=== PATIENT | female | born 1955 | race Caucasian/White ===

== ENCOUNTER 2021-02-04 22:03 | Inpatient (IN) | payer OTHER ==
[2021-02-04] MEDS ORDERED: ALBUTEROL NEBULIZED 2.5 MG/3 ML INHALATION STA (22:10)
[2021-02-04] MEDS ORDERED: methylPREDNISolone SOD SUCCI 125 MG/2 ML VIAL IV STA (22:10)
[2021-02-04] MEDS ORDERED: SODIUM CHLORIDE 0.9% 1,000 ML IV STA (22:10)
[2021-02-04] MEDS ORDERED: IPRATROPIUM 0.5 MG/2.5 ML NEBU INHALATION STA (22:10)
--- NOTE | 2021-02-04 22:10 | ED ---
SOB HPI - General Stated Complaint: SOB Time Seen by Provider: 02/04/21 22:08 Source: RN notes reviewed, old records reviewed Limitations: no limitations - History of Present Illness Initial Comments: This is a 62-year-old female accepted in transfer. Ration is accepted In transfer for COPD exacerbation. Patient sent here for under care of her own physicians MD Complaint: shortness of breath, cough -: days(s) Severity: moderate Severity scale (1-10): 7 Quality: aching Consistency: constant Improves With: nothing Worsens With: nothing Known History Of: COPD - Related Data Home Medications Medication Instructions Recorded Confirmed Albuterol Sulfate [Proair Hfa] 2 puff INHALATION RT-Q4H PRN 03/27/14 02/04/21 Ipratropium/Albuterol Sulfate 3 ml INHALATION RT-Q4H 03/27/14 02/04/21 [Duoneb 0.5 mg-3 mg/3 ml Soln] Loperamide [Imodium] 4 mg PO BID 03/27/14 02/04/21 Loratadine 10 mg PO DAILY 03/27/14 02/04/21 Omeprazole 20 mg PO BID 03/27/14 02/04/21 Oxybutynin Chloride [Ditropan] 5 mg PO BID 03/27/14 02/04/21 Cholecalciferol [Vitamin D3 (25 25 mcg PO HS 02/04/21 02/04/21 Mcg = 1000 Iu)] Fluticasone Nasal [place] [Flonase 2 spr EA NOSTRIL DAILY 02/04/21 02/04/21 Nasal [place]] Fluticasone/Salmeterol [Advair 1 puff INHALATION RT-BID 02/04/21 02/04/21 250-50 Diskus] Gabapentin 300 mg PO BID 02/04/21 02/04/21 Iron Polysaccharide Complex 150 mg PO Q48H 02/04/21 02/04/21 [Ferrex 150] Levothyroxine Sodium [Synthroid] 50 mcg PO HS 02/04/21 02/04/21 Loperamide [Imodium] 2 mg PO HS PRN 02/04/21 02/04/21 Magnesium Oxide [Magox 400] 400 mg PO HS 02/04/21 02/04/21 Metoprolol Succinate [Toprol XL] 25 mg PO DAILY 02/04/21 02/04/21 Mirtazapine [Remeron] 45 mg PO HS 02/04/21 02/04/21 Morphine Sulfate 15 mg PO Q6HR 02/04/21 02/04/21 Morphine Sulfate [Ms Contin] 30 mg PO BID 02/04/21 02/04/21 Multivitamins, Thera [Multivitamin 1 tab PO DAILY 02/04/21 02/04/21 (formulary)] Potassium Chloride ER [K-Dur 20] 20 meq PO HS 02/04/21 02/04/21 QUEtiapine FUMARATE [SEROquel] 200 mg PO HS 02/04/21 02/04/21 QUEtiapine [SEROquel] 50 mg PO HS 02/04/21 02/04/21 QUEtiapine [SEROquel] 100 mg PO DAILY 02/04/21 02/04/21 Tiotropium [place] [Spiriva] 1 cap INHALATION RT-DAILY 02/04/21 02/04/21 busPIRone HCL 15 - 30 mg PO BID 02/04/21 02/04/21 diphenhydrAMINE [Benadryl] 50 mg PO BID 02/04/21 02/04/21 guaiFENesin-DM 100-10MG/5ML 10 ml PO Q4-6H PRN 02/04/21 02/04/21 [Robitussin DM] hydrOXYzine HCL 25 mg PO DAILY 02/04/21 02/04/21 tiZANidine [Zanaflex] 4 mg PO Q8HR 02/04/21 02/04/21 Previous Rx's Medication Instructions Recorded Ipratropium-Albuterol Nebulize 3 ml INHALATION RT-Q2H PRN #1 box 02/09/21 [Duoneb 0.5 mg-3 mg/3 ml Soln] predniSONE See Taper PO DIRECTED 16 Days 02/09/21 #40 tab Allergies Allergy/AdvReac Type Severity Reaction Status Date / Time azithromycin Allergy Swelling Verified 02/04/21 22:16 diltiazem HCl [From Cardizem] Allergy Anaphylaxis Verified 02/04/21 22:16 doxycycline Allergy Swelling Verified 02/04/21 22:16 hydromorphone HCl AdvReac Nausea & Verified 02/04/21 22:16 [From Dilaudid] Vomiting Review of Systems ROS Statement: Those systems with pertinent positive or pertinent negative responses have been documented in the HPI. ROS Other: All systems not noted in ROS Statement are negative. Past Medical History Past Medical History: Asthma, COPD, GERD/Reflux, Osteoarthritis (OA) Additional Past Medical History / Comment(s): DJD, Esophagitis, OCD, barretts esophagus, spinal disk herniation, severe spinal pain. History of Any Multi-Drug Resistant Organisms: MRSA Date of last positivie culture/infection: 12/19/2009 MDRO Source:: Abdomen Past Surgical History: Appendectomy, Back Surgery, Section, Cholecystectomy, Hysterectomy Additional Past Surgical History / Comment(s): D&C, partial hysterectomy, Past Anesthesia/Blood Transfusion Reactions: No Reported Reaction Additional Psychological History / Comment(s): OCD - Past Family History Family Family Medical History: No Reported History General Exam General appearance: alert, in no apparent distress, anxious Head exam: Present: atraumatic, normocephalic, normal inspection Eye exam: Present: normal appearance, PERRL, EOMI. Absent: scleral icterus, conjunctival injection, periorbital swelling ENT exam: Present: normal exam, mucous membranes dry Neck exam: Present: normal inspection. Absent: tenderness, meningismus, lymphadenopathy Respiratory exam: Present: respiratory distress, wheezes, decreased breath sounds, prolonged expiratory. Absent: rales, rhonchi, stridor Cardiovascular Exam: Present: normal rhythm, tachycardia, normal heart sounds. Absent: systolic murmur, diastolic murmur, rubs, gallop, clicks GI/Abdominal exam: Present: soft, normal bowel sounds. Absent: distended, tenderness, guarding, rebound, rigid Extremities exam: Present: normal inspection, full ROM, normal capillary refill. Absent: tenderness, pedal edema, joint swelling, calf tenderness Back exam: Present: normal inspection Neurological exam: Present: alert, oriented X3, CN II-XII intact Psychiatric exam: Present: normal affect, normal mood Skin exam: Present: warm, dry, intact, normal color. Absent: rash Course Vital Signs 02/04/21 02/04/21 02/04/21 22:04 23:15 23:17 Temperature 98.0 F 98.2 F Pulse Rate 107 H 107 H Pulse Rate [ 115 H Pulse Oximetery ] Respiratory 24 20 Rate Blood Pressure 127/85 O2 Sat by Pulse 90 L 92 L Oximetry 02/04/21 23:25 Temperature Pulse Rate 108 H Pulse Rate [ Pulse Oximetery ] Respiratory Rate Blood Pressure O2 Sat by Pulse Oximetry - Reevaluation(s) Reevaluation #1: Medical records reviewed Patient symptoms are improved here in the ER Patient informed results and questions answered Medical Decision Making - Medical Decision Making 65 female history of COPD coming in for COPD exacerbation and need for continued treatment - Lab Data Result diagrams: 02/05/21 05:30 02/05/21 04:58 - EKG Data -: EKG Interpreted by Me (EKG is sinus tachycardia 113 MS 150 QRS 92 QTC 455) Disposition Clinical Impression: Acute exacerbation of chronic obstructive pulmonary disease Disposition: ADMITTED IP TO THIS HOSP Condition: Stable Is patient prescribed a controlled substance at d/c from ED?: No
[2021-02-04] MEDS ORDERED: IPRATROPIUM-ALBUTEROL 3 ML NEB INHALATION STA (22:19)
[2021-02-04] MEDS ORDERED: IPRATROPIUM-ALBUTEROL 3 ML NEB INHALATION PRN (22:57)
[2021-02-05] MEDS: methylPREDNISolone SOD SUCCI 125 MG/2 ML VIAL IV SCH ×4 (00:46→18:02)
[2021-02-05] MEDS: SODIUM CHLORIDE 0.9% 1,000 ML IV SCH ×3 (00:47→19:15)
[2021-02-05] MEDS ORDERED: HYDROcodone/APAP 5-325MG 1 EACH TAB PO STA (00:59)
--- NOTE | 2021-02-05 02:32 | XR ---
EXAMINATION TYPE: XR chest 1V portable DATE OF EXAM: 02/05/2021 COMPARISON: 02/04/2021 HISTORY: Short of breath There is no gross heart failure. Exam limited slightly by patient's size. There is slight blunting of the left costophrenic angle. There are no hilar masses. Mediastinum is normal. Thoracic aorta is ath eromatous. IMPRESSION: Possible infiltrate or minimal pleural fluid at the left lung base. No definite change co mpared to yesterday. No gross heart failure.
[2021-02-05] MEDS ORDERED: IPRATROPIUM-ALBUTEROL 3 ML NEB INHALATION PRN (02:38)
[2021-02-05] MEDS ORDERED: guaiFENesin-DM 100-10MG/5ML 10 ML CUP PO PRN (03:00)
[2021-02-05] MEDS: GABAPENTIN 300 MG CAP PO SCH ×3 (03:27→21:16)
[2021-02-05] MEDS: QUEtiapine 50 MG TAB PO SCH ×2 (03:27→21:16)
[2021-02-05] MEDS: MORPHINE SULFATE ER 30 MG TABLET PO SCH ×3 (03:27→21:16)
[2021-02-05] MEDS: MIRTAZAPINE 45 MG TABLET PO SCH ×2 (03:27→21:15)
[2021-02-05] MEDS: QUEtiapine 200 MG TAB PO SCH ×2 (03:27→21:16)
[2021-02-05] MEDS: SYMBICORT 80-4.5 MCG INHALER INHALATION SCH ×4 (03:27→20:46)
[2021-02-05] MEDS ORDERED: diphenhydrAMINE 50 MG CAP PO PRN (03:36)
--- NOTE | 2021-02-05 03:58 | P.HPIM ---
History of Present Illness H&P Date: 02/05/21 Chief Complaint: shortness of breath 65 year old female with COPD, chronic hypoxic respiratory failure on home oxygen 4 LPM patient is a transfer from [facility], she presented with worsening shortness of breath and wheezing that has been progressing over the past 1 month , she does have history of being intubated multiple times in the past, she found no improvement with breathing treatment today , and decided to call 911. she increased her oxygen from 4 LPM to 6 :LPM and EMS documented hypoxemia at 87% upon arrival to the patient. she denies any smoking, or smoke exposure, she does not leave the house, as she is scared of COVID infection, she has not been vaccinated. she also reports chronic productive cough of yellowish sputum, and in general denies any fever or chills, she reports that she only had one day of fever over the past month . she denies any sick contact , or smoking, denies any chest pain , nausea or vomiting, denies any abd pain , or dysuria . she does report loose bowel movements , and has received short course of antibiotics and steroids about a month ago she is currently requesting her night time medications, she is anxious to get better blood work and imaging from [facility] was reviewed. Review of Systems Pertinent positives as noted in HPI. All other systems were reviewed and are negative Past Medical History Past Medical History: Asthma, COPD, GERD/Reflux, Osteoarthritis (OA) Additional Past Medical History / Comment(s): DJD, Esophagitis, OCD, barretts esophagus, spinal disk herniation, severe spinal pain. History of Any Multi-Drug Resistant Organisms: MRSA Date of last positivie culture/infection: 12/19/2009 MDRO Source:: Abdomen Past Surgical History: Appendectomy, Back Surgery, Section, Cholecystectomy, Hysterectomy Additional Past Surgical History / Comment(s): D&C, partial hysterectomy, Past Anesthesia/Blood Transfusion Reactions: No Reported Reaction Past Psychological History: Anxiety, Depression, PTSD, Schizophrenia Additional Psychological History / Comment(s): OCD Smoking Status: Never smoker Past Alcohol Use History: None Reported Past Drug Use History: Marijuana - Past Family History Family Family Medical History: No Reported History Medications and Allergies Home Medications Medication Instructions Recorded Confirmed Type Albuterol Sulfate [Proair Hfa] 2 puff INHALATION RT-Q4H PRN 03/27/14 02/04/21 History Ipratropium/Albuterol Sulfate 3 ml INHALATION RT-Q4H 03/27/14 02/04/21 History [Duoneb 0.5 mg-3 mg/3 ml Soln] Loperamide [Imodium] 4 mg PO BID 03/27/14 02/04/21 History Loratadine 10 mg PO DAILY 03/27/14 02/04/21 History Omeprazole 20 mg PO BID 03/27/14 02/04/21 History Oxybutynin Chloride [Ditropan] 5 mg PO BID 03/27/14 02/04/21 History Cholecalciferol [Vitamin D3 (25 25 mcg PO HS 02/04/21 02/04/21 History Mcg = 1000 Iu)] Fluticasone Nasal [place] [Flonase 2 spr EA NOSTRIL DAILY 02/04/21 02/04/21 History Nasal [place]] Fluticasone/Salmeterol [Advair 1 puff INHALATION RT-BID 02/04/21 02/04/21 History 250-50 Diskus] Gabapentin 300 mg PO BID 02/04/21 02/04/21 History Iron Polysaccharide Complex 150 mg PO Q48H 02/04/21 02/04/21 History [Ferrex 150] Levothyroxine Sodium [Synthroid] 50 mcg PO HS 02/04/21 02/04/21 History Loperamide [Imodium] 2 mg PO HS PRN 02/04/21 02/04/21 History Magnesium Oxide [Magox 400] 400 mg PO HS 02/04/21 02/04/21 History Metoprolol Succinate [Toprol XL] 25 mg PO DAILY 02/04/21 02/04/21 History Mirtazapine [Remeron] 45 mg PO HS 02/04/21 02/04/21 History Morphine Sulfate 15 mg PO Q6HR 02/04/21 02/04/21 History Morphine Sulfate [Ms Contin] 30 mg PO BID 02/04/21 02/04/21 History Multivitamins, Thera [Multivitamin 1 tab PO DAILY 02/04/21 02/04/21 History (formulary)] Potassium Chloride ER [K-Dur 20] 20 meq PO HS 02/04/21 02/04/21 History QUEtiapine FUMARATE [SEROquel] 200 mg PO HS 02/04/21 02/04/21 History QUEtiapine [SEROquel] 50 mg PO HS 02/04/21 02/04/21 History QUEtiapine [SEROquel] 100 mg PO DAILY 02/04/21 02/04/21 History Tiotropium [place] [Spiriva] 1 cap INHALATION RT-DAILY 02/04/21 02/04/21 History busPIRone HCL 15 - 30 mg PO BID 02/04/21 02/04/21 History diphenhydrAMINE [Benadryl] 50 mg PO BID 02/04/21 02/04/21 History guaiFENesin-DM 100-10MG/5ML 10 ml PO Q4-6H PRN 02/04/21 02/04/21 History [Robitussin DM] hydrOXYzine HCL 25 mg PO DAILY 02/04/21 02/04/21 History tiZANidine [Zanaflex] 4 mg PO Q8HR 02/04/21 02/04/21 History Allergies Allergy/AdvReac Type Severity Reaction Status Date / Time azithromycin Allergy Swelling Verified 02/04/21 22:16 diltiazem HCl [From Cardizem] Allergy Anaphylaxis Verified 02/04/21 22:16 doxycycline Allergy Swelling Verified 02/04/21 22:16 hydromorphone HCl AdvReac Nausea & Verified 02/04/21 22:16 [From Dilaudid] Vomiting Physical Exam Vitals: Vital Signs Temp Pulse Pulse Resp BP BP Pulse Ox 02/05/21 02:18 108 H 02/05/21 02:08 104 H 02/05/21 00:05 98.2 F 113 H 137/88 92 L 02/04/21 23:25 108 H 02/04/21 23:17 98.2 F 115 H 20 92 L 02/04/21 23:15 107 H 02/04/21 22:04 98.0 F 107 H 24 127/85 90 L Intake and Output 02/04/21 02/04/21 02/05/21 14:59 22:59 06:59 Other: Weight 210.104 kg 210.104 kg Constitutional: No acute distress, conversant, pleasant, morbidly obese Eyes: Anicteric sclerae, moist conjunctiva, Pupils equal round reactive to light ENMT: NC/AT Oropharynx clear, no erythema, or exudates Neck: Supple, FROM, no masses, or JVD No carotid bruits No thyromegaly Lungs: Decreased breath sounds throughout with prolonged expiratory phase and diffuse wheezing Clear to percussion Patient using accessory muscles of respiration Cardiovascular: Heart regular in rate and rhythm, No murmurs, gallops, or rubs No peripheral edema Abdominal: Soft Nontender, no guarding, rebound or rigidity Abdomen moving with respiration Normoactive bowel sounds Obese limiting exam Skin: Normal temperature, tone, texture, turgor No induration No subcutaneous nodules No rash, lesions No ulcers Extremities: No digital cyanosis No clubbing Pedal pulses intact and symmetrical Radial pulses intact and symmetrical No calf tenderness Psychiatric: Alert and oriented to person, place and time Appropriate affect fair judgement Neuro Muscles Strength 4/5 in all 4 extremities Sensation to light touch grossly present throughout Cranial nerves II-XII grossly intact No focal sensory deficits Lymphatics: no palpable cervical or supraclavicular , or inguinal lymph nodes Thrombosis Risk Factor Assmnt - Choose All That Apply Each Risk Factor Represents 2 Points: Age 61-74 years Thrombosis Risk Factor Assessment Total Risk Factor Score: 2 Thrombosis Risk Factor Assessment Level: Low Risk Assessment and Plan Assessment: Acute on chronic hypoxic respiratory failure Acute COPD exacerbation Plan Systemic steroids Nebulizer every 2 hours when necessary Symbicort inhaler twice a day Patient ALLERGIC to azithromycin and doxycycline recently has finished a course of amoxicillin Chest x-ray no clear infiltrates suggestive of pneumonia Check ABG as needed Supplemental oxygen as needed Patient declined BiPAP as she doesn't tolerated. Symptomatic control Resume home medications Chronic conditions GERD Osteoarthritis Resume home pain meds Patient is full code DVT prophylaxis heparin subcu 3 times a day Anticipated discharge to home Anticipated length of stay more than 2 midnights
[2021-02-05] MEDS: ALPRAZolam 0.5 MG TAB PO PRN ×2 (04:22→11:41)
[2021-02-05] MEDS: LEVOTHYROXINE 50 MCG TAB PO SCH (06:05)
[2021-02-05 06:50] LABS: Glucose,Whole Blood 268 mg/dL (75-99)
[2021-02-05 06:59] LABS: Anisocytosis Slight; Basophils % (A) 0 %; Eosinophils % (A) 0 %; HCT 43.8 % (34.0-46.0); HGB 13.4 gm/dL (11.4-16.0); Hypochromasia Marked; Lymphocytes # (A) 0.5 k/uL (1.0-4.8); Lymphocytes % (A) 6 %; MCHC 30.7 g/dL (31.0-37.0); MCV 87.7 fL (80.0-100.0); Mean Platelet Volume 8.3; Monocytes # (A) 0.1 k/uL (0-1.0); Monocytes % (A) 1 %; Neutrophils # (A) 7.5 k/uL (1.3-7.7); Neutrophils % (A) 93 %; Platelet Count 221 k/uL (150-450); RBC 4.99 m/uL (3.80-5.40); RDW 16.7 % (11.5-15.5); WBC 8.2 k/uL (3.8-10.6)
[2021-02-05 07:08] LABS: ALT 22 U/L (4-34); AST 25 U/L (14-36); African American GFR (CKD) >90 (>60 ml/min/1.73 sqM); Albumin 3.6 g/dL (3.5-5.0); Alkaline Phosphatase 130 U/L (38-126); Anion Gap 5 mmol/L; Blood Urea Nitrogen 16 mg/dL (7-17); Calcium 9.2 mg/dL (8.4-10.2); Carbon Dioxide 30 mmol/L (22-30); Chloride 105 mmol/L (98-107); Glucose 300 mg/dL (74-99); Non-African American GFR(CKD) >90 (>60 ml/min/1.73 sqM); Potassium 4.8 mmol/L (3.5-5.1); Sodium 140 mmol/L (137-145); Total Bilirubin 0.2 mg/dL (0.2-1.3); Total Protein 6.6 g/dL (6.3-8.2)
[2021-02-05] MEDS: INSULIN ASPART (NovoLOG) 100 UNIT/ML VIAL SQ SCH ×4 (07:25→21:17)
[2021-02-05] MEDS: METOPROLOL SUCCINATE (ER) 25 MG TAB.ER.24H PO SCH (07:53)
[2021-02-05] MEDS: PANTOPRAZOLE 40 MG TABLET PO SCH (07:53)
[2021-02-05] MEDS: tiZANidine 4 MG TAB PO SCH ×2 (07:53→18:02)
[2021-02-05] MEDS: HEPARIN SODIUM,PORCINE/PF 5,000 UNIT/0.5 ML SYRINGE SQ SCH ×2 (07:53→17:13)
[2021-02-05] MEDS: LORATADINE 10 MG TAB PO SCH (07:54)
[2021-02-05] MEDS: OXYBUTYNIN CHLORIDE 5 MG TAB PO SCH ×2 (07:54→21:17)
[2021-02-05] MEDS: QUEtiapine 100 MG TAB PO SCH (07:54)
[2021-02-05] MEDS ORDERED: IPRATROPIUM 0.5 MG/2.5 ML NEBU INHALATION SCH (08:00)
[2021-02-05] MEDS ORDERED: ALBUTEROL NEBULIZED 2.5 MG/3 ML INHALATION SCH (08:00)
[2021-02-05] MEDS: MORPHINE SULFATE IR 15 MG TABLET PO PRN ×2 (08:03→17:21)
--- NOTE | 2021-02-05 10:14 | P.PN ---
Progress Note - Text Progress Note Date: 02/05/21 I saw and evaluated the patient today, and agree with the assessment and plan as documented by my colleague earlier this morning. Will add levofloxacin for abx covg for COPD exacerbation. Roflumilast on discharge.
[2021-02-05] MEDS: IPRATROPIUM-ALBUTEROL 3 ML NEB INHALATION SCH ×3 (11:15→20:46)
[2021-02-05 11:37] LABS: Glucose,Whole Blood 350 mg/dL (75-99)
[2021-02-05] MEDS: LEVOFLOXACIN 750 MG TAB PO SCH (11:41)
[2021-02-05] MEDS: FLUTICASONE 50MCG/SPRAY NASAL 16GM EA NOSTRIL SCH (11:41)
[2021-02-05] MEDS ORDERED: RX INFO: IV CONTRAST WAS GIVEN 1 EACH MISC MISCELLANE PRN (12:42)
--- NOTE | 2021-02-05 12:51 | P.CNPUL ---
History of Present Illness Consult date: 02/05/21 Requesting physician: Teofilo Anderson Reason for consult: dyspnea, abnormal CXR/CT Chief complaint: Shortness of breath, cough, congestion History of present illness: This is a 65-year-old morbidly obese female patient with a history of bronchial asthma, hypertension, nephrolithiasis, complicated abdominal hernia requiring multiple surgeries in the past, previous pneumonias, chronic back pain. She had been seen by our group back in 2013 at which time she had a CT angiogram ruled out pulmonary embolism. However there was a 5.3 x 5.4 cm mass in the right middle lobe. Neoplasm was in the differential. She had not followed up in our office. 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 She states she is a lifelong nonsmoker. She was however exposed to secondhand smoke. She presented to the emergency room yesterday with a one month history of increasing shortness of breath, cough and congestion. She had been on antibiotics and steroids 1 without much improvement. She's had yellow product sohan cough. Low-grade temperature. Some chest tightness and wheezing. She was taking her breathing treatments at home without much improvement. She is seen today in consultation on the regular medical floor. She is currently sitting at the bedside. Awake and alert in no acute distress. Maintaining O2 saturations in the low 90s on 6 L/m per nasal cannula. Afebrile. Slightly tachycardic. Blood pressure stable. She's been initiated on bronchodilators, IV Solu- Medrol, antibiotics in the form of Levaquin. Chest x-ray reveals possible infiltrate or minimal effusion of the left lung base. White count 8.2. Hemoglobin 13.4. Sodium 140. Potassium 4.8. Creatinine 0.71. Jimenez virus not detected. Review of Systems REVIEW OF SYSTEMS: CONSTITUTIONAL: Denies any recent significant weight loss or weight gain. EYES: Denies change in vision. EARS, NOSE, MOUTH, THROAT: Denies headaches, denies sore throat. CARDIOVASCULAR: Denies chest pain, palpitations or syncopal episodes. RESPIRATORY: Positive for shortness of breath, cough, congestion no hemoptysis. GASTROINTESTINAL: Denies change in appetite, denies abdominal pain GENITOURINARY: Denies hematuria, denies infections. MUSKULOSKELETAL: Denies pain, denies swelling. INTEGUMENTARY: Denies rash, denies eczema. NEUROLOGICAL: Denies recent memory loss, no recent seizure activity. PSYCHIATRIC: Denies anxiety, denies depression. HEMATOLOGIC/LYMPHATIC: Denies anemia, denies enlarged lymph nodes. Past Medical History Past Medical History: Asthma, COPD, GERD/Reflux, Osteoarthritis (OA) Additional Past Medical History / Comment(s): DJD, Esophagitis, OCD, barretts esophagus, spinal disk herniation, severe spinal pain. History of Any Multi-Drug Resistant Organisms: MRSA Date of last positivie culture/infection: 12/19/2009 MDRO Source:: Abdomen Past Surgical History: Appendectomy, Back Surgery, Section, Cholecystectomy, Hysterectomy Additional Past Surgical History / Comment(s): D&C, partial hysterectomy, Past Anesthesia/Blood Transfusion Reactions: No Reported Reaction Past Psychological History: Anxiety, Depression, PTSD, Schizophrenia Additional Psychological History / Comment(s): OCD Smoking Status: Never smoker Past Alcohol Use History: None Reported Past Drug Use History: Marijuana - Past Family History Family Family Medical History: No Reported History Medications and Allergies Home Medications Medication Instructions Recorded Confirmed Type Albuterol Sulfate [Proair Hfa] 2 puff INHALATION RT-Q4H PRN 03/27/14 02/04/21 History Ipratropium/Albuterol Sulfate 3 ml INHALATION RT-Q4H 03/27/14 02/04/21 History [Duoneb 0.5 mg-3 mg/3 ml Soln] Loperamide [Imodium] 4 mg PO BID 03/27/14 02/04/21 History Loratadine 10 mg PO DAILY 03/27/14 02/04/21 History Omeprazole 20 mg PO BID 03/27/14 02/04/21 History Oxybutynin Chloride [Ditropan] 5 mg PO BID 03/27/14 02/04/21 History Cholecalciferol [Vitamin D3 (25 25 mcg PO HS 02/04/21 02/04/21 History Mcg = 1000 Iu)] Fluticasone Nasal [place] [Flonase 2 spr EA NOSTRIL DAILY 02/04/21 02/04/21 History Nasal [place]] Fluticasone/Salmeterol [Advair 1 puff INHALATION RT-BID 02/04/21 02/04/21 History 250-50 Diskus] Gabapentin 300 mg PO BID 02/04/21 02/04/21 History Iron Polysaccharide Complex 150 mg PO Q48H 02/04/21 02/04/21 History [Ferrex 150] Levothyroxine Sodium [Synthroid] 50 mcg PO HS 02/04/21 02/04/21 History Loperamide [Imodium] 2 mg PO HS PRN 02/04/21 02/04/21 History Magnesium Oxide [Magox 400] 400 mg PO HS 02/04/21 02/04/21 History Metoprolol Succinate [Toprol XL] 25 mg PO DAILY 02/04/21 02/04/21 History Mirtazapine [Remeron] 45 mg PO HS 02/04/21 02/04/21 History Morphine Sulfate 15 mg PO Q6HR 02/04/21 02/04/21 History Morphine Sulfate [Ms Contin] 30 mg PO BID 02/04/21 02/04/21 History Multivitamins, Thera [Multivitamin 1 tab PO DAILY 02/04/21 02/04/21 History (formulary)] Potassium Chloride ER [K-Dur 20] 20 meq PO HS 02/04/21 02/04/21 History QUEtiapine FUMARATE [SEROquel] 200 mg PO HS 02/04/21 02/04/21 History QUEtiapine [SEROquel] 50 mg PO HS 02/04/21 02/04/21 History QUEtiapine [SEROquel] 100 mg PO DAILY 02/04/21 02/04/21 History Tiotropium [place] [Spiriva] 1 cap INHALATION RT-DAILY 02/04/21 02/04/21 History busPIRone HCL 15 - 30 mg PO BID 02/04/21 02/04/21 History diphenhydrAMINE [Benadryl] 50 mg PO BID 02/04/21 02/04/21 History guaiFENesin-DM 100-10MG/5ML 10 ml PO Q4-6H PRN 02/04/21 02/04/21 History [Robitussin DM] hydrOXYzine HCL 25 mg PO DAILY 02/04/21 02/04/21 History tiZANidine [Zanaflex] 4 mg PO Q8HR 02/04/21 02/04/21 History Allergies Allergy/AdvReac Type Severity Reaction Status Date / Time azithromycin Allergy Swelling Verified 02/04/21 22:16 diltiazem HCl [From Cardizem] Allergy Anaphylaxis Verified 02/04/21 22:16 doxycycline Allergy Swelling Verified 02/04/21 22:16 hydromorphone HCl AdvReac Nausea & Verified 02/04/21 22:16 [From Dilaudid] Vomiting Physical Exam Vitals: Vital Signs Temp Pulse Pulse Resp BP BP Pulse Ox 02/05/21 11:28 112 H 02/05/21 11:15 112 H 02/05/21 08:36 124 H 02/05/21 08:22 124 H 02/05/21 06:05 97.8 F 122 H 20 140/89 90 L 02/05/21 02:18 108 H 02/05/21 02:08 104 H 02/05/21 00:05 98.2 F 113 H 137/88 92 L 02/04/21 23:25 108 H 02/04/21 23:17 98.2 F 115 H 20 92 L 02/04/21 23:15 107 H 02/04/21 22:04 98.0 F 107 H 24 127/85 90 L Intake and Output 02/04/21 02/05/21 02/05/21 22:59 06:59 14:59 Other: # Voids 1 Weight 210.104 kg 210.104 kg GENERAL EXAM: Alert, pleasant, morbidly obese 65-year-old female patient, on 6 L nasal cannula, comfortable in no apparent distress. HEAD: Normocephalic. EYES: Normal reaction of pupils, equal size. NOSE: Clear with pink turbinates. THROAT: No erythema or exudates. NECK: No masses, no JVD. CHEST: No chest wall deformity. LUNGS: Equal air entry with bilateral end expiratory wheeze, diminished. CVS: S1 and S2 normal with no audible murmur, regular rhythm. ABDOMEN: No hepatosplenomegaly, normal bowel sounds, no guarding or rigidity. SPINE: No scoliosis or deformity SKIN: No rashes CENTRAL NERVOUS SYSTEM: No focal deficits, tone is normal in all 4 extremities. EXTREMITIES: There is 1-2+ peripheral edema. No clubbing, no cyanosis. Peripheral pulses are intact. Results - Laboratory Findings CBC and BMP: 02/05/21 05:30 02/05/21 04:58 Abnormal lab findings: Abnormal Labs 02/05/21 02/05/21 02/05/21 04:58 05:30 06:48 MCHC 30.7 L RDW 16.7 H Lymphocytes # 0.5 L Glucose 300 H POC Glucose (mg/dL) 268 H Alkaline Phosphatase 130 H 02/05/21 11:34 MCHC RDW Lymphocytes # Glucose POC Glucose (mg/dL) 350 H Alkaline Phosphatase - Diagnostic Findings Chest x-ray: image reviewed Assessment and Plan Assessment: 1 Acute hypoxic respiratory failure secondary to a possible early left lower lobe pneumonia, failed outpatient treatment 2 Acute exacerbation of mild intermittent chronic bronchial asthma 3 History of right middle lobe lung mass measuring 5.3 x 5.4 noted in 2013, neoplasm within the differential, no further workup here 4 Lifelong nonsmoker 5 Previous history of recurrent pneumonias 6 Morbid obesity, BMI 70.4 kg per metered squared 7 History of complicated abdominal hernias with multiple surgeries mainly at [facility] 8 History of nephrolithiasis 9 Hypertension 10 Chronic back pain Plan: The patient was seen and evaluated by Dr. Harrington Chest x-ray and labs reviewed Continue Levaquin, bronchodilators, steroids Titrate down the FiO2 as tolerated CT scan of the chest to evaluate previous lung mass We will continue to follow and make further recommendations based on her clinical status I, the cosigning physician, performed a history & physical examination of the patient. Lungs sounds bilateral end expiratory wheeze, diminished. Maintaining good O2 saturations in the 90s on 6 L/m per nasal cannula. I discussed the assessment and plan of care with my nurse practitioner, Rosa Manzanares. I attest to the above consultation as dictated by her. Time with Patient: Greater than 30
--- NOTE | 2021-02-05 16:01 | CT ---
EXAMINATION TYPE: CT chest w con DATE OF EXAM: 02/05/2021 COMPARISON: 03/28/2014 HISTORY: Difficulty breathing. CT DLP: 1773.6 mGycm Automated exposure control for dose reduction was used. CONTRAST: Performed with IV Contrast, patient injected with 100ml mL of Isovue 370. The lungs are clear of consolidation. There is no evidence of a pulmonary mass. There is no pleural e ffusion. There is no pericardial effusion. There is minimal subsegmental atelectasis at the lung base s. Heart size is normal. There is no mediastinal adenopathy. There are no hilar masses. Thoracic spin e is intact. Thoracic aorta is intact. There is no aneurysm or dissection. IMPRESSION: Minimal subsegmental atelectasis at the lung bases. No suspicious pulmonary mass. There is overall im proved aeration of the lungs compared to old exam. There is clearing of a large infiltrate in the rig ht middle lobe compared to old exam. There is clearing of the pleural effusion.
[2021-02-05 16:48] LABS: Glucose,Whole Blood 165 mg/dL (75-99)
[2021-02-05 20:59] LABS: Glucose,Whole Blood 249 mg/dL (75-99)
[2021-02-06] MEDS: HEPARIN SODIUM,PORCINE/PF 5,000 UNIT/0.5 ML SYRINGE SQ SCH ×4 (00:49→23:41)
[2021-02-06] MEDS: methylPREDNISolone SOD SUCCI 125 MG/2 ML VIAL IV SCH ×5 (00:50→23:40)
[2021-02-06] MEDS: ALPRAZolam 0.5 MG TAB PO PRN ×2 (00:58→17:41)
[2021-02-06] MEDS: tiZANidine 4 MG TAB PO SCH ×4 (00:58→23:40)
[2021-02-06] MEDS: SODIUM CHLORIDE 0.9% 1,000 ML IV SCH (06:01)
[2021-02-06] MEDS: LEVOTHYROXINE 50 MCG TAB PO SCH (06:05)
[2021-02-06 07:07] LABS: Glucose,Whole Blood 312 mg/dL (75-99)
[2021-02-06] MEDS ORDERED: LOPERAMIDE 2 MG CAP PO PRN (08:15)
[2021-02-06] MEDS: IPRATROPIUM-ALBUTEROL 3 ML NEB INHALATION SCH ×4 (08:36→20:15)
[2021-02-06] MEDS: SYMBICORT 80-4.5 MCG INHALER INHALATION SCH ×2 (08:36→20:15)
[2021-02-06] MEDS: INSULIN ASPART (NovoLOG) 100 UNIT/ML VIAL SQ SCH ×6 (08:47→22:30)
[2021-02-06] MEDS: METOPROLOL SUCCINATE (ER) 25 MG TAB.ER.24H PO SCH (08:50)
[2021-02-06] MEDS: MORPHINE SULFATE ER 30 MG TABLET PO SCH ×2 (08:50→19:46)
[2021-02-06] MEDS: LORATADINE 10 MG TAB PO SCH (08:50)
[2021-02-06] MEDS: MULTIVITAMINS, THERA 1 EACH TAB PO SCH (08:50)
[2021-02-06] MEDS: QUEtiapine 100 MG TAB PO SCH (08:51)
[2021-02-06] MEDS: FLUTICASONE 50MCG/SPRAY NASAL 16GM EA NOSTRIL SCH (08:51)
[2021-02-06] MEDS: PANTOPRAZOLE 40 MG TABLET PO SCH (08:51)
[2021-02-06] MEDS: OXYBUTYNIN CHLORIDE 5 MG TAB PO SCH ×2 (08:51→22:32)
[2021-02-06] MEDS: GABAPENTIN 300 MG CAP PO SCH ×2 (08:52→19:46)
[2021-02-06] MEDS: LEVOFLOXACIN 750 MG TAB PO SCH (08:52)
[2021-02-06] MEDS: LOPERAMIDE 2 MG CAP PO SCH ×2 (08:52→22:33)
[2021-02-06] MEDS: INSULIN DETEMIR (LEVEMIR) 100 UNIT/ML SYR SQ SCH (09:03)
--- NOTE | 2021-02-06 10:48 | P.PN ---
Subjective Progress Note Date: 02/06/21 No new complaints. Coughing up sputum which is yellow. Feels improved, but not back to baseline. Still with significant wheezing. Anxiety regarding results of CT scan, which ws neg for malignancy. Objective - Vital Signs Vital signs: Vital Signs Temp 97.7 F 02/06/21 07:18 Pulse 81 02/06/21 08:47 Resp 18 02/06/21 07:18 BP 142/85 02/06/21 07:18 Pulse Ox 97 02/06/21 07:18 Intake & Output 02/05/21 02/06/21 02/06/21 18:59 06:59 18:59 Intake Total 600 Balance 600 Intake: Oral 600 Other: Voiding Method Bedside Commode # Voids 2 2 - Exam Gen: awake, alert, morbidly obese woman HEENT: normocephalic, atraumatic, good hearing acuity, moist mucous membranes Resp: Diminished air exchange, no accessory muscle use, mid expiratory wheezing, rhonchi present CVS: good distal perfusion x 4, regular rate and rhythm without murmurs GI: soft, NTTP, ND : no SPT, no CVAT, bautista catheter not present MSK: +pitting edema, no clubbing Neuro: non-focal, moving all extremities Psych: cooperative, anxious mood - Labs CBC & Chem 7: 02/05/21 05:30 02/05/21 04:58 Labs: Abnormal Lab Results - Last 24 Hours (Table) 02/05/21 02/05/21 02/05/21 Range/Units 11:34 16:46 20:57 POC Glucose (mg/dL) 350 H 165 H 249 H (75-99) mg/dL 02/06/21 Range/Units 07:04 POC Glucose (mg/dL) 312 H (75-99) mg/dL Assessment and Plan Assessment: Acute on Chronic Hypoxemic Respiratory Failure Acute Asthma/COPD Exacerbation Community Acquired Pneumonia -oxygen PRN; home O2 of 4L via NC -duonebs q6h + q2h PRN -solumedrol 60mg IV q6h -CXR, CT Chest with possible early LLL pneumonia -levofloxacin 750mg PO q24 hours -continue tiotropium, symbicort -continue guaifenesin GERD Osteoarthritis DM, type II Morbid Obesity, BMI 70.4 -Home medications reviewed and reconciled -continue home seroquel, mirtazapine -continue home metoprolol -continue home PPI -continue home tizanidine, morphine ER/IR combination -accuchecks qAC/HS; levemir 10U daily + lispro 5U AC-TID + lispro SSI -recommend outpatient bariatic surgery referral Patient is full code DVT prophylaxis heparin subcu 3 times a day Anticipated discharge to home Anticipated length of stay more than 2 midnights
[2021-02-06 12:09] LABS: Glucose,Whole Blood 345 mg/dL (75-99)
--- NOTE | 2021-02-06 12:34 | P.PN ---
Subjective Progress Note Date: 02/06/21 This is a 65-year-old morbidly obese female patient with a history of bronchial asthma, hypertension, nephrolithiasis, complicated abdominal hernia requiring multiple surgeries in the past, previous pneumonias, chronic back pain. She had been seen by our group back in 2013 at which time she had a CT angiogram ruled out pulmonary embolism. However there was a 5.3 x 5.4 cm mass in the right middle lobe. Neoplasm was in the differential. She had not followed up in our office. She states she has been to [facility] and follows with director of user experience in [place] and there was no further mention of cancer. She states she is a lifelong nonsmoker. She was however exposed to secondhand smoke. She presented to the emergency room yesterday with a one month history of increasing shortness of breath, cough and congestion. She had been on antibiotics and steroids 1 without much improvement. She's had yellow productive cough. Low-grade temperature. Some chest tightness and wheezing. She was taking her breathing treatments at home without much improvement. She is seen today in consultation on the regular medical floor. She is currently sitting at the bedside. Awake and alert in no acute distress. Maintaining O2 saturations in the low 90s on 6 L/m per nasal cannula. Afebrile. Slightly tachycardic. Blood pressure stable. She's been initiated on bronchodilators, IV Solu-Medrol, antibiotics in the form of Levaquin. Chest x-ray reveals possible infiltrate or minimal effusion of the left lung base. White count 8.2. Hemoglobin 13.4. Sodium 140. Potassium 4.8. Creatinine 0.71. Jimenez virus not detected. The patient is seen today 02/06/2021 in follow-up on the regular medical floor. She is currently sitting up at the bedside. Awake and alert in no acute distress. Breathing a bit better today compared to yesterday. Follow-up computed tomography scan of the chest did not reveal any evidence of right middle lobe mass. Very minimal subsegmental atelectasis of the lung bases otherwise no significant findings. She is maintaining O2 saturations in the upper 90s on 6 L high flow nasal cannula. She's afebrile. Hemodynamically stable. Remains on DuoNeb inhalations, Symbicort, IV Solu-Medrol. Antibiotics in the form of Levaquin. Objective - Vital Signs Vital signs: Vital Signs Temp 97.7 F 02/06/21 07:18 Pulse 81 02/06/21 08:47 Resp 18 02/06/21 07:18 BP 142/85 02/06/21 07:18 Pulse Ox 97 02/06/21 07:18 Intake & Output 02/05/21 02/06/21 02/06/21 18:59 06:59 18:59 Intake Total 600 Balance 600 Intake: Oral 600 Other: Voiding Method Bedside Commode Bedside Commode # Voids 2 2 - Exam GENERAL EXAM: Alert, pleasant, morbidly obese 65-year-old female patient, on 6 L nasal cannula, comfortable in no apparent distress. HEAD: Normocephalic. EYES: Normal reaction of pupils, equal size. NOSE: Clear with pink turbinates. THROAT: No erythema or exudates. NECK: No masses, no JVD. CHEST: No chest wall deformity. LUNGS: Equal air entry with bilateral end expiratory wheeze, diminished. CVS: S1 and S2 normal with no audible murmur, regular rhythm. ABDOMEN: No hepatosplenomegaly, normal bowel sounds, no guarding or rigidity. SPINE: No scoliosis or deformity SKIN: No rashes CENTRAL NERVOUS SYSTEM: No focal deficits, tone is normal in all 4 extremities. EXTREMITIES: There is 1-2+ peripheral edema. No clubbing, no cyanosis. Peripheral pulses are intact. - Labs CBC & Chem 7: 02/05/21 05:30 02/05/21 04:58 Labs: Abnormal Lab Results - Last 24 Hours (Table) 02/05/21 02/05/21 02/06/21 Range/Units 16:46 20:57 07:04 POC Glucose (mg/dL) 165 H 249 H 312 H (75-99) mg/dL 02/06/21 Range/Units 12:07 POC Glucose (mg/dL) 345 H (75-99) mg/dL Assessment and Plan Assessment: 1 Acute hypoxic respiratory failure secondary to a possible early left lower lobe pneumonia, failed outpatient treatment 2 Acute exacerbation of mild intermittent chronic bronchial asthma 3 History of right middle lobe lung mass measuring 5.3 x 5.4 noted in 2013, neoplasm within the differential, follow-up computed tomography scan yesterday revealed no evidence of a right middle lobe mass or any other pulmonary concerns other than minimal subsegmental atelectasis 4 Lifelong nonsmoker 5 Previous history of recurrent pneumonias 6 Morbid obesity, BMI 70.4 kg per metered squared 7 History of complicated abdominal hernias with multiple surgeries mainly at [facility] 8 History of nephrolithiasis 9 Hypertension 10 Chronic back pain Plan: The patient was seen and evaluated by Dr. Harrington CT scan of the chest revealed no evidence of right middle lobe mass No acute pulmonary process, minimal subsegmental atelectasis Continue Levaquin, bronchodilators, steroids Titrate down the FiO2 as tolerated We will continue to follow I, the cosigning physician, performed a history & physical examination of the patient. Lungs sounds bilateral end expiratory wheeze, diminished. Maintaining good O2 saturations in the 90s on 6 L/m per nasal cannula. I discussed the assessment and plan of care with my nurse practitioner, Rosa Manzanares. I attest to the above note as dictated by her.
[2021-02-06 16:48] LABS: Glucose,Whole Blood 234 mg/dL (75-99)
[2021-02-06 22:04] LABS: Glucose,Whole Blood 265 mg/dL (75-99)
[2021-02-06] MEDS: QUEtiapine 50 MG TAB PO SCH (22:31)
[2021-02-06] MEDS: MIRTAZAPINE 45 MG TABLET PO SCH (22:31)
[2021-02-06] MEDS: QUEtiapine 200 MG TAB PO SCH (22:31)
[2021-02-07] MEDS: LEVOTHYROXINE 50 MCG TAB PO SCH (05:51)
[2021-02-07] MEDS: methylPREDNISolone SOD SUCCI 125 MG/2 ML VIAL IV SCH (05:51)
[2021-02-07] MEDS: ALPRAZolam 0.5 MG TAB PO PRN ×2 (05:57→15:11)
[2021-02-07 07:15] LABS: Glucose,Whole Blood 197 mg/dL (75-99)
[2021-02-07] MEDS: SYMBICORT 80-4.5 MCG INHALER INHALATION SCH ×2 (07:24→19:34)
[2021-02-07] MEDS: IPRATROPIUM-ALBUTEROL 3 ML NEB INHALATION SCH ×4 (07:24→19:35)
[2021-02-07] MEDS: OXYBUTYNIN CHLORIDE 5 MG TAB PO SCH ×2 (07:37→21:07)
[2021-02-07] MEDS: GABAPENTIN 300 MG CAP PO SCH ×2 (07:37→21:03)
[2021-02-07] MEDS: LORATADINE 10 MG TAB PO SCH (07:37)
[2021-02-07] MEDS: PANTOPRAZOLE 40 MG TABLET PO SCH (07:37)
[2021-02-07] MEDS: LOPERAMIDE 2 MG CAP PO SCH ×2 (07:37→21:06)
[2021-02-07] MEDS: MORPHINE SULFATE ER 30 MG TABLET PO SCH ×2 (07:38→21:06)
[2021-02-07] MEDS: METOPROLOL SUCCINATE (ER) 25 MG TAB.ER.24H PO SCH (07:38)
[2021-02-07] MEDS: INSULIN DETEMIR (LEVEMIR) 100 UNIT/ML SYR SQ SCH (07:39)
[2021-02-07] MEDS: INSULIN ASPART (NovoLOG) 100 UNIT/ML VIAL SQ SCH ×7 (07:39→21:03)
[2021-02-07] MEDS: HEPARIN SODIUM,PORCINE/PF 5,000 UNIT/0.5 ML SYRINGE SQ SCH ×2 (07:40→15:11)
[2021-02-07] MEDS: MULTIVITAMINS, THERA 1 EACH TAB PO SCH (07:41)
[2021-02-07] MEDS: tiZANidine 4 MG TAB PO SCH ×2 (07:43→15:11)
[2021-02-07] MEDS: QUEtiapine 100 MG TAB PO SCH (07:43)
[2021-02-07] MEDS: LEVOFLOXACIN 750 MG TAB PO SCH (07:43)
[2021-02-07] MEDS: FLUTICASONE 50MCG/SPRAY NASAL 16GM EA NOSTRIL SCH (07:44)
[2021-02-07 12:03] LABS: Glucose,Whole Blood 301 mg/dL (75-99)
--- NOTE | 2021-02-07 13:19 | P.PN ---
Subjective Progress Note Date: 02/07/21 No new complaints at this time. Improving cough, dyspnea. Still quite anxious. Objective - Vital Signs Vital signs: Vital Signs Temp 98.3 F 02/07/21 07:39 Pulse 78 02/07/21 11:05 Resp 23 02/07/21 08:00 BP 170/84 02/07/21 07:39 Pulse Ox 96 02/07/21 07:39 Intake & Output 02/06/21 02/07/21 02/07/21 18:59 06:59 18:59 Intake Total 800 Balance 800 Intake: Oral 800 Other: Voiding Method Bedside Commode Bedside Commode Bedside Commode # Voids 4 - Exam Gen: awake, alert, morbidly obese woman HEENT: normocephalic, atraumatic, good hearing acuity, moist mucous membranes Resp: Diminished air exchange, no accessory muscle use, mid expiratory wheezing, rhonchi present CVS: good distal perfusion x 4, regular rate and rhythm without murmurs GI: soft, NTTP, ND : no SPT, no CVAT, bautista catheter not present MSK: +pitting edema, no clubbing Neuro: non-focal, moving all extremities Psych: cooperative, anxious mood - Labs CBC & Chem 7: 02/05/21 05:30 02/05/21 04:58 Labs: Abnormal Lab Results - Last 24 Hours (Table) 02/06/21 02/06/21 02/07/21 Range/Units 16:46 22:02 07:13 POC Glucose (mg/dL) 234 H 265 H 197 H (75-99) mg/dL 02/07/21 Range/Units 12:01 POC Glucose (mg/dL) 301 H (75-99) mg/dL Assessment and Plan Assessment: Acute on Chronic Hypoxemic Respiratory Failure Acute Asthma/COPD Exacerbation Community Acquired Pneumonia -oxygen PRN; home O2 of 4L via NC -duonebs q6h + q2h PRN -solumedrol 60mg IV q6h -CXR, CT Chest with possible early LLL pneumonia -levofloxacin 750mg PO q24 hours -continue tiotropium, symbicort -continue guaifenesin -roflumilast on discharge GERD Osteoarthritis DM, type II Morbid Obesity, BMI 70.4 -Home medications reviewed and reconciled -continue home seroquel, mirtazapine -continue home metoprolol -continue home PPI -continue home tizanidine, morphine ER/IR combination -accuchecks qAC/HS; levemir 10U daily + lispro 5U AC-TID + lispro SSI -recommend outpatient bariatic surgery referral Patient is full code DVT prophylaxis heparin subcu 3 times a day Anticipated discharge to home Anticipated length of stay more than 2 midnights
--- NOTE | 2021-02-07 14:16 | P.PN ---
Subjective Progress Note Date: 02/07/21 Principal diagnosis: Acute hypoxic respiratory failure secondary to atelectasis This is a 65-year-old morbidly obese female patient with a history of bronchial asthma, hypertension, nephrolithiasis, complicated abdominal hernia requiring multiple surgeries in the past, previous pneumonias, chronic back pain. She had been seen by our group back in 2013 at which time she had a CT angiogram ruled out pulmonary embolism. However there was a 5.3 x 5.4 cm mass in the right middle lobe. Neoplasm was in the differential. She had not followed up in our office. She states she has been to [facility] and follows with clinical educator in [place] and there was no further mention of cancer. She states she is a lifelong nonsmoker. She was however exposed to secondhand smoke. She presented to the emergency room yesterday with a one month history of increasing shortness of breath, cough and congestion. She had been on antibiotics and steroids 1 without much improvement. She's had yellow productive cough. Low-grade temperature. Some chest tightness and wheezing. She was taking her breathing treatments at home without much improvement. She is seen today in consultation on the regular medical floor. She is currently sitting at the bedside. Awake and alert in no acute distress. Maintaining O2 saturations in the low 90s on 6 L/m per nasal cannula. Afebrile. Slightly tachycardic. Blood pressure stable. She's been initiated on bronchodilators, IV Solu-Medrol, antibiotics in the form of Levaquin. Chest x-ray reveals possible infiltrate or minimal effusion of the left lung base. White count 8.2. Hemoglobin 13.4. Sodium 140. Potassium 4.8. Creatinine 0.71. Jimenez virus not detected. The patient is seen today 02/06/2021 in follow-up on the regular medical floor. She is currently sitting up at the bedside. Awake and alert in no acute distr ess. Breathing a bit better today compared to yesterday. Follow-up computed tomography scan of the chest did not reveal any evidence of right middle lobe mass. Very minimal subsegmental atelectasis of the lung bases otherwise no significant findings. She is maintaining O2 saturations in the upper 90s on 6 L high flow nasal cannula. She's afebrile. Hemodynamically stable. Remains on DuoNeb inhalations, Symbicort, IV Solu-Medrol. Antibiotics in the form of Levaquin. On 01/30/2021 patient seen in follow-up on medical surgical floor, she is awake and alert, she sits up in bed, she is talking on the phone, appears to be breathing comfortably, she is on 6 L of oxygen pulse ox is 96%, she's been afebrile, vital signs have been stable, breathing comfortably, no complaints of chest pain. Her FiO2 can probably be weaned down. She continues on Levaquin for empiric abiotic coverage, her lab work is negative for any leukocytosis, COVID-19 PCR was negative, CT chest showed minimal subsegmental atelectasis at the lung bases. The possibility of pneumonia is doubtful. No cough, no chest pain. She continues on Solu-Medrol 60 mg every 6 hours, continues on nebulized bronchodilators, and cough syrup. Objective - Vital Signs Vital signs: Vital Signs Temp 98.3 F 02/07/21 07:39 Pulse 78 02/07/21 11:05 Resp 23 02/07/21 08:00 BP 170/84 02/07/21 07:39 Pulse Ox 96 02/07/21 07:39 Intake & Output 02/06/21 02/07/21 02/07/21 18:59 06:59 18:59 Intake Total 800 Balance 800 Intake: Oral 800 Other: Voiding Method Bedside Commode Bedside Commode Bedside Commode # Voids 4 - Exam GENERAL EXAM: Alert, very pleasant, 65-year-old obese white female, on 6 L of oxygen, with pulse ox of 96% comfortable in no apparent distress. HEAD: Normocephalic/atraumatic. EYES: Normal reaction of pupils, equal size. Conjunctiva pink, sclera white. NOSE: Clear with pink turbinates. THROAT: No erythema or exudates. NECK: No masses, no JVD, no thyroid enlargement, no adenopathy. CHEST: No chest wall deformity. Symmetrical expansion. LUNGS: Equal air entry with crackles CVS: Regular rate and rhythm, normal S1 and S2, no gallops, no murmurs, no rubs ABDOMEN: Soft, nontender. No hepatosplenomegaly, normal bowel sounds, no guarding or rigidity. EXTREMITIES: No clubbing, no edema, no cyanosis, 2+ pulses and upper and lower extremities. MUSCULOSKELETAL: Muscle strength and tone normal. SPINE: No scoliosis or deformity SKIN: No rashes CENTRAL NERVOUS SYSTEM: Alert and oriented -3. No focal deficits, tone is normal in all 4 extremities. PSYCHIATRIC: Alert and oriented -3. Appropriate affect. Intact judgment and insight. - Labs CBC & Chem 7: 02/05/21 05:30 02/05/21 04:58 Labs: Abnormal Lab Results - Last 24 Hours (Table) 02/06/21 02/06/21 02/07/21 Range/Units 16:46 22:02 07:13 POC Glucose (mg/dL) 234 H 265 H 197 H (75-99) mg/dL 02/07/21 Range/Units 12:01 POC Glucose (mg/dL) 301 H (75-99) mg/dL Assessment and Plan Plan: Assessment: #1. Acute hypoxic respiratory failure secondary to atelectasis, possibility of pneumonia is doubtful. Clinically patient is improving, vital signs have been stable, no fever, COVID-19 has been ruled out #2. Acute exacerbation of mild intermittent chronic bronchial asthma #3. History of right middle lobe lung mass, with consideration of a neoplasm in the differential, computed tomography scan of the chest on 02/05/2021 showed no evidence of right middle lobe mass or any other pulmonary concerns other than minimal subsegmental atelectasis #4. Lifelong nonsmoker #5. Previous history of recurrent pneumonias #6. Morbid obesity with BMI of 70.4 kg/m #7. History of complicated abdominal hernias with multiple surgeries at the [facility] #8. History of nephrolithiasis #9. Hypertension #10. Chronic back pain Plan: Continue weaning FiO2 to keep O2 sats ration at or above 90% Clinically stable, breathing comfortably Vital signs are stable, afebrile Discontinue antibiotics, CT chest on a revealed minimal subsegmental atelectasis, no acute pulmonary process Stop IV steroids Patient is stable for discharge home from pulmonary perspective Outpatient follow-up with Dr. Tamayo in the office in 7-10 days I performed a history & physical examination of the patient and discussed their management with my nurse practitioner, Allegra Adams. I reviewed the nurse practitioner's note and agree with the documented findings and plan of care. Lung sounds are positive for diminished breath sounds. The findings and the impression was discussed with the patient. I attest to the documentation by the nurse practitioner. Time with Patient: Less than 30
[2021-02-07] MEDS: MORPHINE SULFATE IR 15 MG TABLET PO PRN (14:40)
[2021-02-07 16:28] LABS: Glucose,Whole Blood 301 mg/dL (75-99)
[2021-02-07 20:44] LABS: Glucose,Whole Blood 216 mg/dL (75-99)
[2021-02-07] MEDS: MIRTAZAPINE 45 MG TABLET PO SCH (21:06)
[2021-02-07] MEDS: QUEtiapine 50 MG TAB PO SCH (21:08)
[2021-02-07] MEDS: QUEtiapine 200 MG TAB PO SCH (21:08)
[2021-02-08] MEDS: LEVOTHYROXINE 50 MCG TAB PO SCH (05:30)
[2021-02-08 07:14] LABS: Glucose,Whole Blood 173 mg/dL (75-99)
[2021-02-08] MEDS: IPRATROPIUM-ALBUTEROL 3 ML NEB INHALATION SCH ×4 (07:17→20:53)
[2021-02-08] MEDS: SYMBICORT 80-4.5 MCG INHALER INHALATION SCH (07:17)
[2021-02-08] MEDS: PANTOPRAZOLE 40 MG TABLET PO SCH (08:17)
[2021-02-08] MEDS: GABAPENTIN 300 MG CAP PO SCH ×2 (08:17→21:00)
[2021-02-08] MEDS: LOPERAMIDE 2 MG CAP PO SCH ×2 (08:17→21:01)
[2021-02-08] MEDS: MORPHINE SULFATE ER 30 MG TABLET PO SCH ×2 (08:17→21:01)
[2021-02-08] MEDS: HEPARIN SODIUM,PORCINE/PF 5,000 UNIT/0.5 ML SYRINGE SQ SCH ×4 (08:19→23:44)
[2021-02-08] MEDS: LORATADINE 10 MG TAB PO SCH (08:19)
[2021-02-08] MEDS: METOPROLOL SUCCINATE (ER) 25 MG TAB.ER.24H PO SCH (08:19)
[2021-02-08] MEDS: INSULIN DETEMIR (LEVEMIR) 100 UNIT/ML SYR SQ SCH ×2 (08:19→12:22)
[2021-02-08] MEDS: OXYBUTYNIN CHLORIDE 5 MG TAB PO SCH ×2 (08:19→21:02)
[2021-02-08] MEDS: FLUTICASONE 50MCG/SPRAY NASAL 16GM EA NOSTRIL SCH (08:19)
[2021-02-08] MEDS: MULTIVITAMINS, THERA 1 EACH TAB PO SCH (08:19)
[2021-02-08] MEDS: INSULIN ASPART (NovoLOG) 100 UNIT/ML VIAL SQ SCH ×7 (08:21→21:00)
[2021-02-08] MEDS: tiZANidine 4 MG TAB PO SCH ×4 (08:23→23:45)
[2021-02-08] MEDS: QUEtiapine 100 MG TAB PO SCH (10:27)
[2021-02-08] MEDS: predniSONE 50 MG TAB PO SCH (10:28)
--- NOTE | 2021-02-08 10:44 | P.PN ---
Subjective Progress Note Date: 02/08/21 Principal diagnosis: Acute hypoxic respiratory failure secondary to atelectasis This is a 65-year-old morbidly obese female patient with a history of bronchial asthma, hypertension, nephrolithiasis, complicated abdominal hernia requiring multiple surgeries in the past, previous pneumonias, chronic back pain. She had been seen by our group back in 2013 at which time she had a CT angiogram ruled out pulmonary embolism. However there was a 5.3 x 5.4 cm mass in the right middle lobe. Neoplasm was in the differential. She had not followed up in our office. She states she has been to [facility] and follows with bird keeper in [place] and there was no further mention of cancer. She states she is a lifelong nonsmoker. She was however exposed to secondhand smoke. She presented to the emergency room yesterday with a one month history of increasing shortness of breath, cough and congestion. She had been on antibiotics and steroids 1 without much improvement. She's had yellow productive cough. Low-grade temperature. Some chest tightness and wheezing. She was taking her breathing treatments at home without much improvement. She is seen today in consultation on the regular medical floor. She is currently sitting at the bedside. Awake and alert in no acute distress. Maintaining O2 saturations in the low 90s on 6 L/m per nasal cannula. Afebrile. Slightly tachycardic. Blood pressure stable. She's been initiated on bronchodilators, IV Solu-Medrol, antibiotics in the form of Levaquin. Chest x-ray reveals possible infiltrate or minimal effusion of the left lung base. White count 8.2. Hemoglobin 13.4. Sodium 140. Potassium 4.8. Creatinine 0.71. Jimenze virus not detected. The patient is seen today 02/06/2021 in follow-up on the regular medical floor. She is currently sitting up at the bedside. Awake and alert in no acute distr ess. Breathing a bit better today compared to yesterday. Follow-up computed tomography scan of the chest did not reveal any evidence of right middle lobe mass. Very minimal subsegmental atelectasis of the lung bases otherwise no significant findings. She is maintaining O2 saturations in the upper 90s on 6 L high flow nasal cannula. She's afebrile. Hemodynamically stable. Remains on DuoNeb inhalations, Symbicort, IV Solu-Medrol. Antibiotics in the form of Levaquin. On 02/07/2021 patient seen in follow-up on medical surgical floor, she is awake and alert, she sits up in bed, she is talking on the phone, appears to be breathing comfortably, she is on 6 L of oxygen pulse ox is 96%, she's been afebrile, vital signs have been stable, breathing comfortably, no complaints of chest pain. Her FiO2 can probably be weaned down. She continues on Levaquin for empiric abiotic coverage, her lab work is negative for any leukocytosis, COVID-19 PCR was negative, CT chest showed minimal subsegmental atelectasis at the lung bases. The possibility of pneumonia is doubtful. No cough, no chest pain. She continues on Solu-Medrol 60 mg every 6 hours, continues on nebulized bronchodilators, and cough syrup. On 02/08/2021 patient seen in follow-up on medical surgical floor. She sits up on the edge of the bed, she is breathing comfortably, on 6 L of oxygen her pulse ox was 96%, she normally wears 3-4 L of oxygen at home, her FiO2 was dropped down to 4 L in her pulse ox will be rechecked. No fever or chills, no competitive chest discomfort. No acute events overnight. No new chest x-ray, no new labs. Yesterday we discontinue her antibiotics and steroids, she continues on Symbicort, DuoNeb, on today's exam she is having some wheezing, and patient was started on oral prednisone per attending physician. Objective - Vital Signs Vital signs: Vital Signs Temp 97.6 F 02/08/21 07:30 Pulse 90 02/08/21 07:30 Resp 18 02/08/21 07:30 BP 129/81 02/08/21 07:30 Pulse Ox 94 L 02/08/21 07:30 Intake & Output 02/07/21 02/08/21 02/08/21 18:59 06:59 18:59 Other: Voiding Method Bedside Commode # Voids 3 4 - Exam GENERAL EXAM: Alert, very pleasant, 65-year-old obese white female, on 6 L of oxygen, with pulse ox of 96% comfortable in no apparent distress. HEAD: Normocephalic/atraumatic. EYES: Normal reaction of pupils, equal size. Conjunctiva pink, sclera white. NOSE: Clear with pink turbinates. THROAT: No erythema or exudates. NECK: No masses, no JVD, no thyroid enlargement, no adenopathy. CHEST: No chest wall deformity. Symmetrical expansion. LUNGS: Equal air entry with crackles CVS: Regular rate and rhythm, normal S1 and S2, no gallops, no murmurs, no rubs ABDOMEN: Soft, nontender. No hepatosplenomegaly, normal bowel sounds, no g uarding or rigidity. EXTREMITIES: No clubbing, no edema, no cyanosis, 2+ pulses and upper and lower extremities. MUSCULOSKELETAL: Muscle strength and tone normal. SPINE: No scoliosis or deformity SKIN: No rashes CENTRAL NERVOUS SYSTEM: Alert and oriented -3. No focal deficits, tone is normal in all 4 extremities. PSYCHIATRIC: Alert and oriented -3. Appropriate affect. Intact judgment and insight. - Labs CBC & Chem 7: 02/05/21 05:30 02/05/21 04:58 Labs: Abnormal Lab Results - Last 24 Hours (Table) 02/07/21 02/07/21 02/07/21 Range/Units 12:01 16:27 20:42 POC Glucose (mg/dL) 301 H 301 H 216 H (75-99) mg/dL 02/08/21 Range/Units 07:12 POC Glucose (mg/dL) 173 H (75-99) mg/dL Assessment and Plan Plan: Assessment: #1. Acute hypoxic respiratory failure secondary to atelectasis, possibility of pneumonia is doubtful. Clinically patient is improving, vital signs have been stable, no fever, COVID-19 has been ruled out #2. Acute exacerbation of mild intermittent chronic bronchial asthma #3. History of right middle lobe lung mass, with consideration of a neoplasm in the differential, computed tomography scan of the chest on 02/05/2021 showed no evidence of right middle lobe mass or any other pulmonary concerns other than minimal subsegmental atelectasis #4. Lifelong nonsmoker #5. Previous history of recurrent pneumonias #6. Morbid obesity with BMI of 70.4 kg/m #7. History of complicated abdominal hernias with multiple surgeries at the [facility] #8. History of nephrolithiasis #9. Hypertension #10. Chronic back pain Plan: Wean FiO2, and oxygen was decreased down to 4 L and this is what usually patient is on at home on a regular basis Continue nebulized bronchodilators Prednisone taper was started No need for antibiotics Patient is stable for discharge home from pulmonary perspective Outpatient follow-up with Dr. Tamayo in the office in 7-10 days I performed a history & physical examination of the patient and discussed their management with my nurse practitioner, Allegra Adams. I reviewed the nurse practitioner's note and agree with the documented findings and plan of care. Lung sounds are positive for diminished breath sounds. The findings and the impression was discussed with the patient. I attest to the documentation by the nurse practitioner. Time with Patient: Less than 30
--- NOTE | 2021-02-08 11:06 | P.PN ---
Subjective Progress Note Date: 02/08/21 No new complaints. Congestion improved, dyspnea improved. Pulm stopped IV steroids and abx. Objective - Vital Signs Vital signs: Vital Signs Temp 97.6 F 02/08/21 07:30 Pulse 84 02/08/21 10:54 Resp 18 02/08/21 07:30 BP 129/81 02/08/21 07:30 Pulse Ox 94 L 02/08/21 07:30 Intake & Output 02/07/21 02/08/21 02/08/21 18:59 06:59 18:59 Other: Voiding Method Bedside Commode # Voids 3 4 - Exam Gen: awake, alert, morbidly obese woman HEENT: normocephalic, atraumatic, good hearing acuity, moist mucous membranes Resp: Diminished air exchange, no accessory muscle use, mid expiratory wheezing, rhonchi present CVS: good distal perfusion x 4, regular rate and rhythm without murmurs GI: soft, NTTP, ND : no SPT, no CVAT, bautista catheter not present MSK: +pitting edema, no clubbing Neuro: non-focal, moving all extremities Psych: cooperative, anxious mood - Labs CBC & Chem 7: 02/05/21 05:30 02/05/21 04:58 Labs: Abnormal Lab Results - Last 24 Hours (Table) 02/07/21 02/07/21 02/07/21 Range/Units 12:01 16:27 20:42 POC Glucose (mg/dL) 301 H 301 H 216 H (75-99) mg/dL 02/08/21 Range/Units 07:12 POC Glucose (mg/dL) 173 H (75-99) mg/dL Assessment and Plan Assessment: Acute on Chronic Hypoxemic Respiratory Failure Acute Asthma/COPD Exacerbation -oxygen PRN; home O2 of 4L via NC (currently on 6L) -duonebs q6h + q2h PRN -solumedrol 60mg IV q6h --> prednisone 50mg daily on 02/08 -levofloxacin 750mg PO q24 hours --> abx d/c'd on 02/08 -continue tiotropium, symbicort -continue guaifenesin -roflumilast on discharge GERD Osteoarthritis DM, type II Morbid Obesity, BMI 70.4 -Home medications reviewed and reconciled -continue home seroquel, mirtazapine -continue home metoprolol -continue home PPI -continue home tizanidine, morphine ER/IR combination -accuchecks qAC/HS; levemir 19U daily + lispro 8U AC-TID + lispro SSI - (+9U levemir, +3U AC-TID on 02/08) -recommend outpatient bariatic surgery referral Patient is full code DVT prophylaxis heparin subcu 3 times a day Anticipated discharge to home on 02/09
[2021-02-08 11:36] LABS: Glucose,Whole Blood 198 mg/dL (75-99)
[2021-02-08] MEDS: ALPRAZolam 0.5 MG TAB PO PRN ×2 (12:21→21:03)
[2021-02-08 16:57] LABS: Glucose,Whole Blood 218 mg/dL (75-99)
[2021-02-08] MEDS: MORPHINE SULFATE IR 15 MG TABLET PO PRN (18:22)
[2021-02-08 20:48] LABS: Glucose,Whole Blood 206 mg/dL (75-99)
[2021-02-08] MEDS: SYMBICORT 160-4.5 MCG INHALER INHALATION SCH (20:53)
[2021-02-08] MEDS: MIRTAZAPINE 45 MG TABLET PO SCH (21:01)
[2021-02-08] MEDS: QUEtiapine 50 MG TAB PO SCH (21:02)
[2021-02-08] MEDS: QUEtiapine 200 MG TAB PO SCH (21:02)
[2021-02-09] MEDS: LEVOTHYROXINE 50 MCG TAB PO SCH (05:53)
[2021-02-09] MEDS: MORPHINE SULFATE IR 15 MG TABLET PO PRN (06:42)
[2021-02-09 06:50] LABS: Glucose,Whole Blood 132 mg/dL (75-99)
[2021-02-09] MEDS: FLUTICASONE 50MCG/SPRAY NASAL 16GM EA NOSTRIL SCH (08:26)
[2021-02-09] MEDS: HEPARIN SODIUM,PORCINE/PF 5,000 UNIT/0.5 ML SYRINGE SQ SCH ×2 (08:26→16:02)
[2021-02-09] MEDS: OXYBUTYNIN CHLORIDE 5 MG TAB PO SCH (08:27)
[2021-02-09] MEDS: MORPHINE SULFATE ER 30 MG TABLET PO SCH (08:27)
[2021-02-09] MEDS: PANTOPRAZOLE 40 MG TABLET PO SCH (08:27)
[2021-02-09] MEDS: METOPROLOL SUCCINATE (ER) 25 MG TAB.ER.24H PO SCH (08:27)
[2021-02-09] MEDS: LOPERAMIDE 2 MG CAP PO SCH (08:29)
[2021-02-09] MEDS: LORATADINE 10 MG TAB PO SCH (08:29)
[2021-02-09] MEDS: GABAPENTIN 300 MG CAP PO SCH (08:29)
[2021-02-09] MEDS: MULTIVITAMINS, THERA 1 EACH TAB PO SCH (08:30)
[2021-02-09] MEDS: INSULIN ASPART (NovoLOG) 100 UNIT/ML VIAL SQ SCH ×6 (08:30→16:42)
[2021-02-09] MEDS: SYMBICORT 160-4.5 MCG INHALER INHALATION SCH (08:30)
[2021-02-09] MEDS: INSULIN DETEMIR (LEVEMIR) 100 UNIT/ML SYR SQ SCH (08:30)
[2021-02-09] MEDS: IPRATROPIUM-ALBUTEROL 3 ML NEB INHALATION SCH ×3 (08:30→15:44)
[2021-02-09] MEDS: tiZANidine 4 MG TAB PO SCH ×2 (08:32→16:02)
[2021-02-09] MEDS: predniSONE 50 MG TAB PO SCH (08:32)
[2021-02-09] MEDS: QUEtiapine 100 MG TAB PO SCH (08:33)
[2021-02-09 08:43] VITALS: RESP 16
--- NOTE | 2021-02-09 10:23 | P.DS ---
<Shine Friedman - Last Filed: 02/09/21 18:10> Providers Expected date of discharge: 02/09/21 Hospital Course: Discharge Diagnosis: Acute on chronic hypoxemic respiratory failure secondary to acute COPD exacerbation Hypertension Diabetes mellitus type 2 GERD Depression with anxiety Chronic back pain Morbid obesity with BMI 70.4 Hospital Course: Patient is a 65-year-old female with a past medical history significant for morbid obesity, advanced COPD 4 L home oxygen dependent, hypothyroidism, hypertension, GERD, depression, anxiety, complicated abdominal hernia, and chronic back pain. She presented to the hospital on 02/05/21 for increased shortness of breath. Patient was diagnosed with acute COPD exacerbation and admitted under our services with consultation to pulmonology. She had an EKG completed showing sinus tachycardia at 113 bpm with occasional PVCs, no T-wave or ST abnormalities showing no signs of acute ischemia. Chest x-ray showing possible infiltrate at left lung base. CT revealing minimal subsegmental atelectasis at lung bases with overall improved aeration of the lungs compared to prior examination with large clearing of infiltrate in the right middle lobe compared to old exam. Patient received IV antibiotics and steroids and has progressively improved back to baseline levels at her 4 L home oxygen dependent. IV steroids transitioned to oral prednisone. Patient cleared by pulmonology and medically stable for discharge home with [facility] at this time. Had long discussion with patient regarding [facility] facility, patient adamantly declined. Patient being discharged home on prednisone taper. Patient to follow-up outpatient with her primary care provider in 1-2 days and pulmonology as scheduled on 03/03/21. Patient seen and examined at bedside. She reports she continues to feel fatigued but states that her shortness of breath has improved. Patient denies having any headache, lightheadedness, dizziness, chest pain, or palpitations. Vital signs reviewed and stable. General: Nontoxic, no distress and appears stated age. Morbidly obese. Derm: Skin warm and dry, normal coloration for ethnicity. Head: Atraumatic, normocephalic and symmetric. Eyes: EOMs intact, no lid lag, and anicteric sclera Mouth: no lip lesions, mucus membranes moist Cardiovascular: regular rate and rhythm with normal S1S2, no murmur, positive posterior tibial pulses bilaterally, and cap refill < 2 seconds. Lungs: Respirations even, regular, and unlabored on 4 L O2 via nasal cannula with SpO2 of 96%. Lungs diminished at bases with soft expiratory wheezes however no rhonchi or rales present. No accessory muscle usage. Abdominal: Morbidly obese abdomen soft, nontender to palpation, no guarding, no appreciable organomegaly Ext: ROM intact. No gross muscle atrophy, no edema, no contractures Neuro: Speech clear, face symmetrical and CN II-XII grossly intact with no noted focal neuro deficits Psych: Alert and oriented to person, place, time, and situation. Appropriate and pleasant affect. A total of 45 minutes of time were spent preparing this complex discharge summary. Patient Condition at Discharge: Stable Plan - Discharge Summary Discharge Rx Participant: Yes New Discharge Prescriptions: New Ipratropium-Albuterol Nebulize [Duoneb 0.5 mg-3 mg/3 ml Soln] 3 ml INHALATION RT-Q2H PRN #1 box PRN Reason: Shortness Of Breath Or Wheezing predniSONE See Taper PO DIRECTED 16 Days #40 tab Continue Oxybutynin Chloride [Ditropan] 5 mg PO BID Omeprazole 20 mg PO BID Ipratropium/Albuterol Sulfate [Duoneb 0.5 mg-3 mg/3 ml Soln] 3 ml INHALATION RT-Q4H Loratadine 10 mg PO DAILY Loperamide [Imodium] 4 mg PO BID Albuterol Sulfate [Proair Hfa] 2 puff INHALATION RT-Q4H PRN PRN Reason: Shortness Of Breath diphenhydrAMINE [Benadryl] 50 mg PO BID Loperamide [Imodium] 2 mg PO HS PRN PRN Reason: Diarrhea Potassium Chloride ER [K-Dur 20] 20 meq PO HS Magnesium Oxide [Magox 400] 400 mg PO HS Cholecalciferol [Vitamin D3 (25 Mcg = 1000 Iu)] 25 mcg PO HS busPIRone HCL 15 - 30 mg PO BID Metoprolol Succinate [Toprol XL] 25 mg PO DAILY QUEtiapine [SEROquel] 100 mg PO DAILY Morphine Sulfate [Ms Contin] 30 mg PO BID Morphine Sulfate 15 mg PO Q6HR Fluticasone/Salmeterol [Advair 250-50 Diskus] 1 puff INHALATION RT-BID tiZANidine [Zanaflex] 4 mg PO Q8HR guaiFENesin-DM 100-10MG/5ML [Robitussin DM] 10 ml PO Q4-6H PRN PRN Reason: Cough Multivitamins, Thera [Multivitamin (formulary)] 1 tab PO DAILY Levothyroxine Sodium [Synthroid] 50 mcg PO HS QUEtiapine [SEROquel] 50 mg PO HS Mirtazapine [Remeron] 45 mg PO HS QUEtiapine FUMARATE [SEROquel] 200 mg PO HS hydrOXYzine HCL 25 mg PO DAILY Iron Polysaccharide Complex [Ferrex 150] 150 mg PO Q48H Fluticasone Nasal [place] [Flonase Nasal [place]] 2 spr EA NOSTRIL DAILY Gabapentin 300 mg PO BID Tiotropium [place] [Spiriva] 1 cap INHALATION RT-DAILY Discharge Medication List Albuterol Sulfate [Proair Hfa] 2 puff INHALATION RT-Q4H PRN 03/27/14 [History] Ipratropium/Albuterol Sulfate [Duoneb 0.5 mg-3 mg/3 ml Soln] 3 ml INHALATION RT- Q4H 03/27/14 [History] Loperamide [Imodium] 4 mg PO BID 03/27/14 [History] Loratadine 10 mg PO DAILY 03/27/14 [History] Omeprazole 20 mg PO BID 03/27/14 [History] Oxybutynin Chloride [Ditropan] 5 mg PO BID 03/27/14 [History] Cholecalciferol [Vitamin D3 (25 Mcg = 1000 Iu)] 25 mcg PO HS 02/04/21 [History] Fluticasone Nasal [place] [Flonase Nasal [place]] 2 spr EA NOSTRIL DAILY 02/04/21 [History] Fluticasone/Salmeterol [Advair 250-50 Diskus] 1 puff INHALATION RT-BID 02/04/21 [History] Gabapentin 300 mg PO BID 02/04/21 [History] Iron Polysaccharide Complex [Ferrex 150] 150 mg PO Q48H 02/04/21 [History] Levothyroxine Sodium [Synthroid] 50 mcg PO HS 02/04/21 [History] Loperamide [Imodium] 2 mg PO HS PRN 02/04/21 [History] Magnesium Oxide [Magox 400] 400 mg PO HS 02/04/21 [History] Metoprolol Succinate [Toprol XL] 25 mg PO DAILY 02/04/21 [History] Mirtazapine [Remeron] 45 mg PO HS 02/04/21 [History] Morphine Sulfate 15 mg PO Q6HR 02/04/21 [History] Morphine Sulfate [Ms Contin] 30 mg PO BID 02/04/21 [History] Multivitamins, Thera [Multivitamin (formulary)] 1 tab PO DAILY 02/04/21 [History] Potassium Chloride ER [K-Dur 20] 20 meq PO HS 02/04/21 [History] QUEtiapine FUMARATE [SEROquel] 200 mg PO HS 02/04/21 [History] QUEtiapine [SEROquel] 50 mg PO HS 02/04/21 [History] QUEtiapine [SEROquel] 100 mg PO DAILY 02/04/21 [History] Tiotropium [place] [Spiriva] 1 cap INHALATION RT-DAILY 02/04/21 [History] busPIRone HCL 15 - 30 mg PO BID 02/04/21 [History] diphenhydrAMINE [Benadryl] 50 mg PO BID 02/04/21 [History] guaiFENesin-DM 100-10MG/5ML [Robitussin DM] 10 ml PO Q4-6H PRN 02/04/21 [History] hydrOXYzine HCL 25 mg PO DAILY 02/04/21 [History] tiZANidine [Zanaflex] 4 mg PO Q8HR 02/04/21 [History] Ipratropium-Albuterol Nebulize [Duoneb 0.5 mg-3 mg/3 ml Soln] 3 ml INHALATION RT-Q2H PRN #1 box 02/09/21 [Rx] predniSONE See Taper PO DIRECTED 16 Days #40 tab 02/09/21 [Rx] Follow up Appointment(s)/Referral(s): Aj Harrington MD [STAFF PHYSICIAN] - 03/03/21 9:30 am [facility], [NON-STAFF] - None,Stated [REFERRING] - 1-2 days Patient Instructions/Handouts: Using Oxygen at Home (DC), COPD (Chronic Obstructive Pulmonary Disease) (DC) Activity/Diet/Wound Care/Special Instructions: Activity: As tolerated Diet: Heart healthy Special Instructions: Patient requires a nebulizer to manage her COPD once home using Duonebs QID. You have been weaned back down to your baseline 4 L of oxygen. It is important to wear this oxygen at all times as directed. You are being discharged home on a prednisone/steroid taper and he will need to follow up with your ceramic coater, Dr. Tamayo in one week. You are being discharged home with [facility]. Thank you for allowing us to participate in your care, it was a pleasure having you for our patient!! Follow with your primary care physicians regarding elevated blood sugars you need to have an A1C drawn. Discharge Disposition: TRANSFER TO SNF/ECF <Summer Michele - Last Filed: 02/09/21 19:52> Providers Date of admission: 02/04/21 23:01 Attending physician: Teofilo Anderson MD Consults: 02/05/21 02:37 Consult Physician Routine Consulting Provider: Sean Morales Consult Reason/Comments: copd exacerbation Do you want consulting provider notified?: Yes, Notify in am Primary care physician: Physician Nonstaff Hospital Course: Patient seen and examined independently. Patient was also seen by Shine Friedman NP and case was discussed. I am in agreement with discharge diagnosis, hospital course, and physical exam as written above and amended below. States that her breathing is much better, but she is feeling somewhat anxious. General: non toxic, no distress, appears at stated age Derm: warm, dry Head: atraumatic, normocephalic, symmetric Eyes: EOMI, no lid lag, anicteric sclera Mouth: no lip lesion, mucus membranes moist Cardiovascular: S1S2 reg, no murmur, positive posterior tibial pulse bilateral, Lungs: Decreased breath sounds bilateral secondary to body habitus, no rhonchi, no rales , no accessory muscle use Abdominal: soft, nontender to palpation, no guarding, no appreciable organomegaly
--- NOTE | 2021-02-09 11:05 | P.PN ---
Subjective Progress Note Date: 02/09/21 Principal diagnosis: Shortness of breath. This is a 65-year-old morbidly obese female patient with a history of bronchial asthma, hypertension, nephrolithiasis, complicated abdominal hernia requiring multiple surgeries in the past, previous pneumonias, chronic back pain. She had been seen by our group back in 2013 at which time she had a CT angiogram ruled out pulmonary embolism. However there was a 5.3 x 5.4 cm mass in the right middle lobe. Neoplasm was in the differential. She had not followed up in our office. 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 She states she is a lifelong nonsmoker. She was however exposed to secondhand smoke. She presented to the emergency room yesterday with a one month history of increasing shortness of breath, cough and congestion. She had been on antibiotics and steroids 1 without much improvement. She's had yellow productive cough. Low-grade temperature. Some chest tightness and wheezing. She was taking her breathing treatments at home without much improvement. She is seen today in consultation on the regular medical floor. She is currently sitting at the bedside. Awake and alert in no acute distress. Maintaining O2 saturations in the low 90s on 6 L/m per nasal cannula. Afebrile. Slightly tachycardic. Blood pressure stable. She's been initiated on bronchodilators, IV Solu-Medrol, antibiotics in the form of Levaquin. Chest x-ray reveals possible infiltrate or minimal effusion of the left lung base. White count 8.2. Hemoglobin 13.4. Sodium 140. Potassium 4.8. Creatinine 0.71. Jimenez virus not detected. The patient is seen today 02/06/2021 in follow-up on the regular medical floor. She is currently sitting up at the bedside. Awake and alert in no acute distress. Breathing a bit better today compared to yesterday. Follow-up computed tomography scan of the chest did not reveal any evidence of right middle lobe mass. Very minimal subsegmental atelectasis of the lung bases otherwise no significant findings. She is maintaining O2 saturations in the upper 90s on 6 L high flow nasal cannula. She's afebrile. Hemodynamically stable. Remains on DuoNeb inhalations, Symbicort, IV Solu-Medrol. Antibiotics in the form of Levaquin. On 02/07/2021 patient seen in follow-up on medical surgical floor, she is awake and alert, she sits up in bed, she is talking on the phone, appears to be breath ing comfortably, she is on 6 L of oxygen pulse ox is 96%, she's been afebrile, vital signs have been stable, breathing comfortably, no complaints of chest pain. Her FiO2 can probably be weaned down. She continues on Levaquin for empiric abiotic coverage, her lab work is negative for any leukocytosis, COVID- 19 PCR was negative, CT chest showed minimal subsegmental atelectasis at the lung bases. The possibility of pneumonia is doubtful. No cough, no chest pain. She continues on Solu-Medrol 60 mg every 6 hours, continues on nebulized bronchodilators, and cough syrup. On 02/08/2021 patient seen in follow-up on medical surgical floor. She sits up on the edge of the bed, she is breathing comfortably, on 6 L of oxygen her pulse ox was 96%, she normally wears 3-4 L of oxygen at home, her FiO2 was dropped down to 4 L in her pulse ox will be rechecked. No fever or chills, no competitive chest discomfort. No acute events overnight. No new chest x-ray, no new labs. Yesterday we discontinue her antibiotics and steroids, she continues on Symbicort, DuoNeb, on today's exam she is having some wheezing, and patient was started on oral prednisone per attending physician. Progress note dated 02/09/2021. 65-year-old female, morbidly obese, with a history of COPD, and chronic hypoxemic respiratory failure. Currently, she is on about 4 L nasal O2. This is typically what she uses at home. The patient's doing better. Feels less short of breath. In addition, she has a history of hypertension, kidney stones, pneumonia, chronic back pain, and as mentioned, obesity. Initially it was thought the patient had a neoplasm in the lung. It turns out that the lesion is not bear on most recent computed tomography scan. The patient is apparently being considered for possible discharge. No new labs today other than a blood sugar of 132. Objective - Vital Signs Vital signs: Vital Signs Temp 97.5 F L 02/09/21 08:00 Pulse 100 02/09/21 08:42 Resp 16 02/09/21 08:00 BP 167/72 02/09/21 08:00 Pulse Ox 97 02/09/21 10:12 Intake & Output 02/08/21 02/09/21 02/09/21 18:59 06:59 18:59 Intake Total 236 Balance 236 Intake: Oral 236 Other: Voiding Method Bedside Commode # Voids 3 2 - Exam No acute distress, oriented 3. Nasal O2 in place at 4 L. No conversational dyspnea or use of accessory muscles. HEENT examination is grossly unremarkable. Mucous membranes are moist. No oral lesions. Neck supple. Full range of motion. No adenopathy thyromegaly or neck vein distention. Cardiovascular examination reveals regular rhythm rate. S1-S2 normal. No S3 or S4. No discernible murmur noted. Heart sounds are distant. Lungs reveal by lateral rhonchi and wheezes. Breath sounds are improved. No crackles. Breath sounds are equal but diminished throughout. Abdomen soft bowel sounds are heard. No masses or tenderness. Extremities are intact. No cyanosis clubbing or edema. Skin is without rash or lesion. Neurologic examination is brief but nonfocal. - Labs CBC & Chem 7: 02/05/21 05:30 02/05/21 04:58 Labs: Abnormal Lab Results - Last 24 Hours (Table) 02/08/21 02/08/21 02/08/21 Range/Units 11:35 16:56 20:46 POC Glucose (mg/dL) 198 H 218 H 206 H (75-99) mg/dL 02/09/21 Range/Units 06:49 POC Glucose (mg/dL) 132 H (75-99) mg/dL Assessment and Plan Assessment: #1. Acute hypoxic respiratory failure secondary to atelectasis, possibility of pneumonia is doubtful. Clinically patient is improving, vital signs have been stable, no fever, COVID-19 has been ruled out. #2. Acute exacerbation of mild intermittent chronic bronchial asthma. #3. History of right middle lobe lung mass, with consideration of a neoplasm in the differential, computed tomography scan of the chest on 02/05/2021 showed no evidence of right middle lobe mass or any other pulmonary concerns other than minimal subsegmental atelectasis. #4. Lifelong nonsmoker. #5. Previous history of recurrent pneumonias. #6. Morbid obesity with BMI of 70.4 kg/m. #7. History of complicated abdominal hernias with multiple surgeries at the [facility]. #8. History of nephrolithiasis. #9. Hypertension. #10. Chronic back pain. Plan: Plan dated 02/09/2021. Currently, the patient seemed be doing better. She's been weaned down to 3 have to 4 L nasal O2. She was started on prednisone orally. She'll continue on bronchodilators. Additional recommendations and suggestions are forthcoming. Prognosis is guarded. We will continue to follow and make recommendations where appropriate. Time with Patient: Less than 30
[2021-02-09 11:55] LABS: Glucose,Whole Blood 173 mg/dL (75-99)
[2021-02-09 14:20] VITALS: BP 136/87; TEMP 97.9
[2021-02-09 15:58] VITALS: PULSE 80
[2021-02-09 16:25] LABS: Glucose,Whole Blood 225 mg/dL (75-99)
== END 2021-02-09 18:45 | DRG 193 ==
LOC: EC 22:03 → 4SSUR 23:01
PROVIDERS: ADMIT Internal Medicine; ATTEND Internal Medicine
DX: J18.9 Pneumonia, unspecified organism (principal); J96.21 Acute and chronic respiratory failure with hypoxia; J44.0 Chronic obstructive pulmonary disease with (acute) lower respiratory infection; J44.1 Chronic obstructive pulmonary disease with (acute) exacerbation; Z68.45 Body mass index [BMI] 70 or greater, adult; J45.21 Mild intermittent asthma with (acute) exacerbation; J98.11 Atelectasis; Z20.822 Contact with and (suspected) exposure to COVID-19; Z99.81 Dependence on supplemental oxygen; E11.9 Type 2 diabetes mellitus without complications; E66.01 Morbid (severe) obesity due to excess calories; F20.9 Schizophrenia, unspecified; R91.8 Other nonspecific abnormal finding of lung field; F42.9 Obsessive-compulsive disorder, unspecified; I10 Essential (primary) hypertension; E03.9 Hypothyroidism, unspecified; K22.70 Barrett's esophagus without dysplasia; K46.9 Unspecified abdominal hernia without obstruction or gangrene; F41.8 Other specified anxiety disorders; K21.00 Gastro-esophageal reflux disease with esophagitis, without bleeding; R00.0 Tachycardia, unspecified; I49.3 Ventricular premature depolarization; G89.29 Other chronic pain; M54.9 Dorsalgia, unspecified; M19.90 Unspecified osteoarthritis, unspecified site; F43.10 Post-traumatic stress disorder, unspecified; Z77.22 Contact with and (suspected) exposure to environmental tobacco smoke (acute) (chronic); Z90.49 Acquired absence of other specified parts of digestive tract; Z90.710 Acquired absence of both cervix and uterus; Z79.890 Hormone replacement therapy; Z79.899 Other long term (current) drug therapy; Z88.1 Allergy status to other antibiotic agents; Z86.14 Personal history of Methicillin resistant Staphylococcus aureus infection; Z87.442 Personal history of urinary calculi; Z87.01 Personal history of pneumonia (recurrent); Z90.711 Acquired absence of uterus with remaining cervical stump; Z87.19 Personal history of other diseases of the digestive system; Z88.8 Allergy status to other drugs, medicaments and biological substances
CPT/HCPCS: 71045; 71260; 80053; 85025; 87635; 93005; 94640; 94760; 99285

== ENCOUNTER 2021-03-29 23:58 | Inpatient (IN) | payer OTHER ==
--- NOTE | 2021-03-30 01:12 | ED ---
SOB HPI - General Chief Complaint: Shortness of Breath Stated Complaint: ASHLEY Time Seen by Provider: 03/30/21 00:21 Source: patient, EMS Mode of arrival: EMS - History of Present Illness Initial Comments: This patient is a 66-year-old woman transferred here from [facility] to have additional treatment for COPD exacerbation. Patient reports she started getting short of breath early in the morning. She continued to worsen, she tried using her home breathing treatments but was not feeling any better and therefore called the ambulance. She was taken to the other hospital where she had workup and transferred here for further treatment for COPD. Review of the studies from the other hospital reveals mild leukocytosis of 11,500. Glucose 209. COVID-19 negative. Normal chemistries, negative troponin. CT of the chest was performed without contrast, revealing only atelectasis. MD Complaint: shortness of breath, cough Onset/Timin -: hour(s) Severity: mild Quality: aching Consistency: constant Improves With: nothing Worsens With: nothing Known History Of: asthma Associated Symptoms: cough Treatments Prior to Arrival: oxygen, bronchodilator - Related Data Home Oxygen Therapy: Yes Home Oxygen Amount: 2 Liters Home Medications Medication Instructions Recorded Confirmed Albuterol Sulfate [Proair Hfa] 2 puff INHALATION RT-Q4H PRN 03/27/14 02/04/21 Ipratropium/Albuterol Sulfate 3 ml INHALATION RT-Q4H 03/27/14 02/04/21 [Duoneb 0.5 mg-3 mg/3 ml Soln] Loperamide [Imodium] 4 mg PO BID 03/27/14 02/04/21 Loratadine 10 mg PO DAILY 03/27/14 02/04/21 Omeprazole 20 mg PO BID 03/27/14 02/04/21 Oxybutynin Chloride [Ditropan] 5 mg PO BID 03/27/14 02/04/21 Cholecalciferol [Vitamin D3 (25 25 mcg PO HS 02/04/21 02/04/21 Mcg = 1000 Iu)] Fluticasone Nasal [place] [Flonase 2 spr EA NOSTRIL DAILY 02/04/21 02/04/21 Nasal [place]] Fluticasone/Salmeterol [Advair 1 puff INHALATION RT-BID 02/04/21 02/04/21 250-50 Diskus] Gabapentin 300 mg PO BID 02/04/21 02/04/21 Iron Polysaccharide Complex 150 mg PO Q48H 02/04/21 02/04/21 [Ferrex 150] Levothyroxine Sodium [Synthroid] 50 mcg PO HS 02/04/21 02/04/21 Loperamide [Imodium] 2 mg PO HS PRN 02/04/21 02/04/21 Magnesium Oxide [Magox 400] 400 mg PO HS 02/04/21 02/04/21 Metoprolol Succinate [Toprol XL] 25 mg PO DAILY 02/04/21 02/04/21 Mirtazapine [Remeron] 45 mg PO HS 02/04/21 02/04/21 Morphine Sulfate 15 mg PO Q6HR 02/04/21 02/04/21 Morphine Sulfate [Ms Contin] 30 mg PO BID 02/04/21 02/04/21 Multivitamins, Thera [Multivitamin 1 tab PO DAILY 02/04/21 02/04/21 (formulary)] Potassium Chloride ER [K-Dur 20] 20 meq PO HS 02/04/21 02/04/21 QUEtiapine FUMARATE [SEROquel] 200 mg PO HS 02/04/21 02/04/21 QUEtiapine [SEROquel] 50 mg PO HS 02/04/21 02/04/21 QUEtiapine [SEROquel] 100 mg PO DAILY 02/04/21 02/04/21 Tiotropium [place] [Spiriva] 1 cap INHALATION RT-DAILY 02/04/21 02/04/21 busPIRone HCL 15 - 30 mg PO BID 02/04/21 02/04/21 diphenhydrAMINE [Benadryl] 50 mg PO BID 02/04/21 02/04/21 guaiFENesin-DM 100-10MG/5ML 10 ml PO Q4-6H PRN 02/04/21 02/04/21 [Robitussin DM] hydrOXYzine HCL 25 mg PO DAILY 02/04/21 02/04/21 tiZANidine [Zanaflex] 4 mg PO Q8HR 02/04/21 02/04/21 Previous Rx's Medication Instructions Recorded Ipratropium-Albuterol Nebulize 3 ml INHALATION RT-Q2H PRN #1 box 02/09/21 [Duoneb 0.5 mg-3 mg/3 ml Soln] predniSONE See Taper PO DIRECTED 16 Days 02/09/21 #40 tab Allergies Allergy/AdvReac Type Severity Reaction Status Date / Time azithromycin Allergy Swelling Verified 03/30/21 00:17 diltiazem HCl [From Cardizem] Allergy Anaphylaxis Verified 03/30/21 00:17 doxycycline Allergy Swelling Verified 03/30/21 00:17 hydromorphone HCl AdvReac Nausea & Verified 03/30/21 00:17 [From Dilaudid] Vomiting Review of Systems ROS Statement: Those systems with pertinent positive or pertinent negative responses have been documented in the HPI. ROS Other: All systems not noted in ROS Statement are negative. Constitutional: Denies: fever, chills, weakness Respiratory: Reports: cough, dyspnea, wheezes. Denies: hemoptysis Cardiovascular: Denies: chest pain, palpitations, orthopnea, edema, syncope Gastrointestinal: Denies: abdominal pain, vomiting, diarrhea Genitourinary: Denies: dysuria, hematuria Musculoskeletal: Reports: back pain (Chronic) Skin: Denies: rash, lesions Neurological: Denies: headache, weakness, numbness Past Medical History Past Medical History: Asthma, COPD, GERD/Reflux, Osteoarthritis (OA) Additional Past Medical History / Comment(s): DJD, Esophagitis, OCD, barretts esophagus, spinal disk herniation, severe spinal pain. History of Any Multi-Drug Resistant Organisms: MRSA Date of last positivie culture/infection: 12/19/2009 MDRO Source:: Abdomen Past Surgical History: Appendectomy, Back Surgery, Section, Cholecystectomy, Hysterectomy Additional Past Surgical History / Comment(s): D&C, partial hysterectomy, Past Anesthesia/Blood Transfusion Reactions: No Reported Reaction Past Psychological History: Anxiety, Depression, PTSD, Schizophrenia Smoking Status: Never smoker Past Alcohol Use History: None Reported Past Drug Use History: Marijuana - Past Family History Family Family Medical History: No Reported History General Exam General appearance: alert, in no apparent distress, obese Head exam: Present: atraumatic, normocephalic Eye exam: Present: normal appearance. Absent: scleral icterus, conjunctival injection Neck exam: Present: normal inspection Respiratory exam: Present: wheezes, rhonchi. Absent: respiratory distress, rales, stridor, accessory muscle use, decreased breath sounds, prolonged expiratory Cardiovascular Exam: Present: normal rhythm, tachycardia, normal heart sounds. Absent: systolic murmur, diastolic murmur, rubs, gallop GI/Abdominal exam: Present: soft. Absent: distended, tenderness, guarding, rebound, rigid Extremities exam: Present: normal inspection, normal capillary refill. Absent: pedal edema, calf tenderness Back exam: Present: normal inspection Neurological exam: Present: alert Skin exam: Present: warm, dry, intact, normal color. Absent: rash Course Vital Signs 03/30/21 00:14 Temperature 98.9 F Pulse Rate 110 H Respiratory 24 Rate Blood Pressure 160/99 O2 Sat by Pulse 90 L Oximetry Disposition Clinical Impression: Acute exacerbation of chronic obstructive pulmonary disease Disposition: ADMITTED IP TO THIS HOSP Condition: Fair
[2021-03-30] MEDS ORDERED: MORPHINE SULFATE ER 30 MG TABLET PO STA (01:19)
[2021-03-30] MEDS: IPRATROPIUM-ALBUTEROL 3 ML NEB INHALATION PRN (04:51)
[2021-03-30] MEDS: MORPHINE SULFATE IR 15 MG TABLET PO SCH ×2 (05:29→17:25)
[2021-03-30] MEDS: IPRATROPIUM-ALBUTEROL 3 ML NEB INHALATION SCH ×4 (07:22→20:17)
[2021-03-30] MEDS ORDERED: IPRATROPIUM 0.5 MG/2.5 ML NEBU INHALATION SCH (08:00)
[2021-03-30] MEDS ORDERED: SYMBICORT 80-4.5 MCG INHALER INHALATION SCH (08:00)
[2021-03-30] MEDS ORDERED: predniSONE 20 MG TAB PO SCH (09:00)
[2021-03-30] MEDS: GABAPENTIN 300 MG CAP PO SCH ×2 (09:09→22:26)
[2021-03-30] MEDS: MORPHINE SULFATE ER 30 MG TABLET PO SCH ×2 (09:10→22:26)
[2021-03-30] MEDS: METOPROLOL SUCCINATE (ER) 25 MG TAB.ER.24H PO SCH (09:10)
[2021-03-30] MEDS: PANTOPRAZOLE 40 MG TABLET PO SCH ×2 (09:11→22:25)
[2021-03-30] MEDS: tiZANidine 4 MG TAB PO SCH ×2 (09:11→17:07)
[2021-03-30] MEDS: OXYBUTYNIN CHLORIDE 5 MG TAB PO SCH ×2 (09:11→23:34)
[2021-03-30] MEDS ORDERED: ALPRAZolam 0.25 MG TAB PO PRN (16:46)
[2021-03-30] MEDS ORDERED: LOPERAMIDE 2 MG CAP PO PRN (16:47)
[2021-03-30] MEDS: methylPREDNISolone SOD SUCCI 125 MG/2 ML VIAL IV SCH ×2 (17:13→23:35)
--- NOTE | 2021-03-30 18:29 | P.CNPUL ---
History of Present Illness Consult date: 03/30/21 Reason for consult: dyspnea History of present illness: This is a morbidly obese 66-year-old female patient has history of COPD/asthma is coming in for worsening shortness of breath. The patient was in the hospital on 02/05/2021 treated for the same and the patient was discharged home. Once she is off the systemic steroids and after completing the prednisone burst taper, the patient's symptoms of increased dyspnea cough chest tightness and wheezing came back. The patient was initially seen an outside hospital. Computed tomography scan of the chest was done and showed no acute abnormalities. There was some atelectatic changes in lung bases bilaterally. Otherwise, no consolidation, no pulmonary embolism. The patient is oxygen dependent. She is morbidly obese with a component of obesity hypoventilation syndrome. She has home O2. She has also on nebulizer and she utilizes DuoNeb nebulized units [id number] up to 4 times a day. Maintenance as for medications include Spiriva 1 patient day and Advair Diskus 250/50/50 one puff twice a day. COVID-19 testing was negative. White cell count done in the outside hospital showed a count of 11.5. The patient was referred to us for further evaluation the patient was hospitalized for further treatment. No history of any CAD. No history of any DVT or pulmonary embolism. No increased swelling in lower extremities. Review of Systems Constitutional: Reports fatigue, Reports fever, Reports weight gain Eyes: denies as per HPI, denies blurred vision, denies bulging eye, denies decreased vision, denies diplopia, denies discharge, denies dry eye, denies irritation, denies itching, denies pain, denies photophobia, denies loss of peripheral vision, denies loss of vision, denies tunnel vision/blind spots Ears: deny: decreased hearing, ear discharge, earache, tinnitus Ears, nose, mouth and throat: Reports as per HPI Breasts: absent: as per HPI, change in shape, gynecomastia, masses, nipple discharge, pain, skin changes, swelling Cardiovascular: Reports decreased exercise tolerance, Reports dyspnea on ex ertion Respiratory: Reports cough, Reports dyspnea, Reports home oxygen, Reports snoring, Reports wheezing Gastrointestinal: Reports as per HPI Genitourinary: Reports as per HPI Menstruation: Reports as per HPI Musculoskeletal: Reports as per HPI Musculoskeletal: absent: ankle pain, ankle stiffness, ankle swelling Integumentary: Reports as per HPI Neurological: Reports weakness Psychiatric: Reports anxiety, Reports depression, Reports hypersomnia Endocrine: Reports as per HPI Hematologic/Lymphatic: Reports as per HPI Allergic/Immunologic: Reports as per HPI Past Medical History Past Medical History: Asthma, COPD, GERD/Reflux, Osteoarthritis (OA) Additional Past Medical History / Comment(s): DJD, Esophagitis, OCD, barretts esophagus, spinal disk herniation, severe spinal pain. pt states she has seizures x1/week History of Any Multi-Drug Resistant Organisms: MRSA Date of last positivie culture/infection: 12/19/2009 MDRO Source:: Abdomen Past Surgical History: Appendectomy, Back Surgery, Section, Cholecystectomy, Hysterectomy Additional Past Surgical History / Comment(s): D&C, partial hysterectomy, Past Anesthesia/Blood Transfusion Reactions: No Reported Reaction Past Psychological History: Anxiety, Depression, PTSD, Schizophrenia Additional Psychological History / Comment(s): OCD Smoking Status: Never smoker, Second hand smoke exposure Past Alcohol Use History: None Reported Past Drug Use History: Marijuana - Past Family History Family Family Medical History: No Reported History Medications and Allergies Home Medications Medication Instructions Recorded Confirmed Type Albuterol Sulfate [Proair Hfa] 2 puff INHALATION RT-Q4H PRN 03/27/14 03/30/21 History Ipratropium/Albuterol Sulfate 3 ml INHALATION RT-Q4H 03/27/14 03/30/21 History [Duoneb 0.5 mg-3 mg/3 ml Soln] Loperamide [Imodium] 2 - 4 mg PO QID PRN 03/27/14 03/30/21 History Loratadine 10 mg PO DAILY 03/27/14 03/30/21 History Omeprazole 20 mg PO BID 03/27/14 03/30/21 History Oxybutynin Chloride [Ditropan] 5 mg PO HS 03/27/14 03/30/21 History Cholecalciferol [Vitamin D3 (25 25 mcg PO HS 02/04/21 03/30/21 History Mcg = 1000 Iu)] Fluticasone Nasal [place] [Flonase 2 spr EA NOSTRIL DAILY 02/04/21 03/30/21 History Nasal [place]] Fluticasone/Salmeterol [Advair 1 puff INHALATION RT-BID 02/04/21 03/30/21 History 250-50 Diskus] Gabapentin 300 mg PO BID 02/04/21 03/30/21 History Iron Polysaccharide Complex 150 mg PO Q48H 02/04/21 03/30/21 History [Ferrex 150] Levothyroxine Sodium [Synthroid] 50 mcg PO HS 02/04/21 03/30/21 History Magnesium Oxide [Magox 400] 400 mg PO HS 02/04/21 03/30/21 History Metoprolol Succinate [Toprol XL] 25 mg PO DAILY 02/04/21 03/30/21 History Mirtazapine [Remeron] 45 mg PO HS 02/04/21 03/30/21 History Morphine Sulfate 15 mg PO BID PRN 02/04/21 03/30/21 History Morphine Sulfate [Ms Contin] 30 mg PO BID 02/04/21 03/30/21 History Multivitamins, Thera [Multivitamin 1 tab PO DAILY 02/04/21 03/30/21 History (formulary)] Potassium Chloride ER [K-Dur 20] 20 meq PO HS 02/04/21 03/30/21 History QUEtiapine FUMARATE [SEROquel] 200 mg PO HS 02/04/21 03/30/21 History QUEtiapine [SEROquel] 50 mg PO HS 02/04/21 03/30/21 History QUEtiapine [SEROquel] 100 mg PO DAILY 02/04/21 03/30/21 History Tiotropium [place] [Spiriva] 1 cap INHALATION RT-DAILY 02/04/21 03/30/21 History busPIRone HCL 15 - 30 mg PO BID 02/04/21 03/30/21 History diphenhydrAMINE [Benadryl] 50 mg PO BID 02/04/21 03/30/21 History tiZANidine [Zanaflex] 4 mg PO Q8HR 02/04/21 03/30/21 History Ipratropium-Albuterol Nebulize 3 ml INHALATION RT-Q2H PRN #1 box 02/09/21 03/30/21 Rx [Duoneb 0.5 mg-3 mg/3 ml Soln] Oxybutynin Chloride [Ditropan] 5 mg PO AC-BID PRN 03/30/21 03/30/21 History Allergies Allergy/AdvReac Type Severity Reaction Status Date / Time azithromycin Allergy Swelling Verified 03/30/21 09:11 diltiazem HCl [From Cardizem] Allergy Anaphylaxis Verified 03/30/21 09:11 doxycycline Allergy Swelling Verified 03/30/21 09:11 hydromorphone HCl AdvReac Nausea & Verified 03/30/21 09:11 [From Dilaudid] Vomiting Physical Exam Vitals: Vital Signs Temp Pulse Pulse Pulse Resp BP BP 03/30/21 16:18 68 18 03/30/21 16:11 67 16 03/30/21 14:45 97.5 F L 60 16 100/55 03/30/21 12:27 88 03/30/21 12:16 84 03/30/21 08:00 90 92 16 03/30/21 07:34 92 03/30/21 07:23 92 03/30/21 07:00 97.3 F L 90 16 155/66 03/30/21 05:03 90 03/30/21 04:50 92 03/30/21 04:47 97 92 18 03/30/21 03:16 97.7 F 92 18 03/30/21 02:34 98.9 F 97 20 177/80 03/30/21 02:27 98.6 F 86 22 143/85 03/30/21 00:14 98.9 F 110 H 24 160/99 BP Pulse Ox 03/30/21 16:18 03/30/21 16:11 96 03/30/21 14:45 91 L 03/30/21 12:27 03/30/21 12:16 03/30/21 08:00 03/30/21 07:34 03/30/21 07:23 03/30/21 07:00 92 L 03/30/21 05:03 03/30/21 04:50 03/30/21 04:47 03/30/21 03:16 177/80 91 L 03/30/21 02:34 93 L 03/30/21 02:27 90 L 03/30/21 00:14 90 L Intake and Output 03/30/21 03/30/21 03/30/21 06:59 14:59 22:59 Intake Total 1778 Output Total 250 Balance 1528 Intake: Oral 1778 Output: Urine 250 Other: Voiding Method External Catheter External Catheter Weight 158.757 kg Assessment and Plan Plan: 1 exacerbation of chronic COPD/asthma. The patient presented again with acute bronchospasm wheezing and increased shortness of breath. Computed tomography scan of the chest was done in outside hospital showed no acute abnormalities. 2 COPD/asthma maintained on examination Spiriva and Advair and outpatient basis in addition to DuoNeb nebulized treatments around the clock. Most recent hospitalization was in January 2021 for the same. 3 morbid obesity with a BMI of above 70 4 chronic hypoxic respiratory failure limited in oxygen at 4 L of oxygen by nasal cannula 5 chronic back pain/lumbar disc disease/osteoarthritis 6 history of anxiety/depression/PTSD/schizophrenia 7 history of reflux with Rapp's esophagus 8 diabetes mellitus with a component of steroid-induced hyperglycemia 9 complicated abdominal hernia requiring multiple abdominal surgeries in the past 10 hypothyroidism Plan Continue DuoNeb nebulized with [id number] Put the patient IV Solu Medrol 60 mg every 6 hours Monitor the blood sugar, the patient states care coverage and use long-acting i nsulin if needed. It is likely the patient will need long acting insulin. The patient will placed on Levemir insulin 15 units a day along with dysarthria coverage Stop oral prednisone CT angiogram was noted and no acute abnormalities Were reviewed the blood work that was obtained at [facility] Titrate oxygen flow to maintain a saturation above 90% Considered the possibility of an underlying sleep breathing disorder that seems to be further investigated on outpatient basis
--- NOTE | 2021-03-30 19:52 | HP ---
HISTORY AND PHYSICAL DATE OF SERVICE: 03/30/2021 CHIEF COMPLAINT: Shortness of breath. HISTORY OF PRESENT ILLNESS: This 66-year-old woman with a past medical history of multiple medical problems, including asthma, COPD, GERD, DJD, history of esophagitis, history of OCD, appendectomy, back surgery, being followed by a primary physician [facility], was recently admitted to [facility] with features of acute on chronic COPD exacerbation. The patient went home, and after stopping steroids and antibiotics, the patient became extremely short of breath. The patient was taken to a local hospital and was subsequently referred to [facility] for further evaluation and treatment. There is no history of any fever, rigors or chills. No history of headache, loss of consciousness, seizures. PAST MEDICAL HISTORY: History of asthma, COPD, GERD, DJD, history of esophagitis. MEDICATIONS: Home medications are morphine sulfate, Zanaflex, Benadryl, buspirone, Spiriva, Seroquel, Ditropan, multivitamins, Toprol, magnesium oxide, Imodium, Synthroid, iron sulfate, DuoNeb, Advair. PHYSICAL EXAMINATION: Patient is alert, oriented x3. Pulse 60, blood pressure 100/55, respiration 16, temperature 97.4, pulse ox 91% on room air. HEENT: Conjunctivae normal. NECK: No jugular venous distention. CARDIOVASCULAR: S1, S2 muffled. RESPIRATION: Breath sounds diminished at the bases. A few scattered rhonchi and crackles. Expiratory wheezing also present. ABDOMEN: Soft, obese, non-tender. LEGS: No edema. No swelling. NERVOUS SYSTEM: Higher functions as mentioned earlier. Moves all 4 limbs. No focal motor or sensory deficit. LYMPHATICS: No lymph node palpable in neck, axillae or groin. SKIN: No ulcer, rash, bleeding. JOINTS: No active deforming arthropathy. LABS: Labs are not available. ASSESSMENT: 1. Chronic obstructive pulmonary disease, acute exacerbation, with acute hypoxic respiratory failure with acute purulent tracheobronchitis. 2. History of asthma. 3. History of gastroesophageal reflux disease. 4. History of degenerative joint disease. 5. History of esophagitis. 6. History of Rapp's esophagus. 7. History of spinal disc herniation. 8. History of MRSA. 9. Appendectomy. 10.History of back surgery. 11.Anxiety, depression, posttraumatic stress disorder, schizophrenia. 12.History of OCD. 13.Obesity with a body mass index of 53.2. RECOMMENDATIONS AND DISCUSSION: This 66-year-old woman who presented with multiple complex medical issues, we will monitor the patient closely, continue the current medications, continue symptomatic treatment, optimize the bronchodilator treatment. Consult Pulmonary for evaluation. Otherwise, resume the home medication. IV steroids. Guarded prognosis because of multiple complex medical issues. Further recommendations to follow. MMODL / IJN: [id number] /
[2021-03-30] MEDS: FORMOTEROL FUMARATE 20 MCG/2 ML NEBU INHALATION SCH (20:17)
[2021-03-30] MEDS: BUDESONIDE 1 MG/2 ML NEBU INHALATION SCH (20:17)
[2021-03-30 21:37] LABS: Glucose,Whole Blood 229 mg/dL (75-99)
[2021-03-30] MEDS: MIRTAZAPINE 45 MG TABLET PO SCH (22:25)
[2021-03-30] MEDS: busPIRone HCl 5 MG TAB PO SCH (22:25)
[2021-03-30] MEDS: diphenhydrAMINE 25 MG CAP PO SCH (22:25)
[2021-03-30] MEDS: POTASSIUM CHLORIDE ER 20 MEQ TAB.ER PO SCH (22:25)
[2021-03-30] MEDS: MAGNESIUM OXIDE 400 MG TAB PO SCH (22:26)
[2021-03-30] MEDS: LEVOTHYROXINE 50 MCG TAB PO SCH (22:26)
[2021-03-30] MEDS: QUEtiapine 50 MG TAB PO SCH (22:26)
[2021-03-30] MEDS: HEPARIN SODIUM,PORCINE/PF 5,000 UNIT/0.5 ML SYRINGE SQ SCH (22:26)
[2021-03-30] MEDS: QUEtiapine 200 MG TAB PO SCH (22:26)
[2021-03-30] MEDS: INSULIN ASPART (NovoLOG) 100 UNIT/ML VIAL SQ SCH (22:27)
[2021-03-30] MEDS: CHOLECALCIFEROL 25 MCG (1000 IU) TABLET PO SCH (22:27)
[2021-03-31] MEDS: tiZANidine 4 MG TAB PO SCH ×3 (04:36→15:55)
[2021-03-31] MEDS: methylPREDNISolone SOD SUCCI 125 MG/2 ML VIAL IV SCH ×3 (06:00→22:54)
[2021-03-31] MEDS: MORPHINE SULFATE IR 15 MG TABLET PO PRN ×2 (06:01→15:55)
[2021-03-31] MEDS: BUDESONIDE 1 MG/2 ML NEBU INHALATION SCH ×2 (07:48→20:14)
[2021-03-31] MEDS: IPRATROPIUM-ALBUTEROL 3 ML NEB INHALATION SCH ×4 (07:48→20:14)
[2021-03-31] MEDS: FORMOTEROL FUMARATE 20 MCG/2 ML NEBU INHALATION SCH ×2 (07:48→20:14)
[2021-03-31 08:06] LABS: Glucose,Whole Blood 270 mg/dL (75-99)
[2021-03-31] MEDS: INSULIN ASPART (NovoLOG) 100 UNIT/ML VIAL SQ SCH ×4 (08:47→23:01)
[2021-03-31] MEDS: GABAPENTIN 300 MG CAP PO SCH ×2 (08:48→22:49)
[2021-03-31] MEDS: diphenhydrAMINE 25 MG CAP PO SCH ×2 (08:48→22:51)
[2021-03-31] MEDS: METOPROLOL SUCCINATE (ER) 25 MG TAB.ER.24H PO SCH (08:48)
[2021-03-31] MEDS: MORPHINE SULFATE ER 30 MG TABLET PO SCH ×2 (08:48→22:50)
[2021-03-31] MEDS: PANTOPRAZOLE 40 MG TABLET PO SCH ×2 (08:49→22:50)
[2021-03-31] MEDS: HEPARIN SODIUM,PORCINE/PF 5,000 UNIT/0.5 ML SYRINGE SQ SCH ×2 (08:49→22:51)
[2021-03-31] MEDS: LORATADINE 10 MG TAB PO SCH (08:49)
[2021-03-31] MEDS: MULTIVITAMINS, THERA 1 EACH TAB PO SCH (08:50)
[2021-03-31] MEDS: busPIRone HCl 5 MG TAB PO SCH ×2 (08:50→22:51)
[2021-03-31] MEDS: OXYBUTYNIN CHLORIDE 5 MG TAB PO SCH ×2 (08:50→22:50)
[2021-03-31] MEDS: QUEtiapine 100 MG TAB PO SCH (08:59)
[2021-03-31] MEDS: FLUTICASONE 50MCG/SPRAY NASAL 16GM EA NOSTRIL SCH (08:59)
[2021-03-31 09:04] LABS: Basophils # (A) 0.01 X 10*3/uL (0.00-0.10); Basophils % (A) 0.1 %; Eosinophils # (A) 0 X 10*3/uL (0.04-0.35); Eosinophils % (A) 0 %; HCT 49.1 % (37.2-46.3); HGB 13.8 g/dL (12.0-15.0); Lymphocytes # (A) 0.54 X 10*3/uL (0.90-5.00); Lymphocytes % (A) 5.6 %; MCH 26.3 pg (27.0-32.0); MCHC 28.1 g/dL (32.0-37.0); MCV 93.5 fL (80.0-97.0); Mean Platelet Volume 11.7 fL (9.5-12.2); Monocytes # (A) 0.36 X 10*3/uL (0.20-1.00); Monocytes % (A) 3.8 %; Neutrophils # (A) 8.59 X 10*3/uL (1.80-7.70); Neutrophils % (A) 89.5 %; Platelet Count 220 X 10*3/uL (140-440); RBC 5.25 X 10*6/uL (4.10-5.20); RDW 15.4 % (11.5-14.5)
[2021-03-31 09:07] LABS: African American GFR (CKD) 61.4 (60.0-200.0); Anion Gap 5.9 mmol/L (4.00-12.00); BUN/Creat Ratio 31.82 Ratio (12.00-20.00); Calcium 9.3 mg/dL (8.7-10.3); Carbon Dioxide 32.1 mmol/L (21.6-31.8); Potassium 5.8 mmol/L (3.5-5.5)
[2021-03-31 11:45] LABS: Glucose,Whole Blood 276 mg/dL (75-99)
--- NOTE | 2021-03-31 15:22 | P.PN ---
Subjective Progress Note Date: 03/31/21 This is a morbidly obese 66-year-old female patient has history of COPD/asthma is coming in for worsening shortness of breath. The patient was in the hospital on 02/05/2021 treated for the same and the patient was discharged home. Once she is off the systemic steroids and after completing the prednisone burst taper, the patient's symptoms of increased dyspnea cough chest tightness and wheezing came back. The patient was initially seen an outside hospital. Computed tomography scan of the chest was done and showed no acute abnormalities. There was some atelectatic changes in lung bases bilaterally. Otherwise, no consolidation, no pulmonary embolism. The patient is oxygen dependent. She is morbidly obese with a component of obesity hypoventilation syndrome. She has home O2. She has also on nebulizer and she utilizes DuoNeb nebulized units [id number] up to 4 times a day. Maintenance as for medications include Spiriva 1 patient day and Advair Diskus 250/50/50 one puff twice a day. COVID-19 testing was negative. White cell count done in the outside hospital showed a count of 11.5. The patient was referred to us for further evaluation the patient was hospitalized for further treatment. No history of any CAD. No history of any DVT or pulmonary embolism. No increased swelling in lower extremities. 03/31/2021, clinically the patient is feeling better and the patient is less short of breath with bronchospastic and wheezy compared to yesterday. She has developed some mild steroid-induced hyperglycemia. No fever. No chills. No chest pain. General. No swelling lower extremities bilaterally. Remains on a combination of bronchodilators and steroids. He white cell count today is at 9.6 with a hemoglobin of 15.8. BMI 35 with a creatinine of 1.1. Sodium is at 139. Objective - Vital Signs Vital signs: Vital Signs Temp 97.6 F 03/31/21 14:56 Pulse 73 03/31/21 14:56 Resp 21 03/31/21 14:56 BP 94/50 03/31/21 14:56 Pulse Ox 92 L 03/31/21 14:56 Intake & Output 03/30/21 03/31/21 03/31/21 18:59 06:59 18:59 Intake Total 1778 480 480 Output Total 250 400 900 Balance 1528 80 -420 Intake: Oral 1778 480 480 Output: Urine 250 400 900 Other: Voiding Method External Catheter External Catheter External Catheter # Voids 2 - Exam GENERAL EXAM: Alert, pleasant, morbidly obese 65-year-old female patient, on 5 L nasal cannula, comfortable in no apparent distress. HEAD: Normocephalic. EYES: Normal reaction of pupils, equal size. NOSE: Clear with pink turbinates. THROAT: No erythema or exudates. NECK: No masses, no JVD. CHEST: No chest wall deformity. LUNGS: Equal air entry with bilateral end expiratory wheeze, diminished. CVS: S1 and S2 normal with no audible murmur, regular rhythm. ABDOMEN: No hepatosplenomegaly, normal bowel sounds, no guarding or rigidity. SPINE: No scoliosis or deformity SKIN: No rashes CENTRAL NERVOUS SYSTEM: No focal deficits, tone is normal in all 4 extremities. EXTREMITIES: There is 1-2+ peripheral edema. No clubbing, no cyanosis. Peripheral pulses are intact. - Labs CBC & Chem 7: 03/31/21 06:17 03/31/21 06:17 Labs: Abnormal Lab Results - Last 24 Hours (Table) 03/30/21 03/31/21 03/31/21 Range/Units 21:35 06:17 06:17 RBC 5.25 H (4.10-5.20) X 10*6/uL Hct 49.1 H (37.2-46.3) % MCH 26.3 L (27.0-32.0) pg MCHC 28.1 L (32.0-37.0) g/dL RDW 15.4 H (11.5-14.5) % Immature Gran # 0.10 H (0.00-0.04) X 10*3/uL Neutrophils # 8.59 H (1.80-7.70) X 10*3/uL Lymphocytes # 0.54 L (0.90-5.00) X 10*3/uL Eosinophils # 0 L (0.04-0.35) X 10*3/uL Potassium 5.8 H (3.5-5.5) mmol/L Carbon Dioxide 32.1 H (21.6-31.8) mmol/L BUN 35.0 H (9.0-27.0) mg/dL Est GFR (CKD-EPI)NonAf 53.0 L (60.0-200.0) BUN/Creatinine Ratio 31.82 H (12.00-20.00) Ratio Glucose 336 H (70-110) mg/dL POC Glucose (mg/dL) 229 H (75-99) mg/dL 03/31/21 03/31/21 Range/Units 07:55 11:44 RBC (4.10-5.20) X 10*6/uL Hct (37.2-46.3) % MCH (27.0-32.0) pg MCHC (32.0-37.0) g/dL RDW (11.5-14.5) % Immature Gran # (0.00-0.04) X 10*3/uL Neutrophils # (1.80-7.70) X 10*3/uL Lymphocytes # (0.90-5.00) X 10*3/uL Eosinophils # (0.04-0.35) X 10*3/uL Potassium (3.5-5.5) mmol/L Carbon Dioxide (21.6-31.8) mmol/L BUN (9.0-27.0) mg/dL Est GFR (CKD-EPI)NonAf (60.0-200.0) BUN/Creatinine Ratio (12.00-20.00) Ratio Glucose (70-110) mg/dL POC Glucose (mg/dL) 270 H 276 H (75-99) mg/dL Assessment and Plan Plan: 1 exacerbation of chronic COPD/asthma. The patient presented again with acute b ronchospasm wheezing and increased shortness of breath. Computed tomography scan of the chest was done in outside hospital showed no acute abnormalities. Clinically the patient is improving and the patient is less bronchospastic and wheezy 2 COPD/asthma maintained on examination Spiriva and Advair and outpatient basis in addition to DuoNeb nebulized treatments around the clock. Most recent hos pitalization was in January 2021 for the same. 3 morbid obesity with a BMI of above 70 4 chronic hypoxic respiratory failure limited in oxygen at 4 L of oxygen by nasal cannula 5 chronic back pain/lumbar disc disease/osteoarthritis 6 history of anxiety/depression/PTSD/schizophrenia 7 history of reflux with Rapp's esophagus 8 diabetes mellitus with a component of steroid-induced hyperglycemia 9 complicated abdominal hernia requiring multiple abdominal surgeries in the past 10 hypothyroidism Plan Clinically improving Continue DuoNeb nebulized with [id number] Put the patient IV Solu Medrol 60 mg every 6 hours Monitor the blood sugar, add Levemir insulin 10 units a day along with dysarthria coverage Stop oral prednisone CT angiogram was noted and no acute abnormalities Were reviewed the blood work that was obtained at [facility] Titrate oxygen flow to maintain a saturation above 90% Considered the possibility of an underlying sleep breathing disorder that seems to be further investigated on outpatient basis
[2021-03-31 17:32] LABS: Glucose,Whole Blood 254 mg/dL (75-99)
--- NOTE | 2021-03-31 19:42 | PN ---
PROGRESS NOTE DATE OF SERVICE: 03/31/2021 This 66-year-old woman who was admitted with COPD acute exacerbation is being closely monitored. No chest pain. No palpitations. No fever. PHYSICAL EXAMINATION: Alert and oriented times three. Pulse 73, blood pressure 94/50, respirations 21, temp 97.6, pulse ox 92% on 5 L. HEENT: Conjunctivae normal. Neck: No JVD. Cardiovascular: S1, S2 muffled. RESPIRATION: Breath sounds diminished in the bases. Bilateral scattered rhonchi and crackles. Abdomen: Soft, obese, nontender. No mass palpable. Legs are no edema. No swelling. Nervous system: No focal deficits. LABS: WBC 9.7. Hemoglobin potassium 5.8. Glucose noted. ASSESSMENT: 1. Chronic obstructive pulmonary disease acute exacerbation with acute hypoxic respiratory failure with acute purulent tracheobronchitis, present on admission. 2. History of asthma. 3. Hyperkalemia. 4. History of gastroesophageal reflux disease. 5. History of degenerative joint disease. 6. History of esophagitis. 7. History of Rapp's esophagus. 8. History of spinal disk herniation. 9. History of MRSA. 10.History of appendectomy. 11.History of back surgery. 12.Anxiety, depression, posttraumatic stress disorder, schizophrenia. 13.History of OCD. 14.Obesity with body mass index of 53.2. RECOMMENDATIONS AND DISCUSSION: Recommend to continue current medications, management and symptomatic treatment. Otherwise repeat lytes. Bronchodilators. Ensure coverage of bronchodilators as outpatient. Closely follow with Social Work and Case Management. Guarded prognosis. Further recommendations to follow. MMODL / IJN: [id number] / ASTON
[2021-03-31 21:47] LABS: Glucose,Whole Blood 220 mg/dL (75-99)
[2021-03-31] MEDS: POTASSIUM CHLORIDE ER 20 MEQ TAB.ER PO SCH (22:50)
[2021-03-31] MEDS: MIRTAZAPINE 45 MG TABLET PO SCH (22:50)
[2021-03-31] MEDS: CHOLECALCIFEROL 25 MCG (1000 IU) TABLET PO SCH (22:50)
[2021-03-31] MEDS: LEVOTHYROXINE 50 MCG TAB PO SCH (22:51)
[2021-03-31] MEDS: MAGNESIUM OXIDE 400 MG TAB PO SCH (22:51)
[2021-03-31] MEDS: QUEtiapine 200 MG TAB PO SCH (22:51)
[2021-03-31] MEDS: QUEtiapine 50 MG TAB PO SCH (22:51)
[2021-04-01] MEDS: tiZANidine 4 MG TAB PO SCH ×4 (00:08→23:12)
[2021-04-01] MEDS: methylPREDNISolone SOD SUCCI 125 MG/2 ML VIAL IV SCH ×5 (00:08→23:12)
[2021-04-01] MEDS: IPRATROPIUM-ALBUTEROL 3 ML NEB INHALATION SCH ×4 (07:17→19:49)
[2021-04-01] MEDS: BUDESONIDE 1 MG/2 ML NEBU INHALATION SCH ×2 (07:17→19:49)
[2021-04-01] MEDS: FORMOTEROL FUMARATE 20 MCG/2 ML NEBU INHALATION SCH ×2 (07:17→19:49)
[2021-04-01 07:54] LABS: Glucose,Whole Blood 307 mg/dL (75-99)
[2021-04-01] MEDS: INSULIN DETEMIR (LEVEMIR) 100 UNIT/ML SYR SQ SCH (08:06)
[2021-04-01] MEDS: INSULIN ASPART (NovoLOG) 100 UNIT/ML VIAL SQ SCH ×5 (08:06→21:44)
[2021-04-01] MEDS: GABAPENTIN 300 MG CAP PO SCH ×2 (08:08→21:45)
[2021-04-01] MEDS: METOPROLOL SUCCINATE (ER) 25 MG TAB.ER.24H PO SCH (08:08)
[2021-04-01] MEDS: LORATADINE 10 MG TAB PO SCH (08:08)
[2021-04-01] MEDS: MULTIVITAMINS, THERA 1 EACH TAB PO SCH (08:08)
[2021-04-01] MEDS: PANTOPRAZOLE 40 MG TABLET PO SCH ×2 (08:08→21:45)
[2021-04-01] MEDS: busPIRone HCl 5 MG TAB PO SCH ×2 (08:08→21:46)
[2021-04-01] MEDS: MORPHINE SULFATE ER 30 MG TABLET PO SCH ×2 (08:08→21:46)
[2021-04-01] MEDS: diphenhydrAMINE 25 MG CAP PO SCH ×2 (08:09→21:46)
[2021-04-01] MEDS: FLUTICASONE 50MCG/SPRAY NASAL 16GM EA NOSTRIL SCH (08:09)
[2021-04-01] MEDS: HEPARIN SODIUM,PORCINE/PF 5,000 UNIT/0.5 ML SYRINGE SQ SCH ×2 (08:12→21:44)
[2021-04-01] MEDS: OXYBUTYNIN CHLORIDE 5 MG TAB PO SCH ×2 (08:13→21:46)
[2021-04-01] MEDS: QUEtiapine 100 MG TAB PO SCH (08:14)
[2021-04-01 10:27] LABS: African American GFR (CKD) 50.2 (60.0-200.0); Anion Gap 7.1 mmol/L (4.00-12.00); BUN/Creat Ratio 36.92 Ratio (12.00-20.00); Calcium 9.4 mg/dL (8.7-10.3); Carbon Dioxide 33.9 mmol/L (21.6-31.8); Non-African American GFR(CKD) 43.3 (60.0-200.0); Potassium 5.6 mmol/L (3.5-5.5)
[2021-04-01 10:37] LABS: Basophils # (A) 0.01 X 10*3/uL (0.00-0.10); Basophils % (A) 0.1 %; Eosinophils # (A) 0 X 10*3/uL (0.04-0.35); Eosinophils % (A) 0 %; HCT 50.6 % (37.2-46.3); Lymphocytes % (A) 4.8 %; MCHC 27.7 g/dL (32.0-37.0); MCV 94.1 fL (80.0-97.0); Monocytes # (A) 0.56 X 10*3/uL (0.20-1.00); Monocytes % (A) 5.4 %; Neutrophils % (A) 88.5 %; Platelet Count 229 X 10*3/uL (140-440); RBC 5.38 X 10*6/uL (4.10-5.20); RDW 15.4 % (11.5-14.5); WBC 10.39 X 10*3/uL (4.50-10.00)
[2021-04-01] MEDS ORDERED: ACETAMINOPHEN TAB 325 MG TAB PO PRN (11:04)
[2021-04-01] MEDS ORDERED: SODIUM POLYSTYRENE SULFONATE 15 GM/60 ML BOTTLE PO STA (11:04)
[2021-04-01 11:32] LABS: Glucose,Whole Blood 364 mg/dL (75-99)
[2021-04-01] MEDS ORDERED: INSULIN ASPART (NovoLOG) 100 UNIT/ML VIAL SQ ONE (12:00)
[2021-04-01] MEDS ORDERED: INSULIN REGULAR 100 UNIT/ML VIAL (IV) IV ONE (12:14)
[2021-04-01] MEDS ORDERED: DEXTROSE 50% SYRINGE 50 ML IVP STA (12:14)
[2021-04-01 14:05] LABS: Glucose,Whole Blood 274 mg/dL (75-99)
[2021-04-01 17:38] LABS: Glucose,Whole Blood 167 mg/dL (75-99)
--- NOTE | 2021-04-01 18:26 | PN ---
PROGRESS NOTE DATE OF SERVICE: 04/01/2021 This 66-year-old woman was admitted with COPD acute exacerbation also had elevated blood sugars also. No chest pain. No palpitations. No fever. The sugars are 274 at this time. PHYSICAL EXAMINATION: Alert and oriented. Pulse is 65. Blood pressure 118/75, respiration 18, temperature 98.2, pulse ox 94% on 5 L. HEENT: Conjunctivae normal. NECK: No JVD. CARDIOVASCULAR: S1, S2 muffled. RESPIRATORY SYSTEM: Breath sounds diminished at the bases. A few scattered rhonchi and crackles. Expiratory wheezing also present. ABDOMEN: Soft. NERVOUS SYSTEM: No focal deficits. LABS: WBC 10.3, hemoglobin 14, sodium 139, potassium 5.3. Other labs are noted. ASSESSMENT: 1. Chronic obstructive pulmonary disease acute exacerbation with acute hypoxic respiratory failure with acute purulent tracheobronchitis present on admission. 2. History of asthma. 3. Hyperkalemia. 4. History of gastroesophageal reflux disease. 5. History of degenerative joint disease. 6. History of esophagitis. 7. History of Rapp's esophagus. 8. History of spinal disk herniation. 9. History of MRSA. 10.History of appendectomy. 11.History of back surgery. 12.Anxiety, depression, posttraumatic stress disorder, schizophrenia. 13.History of OCD. 14.Obesity with body mass index of 53.2. RECOMMENDATIONS AND DISCUSSION: Recommend to continue current medications, symptomatic treatment. Otherwise, low- potassium diet. Patient refused Kayexalate. Monitor blood sugars closely. If blood sugars more than 350, start insulin drip. Closely follow with Pulmonary. Guarded prognosis. Further recommendations to follow. MMODL / IJN: [id number] /
--- NOTE | 2021-04-01 18:39 | P.PN ---
Subjective Progress Note Date: 04/01/21 This is a morbidly obese 66-year-old female patient has history of COPD/asthma is coming in for worsening shortness of breath. The patient was in the hospital on 02/05/2021 treated for the same and the patient was discharged home. Once she is off the systemic steroids and after completing the prednisone burst taper, the patient's symptoms of increased dyspnea cough chest tightness and wheezing came back. The patient was initially seen an outside hospital. Computed tomography scan of the chest was done and showed no acute abnormalities. There was some atelectatic changes in lung bases bilaterally. Otherwise, no consolidation, no pulmonary embolism. The patient is oxygen dependent. She is morbidly obese with a component of obesity hypoventilation syndrome. She has home O2. She has also on nebulizer and she utilizes DuoNeb nebulized units [id number] up to 4 times a day. Maintenance as for medications include Spiriva 1 patient day and Advair Diskus 250/50/50 one puff twice a day. COVID-19 testing was negative. White cell count done in the outside hospital showed a count of 11.5. The patient was referred to us for further evaluation the patient was hospitalized for further treatment. No history of any CAD. No history of any DVT or pulmonary embolism. No increased swelling in lower extremities. 03/31/2021, clinically the patient is feeling better and the patient is less short of breath with bronchospastic and wheezy compared to yesterday. She has developed some mild steroid-induced hyperglycemia. No fever. No chills. No chest pain. General. No swelling lower extremities bilaterally. Remains on a combination of bronchodilators and steroids. He white cell count today is at 9.6 with a hemoglobin of 15.8. BMI 35 with a creatinine of 1.1. Sodium is at 139. 04/01/2021, no new complaints and the patient continues to improve as she is being treated for COPD/asthma exacerbation. Remains on IV Solu Medrol 60 mg every 6 hours. Remains on DuoNeb nebulized treatments. Remains on Pulmicort Respules. Remains on empiric antibiotic coverage with IV Rocephin. Blood sugar from today still 67. The rest of the labs Objective - Vital Signs Vital signs: Vital Signs Temp 98.1 F 04/01/21 15:11 Pulse 92 04/01/21 15:33 Resp 18 04/01/21 15:11 BP 118/75 04/01/21 15:11 Pulse Ox 94 L 04/01/21 15:11 Intake & Output 03/31/21 04/01/21 04/01/21 18:59 06:59 18:59 Intake Total 720 Output Total 900 700 600 Balance -180 -700 -600 Intake: Oral 720 Output: Urine 900 700 600 Other: Voiding Method External Catheter External Catheter External Catheter # Voids 1 - Exam GENERAL EXAM: Alert, pleasant, morbidly obese 65-year-old female patient, on 5 L nasal cannula, comfortable in no apparent distress. HEAD: Normocephalic. EYES: Normal reaction of pupils, equal size. NOSE: Clear with pink turbinates. THROAT: No erythema or exudates. NECK: No masses, no JVD. CHEST: No chest wall deformity. LUNGS: Equal air entry with bilateral end expiratory wheeze, diminished. CVS: S1 and S2 normal with no audible murmur, regular rhythm. ABDOMEN: No hepatosplenomegaly, normal bowel sounds, no guarding or rigidity. SPINE: No scoliosis or deformity SKIN: No rashes CENTRAL NERVOUS SYSTEM: No focal deficits, tone is normal in all 4 extremities. EXTREMITIES: There is 1-2+ peripheral edema. No clubbing, no cyanosis. Peripheral pulses are intact. - Labs CBC & Chem 7: 04/01/21 06:26 04/01/21 06:26 Labs: Abnormal Lab Results - Last 24 Hours (Table) 03/31/21 04/01/21 04/01/21 Range/Units 21:45 06:26 06:26 WBC 10.39 H (4.50-10.00) X 10*3/uL RBC 5.38 H (4.10-5.20) X 10*6/uL Hct 50.6 H (37.2-46.3) % MCH 26.0 L (27.0-32.0) pg MCHC 27.7 L (32.0-37.0) g/dL RDW 15.4 H (11.5-14.5) % Immature Gran # 0.12 H (0.00-0.04) X 10*3/uL Neutrophils # 9.20 H (1.80-7.70) X 10*3/uL Lymphocytes # 0.50 L (0.90-5.00) X 10*3/uL Eosinophils # 0 L (0.04-0.35) X 10*3/uL Potassium 5.6 H (3.5-5.5) mmol/L Carbon Dioxide 33.9 H (21.6-31.8) mmol/L BUN 48.0 H (9.0-27.0) mg/dL Est GFR (CKD-EPI)AfAm 50.2 L (60.0-200.0) Est GFR (CKD-EPI)NonAf 43.3 L (60.0-200.0) BUN/Creatinine Ratio 36.92 H (12.00-20.00) Ratio Glucose 314 H (70-110) mg/dL POC Glucose (mg/dL) 220 H (75-99) mg/dL 04/01/21 04/01/21 04/01/21 Range/Units 07:52 11:30 14:03 WBC (4.50-10.00) X 10*3/uL RBC (4.10-5.20) X 10*6/uL Hct (37.2-46.3) % MCH (27.0-32.0) pg MCHC (32.0-37.0) g/dL RDW (11.5-14.5) % Immature Gran # (0.00-0.04) X 10*3/uL Neutrophils # (1.80-7.70) X 10*3/uL Lymphocytes # (0.90-5.00) X 10*3/uL Eosinophils # (0.04-0.35) X 10*3/uL Potassium (3.5-5.5) mmol/L Carbon Dioxide (21.6-31.8) mmol/L BUN (9.0-27.0) mg/dL Est GFR (CKD-EPI)AfAm (60.0-200.0) Est GFR (CKD-EPI)NonAf (60.0-200.0) BUN/Creatinine Ratio (12.00-20.00) Ratio Glucose (70-110) mg/dL POC Glucose (mg/dL) 307 H 364 H 274 H (75-99) mg/dL 04/01/21 Range/Units 17:37 WBC (4.50-10.00) X 10*3/uL RBC (4.10-5.20) X 10*6/uL Hct (37.2-46.3) % MCH (27.0-32.0) pg MCHC (32.0-37.0) g/dL RDW (11.5-14.5) % Immature Gran # (0.00-0.04) X 10*3/uL Neutrophils # (1.80-7.70) X 10*3/uL Lymphocytes # (0.90-5.00) X 10*3/uL Eosinophils # (0.04-0.35) X 10*3/uL Potassium (3.5-5.5) mmol/L Carbon Dioxide (21.6-31.8) mmol/L BUN (9.0-27.0) mg/dL Est GFR (CKD-EPI)AfAm (60.0-200.0) Est GFR (CKD-EPI)NonAf (60.0-200.0) BUN/Creatinine Ratio (12.00-20.00) Ratio Glucose (70-110) mg/dL POC Glucose (mg/dL) 167 H (75-99) mg/dL Assessment and Plan Plan: 1 acute exacerbation of chronic COPD/asthma. The patient presented again with acute bronchospasm wheezing and increased shortness of breath. Computed tomography scan of the chest was done in outside hospital showed no acute abnormalities. Clinically the patient is improving and the patient is less bronchospastic and wheezy, clinically improving 2 COPD/asthma maintained on examination Spiriva and Advair and outpatient basis in addition to DuoNeb nebulized treatments around the clock. Most recent hospitalization was in January 2021 for the same. 3 morbid obesity with a BMI of above 70 4 chronic hypoxic respiratory failure limited in oxygen at 4 L of oxygen by nasal cannula 5 chronic back pain/lumbar disc disease/osteoarthritis 6 history of anxiety/depression/PTSD/schizophrenia 7 history of reflux with Rapp's esophagus 8 diabetes mellitus with a component of steroid-induced hyperglycemia 9 complicated abdominal hernia requiring multiple abdominal surgeries in the past 10 hypothyroidism Plan Clinically improving Continue DuoNeb nebulized with [id number] Put the patient IV Solu Medrol 60 mg every 6 hours Continue Levemir insulin 10 units a day along with dysarthria coverage Will follow-up the patient and we are going to start to taper steroids in the next 24-48 hours based on her overall clinical response.
[2021-04-01 20:08] LABS: Glucose,Whole Blood 153 mg/dL (75-99)
[2021-04-01] MEDS: MAGNESIUM OXIDE 400 MG TAB PO SCH (21:45)
[2021-04-01] MEDS: QUEtiapine 200 MG TAB PO SCH (21:45)
[2021-04-01] MEDS: QUEtiapine 50 MG TAB PO SCH (21:46)
[2021-04-01] MEDS: CHOLECALCIFEROL 25 MCG (1000 IU) TABLET PO SCH (21:46)
[2021-04-01] MEDS: MIRTAZAPINE 45 MG TABLET PO SCH (21:46)
[2021-04-01] MEDS: LEVOTHYROXINE 50 MCG TAB PO SCH (21:46)
[2021-04-02] MEDS: methylPREDNISolone SOD SUCCI 125 MG/2 ML VIAL IV SCH ×4 (05:58→23:17)
[2021-04-02] MEDS: FORMOTEROL FUMARATE 20 MCG/2 ML NEBU INHALATION SCH ×2 (07:13→20:03)
[2021-04-02] MEDS: IPRATROPIUM-ALBUTEROL 3 ML NEB INHALATION SCH ×4 (07:13→20:03)
[2021-04-02] MEDS: BUDESONIDE 1 MG/2 ML NEBU INHALATION SCH ×2 (07:13→20:03)
[2021-04-02 07:46] LABS: Glucose,Whole Blood 260 mg/dL (75-99)
[2021-04-02] MEDS: GABAPENTIN 300 MG CAP PO SCH ×2 (08:57→19:15)
[2021-04-02] MEDS: HEPARIN SODIUM,PORCINE/PF 5,000 UNIT/0.5 ML SYRINGE SQ SCH ×2 (08:57→19:19)
[2021-04-02] MEDS: diphenhydrAMINE 25 MG CAP PO SCH ×2 (08:58→23:16)
[2021-04-02] MEDS: MULTIVITAMINS, THERA 1 EACH TAB PO SCH (08:58)
[2021-04-02] MEDS: MORPHINE SULFATE ER 30 MG TABLET PO SCH ×2 (08:58→19:15)
[2021-04-02] MEDS: LORATADINE 10 MG TAB PO SCH (08:58)
[2021-04-02] MEDS: METOPROLOL SUCCINATE (ER) 25 MG TAB.ER.24H PO SCH (08:59)
[2021-04-02] MEDS: busPIRone HCl 5 MG TAB PO SCH ×2 (08:59→23:15)
[2021-04-02] MEDS: INSULIN DETEMIR (LEVEMIR) 100 UNIT/ML SYR SQ SCH (08:59)
[2021-04-02] MEDS: tiZANidine 4 MG TAB PO SCH ×3 (09:00→23:16)
[2021-04-02] MEDS: INSULIN ASPART (NovoLOG) 100 UNIT/ML VIAL SQ SCH ×4 (09:00→21:12)
[2021-04-02] MEDS: FLUTICASONE 50MCG/SPRAY NASAL 16GM EA NOSTRIL SCH (09:03)
[2021-04-02] MEDS: QUEtiapine 100 MG TAB PO SCH (09:03)
[2021-04-02] MEDS: OXYBUTYNIN CHLORIDE 5 MG TAB PO SCH ×2 (09:04→23:16)
[2021-04-02] MEDS: PANTOPRAZOLE 40 MG TABLET PO SCH ×2 (09:19→19:15)
[2021-04-02 12:06] LABS: Glucose,Whole Blood 313 mg/dL (75-99)
--- NOTE | 2021-04-02 12:07 | P.PN ---
Subjective Progress Note Date: 04/02/21 This is a morbidly obese 66-year-old female patient has history of COPD/asthma is coming in for worsening shortness of breath. The patient was in the hospital on 02/05/2021 treated for the same and the patient was discharged home. Once she is off the systemic steroids and after completing the prednisone burst taper, the patient's symptoms of increased dyspnea cough chest tightness and wheezing came back. The patient was initially seen an outside hospital. Computed tomography scan of the chest was done and showed no acute abnormalities. There was some atelectatic changes in lung bases bilaterally. Otherwise, no consolidation, no pulmonary embolism. The patient is oxygen dependent. She is morbidly obese with a component of obesity hypoventilation syndrome. She has home O2. She has also on nebulizer and she utilizes DuoNeb nebulized units [id number] up to 4 times a day. Maintenance as for medications include Spiriva 1 patient day and Advair Diskus 250/50/50 one puff twice a day. COVID-19 testing was negative. White cell count done in the outside hospital showed a count of 11.5. The patient was referred to us for further evaluation the patient was hospitalized for further treatment. No history of any CAD. No history of any DVT or pulmonary embolism. No increased swelling in lower extremities. 03/31/2021, clinically the patient is feeling better and the patient is less short of breath with bronchospastic and wheezy compared to yesterday. She has developed some mild steroid-induced hyperglycemia. No fever. No chills. No chest pain. General. No swelling lower extremities bilaterally. Remains on a combination of bronchodilators and steroids. He white cell count today is at 9.6 with a hemoglobin of 15.8. BMI 35 with a creatinine of 1.1. Sodium is at 139. 04/01/2021, no new complaints and the patient continues to improve as she is being treated for COPD/asthma exacerbation. Remains on IV Solu Medrol 60 mg every 6 hours. Remains on DuoNeb nebulized treatments. Remains on Pulmicort Respules. Remains on empiric antibiotic coverage with IV Rocephin. Blood sugar from today still 67. The rest of the labs On today's follow-up on the 04/02/2021 patient seen on medical surgical floor. She is sitting up on the edge of the bed, in no acute distress, she feels that her breathing is improving, lung sounds reveal end expiratory wheezes on forced exhalation, still has some chest congestion, loose cough, with no phlegm production. Vital signs have been stable, she is currently on 5 L of oxygen sat 95%, no fever or chills, still has some chest tightness, but overall she feels like she is improving. On high-dose IV steroids 60 mg every 6 hours, she has developed steroid induced hyperglycemia, today's blood sugars are in the range of 153-260. On nebulized bronchodilators, remains on Jere, she's had no fever or chills. Objective - Vital Signs Vital signs: Vital Signs Temp 97 F L 04/02/21 08:00 Pulse 72 04/02/21 11:46 Resp 18 04/02/21 08:00 BP 151/90 04/02/21 08:00 Pulse Ox 95 04/02/21 08:00 Intake & Output 04/01/21 04/02/21 04/02/21 18:59 06:59 18:59 Intake Total 118 Output Total 600 1100 600 Balance -600 -1100 -482 Intake: Oral 118 Output: Urine 600 1100 600 Other: Voiding Method External Catheter External Catheter External Catheter - Exam GENERAL EXAM: Alert, pleasant, 66-year-old obese on 5 L of oxygen with pulse ox of 95%, sitting up on the bed,comfortable in no apparent distress. HEAD: Normocephalic/atraumatic. EYES: Normal reaction of pupils, equal size. Conjunctiva pink, sclera white. NOSE: Clear with pink turbinates. THROAT: No erythema or exudates. NECK: No masses, no JVD, no thyroid enlargement, no adenopathy. CHEST: No chest wall deformity. Symmetrical expansion. LUNGS: Equal air entry with mild wheeze CVS: Regular rate and rhythm, normal S1 and S2, no gallops, no murmurs, no rubs ABDOMEN: Soft, nontender. No hepatosplenomegaly, normal bowel sounds, no guarding or rigidity. EXTREMITIES: No clubbing, no edema, no cyanosis, 2+ pulses and upper and lower extremities. MUSCULOSKELETAL: Muscle strength and tone normal. SPINE: No scoliosis or deformity SKIN: No rashes CENTRAL NERVOUS SYSTEM: Alert and oriented -3. No focal deficits, tone is normal in all 4 extremities. PSYCHIATRIC: Alert and oriented -3. Appropriate affect. Intact judgment and insight. - Labs CBC & Chem 7: 04/01/21 06:26 04/01/21 06:26 Labs: Abnormal Lab Results - Last 24 Hours (Table) 04/01/21 04/01/21 04/01/21 Range/Units 14:03 17:37 20:07 POC Glucose (mg/dL) 274 H 167 H 153 H (75-99) mg/dL 04/02/21 Range/Units 07:45 POC Glucose (mg/dL) 260 H (75-99) mg/dL Assessment and Plan Plan: 1 acute exacerbation of chronic COPD/asthma. The patient presented again with acute bronchospasm wheezing and increased shortness of breath. Computed tomography scan of the chest was done in outside hospital showed no acute abnormalities. Clinically the patient is improving and the patient is less bronchospastic and wheezy, clinically improving 2 COPD/asthma maintained on examination Spiriva and Advair and outpatient basis in addition to DuoNeb nebulized treatments around the clock. Most recent hospitalization was in January 2021 for the same. 3 morbid obesity with a BMI of above 70 4 chronic hypoxic respiratory failure limited in oxygen at 4 L of oxygen by nasal cannula 5 chronic back pain/lumbar disc disease/osteoarthritis 6 history of anxiety/depression/PTSD/schizophrenia 7 history of reflux with Rapp's esophagus 8 diabetes mellitus with a component of steroid-induced hyperglycemia 9 complicated abdominal hernia requiring multiple abdominal surgeries in the past 10 hypothyroidism Plan: Will decrease SoluMedrol to 40 mg every 8 hours Continue bronchodilators Continue Rocephin FiO2, currently down to 5 L, normally wears 4 L of oxygen on a regular basis Increase activity as tolerated follow up labs in am Time with Patient: Less than 30
--- NOTE | 2021-04-02 12:41 | PN ---
PROGRESS NOTE DATE OF SERVICE: 04/02/2021 This 66-year-old woman who was admitted with COPD, acute exacerbation, is still complaining of increasing shortness of breath. The patient apparently has no coverage for outpatient long-term beta antonio, nebulizers as well as steroid boluses. Dr. Glover is following the patient closely. No chest pain. No palpitations. No fever. Blood sugar is elevated. Patient refused Kayexalate. Potassium is also elevated. No chest pain. No palpitations. No fever. Today's labs are not available. PHYSICAL EXAMINATION: Alert and oriented x3. Pulse 76, blood pressure 151/90, respiration 18, temperature 97 degrees, pulse ox 95% on 5 L. HEENT: Conjunctivae normal. NECK: No jugular venous distention. CARDIOVASCULAR: S1, S2 muffled. RESPIRATION: Breath sounds diminished at the bases. Bilateral scattered rhonchi and crackles. Expiratory wheezing also present. ABDOMEN: Soft, obese, non-tender. LEGS: No edema. No swelling. NERVOUS SYSTEM: No focal deficit. LAB STUDIES: WBC 10.2. Other labs are noted. ASSESSMENT: 1. Chronic obstructive pulmonary disease, acute exacerbation, with acute hypoxic respiratory failure with acute purulent tracheobronchitis, present on admission. 2. History of asthma. 3. Hyperkalemia. 4. History of gastroesophageal reflux disease. 5. History of degenerative joint disease. 6. History of noncompliance. 7. History of esophagitis. 8. History of Rapp's esophagus. 9. History of spinal disc herniation. 10.History of MRSA. 11.History of appendectomy. 12.History of back surgery. 13.History of anxiety, depression, posttraumatic stress disorder and schizophrenia. 14.History of OCD. 15.Obesity with body mass index of 53.2. RECOMMENDATIONS AND DISCUSSION: In this 66-year-old woman who presented with multiple complex medical issues, we will monitor the patient closely, continue the current medications. Continue with steroids, bronchodilators. Repeat labs. Today's labs are not available. Otherwise, the importance of compliance was stressed. Closely follow with Pulmonary. Case Management to ensure outpatient coverage for long-term beta-antonio bronchodilators. Guarded prognosis. Further recommendations to follow. MMODL / IJN: [id number] /
[2021-04-02 17:05] LABS: Glucose,Whole Blood 224 mg/dL (75-99)
[2021-04-02] MEDS: CHOLECALCIFEROL 25 MCG (1000 IU) TABLET PO SCH (19:15)
[2021-04-02] MEDS: LEVOTHYROXINE 50 MCG TAB PO SCH (19:15)
[2021-04-02] MEDS: MAGNESIUM OXIDE 400 MG TAB PO SCH (19:15)
[2021-04-02 20:50] LABS: Glucose,Whole Blood 281 mg/dL (75-99)
[2021-04-02] MEDS: MIRTAZAPINE 45 MG TABLET PO SCH (23:15)
[2021-04-02] MEDS: QUEtiapine 50 MG TAB PO SCH (23:16)
[2021-04-02] MEDS: QUEtiapine 200 MG TAB PO SCH (23:16)
[2021-04-02] MEDS: MORPHINE SULFATE IR 15 MG TABLET PO PRN (23:22)
[2021-04-03] MEDS: methylPREDNISolone SOD SUCCI 125 MG/2 ML VIAL IV SCH ×4 (05:49→23:59)
[2021-04-03] MEDS: FORMOTEROL FUMARATE 20 MCG/2 ML NEBU INHALATION SCH ×2 (07:12→19:51)
[2021-04-03] MEDS: BUDESONIDE 1 MG/2 ML NEBU INHALATION SCH ×2 (07:12→19:51)
[2021-04-03] MEDS: IPRATROPIUM-ALBUTEROL 3 ML NEB INHALATION SCH ×4 (07:12→19:51)
[2021-04-03 07:41] LABS: Glucose,Whole Blood 246 mg/dL (75-99)
[2021-04-03] MEDS: INSULIN ASPART (NovoLOG) 100 UNIT/ML VIAL SQ SCH ×4 (08:34→21:54)
[2021-04-03] MEDS: INSULIN DETEMIR (LEVEMIR) 100 UNIT/ML SYR SQ SCH (08:34)
[2021-04-03] MEDS: HEPARIN SODIUM,PORCINE/PF 5,000 UNIT/0.5 ML SYRINGE SQ SCH ×2 (08:34→21:54)
[2021-04-03] MEDS: busPIRone HCl 5 MG TAB PO SCH ×2 (08:36→21:53)
[2021-04-03] MEDS: PANTOPRAZOLE 40 MG TABLET PO SCH ×2 (08:36→21:56)
[2021-04-03] MEDS: MULTIVITAMINS, THERA 1 EACH TAB PO SCH (08:36)
[2021-04-03] MEDS: METOPROLOL SUCCINATE (ER) 25 MG TAB.ER.24H PO SCH (08:37)
[2021-04-03] MEDS: GABAPENTIN 300 MG CAP PO SCH ×2 (08:37→21:54)
[2021-04-03] MEDS: LORATADINE 10 MG TAB PO SCH (08:37)
[2021-04-03] MEDS: MORPHINE SULFATE ER 30 MG TABLET PO SCH ×2 (08:37→21:57)
[2021-04-03] MEDS: FLUTICASONE 50MCG/SPRAY NASAL 16GM EA NOSTRIL SCH (08:38)
[2021-04-03] MEDS: QUEtiapine 100 MG TAB PO SCH (08:41)
[2021-04-03] MEDS: tiZANidine 4 MG TAB PO SCH ×3 (08:41→23:58)
[2021-04-03] MEDS: OXYBUTYNIN CHLORIDE 5 MG TAB PO SCH ×2 (08:41→23:58)
[2021-04-03 10:38] LABS: Basophils # (A) 0.01 X 10*3/uL (0.00-0.10); Basophils % (A) 0.2 %; Eosinophils # (A) 0 X 10*3/uL (0.04-0.35); Eosinophils % (A) 0 %; HCT 46.1 % (37.2-46.3); HGB 13.1 g/dL (12.0-15.0); Lymphocytes % (A) 6.7 %; MCH 26.2 pg (27.0-32.0); MCHC 28.4 g/dL (32.0-37.0); MCV 92.2 fL (80.0-97.0); Mean Platelet Volume 12.1 fL (9.5-12.2); Monocytes # (A) 0.35 X 10*3/uL (0.20-1.00); Monocytes % (A) 5.8 %; Neutrophils # (A) 5.16 X 10*3/uL (1.80-7.70); Neutrophils % (A) 86.1 %; Platelet Count 193 X 10*3/uL (140-440); RDW 15.3 % (11.5-14.5); WBC 5.99 X 10*3/uL (4.50-10.00)
[2021-04-03 11:50] LABS: Glucose,Whole Blood 264 mg/dL (75-99)
[2021-04-03] MEDS: diphenhydrAMINE 25 MG CAP PO SCH ×2 (12:03→21:54)
--- NOTE | 2021-04-03 12:28 | P.PN ---
Subjective Progress Note Date: 04/03/21 This is a morbidly obese 66-year-old female patient has history of COPD/asthma is coming in for worsening shortness of breath. The patient was in the hospital on 02/05/2021 treated for the same and the patient was discharged home. Once she is off the systemic steroids and after completing the prednisone burst taper, the patient's symptoms of increased dyspnea cough chest tightness and wheezing came back. The patient was initially seen an outside hospital. Computed tomography scan of the chest was done and showed no acute abnormalities. There was some atelectatic changes in lung bases bilaterally. Otherwise, no consolidation, no pulmonary embolism. The patient is oxygen dependent. She is morbidly obese with a component of obesity hypoventilation syndrome. She has home O2. She has also on nebulizer and she utilizes DuoNeb nebulized units [id number] up to 4 times a day. Maintenance as for medications include Spiriva 1 patient day and Advair Diskus 250/50/50 one puff twice a day. COVID-19 testing was negative. White cell count done in the outside hospital showed a count of 11.5. The patient was referred to us for further evaluation the patient was hospitalized for further treatment. No history of any CAD. No history of any DVT or pulmonary embolism. No increased swelling in lower extremities. 03/31/2021, clinically the patient is feeling better and the patient is less short of breath with bronchospastic and wheezy compared to yesterday. She has developed some mild steroid-induced hyperglycemia. No fever. No chills. No chest pain. General. No swelling lower extremities bilaterally. Remains on a combination of bronchodilators and steroids. He white cell count today is at 9.6 with a hemoglobin of 15.8. BMI 35 with a creatinine of 1.1. Sodium is at 139. 04/01/2021, no new complaints and the patient continues to improve as she is being treated for COPD/asthma exacerbation. Remains on IV Solu Medrol 60 mg every 6 hours. Remains on DuoNeb nebulized treatments. Remains on Pulmicort Respules. Remains on empiric antibiotic coverage with IV Rocephin. Blood sugar from today still 67. The rest of the labs On today's follow-up on the 04/02/2021 patient seen on medical surgical floor. She is sitting up on the edge of the bed, in no acute distress, she feels that her breathing is improving, lung sounds reveal end expiratory wheezes on forced exhalation, still has some chest congestion, loose cough, with no phlegm production. Vital signs have been stable, she is currently on 5 L of oxygen sat 95%, no fever or chills, still has some chest tightness, but overall she feels like she is improving. On high-dose IV steroids 60 mg every 6 hours, she has developed steroid induced hyperglycemia, today's blood sugars are in the range of 153-260. On nebulized bronchodilators, remains on Jere, she's had no fever or chills. 04/03/2021, clinically the patient is feeling better. She is still on oxygen at 5 L and sometimes up to 6 L. She is on IV Solu-Medrol. Less bronchospastic. Less wheezy. No fever. No chills. Upon further questioning, we are questioning the efficacy of her nebulizer in terms of ability to nebulized and the liver the medication. She may benefit from a new nebulizer machine. She is known to have COPD/asthma. She is on a combination of Advair and Spiriva and she does nebulized treatments with albuterol up to 4 times a day. As mentioned, clinically improving. Objective - Vital Signs Vital signs: Vital Signs Temp 96.8 F L 04/03/21 08:00 Pulse 64 04/03/21 12:00 Resp 18 04/03/21 08:00 BP 132/81 04/03/21 08:00 Pulse Ox 99 04/03/21 08:00 Intake & Output 04/02/21 04/03/21 04/03/21 18:59 06:59 18:59 Intake Total 318 236 Output Total 600 300 Balance -282 -300 236 Intake: Oral 318 236 Output: Urine 600 300 Other: Voiding Method External Catheter Bedside Commode Bedside Commode External Catheter # Voids 1 2 1 - Exam GENERAL EXAM: Alert, pleasant, morbidly obese 65-year-old female patient, on 5 L nasal cannula, comfortable in no apparent distress. HEAD: Normocephalic. EYES: Normal reaction of pupils, equal size. NOSE: Clear with pink turbinates. THROAT: No erythema or exudates. NECK: No masses, no JVD. CHEST: No chest wall deformity. LUNGS: Equal air entry with bilateral end expiratory wheeze, diminished. CVS: S1 and S2 normal with no audible murmur, regular rhythm. ABDOMEN: No hepatosplenomegaly, normal bowel sounds, no guarding or rigidity. SPINE: No scoliosis or deformity SKIN: No rashes CENTRAL NERVOUS SYSTEM: No focal deficits, tone is normal in all 4 extremities. EXTREMITIES: There is 1-2+ peripheral edema. No clubbing, no cyanosis. Peripheral pulses are intact. - Labs CBC & Chem 7: 04/03/21 04:46 04/01/21 06:26 Labs: Abnormal Lab Results - Last 24 Hours (Table) 04/02/21 04/02/21 04/03/21 Range/Units 17:04 20:49 04:46 MCH 26.2 L (27.0-32.0) pg MCHC 28.4 L (32.0-37.0) g/dL RDW 15.3 H (11.5-14.5) % Immature Gran # 0.07 H (0.00-0.04) X 10*3/uL Lymphocytes # 0.40 L (0.90-5.00) X 10*3/uL Eosinophils # 0 L (0.04-0.35) X 10*3/uL POC Glucose (mg/dL) 224 H 281 H (75-99) mg/dL 04/03/21 04/03/21 Range/Units 07:39 11:48 MCH (27.0-32.0) pg MCHC (32.0-37.0) g/dL RDW (11.5-14.5) % Immature Gran # (0.00-0.04) X 10*3/uL Lymphocytes # (0.90-5.00) X 10*3/uL Eosinophils # (0.04-0.35) X 10*3/uL POC Glucose (mg/dL) 246 H 264 H (75-99) mg/dL Assessment and Plan Plan: 1 acute exacerbation of chronic COPD/asthma. The patient presented again with acute bronchospasm wheezing and increased shortness of breath. Computed tomography scan of the chest was done in outside hospital showed no acute abnormalities. Clinically the patient is improving and the patient is less bronchospastic and wheezy, clinically improving 2 COPD/asthma maintained on examination Spiriva and Advair and outpatient basis in addition to DuoNeb nebulized treatments around the clock. Most recent hospitalization was in January 2021 for the same. 3 morbid obesity with a BMI of above 70 4 chronic hypoxic respiratory failure limited in oxygen at 4 L of oxygen by nasal cannula 5 chronic back pain/lumbar disc disease/osteoarthritis 6 history of anxiety/depression/PTSD/schizophrenia 7 history of reflux with Rapp's esophagus 8 diabetes mellitus with a component of steroid-induced hyperglycemia 9 complicated abdominal hernia requiring multiple abdominal surgeries in the past 10 hypothyroidism Plan Clinically improving Continue DuoNeb nebulized with [id number] Continue IV Solu Medrol 60 mg every 6 hours, and ongoing since switch this patient to a prednisone burst taper as of tomorrow Ordering new nebulizer machine for her Continue Levemir insulin 10 units a day along with SS coverage Will follow-up the patient and we are going to start to taper steroids in the next 24-48 hours based on her overall clinical response.
[2021-04-03 12:47] LABS: African American GFR (CKD) 68.9 (60.0-200.0); Anion Gap 6.3 mmol/L (4.00-12.00); Calcium 8.8 mg/dL (8.7-10.3); Carbon Dioxide 34.7 mmol/L (21.6-31.8); Non-African American GFR(CKD) 59.5 (60.0-200.0); Potassium 5.5 mmol/L (3.5-5.5)
--- NOTE | 2021-04-03 13:03 | PN ---
PROGRESS NOTE DATE OF SERVICE: 04/03/2021 This 66-year-old woman who was admitted with COPD, acute exacerbation, is also being closely monitored. The patient had hyperkalemia but was noncompliant with Kayexalate. No chest pain. No palpitations. No fever. Blood sugar is elevated. PHYSICAL EXAMINATION: Alert and oriented x3. The pulse is 67, blood pressure 132/81, respiration 18, temperature 96.8, pulse ox 99% on 6 L. HEENT: Conjunctivae normal. NECK: No jugular venous distention. CARDIOVASCULAR: S1, S2 muffled. RESPIRATION: Breath sounds diminished at the bases. Bilateral scattered rhonchi and crackles. ABDOMEN: Soft, nontender. NERVOUS SYSTEM: No focal deficit. LABS: WBC 5.2, hemoglobin 13.1. Electrolytes are not available. ASSESSMENT: 1. Chronic obstructive pulmonary disease, acute exacerbation, with acute hypoxic respiratory failure as well as acute purulent tracheobronchitis, present on admission. 2. Hyperkalemia. 3. History of asthma. 4. History of gastroesophageal reflux disease. 5. History of degenerative joint disease. 6. History of noncompliance. 7. History of esophagitis. 8. History of Rapp's esophagus. 9. History of spinal disc herniation. 10.History of MRSA. 11.History of appendectomy. 12.History of back surgery. 13.History of anxiety, depression, post-traumatic stress disorder and schizophrenia. 14.History of OCD. 15.Obesity with body mass index of 53.2. 16.FULL CODE. RECOMMENDATIONS AND DISCUSSION: I recommend to continue current medications, continue with symptomatic treatment. Continue with bronchodilators, steroids, antibiotics. Closely follow with Pulmonary. Guarded prognosis because of multiple complex medical issues. Further recommendations to follow. MMODL / IJN: [id number] /
[2021-04-03 17:16] LABS: Glucose,Whole Blood 228 mg/dL (75-99)
[2021-04-03 21:02] LABS: Glucose,Whole Blood 286 mg/dL (75-99)
[2021-04-03] MEDS: CHOLECALCIFEROL 25 MCG (1000 IU) TABLET PO SCH (21:54)
[2021-04-03] MEDS: MAGNESIUM OXIDE 400 MG TAB PO SCH (21:55)
[2021-04-03] MEDS: QUEtiapine 200 MG TAB PO SCH (23:58)
[2021-04-03] MEDS: QUEtiapine 50 MG TAB PO SCH (23:58)
[2021-04-03] MEDS: LEVOTHYROXINE 50 MCG TAB PO SCH (23:58)
[2021-04-03] MEDS: MIRTAZAPINE 45 MG TABLET PO SCH (23:59)
[2021-04-04] MEDS: IPRATROPIUM-ALBUTEROL 3 ML NEB INHALATION PRN (03:06)
[2021-04-04] MEDS: methylPREDNISolone SOD SUCCI 125 MG/2 ML VIAL IV SCH ×2 (05:31→13:17)
[2021-04-04] MEDS: BUDESONIDE 1 MG/2 ML NEBU INHALATION SCH ×2 (07:12→19:55)
[2021-04-04] MEDS: IPRATROPIUM-ALBUTEROL 3 ML NEB INHALATION SCH ×4 (07:12→19:55)
[2021-04-04] MEDS: FORMOTEROL FUMARATE 20 MCG/2 ML NEBU INHALATION SCH ×2 (07:12→19:55)
[2021-04-04 07:26] LABS: Glucose,Whole Blood 243 mg/dL (75-99)
[2021-04-04] MEDS: busPIRone HCl 5 MG TAB PO SCH ×2 (08:34→21:22)
[2021-04-04] MEDS: MULTIVITAMINS, THERA 1 EACH TAB PO SCH (08:35)
[2021-04-04] MEDS: PANTOPRAZOLE 40 MG TABLET PO SCH ×2 (08:35→21:21)
[2021-04-04] MEDS: HEPARIN SODIUM,PORCINE/PF 5,000 UNIT/0.5 ML SYRINGE SQ SCH ×2 (08:35→21:20)
[2021-04-04] MEDS: METOPROLOL SUCCINATE (ER) 25 MG TAB.ER.24H PO SCH (08:35)
[2021-04-04] MEDS: diphenhydrAMINE 25 MG CAP PO SCH ×2 (08:35→21:21)
[2021-04-04] MEDS: LORATADINE 10 MG TAB PO SCH (08:35)
[2021-04-04] MEDS: GABAPENTIN 300 MG CAP PO SCH ×2 (08:35→21:20)
[2021-04-04] MEDS: tiZANidine 4 MG TAB PO SCH ×3 (08:36→23:47)
[2021-04-04] MEDS: INSULIN DETEMIR (LEVEMIR) 100 UNIT/ML SYR SQ SCH (08:36)
[2021-04-04] MEDS: FLUTICASONE 50MCG/SPRAY NASAL 16GM EA NOSTRIL SCH (08:37)
[2021-04-04] MEDS: OXYBUTYNIN CHLORIDE 5 MG TAB PO SCH ×2 (08:37→23:47)
[2021-04-04] MEDS: QUEtiapine 100 MG TAB PO SCH (08:38)
[2021-04-04] MEDS: MORPHINE SULFATE ER 30 MG TABLET PO SCH ×2 (08:50→21:21)
[2021-04-04] MEDS: INSULIN ASPART (NovoLOG) 100 UNIT/ML VIAL SQ SCH ×3 (08:51→18:07)
[2021-04-04 12:01] LABS: Glucose,Whole Blood 324 mg/dL (75-99)
--- NOTE | 2021-04-04 15:49 | CDI ---
Documentation Clarification Form Date: 04/04/2021 03:39:41 PM From: Jaelyn Mccrary CCS, CCDS Admit Date: 03/30/2021 11:24:00 AM Patient Name: Rama Ferrell Visit Number: [id number] Discharge Date: ATTENTION: The Clinical Documentation Specialists (CDI) and [facility] Coding Staff appreciate your assistance in clarifying documentation. Please respond to the clarification below the line at the bottom and electronically sign. The CDI & [facility] Coding staff will review the response and follow-up if needed. Please note: Queries are made part of the Legal Health Record. If you have any questions, please contact the author of this message via ITS. Dr. Pedro Glover: Asthma is documented in the 03/30 Pulmonary Consult and subsequent Progress Notes as Exacerbation of chronic COPD/Asthma. Additional clarification regarding the type of asthma is requested. History/risk factors per the 03/30 H/P: Asthma, COPD, GERD, DJD, Esophagitis, Rapp's esophagus, MRSA, Obesity with BMI 53.2. Non smoker. Clinical Indicators: Presented to the ED on 03/30 via EMS with SOB, transferred from [facility] for treatment of COPD exacerbation. ED Clinical Impression: Acute exacerbation of COPD Per the 03/30 H/P: COPD Acute Exacerbation with Acute Respiratory Failure with Acute Purulent Bronchitis. History of Asthma. 03/30 VS: T 98.9, P 110, R 24, BP 160/99, PO 90 5Lnc 03/30 LAB: K 5.8, Cl 101, CO2 32.1. 03/30 RAD: No CXR done on admission Treatment: INH Duoneb, INH Symbicort, INH Atrovent, O2 5-6Lnc, po Prednisone, IV Rocephin, IV Solumedrol, INH Pulmicort, INH Perforomist, po Buspar Please clarify the type and severity of asthma, if known: [ ] Extrinsic asthma [ ] with exacerbation [ ] without exacerbation [ ] Intrinsic asthma [ ] with exacerbation [ ] without exacerbation [ ] Mild intermittent asthma [ ] with exacerbation [ ] without exacerbation [ ] Mild persistent asthma [ ] with exacerbation [ ] without exacerbation [ ] Moderate persistent asthma [ ] with exacerbation [ ] without exacerbation [ x] Severe persistent asthma [ x ] with exacerbation [ ] without exacerbation [ ] Other, please specify ____ [ ] Unable to determine (Template Last Revised: October 2020) MTDD
--- NOTE | 2021-04-04 16:17 | P.PN ---
Subjective Progress Note Date: 04/04/21 This is a morbidly obese 66-year-old female patient has history of COPD/asthma is coming in for worsening shortness of breath. The patient was in the hospital on 02/05/2021 treated for the same and the patient was discharged home. Once she is off the systemic steroids and after completing the prednisone burst taper, the patient's symptoms of increased dyspnea cough chest tightness and wheezing came back. The patient was initially seen an outside hospital. Computed tomography scan of the chest was done and showed no acute abnormalities. There was some atelectatic changes in lung bases bilaterally. Otherwise, no consolidation, no pulmonary embolism. The patient is oxygen dependent. She is morbidly obese with a component of obesity hypoventilation syndrome. She has home O2. She has also on nebulizer and she utilizes DuoNeb nebulized units [id number] up to 4 times a day. Maintenance as for medications include Spiriva 1 patient day and Advair Diskus 250/50/50 one puff twice a day. COVID-19 testing was negative. White cell count done in the outside hospital showed a count of 11.5. The patient was referred to us for further evaluation the patient was hospitalized for further treatment. No history of any CAD. No history of any DVT or pulmonary embolism. No increased swelling in lower extremities. 03/31/2021, clinically the patient is feeling better and the patient is less short of breath with bronchospastic and wheezy compared to yesterday. She has developed some mild steroid-induced hyperglycemia. No fever. No chills. No chest pain. General. No swelling lower extremities bilaterally. Remains on a combination of bronchodilators and steroids. He white cell count today is at 9.6 with a hemoglobin of 15.8. BMI 35 with a creatinine of 1.1. Sodium is at 139. 04/01/2021, no new complaints and the patient continues to improve as she is being treated for COPD/asthma exacerbation. Remains on IV Solu Medrol 60 mg every 6 hours. Remains on DuoNeb nebulized treatments. Remains on Pulmicort Respules. Remains on empiric antibiotic coverage with IV Rocephin. Blood sugar from today still 67. The rest of the labs On today's follow-up on the 04/02/2021 patient seen on medical surgical floor. She is sitting up on the edge of the bed, in no acute distress, she feels that her breathing is improving, lung sounds reveal end expiratory wheezes on forced exhalation, still has some chest congestion, loose cough, with no phlegm production. Vital signs have been stable, she is currently on 5 L of oxygen sat 95%, no fever or chills, still has some chest tightness, but overall she feels like she is improving. On high-dose IV steroids 60 mg every 6 hours, she has developed steroid induced hyperglycemia, today's blood sugars are in the range of 153-260. On nebulized bronchodilators, remains on Jere, she's had no fever or chills. On today's evaluation on 04/04/2021 patient seen in follow-up on medical surgical floor. Patient is awake alert, she sits up and had been, she is currently on 6 L of oxygen pulse ox is 95%, no fever or chills, blood pressure is stable. No acute events overnight, no worsening dyspnea however patient has been much bedbound, and only been up on the edge of the bed, and occasionally standing up, however it has not ambulated at all. Lung sounds are positive for diffuse wheezes, she has been on high-dose IV steroids 60 mg every 6 hours, advise bronchodilators, Pulmicort and Perforomist, and empiric antibiotics. She's had no acute events overnight, no chest discomfort. He is tolerating oral intake, no nausea or vomiting. Objective - Vital Signs Vital signs: Vital Signs Temp 98.0 F 04/04/21 14:00 Pulse 77 04/04/21 15:47 Resp 18 04/04/21 14:00 BP 139/86 04/04/21 14:00 Pulse Ox 95 04/04/21 14:00 Intake & Output 04/03/21 04/04/21 04/04/21 18:59 06:59 18:59 Intake Total 522 700 Output Total 1100 Balance 522 -400 Intake: IV 50 cefTRIAXone 1 gm In 50 Sodium Chloride 0.9% 50 ml @ 100 mls/hr IVPB Q24HR [facility] Rx#:[id number] Oral 472 700 Output: Urine 1100 Other: Voiding Method Bedside Commode Bedside Commode Bedside Commode External Catheter External Catheter External Catheter # Voids 1 3 - Exam GENERAL EXAM: Alert, pleasant, 66-year-old obese on 5 L of oxygen with pulse ox of 95%, sitting up on the bed,comfortable in no apparent distress. HEAD: Normocephalic/atraumatic. EYES: Normal reaction of pupils, equal size. Conjunctiva pink, sclera white. NOSE: Clear with pink turbinates. THROAT: No erythema or exudates. NECK: No masses, no JVD, no thyroid enlargement, no adenopathy. CHEST: No chest wall deformity. Symmetrical expansion. LUNGS: Equal air entry with mild wheeze CVS: Regular rate and rhythm, normal S1 and S2, no gallops, no murmurs, no rubs ABDOMEN: Soft, nontender. No hepatosplenomegaly, normal bowel sounds, no guarding or rigidity. EXTREMITIES: No clubbing, no edema, no cyanosis, 2+ pulses and upper and lower extremities. MUSCULOSKELETAL: Muscle strength and tone normal. SPINE: No scoliosis or deformity SKIN: No rashes CENTRAL NERVOUS SYSTEM: Alert and oriented -3. No focal deficits, tone is normal in all 4 extremities. PSYCHIATRIC: Alert and oriented -3. Appropriate affect. Intact judgment and insight. - Labs CBC & Chem 7: 04/03/21 04:46 04/03/21 04:46 Labs: Abnormal Lab Results - Last 24 Hours (Table) 04/03/21 04/03/21 04/04/21 Range/Units 17:14 21:01 07:25 POC Glucose (mg/dL) 228 H 286 H 243 H (75-99) mg/dL 04/04/21 Range/Units 12:00 POC Glucose (mg/dL) 324 H (75-99) mg/dL Assessment and Plan Plan: 1 acute exacerbation of chronic COPD/asthma. The patient presented again with acute bronchospasm wheezing and increased shortness of breath. Computed tomography scan of the chest was done in outside hospital showed no acute abnormalities. Clinically the patient is improving and the patient is less bronchospastic and wheezy, clinically improving 2 COPD/asthma maintained on examination Spiriva and Advair and outpatient basis in addition to DuoNeb nebulized treatments around the clock. Most recent hospitalization was in January 2021 for the same. 3 morbid obesity with a BMI of above 70 4 chronic hypoxic respiratory failure limited in oxygen at 4 L of oxygen by nasal cannula 5 chronic back pain/lumbar disc disease/osteoarthritis 6 history of anxiety/depression/PTSD/schizophrenia 7 history of reflux with Rapp's esophagus 8 diabetes mellitus with a component of steroid-induced hyperglycemia 9 complicated abdominal hernia requiring multiple abdominal surgeries in the past 10 hypothyroidism Plan: Patient is slowly improving Still bronchospastic She had been very limited in terms of her activity Decrease FiO2, patient normally wears 4-5 L of oxygen at home We'll drop down the Solu-Medrol to 40 mg every 8 hours If remains stable and continues to improve may consider switching to oral prednisone and may consider discharge home Monitor for any signs of deterioration, follow-up chest x-ray tomorrow Time with Patient: Less than 30
[2021-04-04] MEDS: methylPREDNISolone SOD SUCCI 40 MG/ML 1 ML VIAL IV SCH ×2 (16:26→23:54)
[2021-04-04 17:44] LABS: Glucose,Whole Blood 342 mg/dL (75-99)
[2021-04-04] MEDS ORDERED: guaiFENesin SYRUP 100MG/5ML 200 MG/10 ML CUP PO PRN (17:56)
[2021-04-04 20:40] LABS: Glucose,Whole Blood 431 mg/dL (75-99)
[2021-04-04] MEDS: MAGNESIUM OXIDE 400 MG TAB PO SCH (21:21)
[2021-04-04] MEDS: CHOLECALCIFEROL 25 MCG (1000 IU) TABLET PO SCH (21:21)
[2021-04-04] MEDS ORDERED: INSULIN REGULAR BOLUS (FROM DRIP BAG) IV ONE (21:32)
[2021-04-04 23:08] LABS: Glucose,Whole Blood 394 mg/dL (75-99)
[2021-04-04] MEDS: INSULIN REGULAR 100 UNIT in SODIUM CHLORIDE 0.9% 100 ML IV SCH (23:18)
[2021-04-04] MEDS: QUEtiapine 50 MG TAB PO SCH (23:47)
[2021-04-04] MEDS: MIRTAZAPINE 45 MG TABLET PO SCH (23:47)
[2021-04-04] MEDS: LEVOTHYROXINE 50 MCG TAB PO SCH (23:47)
[2021-04-04] MEDS: QUEtiapine 200 MG TAB PO SCH (23:47)
[2021-04-05 00:03] LABS: Glucose,Whole Blood 332 mg/dL (75-99)
[2021-04-05 00:39] LABS: Glucose,Whole Blood 251 mg/dL (75-99)
[2021-04-05 01:16] LABS: Glucose,Whole Blood 199 mg/dL (75-99)
--- NOTE | 2021-04-05 02:38 | P.PN ---
Subjective Progress Note Date: 04/04/21 This is a 66-year-old female who was recently admitted with chronic obstructive pulmonary disease, acute exacerbation and is being closely monitored. Patient continues to have increased blood sugars and is maintained on high dose IV steroids and will titrate the dose of steroids as she continues to have some wheezing, but is slowly improving. Patient was maintained on sliding scale along with long acting insulin and continued accuchecks. Patient is currently maintained on 6L via NC and normally requires 4-5 L in the outpatient setting. Discussed with nursing staff about weaning as tolerated. Patient to continue with breathing inhalational treatments and also maintained on IV ceftriaxone. Review of systems: Constitutional: No reports of fatigue, fever, or chills Cardiovascular: No reports of chest pain or palpitations Respiratory: reports of shortness of breath and cough GI: No reports of nausea, vomiting, or diarrhea : No reports of dysuria or retention Neurovascular: reports generalized weakness All medications have been reviewed Active Medications Acetaminophen (Acetaminophen Tab 325 Mg Tab) 650 mg PO Q6HR PRN PRN Reason: Fever and/ or Pain Last Admin: 04/01/21 11:29 Dose: 650 mg Documented by: Albuterol/Ipratropium (Ipratropium-Albuterol 3 Ml Neb) 3 ml INHALATION RT-QID [facility] Last Admin: 04/04/21 15:38 Dose: 3 ml Documented by: Albuterol/Ipratropium (Ipratropium-Albuterol 3 Ml Neb) 3 ml INHALATION RT-QID PRN PRN Reason: Shortness Of Breath Or Wheezing Last Admin: 04/04/21 03:06 Dose: 3 ml Documented by: Alprazolam (Alprazolam 0.25 Mg Tab) 0.25 mg PO TID PRN PRN Reason: Anxiety Budesonide (Budesonide 1 Mg/2 Ml Nebu) 1 mg INHALATION RT-BID [facility] Last Admin: 04/04/21 07:12 Dose: 1 mg Documented by: Buspirone HCl (Buspirone Hcl 5 Mg Tab) 15 mg PO BID [facility] Last Admin: 04/04/21 08:34 Dose: 15 mg Documented by: Cholecalciferol (Cholecalciferol 25 Mcg (1000 Iu) Tablet) 25 mcg PO HS [facility] Last Admin: 04/03/21 21:54 Dose: 25 mcg Documented by: Diphenhydramine HCl (Diphenhydramine 25 Mg Cap) 50 mg PO BID [facility] Last Admin: 04/04/21 08:35 Dose: 50 mg Documented by: Fluticasone Propionate (Fluticasone 50mcg/[place] Nasal 16gm) 2 spray EA NOSTRIL DAILY [facility] Last Admin: 04/04/21 08:37 Dose: 2 spray Documented by: Formoterol Fumarate (Formoterol Fumarate 20 Mcg/2 Ml Nebu) 20 mcg INHALATION RT-BID [facility] Last Admin: 04/04/21 07:12 Dose: 20 mcg Documented by: Gabapentin (Gabapentin 300 Mg Cap) 300 mg PO BID [facility] Last Admin: 04/04/21 08:35 Dose: 300 mg Documented by: Heparin Sodium (Porcine) (Heparin Sodium,Porcine/Pf 5,000 Unit/0.5 Ml Syringe) 5,000 unit SQ Q12HR [facility] Last Admin: 04/04/21 08:35 Dose: 5,000 unit Documented by: Ceftriaxone Sodium 1 gm/ (Sodium Chloride) 50 mls @ 100 mls/hr IVPB Q24HR [facility] Last Admin: 04/04/21 08:37 Dose: 100 mls/hr Documented by: Insulin Aspart (Insulin Aspart (Novolog) 100 Unit/Ml Vial) 0 unit SQ [facility]; Protocol Last Admin: 04/04/21 13:17 Dose: 5 unit Documented by: Insulin Detemir (Insulin Detemir (Levemir) 100 Unit/Ml Syr) 10 unit SQ DAILY@07 00 [facility] Last Admin: 04/04/21 08:36 Dose: 10 unit Documented by: Levothyroxine Sodium (Levothyroxine 50 Mcg Tab) 50 mcg PO [facility] Last Admin: 04/03/21 23:58 Dose: 50 mcg Documented by: Loperamide HCl (Loperamide 2 Mg Cap) 2 mg PO QID PRN PRN Reason: Diarrhea Loratadine (Loratadine 10 Mg Tab) 10 mg PO DAILY [facility] Last Admin: 04/04/21 08:35 Dose: 10 mg Documented by: Magnesium Oxide (Magnesium Oxide 400 Mg Tab) 400 mg PO [facility] Last Admin: 04/03/21 21:55 Dose: 400 mg Documented by: Methylprednisolone Sodium Succinate (Methylprednisolone Sod Succi 40 Mg/Ml 1 Ml Vial) 40 mg IV Q8HR [facility] Last Admin: 04/04/21 16:26 Dose: 40 mg Documented by: Metoprolol Succinate (Metoprolol Succinate (Er) 25 Mg Tab.Er.24h) 25 mg PO DAILY [facility] Last Admin: 04/04/21 08:35 Dose: 25 mg Documented by: Mirtazapine (Mirtazapine 45 Mg Tablet) 45 mg PO [facility] Last Admin: 04/03/21 23:59 Dose: 45 mg Documented by: Morphine Sulfate (Morphine Sulfate Er 30 Mg Tablet) 30 mg PO BID [facility]; Protocol Last Admin: 04/04/21 08:50 Dose: 30 mg Documented by: Morphine Sulfate (Morphine Sulfate Ir 15 Mg Tablet) 15 mg PO BID PRN PRN Reason: Breakthrough Pain Last Admin: 04/02/21 23:22 Dose: 15 mg Documented by: Multivitamins (Multivitamins, Thera 1 Each Tab) 1 each PO DAILY [facility] Last Admin: 04/04/21 08:35 Dose: 1 each Documented by: Oxybutynin Chloride (Oxybutynin Chloride 5 Mg Tab) 5 mg PO BID [facility] Last Admin: 04/04/21 08:37 Dose: 5 mg Documented by: Pantoprazole Sodium (Pantoprazole 40 Mg Tablet) 40 mg PO BID [facility] Last Admin: 04/04/21 08:35 Dose: 40 mg Documented by: Quetiapine Fumarate (Quetiapine 200 Mg Tab) 200 mg PO [facility] Last Admin: 04/03/21 23:58 Dose: 200 mg Documented by: Quetiapine Fumarate (Quetiapine 100 Mg Tab) 100 mg PO DAILY [facility] Last Admin: 04/04/21 08:38 Dose: 100 mg Documented by: Quetiapine Fumarate (Quetiapine 50 Mg Tab) 50 mg PO [facility] Last Admin: 04/03/21 23:58 Dose: 50 mg Documented by: Sodium Chloride (Sodium Chloride 0.9% Flush 10 Ml Syringe) 10 ml IV BID [facility] Last Admin: 04/04/21 08:38 Dose: 10 ml Documented by: Tizanidine HCl (Tizanidine 4 Mg Tab) 4 mg PO Q8HR [facility] Last Admin: 04/04/21 16:26 Dose: 4 mg Documented by: Objective - Vital Signs Vital signs: Vital Signs Temp 97.5 F L 04/04/21 08:00 Pulse 73 04/04/21 11:31 Resp 20 04/04/21 08:00 BP 147/87 04/04/21 08:00 Pulse Ox 99 04/04/21 08:00 Intake & Output 04/03/21 04/04/21 04/04/21 18:59 06:59 18:59 Intake Total 522 700 Balance 522 700 Intake: IV 50 cefTRIAXone 1 gm In 50 Sodium Chloride 0.9% 50 ml @ 100 mls/hr IVPB Q24HR [facility] Rx#:[id number] Oral 472 700 Other: Voiding Method Bedside Commode Bedside Commode Bedside Commode External Catheter External Catheter External Catheter # Voids 1 3 - Exam Gen: This is a 66-year-old female sitting up at the side of the bed awake, alert and oriented 3, morbidly obese HEENT: Head is atraumatic, normocephalic. Pupils equal, round. Sclerae is anicteric. NECK: Supple. No JVD. No lymphadenopathy. No thyromegaly. LUNGS: Diminished breath sounds bilaterally with some expiratory wheezing noted and diffuse bilateral rhonchi as well. No intercostal retractions. HEART: Regular rate and rhythm. No murmur. ABDOMEN: Soft. obese. Bowel sounds are present. No masses. No tenderness. EXTREMITIES: No pedal edema. No calf tenderness. NEUROLOGICAL: Patient is awake, alert and oriented x3. diffusely weak. - Labs CBC & Chem 7: 04/03/21 04:46 04/03/21 04:46 Labs: Abnormal Lab Results - Last 24 Hours (Table) 04/03/21 04/03/21 04/04/21 Range/Units 17:14 21:01 07:25 POC Glucose (mg/dL) 228 H 286 H 243 H (75-99) mg/dL 04/04/21 Range/Units 12:00 POC Glucose (mg/dL) 324 H (75-99) mg/dL Assessment and Plan Assessment: Chronic obstructive pulmonary disease, acute exacerbation, with acute hypoxic respiratory failure as well as acute purulent tracheobronchitis, present on admission Hyperkalemia History of asthma History of gastroesophageal reflux disease History of degenerative joint disease history of noncompliance history of esophagitis History of Rapp's esophagus history of spinal disc herniation history of MRSA history of appendectomy History back surgery History of anxiety, depression, post-traumatic stress disorder and schizophrenia History of OCD Obesity with a body mass index of 53.2 Full code Plan: Recommend to continue with current medications and symptomatic treatment. Continue with breathing inhalational treatments along with IV antibiotics and IV steroids and will decrease the steroid dose. encouraged increase activity as tolerated. Will continue to wean FI02 as tolerated to normal 4-5 L via NC. Blood sugars remain elevated and will initiate insulin drip and continued accuchecks per protocol. Will repeat am labs and continue to monitor closely. Repeat chest xray in the am. Due to multiple complex medical issues, prognosis is guarded.
[2021-04-05 03:10] LABS: Glucose,Whole Blood 102 mg/dL (75-99)
[2021-04-05 04:13] LABS: Glucose,Whole Blood 102 mg/dL (75-99)
[2021-04-05 06:14] LABS: Glucose,Whole Blood 150 mg/dL (75-99)
[2021-04-05 06:56] LABS: Basophils % (A) 0 %; Eosinophils # (A) 0.1 k/uL (0-0.7); Eosinophils % (A) 1 %; HCT 49.5 % (34.0-46.0); HGB 14.6 gm/dL (11.4-16.0); Hypochromasia Marked; Lymphocytes # (A) 0.6 k/uL (1.0-4.8); Lymphocytes % (A) 6 %; MCH 27.1 pg (25.0-35.0); MCHC 29.5 g/dL (31.0-37.0); MCV 91.8 fL (80.0-100.0); Mean Platelet Volume 8.9; Monocytes # (A) 0.6 k/uL (0-1.0); Monocytes % (A) 7 %; Neutrophils # (A) 7.5 k/uL (1.3-7.7); Neutrophils % (A) 85 %; Platelet Count 158 k/uL (150-450); RBC 5.39 m/uL (3.80-5.40); WBC 8.9 k/uL (3.8-10.6)
[2021-04-05] MEDS: INSULIN REGULAR 100 UNIT in SODIUM CHLORIDE 0.9% 100 ML IV SCH (07:12)
[2021-04-05 07:19] LABS: African American GFR (CKD) 76 (>60 ml/min/1.73 sqM); Anion Gap 5 mmol/L; Blood Urea Nitrogen 42 mg/dL (7-17); Calcium 8.9 mg/dL (8.4-10.2); Carbon Dioxide 38 mmol/L (22-30); Chloride 98 mmol/L (98-107); Glucose 165 mg/dL (74-99); Non-African American GFR(CKD) 66 (>60 ml/min/1.73 sqM); Potassium 5.4 mmol/L (3.5-5.1); Sodium 141 mmol/L (137-145)
[2021-04-05 07:25] LABS: Glucose,Whole Blood 148 mg/dL (75-99)
[2021-04-05] MEDS: FORMOTEROL FUMARATE 20 MCG/2 ML NEBU INHALATION SCH ×2 (07:35→21:01)
[2021-04-05] MEDS: BUDESONIDE 1 MG/2 ML NEBU INHALATION SCH ×2 (07:35→20:49)
[2021-04-05] MEDS: IPRATROPIUM-ALBUTEROL 3 ML NEB INHALATION SCH ×4 (07:35→20:49)
[2021-04-05] MEDS: INSULIN ASPART (NovoLOG) 100 UNIT/ML VIAL SQ SCH ×5 (07:40→21:56)
[2021-04-05] MEDS: methylPREDNISolone SOD SUCCI 40 MG/ML 1 ML VIAL IV SCH (07:41)
[2021-04-05] MEDS: FLUTICASONE 50MCG/SPRAY NASAL 16GM EA NOSTRIL SCH (07:41)
[2021-04-05] MEDS: tiZANidine 4 MG TAB PO SCH ×2 (07:42→16:04)
[2021-04-05] MEDS: LORATADINE 10 MG TAB PO SCH (07:43)
[2021-04-05] MEDS: OXYBUTYNIN CHLORIDE 5 MG TAB PO SCH (07:43)
[2021-04-05] MEDS: diphenhydrAMINE 25 MG CAP PO SCH ×2 (07:43→21:56)
[2021-04-05] MEDS: PANTOPRAZOLE 40 MG TABLET PO SCH ×2 (07:44→21:56)
[2021-04-05] MEDS: MORPHINE SULFATE ER 30 MG TABLET PO SCH ×2 (07:44→21:55)
[2021-04-05] MEDS: busPIRone HCl 5 MG TAB PO SCH ×2 (07:45→21:56)
[2021-04-05] MEDS: METOPROLOL SUCCINATE (ER) 25 MG TAB.ER.24H PO SCH (07:45)
[2021-04-05] MEDS: MULTIVITAMINS, THERA 1 EACH TAB PO SCH (07:46)
[2021-04-05] MEDS: GABAPENTIN 300 MG CAP PO SCH ×2 (07:47→21:53)
--- NOTE | 2021-04-05 08:15 | XR ---
EXAMINATION TYPE: XR chest 1V portable DATE OF EXAM: 04/05/2021 COMPARISON: Chest x-ray and CT 02/05/2021 HISTORY: Shortness of breath TECHNIQUE: Single frontal view of the chest is obtained. FINDINGS: Heart size is likely stable, technique is apical lordotic and rotated. There is no evident pneumothorax. Left hemidiaphragm is obscured. Bones are unchanged. Aorta is dense. IMPRESSION: Exam is limited technically due to patient body habitus. Difficult to exclude basilar at electasis versus pneumonia.
[2021-04-05] MEDS: HEPARIN SODIUM,PORCINE/PF 5,000 UNIT/0.5 ML SYRINGE SQ SCH ×2 (08:42→21:53)
[2021-04-05 09:19] LABS: Glucose,Whole Blood 156 mg/dL (75-99)
[2021-04-05] MEDS: QUEtiapine 100 MG TAB PO SCH (10:05)
--- NOTE | 2021-04-05 11:14 | P.PN ---
Subjective Progress Note Date: 04/05/21 Principal diagnosis: COPD exacerbation This is a morbidly obese 66-year-old female patient has history of COPD/asthma is coming in for worsening shortness of breath. The patient was in the hospital on 02/05/2021 treated for the same and the patient was discharged home. Once yvonne ngo is off the systemic steroids and after completing the prednisone burst taper, the patient's symptoms of increased dyspnea cough chest tightness and wheezing came back. The patient was initially seen an outside hospital. Computed tomography scan of the chest was done and showed no acute abnormalities. There was some atelectatic changes in lung bases bilaterally. Otherwise, no consolidation, no pulmonary embolism. The patient is oxygen dependent. She is morbidly obese with a component of obesity hypoventilation syndrome. She has home O2. She has also on nebulizer and she utilizes DuoNeb nebulized units [id number] up to 4 times a day. Maintenance as for medications include Spiriva 1 patient day and Advair Diskus 250/50/50 one puff twice a day. COVID- 19 testing was negative. White cell count done in the outside hospital showed a count of 11.5. The patient was referred to us for further evaluation the patient was hospitalized for further treatment. No history of any CAD. No history of any DVT or pulmonary embolism. No increased swelling in lower extremities. 03/31/2021, clinically the patient is feeling better and the patient is less short of breath with bronchospastic and wheezy compared to yesterday. She has developed some mild steroid-induced hyperglycemia. No fever. No chills. No chest pain. General. No swelling lower extremities bilaterally. Remains on a combination of bronchodilators and steroids. He white cell count today is at 9.6 with a hemoglobin of 15.8. BMI 35 with a creatinine of 1.1. Sodium is at 139. 04/01/2021, no new complaints and the patient continues to improve as she is being treated for COPD/asthma exacerbation. Remains on IV Solu Medrol 60 mg every 6 hours. Remains on DuoNeb nebulized treatments. Remains on Pulmicort Respules. Remains on empiric antibiotic coverage with IV Rocephin. Blood sugar from today still 67. The rest of the labs On today's follow-up on the 04/02/2021 patient seen on medical surgical floor. She is sitting up on the edge of the bed, in no acute distress, she feels that her breathing is improving, lung sounds reveal end expiratory wheezes on forced exhalation, still has some chest congestion, loose cough, with no phlegm production. Vital signs have been stable, she is currently on 5 L of oxygen sat 95%, no fever or chills, still has some chest tightness, but overall she feels like she is improving. On high-dose IV steroids 60 mg every 6 hours, she has developed steroid induced hyperglycemia, today's blood sugars are in the range of 153-260. On nebulized bronchodilators, remains on Jeer, she's had no fever or chills. On today's evaluation on 04/04/2021 patient seen in follow-up on medical surgical floor. Patient is awake alert, she sits up and had been, she is cur rently on 6 L of oxygen pulse ox is 95%, no fever or chills, blood pressure is stable. No acute events overnight, no worsening dyspnea however patient has been much bedbound, and only been up on the edge of the bed, and occasionally standing up, however it has not ambulated at all. Lung sounds are positive for diffuse wheezes, she has been on high-dose IV steroids 60 mg every 6 hours, advise bronchodilators, Pulmicort and Perforomist, and empiric antibiotics. She's had no acute events overnight, no chest discomfort. He is tolerating oral intake, no nausea or vomiting. The patient is seen today 04/05/2021 follow-up regular medical floor. She is currently sitting up at the bedside. Awake and alert in no acute distress. Still has a loose nonproductive cough. Maintaining O2 saturations in the mid 90s on 5 L/m per nasal cannula. She's afebrile. Hemodynamically stable. White count 8.9. Hemoglobin 14.6. Sodium 141. Potassium 5.4. Creatinine 0.92. Glucose 165. She remains on DuoNeb inhalations, Pulmicort and Perforomist inhalations, IV Solu-Medrol. Antibiotics in the form of ceftriaxone. Currently on a heparin drip at 4 units per hour. Chest x-ray limited due to body habitus. Possible basilar atelectasis. Objective - Vital Signs Vital signs: Vital Signs Temp 97.5 F L 04/05/21 07:51 Pulse 75 04/05/21 08:02 Resp 18 04/05/21 08:00 BP 143/95 04/05/21 07:51 Pulse Ox 96 04/05/21 07:51 Intake & Output 04/04/21 04/05/21 04/05/21 18:59 06:59 18:59 Intake Total 700 65.953 3.905 Output Total 1100 1100 700 Balance -400 -1034.047 -696.095 Intake: Intake, IV Titration 65.953 3.905 Amount Insulin Regular 100 unit 65.953 3.905 In Sodium Chloride 0.9% 100 ml @ Titrate IV .Q0M [facility] Rx#:[id number] Oral 700 Output: Urine 1100 1100 700 Other: Voiding Method Bedside Commode Bedside Commode External Catheter External Catheter # Voids 2 1 - Exam GENERAL EXAM: Alert, morbidly obese 66-year-old female patient on 5 L nasal cannula, comfortable in no apparent distress. HEAD: Normocephalic. EYES: Normal reaction of pupils, equal size. NOSE: Clear with pink turbinates. THROAT: No erythema or exudates. NECK: No masses, no JVD. CHEST: No chest wall deformity. LUNGS: Equal air entry with faint end expiratory wheeze, diminished. CVS: S1 and S2 normal with no audible murmur, regular rhythm. ABDOMEN: Unable to appreciate organomegaly due to obesity, normal bowel sounds, no guarding or rigidity. SPINE: No scoliosis or deformity SKIN: No rashes CENTRAL NERVOUS SYSTEM: No focal deficits, tone is normal in all 4 extremities. EXTREMITIES: There is no peripheral edema. No clubbing, no cyanosis. Peripheral pulses are intact. - Labs CBC & Chem 7: 04/05/21 06:38 04/05/21 06:38 Labs: Abnormal Lab Results - Last 24 Hours (Table) 04/04/21 04/04/21 04/04/21 Range/Units 12:00 17:43 20:38 Hct (34.0-46.0) % MCHC (31.0-37.0) g/dL Lymphocytes # (1.0-4.8) k/uL Potassium (3.5-5.1) mmol/L Carbon Dioxide (22-30) mmol/L BUN (7-17) mg/dL Glucose (74-99) mg/dL POC Glucose (mg/dL) 324 H 342 H 431 H (75-99) mg/dL 04/04/21 04/05/21 04/05/21 Range/Units 23:06 00:02 00:37 Hct (34.0-46.0) % MCHC (31.0-37.0) g/dL Lymphocytes # (1.0-4.8) k/uL Potassium (3.5-5.1) mmol/L Carbon Dioxide (22-30) mmol/L BUN (7-17) mg/dL Glucose (74-99) mg/dL POC Glucose (mg/dL) 394 H 332 H 251 H (75-99) mg/dL 04/05/21 04/05/21 04/05/21 Range/Units 01:14 03:08 04:10 Hct (34.0-46.0) % MCHC (31.0-37.0) g/dL Lymphocytes # (1.0-4.8) k/uL Potassium (3.5-5.1) mmol/L Carbon Dioxide (22-30) mmol/L BUN (7-17) mg/dL Glucose (74-99) mg/dL POC Glucose (mg/dL) 199 H 102 H 102 H (75-99) mg/dL 04/05/21 04/05/21 04/05/21 Range/Units 06:12 06:38 06:38 Hct 49.5 H (34.0-46.0) % MCHC 29.5 L (31.0-37.0) g/dL Lymphocytes # 0.6 L (1.0-4.8) k/uL Potassium 5.4 H (3.5-5.1) mmol/L Carbon Dioxide 38 H (22-30) mmol/L BUN 42 H (7-17) mg/dL Glucose 165 H (74-99) mg/dL POC Glucose (mg/dL) 150 H (75-99) mg/dL 04/05/21 04/05/21 Range/Units 07:23 09:18 Hct (34.0-46.0) % MCHC (31.0-37.0) g/dL Lymphocytes # (1.0-4.8) k/uL Potassium (3.5-5.1) mmol/L Carbon Dioxide (22-30) mmol/L BUN (7-17) mg/dL Glucose (74-99) mg/dL POC Glucose (mg/dL) 148 H 156 H (75-99) mg/dL Assessment and Plan Assessment: 1 acute exacerbation of chronic COPD/asthma. The patient presented again with acute bronchospasm wheezing and increased shortness of breath. Computed tomography scan of the chest was done in outside hospital showed no acute abnormalities. The patient is improving and the patient is less bronchospastic and wheezy 2 COPD/asthma maintained on examination Spiriva and Advair and outpatient basis in addition to DuoNeb nebulized treatments around the clock. Most recent hospitalization was in January 2021 for the same. 3 morbid obesity with a BMI of above 50 4 chronic hypoxic respiratory failure limited in oxygen at 4 L of oxygen by nasal cannula 5 chronic back pain/lumbar disc disease/osteoarthritis 6 history of anxiety/depression/PTSD/schizophrenia 7 history of reflux with Rapp's esophagus 8 diabetes mellitus with a component of steroid-induced hyperglycemia 9 complicated abdominal hernia requiring multiple abdominal surgeries in the past 10 hypothyroidism Plan: The patient was seen and evaluated by Dr. Glover Chest x-ray and labs reviewed Discontinue IV Solu-Medrol, start a prednisone taper Wean off insulin drip Discontinue ceftriaxone Titrate the FiO2 as tolerated Increase her activity as tolerated Possibly home in a.m. We will continue to follow I, the cosigning physician, performed a history & physical examination of the patient. Lungs sounds with faint end expiratory wheeze, diminished Maintaining good O2 saturations in the 90s on 5 L/m per nasal cannula I discussed the assessment and plan of care with my nurse practitioner, Rosa Manzanares. I attest to the above note as dictated by her.
[2021-04-05 11:47] LABS: Glucose,Whole Blood 176 mg/dL (75-99)
[2021-04-05] MEDS ORDERED: MELATONIN 3 MG TABLET PO PRN (14:34)
[2021-04-05] MEDS: predniSONE 20 MG TAB PO SCH (16:04)
[2021-04-05] MEDS: guaiFENesin 600 MG TABLET.ER PO SCH ×2 (16:07→22:08)
[2021-04-05] MEDS: MORPHINE SULFATE IR 15 MG TABLET PO PRN (16:07)
[2021-04-05 17:27] LABS: Glucose,Whole Blood 251 mg/dL (75-99)
[2021-04-05 21:43] LABS: Glucose,Whole Blood 335 mg/dL (75-99)
[2021-04-05] MEDS: CHOLECALCIFEROL 25 MCG (1000 IU) TABLET PO SCH (21:54)
[2021-04-05] MEDS: MAGNESIUM OXIDE 400 MG TAB PO SCH (21:56)
[2021-04-05] MEDS: INSULIN DETEMIR (LEVEMIR) 100 UNIT/ML SYR SQ SCH (21:57)
[2021-04-06] MEDS: tiZANidine 4 MG TAB PO SCH ×3 (00:12→18:22)
[2021-04-06] MEDS: QUEtiapine 200 MG TAB PO SCH ×2 (00:12→22:22)
[2021-04-06] MEDS: OXYBUTYNIN CHLORIDE 5 MG TAB PO SCH ×3 (00:12→22:22)
[2021-04-06] MEDS: QUEtiapine 50 MG TAB PO SCH ×2 (00:12→22:22)
[2021-04-06] MEDS: MIRTAZAPINE 45 MG TABLET PO SCH ×2 (00:12→22:21)
[2021-04-06] MEDS: LEVOTHYROXINE 50 MCG TAB PO SCH ×2 (00:14→22:20)
[2021-04-06] MEDS: BUDESONIDE 1 MG/2 ML NEBU INHALATION SCH ×2 (07:17→21:17)
[2021-04-06] MEDS: IPRATROPIUM-ALBUTEROL 3 ML NEB INHALATION SCH ×4 (07:17→21:17)
[2021-04-06] MEDS: FORMOTEROL FUMARATE 20 MCG/2 ML NEBU INHALATION SCH ×2 (07:17→21:17)
[2021-04-06 07:56] LABS: Glucose,Whole Blood 180 mg/dL (75-99)
--- NOTE | 2021-04-06 08:27 | P.PN ---
Subjective Progress Note Date: 04/05/21 This is a 66-year-old female who was recently admitted with chronic obstructive pulmonary disease, acute exacerbation and is being closely monitored. Patient continues to have increased blood sugars and is maintained on high dose IV steroids and will titrate the dose of steroids as she continues to have some wheezing, but is slowly improving. Patient was maintained on sliding scale along with long acting insulin and continued accuchecks. Patient is currently maintained on 6L via NC and normally requires 4-5 L in the outpatient setting. Discussed with nursing staff about weaning as tolerated. Patient to continue with breathing inhalational treatments and also maintained on IV ceftriaxone. 04/05/2021 Patient is seen in follow-up continues to be sitting at the bedside currently receiving a breathing treatment and is maintained on her baseline of 5 L via nasal cannula with oxygen saturations in the high 90s. Patient continues to be bronchospastic with expiratory wheezing noted throughout especially in the left lower bases and patient continues with a cough. Patient does have Robitussin bu t she states the syrup irritates her throat and will add oral Mucinex and continue with breathing inhalational treatments along with oral steroids. Pulmonary is following closely. White blood count within normal limits at 8.9, hemoglobin is 14.6, sodium is 141, potassium is 5.4, current creatinine is 0.92, and blood sugars continue to monitored and are elevated and will continue with current regimen of sliding scale along with long acting and will discontinue insulin drip. Patient is afebrile. Review of systems: Constitutional: No reports of fatigue, fever, or chills Cardiovascular: No reports of chest pain or palpitations Respiratory: reports of shortness of breath and cough GI: No reports of nausea, vomiting, or diarrhea : No reports of dysuria or retention Neurovascular: reports generalized weakness All medications have been reviewed Objective - Vital Signs Vital signs: Vital Signs Temp 97.5 F L 04/05/21 07:51 Pulse 75 04/05/21 08:02 Resp 18 04/05/21 08:00 BP 143/95 04/05/21 07:51 Pulse Ox 96 04/05/21 07:51 Intake & Output 04/04/21 04/05/21 04/05/21 18:59 06:59 18:59 Intake Total 700 65.953 3.905 Output Total 1100 1100 Balance -400 -1034.047 3.905 Intake: Intake, IV Titration 65.953 3.905 Amount Insulin Regular 100 unit 65.953 3.905 In Sodium Chloride 0.9% 100 ml @ Titrate IV .Q0M [facility] Rx#:[id number] Oral 700 Output: Urine 1100 1100 Other: Voiding Method Bedside Commode Bedside Commode External Catheter External Catheter # Voids 2 1 - Exam Gen: This is a 66-year-old female sitting up at the side of the bed awake, alert and oriented 3, morbidly obese HEENT: Head is atraumatic, normocephalic. Pupils equal, round. Sclerae is anicteric. NECK: Supple. No JVD. No lymphadenopathy. No thyromegaly. LUNGS: Diminished breath sounds bilaterally with some expiratory wheezing noted and diffuse bilateral rhonchi noted in the left lower bases. No intercostal retractions. HEART: Regular rate and rhythm. No murmur. ABDOMEN: Soft. obese. Bowel sounds are present. No masses. No tenderness. EXTREMITIES: No pedal edema. No calf tenderness. NEUROLOGICAL: Patient is awake, alert and oriented x3. diffusely weak. - Labs CBC & Chem 7: 04/05/21 06:38 04/05/21 06:38 Labs: Abnormal Lab Results - Last 24 Hours (Table) 04/04/21 04/04/21 04/04/21 Range/Units 12:00 17:43 20:38 Hct (34.0-46.0) % MCHC (31.0-37.0) g/dL Lymphocytes # (1.0-4.8) k/uL Potassium (3.5-5.1) mmol/L Carbon Dioxide (22-30) mmol/L BUN (7-17) mg/dL Glucose (74-99) mg/dL POC Glucose (mg/dL) 324 H 342 H 431 H (75-99) mg/dL 04/04/21 04/05/21 04/05/21 Range/Units 23:06 00:02 00:37 Hct (34.0-46.0) % MCHC (31.0-37.0) g/dL Lymphocytes # (1.0-4.8) k/uL Potassium (3.5-5.1) mmol/L Carbon Dioxide (22-30) mmol/L BUN (7-17) mg/dL Glucose (74-99) mg/dL POC Glucose (mg/dL) 394 H 332 H 251 H (75-99) mg/dL 04/05/21 04/05/21 04/05/21 Range/Units 01:14 03:08 04:10 Hct (34.0-46.0) % MCHC (31.0-37.0) g/dL Lymphocytes # (1.0-4.8) k/uL Potassium (3.5-5.1) mmol/L Carbon Dioxide (22-30) mmol/L BUN (7-17) mg/dL Glucose (74-99) mg/dL POC Glucose (mg/dL) 199 H 102 H 102 H (75-99) mg/dL 04/05/21 04/05/21 04/05/21 Range/Units 06:12 06:38 06:38 Hct 49.5 H (34.0-46.0) % MCHC 29.5 L (31.0-37.0) g/dL Lymphocytes # 0.6 L (1.0-4.8) k/uL Potassium 5.4 H (3.5-5.1) mmol/L Carbon Dioxide 38 H (22-30) mmol/L BUN 42 H (7-17) mg/dL Glucose 165 H (74-99) mg/dL POC Glucose (mg/dL) 150 H (75-99) mg/dL 04/05/21 04/05/21 Range/Units 07:23 09:18 Hct (34.0-46.0) % MCHC (31.0-37.0) g/dL Lymphocytes # (1.0-4.8) k/uL Potassium (3.5-5.1) mmol/L Carbon Dioxide (22-30) mmol/L BUN (7-17) mg/dL Glucose (74-99) mg/dL POC Glucose (mg/dL) 148 H 156 H (75-99) mg/dL Assessment and Plan Assessment: Chronic obstructive pulmonary disease, acute exacerbation, with acute hypoxic re spiratory failure as well as acute purulent tracheobronchitis, present on admission Hyperkalemia History of asthma History of gastroesophageal reflux disease History of degenerative joint disease history of noncompliance history of esophagitis History of Rapp's esophagus history of spinal disc herniation history of MRSA history of appendectomy History back surgery History of anxiety, depression, post-traumatic stress disorder and schizophrenia History of OCD Obesity with a body mass index of 53.2 Full code Plan: Recommend to continue with current medications and symptomatic treatment. Con tinue with breathing inhalational treatments along with IV antibiotics and IV steroids have been transitioned to oral prednisone. encouraged increase activity as tolerated. Will continue to wean FI02 as tolerated to normal 4-5 L via NC. Blood sugars remain elevated although improved and will discontinue insulin drip and continue with sliding scale along with long-acting and Accu-Cheks before meals and at bedtime Repeat chest xray today shows a limited study given patient's body habitus and difficult to exclude basilar atelectasis versus pneumonia and will encourage incentive spirometer use. Patient plans on going home and states her daughter is there to help her and they are working on arr anging for a caregiver to come to the home. Due to multiple complex medical issues, prognosis is guarded. Possible discharge in 24-48 hours.
[2021-04-06] MEDS: HEPARIN SODIUM,PORCINE/PF 5,000 UNIT/0.5 ML SYRINGE SQ SCH ×2 (08:55→22:19)
[2021-04-06] MEDS: INSULIN ASPART (NovoLOG) 100 UNIT/ML VIAL SQ SCH ×4 (08:56→22:20)
[2021-04-06] MEDS: MULTIVITAMINS, THERA 1 EACH TAB PO SCH (08:56)
[2021-04-06] MEDS: busPIRone HCl 5 MG TAB PO SCH ×2 (08:56→22:18)
[2021-04-06] MEDS: GABAPENTIN 300 MG CAP PO SCH ×2 (08:56→22:19)
[2021-04-06] MEDS: PANTOPRAZOLE 40 MG TABLET PO SCH ×2 (08:56→22:22)
[2021-04-06] MEDS: diphenhydrAMINE 25 MG CAP PO SCH ×2 (08:57→22:19)
[2021-04-06] MEDS: MORPHINE SULFATE ER 30 MG TABLET PO SCH ×2 (08:57→22:21)
[2021-04-06] MEDS: METOPROLOL SUCCINATE (ER) 25 MG TAB.ER.24H PO SCH (08:57)
[2021-04-06] MEDS: predniSONE 20 MG TAB PO SCH (08:57)
[2021-04-06] MEDS: guaiFENesin 600 MG TABLET.ER PO SCH ×2 (08:58→22:19)
[2021-04-06] MEDS: FLUTICASONE 50MCG/SPRAY NASAL 16GM EA NOSTRIL SCH (08:58)
[2021-04-06] MEDS: LORATADINE 10 MG TAB PO SCH (08:58)
[2021-04-06] MEDS: QUEtiapine 100 MG TAB PO SCH (09:00)
[2021-04-06 11:32] VITALS: BMI 53.1
--- NOTE | 2021-04-06 12:22 | P.PN ---
Subjective Progress Note Date: 04/06/21 Principal diagnosis: COPD exacerbation This is a morbidly obese 66-year-old female patient has history of COPD/asthma is coming in for worsening shortness of breath. The patient was in the hospital on 02/05/2021 treated for the same and the patient was discharged home. Once yvonne ngo is off the systemic steroids and after completing the prednisone burst taper, the patient's symptoms of increased dyspnea cough chest tightness and wheezing came back. The patient was initially seen an outside hospital. Computed tomography scan of the chest was done and showed no acute abnormalities. There was some atelectatic changes in lung bases bilaterally. Otherwise, no consolidation, no pulmonary embolism. The patient is oxygen dependent. She is morbidly obese with a component of obesity hypoventilation syndrome. She has home O2. She has also on nebulizer and she utilizes DuoNeb nebulized units [id number] up to 4 times a day. Maintenance as for medications include Spiriva 1 patient day and Advair Diskus 250/50/50 one puff twice a day. COVID- 19 testing was negative. White cell count done in the outside hospital showed a count of 11.5. The patient was referred to us for further evaluation the patient was hospitalized for further treatment. No history of any CAD. No history of any DVT or pulmonary embolism. No increased swelling in lower extremities. 03/31/2021, clinically the patient is feeling better and the patient is less short of breath with bronchospastic and wheezy compared to yesterday. She has developed some mild steroid-induced hyperglycemia. No fever. No chills. No chest pain. General. No swelling lower extremities bilaterally. Remains on a combination of bronchodilators and steroids. He white cell count today is at 9.6 with a hemoglobin of 15.8. BMI 35 with a creatinine of 1.1. Sodium is at 139. 04/01/2021, no new complaints and the patient continues to improve as she is being treated for COPD/asthma exacerbation. Remains on IV Solu Medrol 60 mg every 6 hours. Remains on DuoNeb nebulized treatments. Remains on Pulmicort Respules. Remains on empiric antibiotic coverage with IV Rocephin. Blood sugar from today still 67. The rest of the labs On today's follow-up on the 04/02/2021 patient seen on medical surgical floor. She is sitting up on the edge of the bed, in no acute distress, she feels that her breathing is improving, lung sounds reveal end expiratory wheezes on forced exhalation, still has some chest congestion, loose cough, with no phlegm production. Vital signs have been stable, she is currently on 5 L of oxygen sat 95%, no fever or chills, still has some chest tightness, but overall she feels like she is improving. On high-dose IV steroids 60 mg every 6 hours, she has developed steroid induced hyperglycemia, today's blood sugars are in the range of 153-260. On nebulized bronchodilators, remains on Jere, she's had no fever or chills. On today's evaluation on 04/04/2021 patient seen in follow-up on medical surgical floor. Patient is awake alert, she sits up and had been, she is cur rently on 6 L of oxygen pulse ox is 95%, no fever or chills, blood pressure is stable. No acute events overnight, no worsening dyspnea however patient has been much bedbound, and only been up on the edge of the bed, and occasionally standing up, however it has not ambulated at all. Lung sounds are positive for diffuse wheezes, she has been on high-dose IV steroids 60 mg every 6 hours, advise bronchodilators, Pulmicort and Perforomist, and empiric antibiotics. She's had no acute events overnight, no chest discomfort. He is tolerating oral intake, no nausea or vomiting. The patient is seen today 04/05/2021 follow-up regular medical floor. She is currently sitting up at the bedside. Awake and alert in no acute distress. Still has a loose nonproductive cough. Maintaining O2 saturations in the mid 90s on 5 L/m per nasal cannula. She's afebrile. Hemodynamically stable. White count 8.9. Hemoglobin 14.6. Sodium 141. Potassium 5.4. Creatinine 0.92. Glucose 165. She remains on DuoNeb inhalations, Pulmicort and Perforomist inhalations, IV Solu-Medrol. Antibiotics in the form of ceftriaxone. Currently on a heparin drip at 4 units per hour. Chest x-ray limited due to body habitus. Possible basilar atelectasis. The patient is seen today 04/06/2021 in follow-up on the regular medical floor. Awake and alert in no acute distress. Breathing is back to her baseline. No wo rsening shortness of breath, cough or congestion. Blood sugar 180. Remains on prednisone, bronchodilators. Heparin for DVT prophylaxis. Objective - Vital Signs Vital signs: Vital Signs Temp 97.7 F 04/06/21 08:00 Pulse 80 04/06/21 11:28 Resp 18 04/06/21 11:28 BP 155/97 04/06/21 08:00 Pulse Ox 93 L 04/06/21 08:00 Intake & Output 04/05/21 04/06/21 04/06/21 18:59 06:59 18:59 Intake Total 521.905 Output Total 700 Balance -178.095 Weight 158.757 kg Intake: Intake, IV Titration 3.905 Amount Insulin Regular 100 unit 3.905 In Sodium Chloride 0.9% 100 ml @ Titrate IV .Q0M [facility] Rx#:[id number] Oral 518 Output: Urine 700 Other: Voiding Method Bedside Commode # Voids 1 - Exam GENERAL EXAM: Alert, morbidly obese 66-year-old female patient on room air, O2 saturation 93%, comfortable in no apparent distress. HEAD: Normocephalic. EYES: Normal reaction of pupils, equal size. NOSE: Clear with pink turbinates. THROAT: No erythema or exudates. NECK: No masses, no JVD. CHEST: No chest wall deformity. LUNGS: Equal air entry with faint end expiratory wheeze, diminished. CVS: S1 and S2 normal with no audible murmur, regular rhythm. ABDOMEN: Unable to appreciate organomegaly due to obesity, normal bowel sounds, no guarding or rigidity. SPINE: No scoliosis or deformity SKIN: No rashes CENTRAL NERVOUS SYSTEM: No focal deficits, tone is normal in all 4 extremities. EXTREMITIES: There is no peripheral edema. No clubbing, no cyanosis. Peripheral pulses are intact. - Labs CBC & Chem 7: 04/05/21 06:38 04/05/21 06:38 Labs: Abnormal Lab Results - Last 24 Hours (Table) 04/05/21 04/05/21 04/06/21 Range/Units 17:25 21:41 07:54 POC Glucose (mg/dL) 251 H 335 H 180 H (75-99) mg/dL Assessment and Plan Assessment: 1 acute exacerbation of chronic COPD/asthma. The patient presented again with acute bronchospasm wheezing and increased shortness of breath. Computed tomography scan of the chest was done in outside hospital showed no acute abnormalities. The patient is improving and the patient is less bronchospastic and wheezy 2 COPD/asthma maintained on examination Spiriva and Advair and outpatient basis in addition to DuoNeb nebulized treatments around the clock. Most recent hospitalization was in January 2021 for the same. 3 morbid obesity with a BMI of above 50 4 chronic hypoxic respiratory failure limited in oxygen at 4 L of oxygen by nasal cannula 5 chronic back pain/lumbar disc disease/osteoarthritis 6 history of anxiety/depression/PTSD/schizophrenia 7 history of reflux with Rapp's esophagus 8 diabetes mellitus with a component of steroid-induced hyperglycemia 9 complicated abdominal hernia requiring multiple abdominal surgeries in the past 10 hypothyroidism Plan: The patient was seen and evaluated by Dr. Glover Cleared for discharge from the pulmonary standpoint Complete prednisone taper starting at 40 mg daily for 4 days Continue her home pulmonary medications Follow ip in the office in 1-2 weeks' I, the cosigning physician, performed a history & physical examination of the patient. Lungs sounds with faint end expiratory wheeze, diminished Maintaining good O2 saturations in the 90s on room air I discussed the assessment and plan of care with my nurse practitioner, Rosa Manzanares. I attest to the above note as dictated by her.
[2021-04-06 13:10] LABS: Glucose,Whole Blood 194 mg/dL (75-99)
[2021-04-06 17:42] LABS: Glucose,Whole Blood 203 mg/dL (75-99)
[2021-04-06 21:39] LABS: Glucose,Whole Blood 334 mg/dL (75-99)
[2021-04-06] MEDS: CHOLECALCIFEROL 25 MCG (1000 IU) TABLET PO SCH (22:19)
[2021-04-06] MEDS: INSULIN DETEMIR (LEVEMIR) 100 UNIT/ML SYR SQ SCH (22:20)
[2021-04-06] MEDS: MAGNESIUM OXIDE 400 MG TAB PO SCH (22:21)
[2021-04-07] MEDS: tiZANidine 4 MG TAB PO SCH ×2 (01:09→08:06)
[2021-04-07] MEDS: MORPHINE SULFATE IR 15 MG TABLET PO PRN (02:57)
[2021-04-07 04:06] VITALS: RESP 18; TEMP 97.6
[2021-04-07 07:51] LABS: Glucose,Whole Blood 141 mg/dL (75-99)
[2021-04-07] MEDS: HEPARIN SODIUM,PORCINE/PF 5,000 UNIT/0.5 ML SYRINGE SQ SCH (08:05)
[2021-04-07] MEDS: INSULIN ASPART (NovoLOG) 100 UNIT/ML VIAL SQ SCH (08:05)
[2021-04-07] MEDS: MULTIVITAMINS, THERA 1 EACH TAB PO SCH (08:06)
[2021-04-07] MEDS: busPIRone HCl 5 MG TAB PO SCH (08:06)
[2021-04-07] MEDS: MORPHINE SULFATE ER 30 MG TABLET PO SCH (08:06)
[2021-04-07] MEDS: diphenhydrAMINE 25 MG CAP PO SCH (08:06)
[2021-04-07] MEDS: OXYBUTYNIN CHLORIDE 5 MG TAB PO SCH (08:06)
[2021-04-07] MEDS: predniSONE 20 MG TAB PO SCH (08:08)
[2021-04-07] MEDS: METOPROLOL SUCCINATE (ER) 25 MG TAB.ER.24H PO SCH (08:08)
[2021-04-07] MEDS: PANTOPRAZOLE 40 MG TABLET PO SCH (08:08)
[2021-04-07] MEDS: GABAPENTIN 300 MG CAP PO SCH (08:08)
[2021-04-07] MEDS: QUEtiapine 100 MG TAB PO SCH (08:08)
[2021-04-07] MEDS: LORATADINE 10 MG TAB PO SCH (08:08)
[2021-04-07] MEDS: guaiFENesin 600 MG TABLET.ER PO SCH (08:08)
[2021-04-07] MEDS: FLUTICASONE 50MCG/SPRAY NASAL 16GM EA NOSTRIL SCH (08:09)
[2021-04-07] MEDS: BUDESONIDE 1 MG/2 ML NEBU INHALATION SCH (08:10)
[2021-04-07] MEDS: IPRATROPIUM-ALBUTEROL 3 ML NEB INHALATION SCH ×2 (08:10→11:35)
[2021-04-07] MEDS: FORMOTEROL FUMARATE 20 MCG/2 ML NEBU INHALATION SCH (08:10)
--- NOTE | 2021-04-07 08:23 | P.PN ---
Subjective Progress Note Date: 04/06/21 This is a 66-year-old female who was recently admitted with chronic obstructive pulmonary disease, acute exacerbation and is being closely monitored. Patient continues to have increased blood sugars and is maintained on high dose IV steroids and will titrate the dose of steroids as she continues to have some wheezing, but is slowly improving. Patient was maintained on sliding scale along with long acting insulin and continued accuchecks. Patient is currently maintained on 6L via NC and normally requires 4-5 L in the outpatient setting. Discussed with nursing staff about weaning as tolerated. Patient to continue with breathing inhalational treatments and also maintained on IV ceftriaxone. 04/05/2021 Patient is seen in follow-up continues to be sitting at the bedside currently receiving a breathing treatment and is maintained on her baseline of 5 L via nasal cannula with oxygen saturations in the high 90s. Patient continues to be bronchospastic with expiratory wheezing noted throughout especially in the left lower bases and patient continues with a cough. Patient does have Robitussin bu t she states the syrup irritates her throat and will add oral Mucinex and continue with breathing inhalational treatments along with oral steroids. Pulmonary is following closely. White blood count within normal limits at 8.9, hemoglobin is 14.6, sodium is 141, potassium is 5.4, current creatinine is 0.92, and blood sugars continue to monitored and are elevated and will continue with current regimen of sliding scale along with long acting and will discontinue insulin drip. Patient is afebrile. 04/06/2021 Patient is seen and examined in follow-up with pulmonary at the bedside. Patient's wheezing has slightly improved and will continue on a longer prednisone taper along with breathing inhalational treatments in the outpatient setting. Patient is at baseline of 5 L via nasal cannula and is being discharged today and transportation was set up although unable to provide accommodation for oxygen and will discuss with case management about arranging wheelchair van that provides oxygen support to safely transport the patient home. She does have oxygen and all necessary equipment at home. Review of systems: Constitutional: No reports of fatigue, fever, or chills Cardiovascular: No reports of chest pain or palpitations Respiratory: reports of shortness of breath and cough GI: No reports of nausea, vomiting, or diarrhea : No reports of dysuria or retention Neurovascular: reports generalized weakness All medications have been reviewed Objective - Vital Signs Vital signs: Vital Signs Temp 97.6 F 04/07/21 02:02 Pulse 77 04/07/21 08:10 Resp 18 04/07/21 08:10 BP 128/82 04/07/21 02:02 Pulse Ox 94 L 04/07/21 08:10 Intake & Output 04/06/21 04/07/21 04/07/21 18:59 06:59 18:59 Output Total 1100 2200 Balance -1100 -2200 Weight 158.757 kg Output: Urine 1100 2200 Other: Voiding Method Bedside Commode Bedside Commode # Voids 1 - Exam Gen: This is a 66-year-old female sitting up at the side of the bed awake, alert and oriented 3, morbidly obese HEENT: Head is atraumatic, normocephalic. Pupils equal, round. Sclerae is anicteric. NECK: Supple. No JVD. No lymphadenopathy. No thyromegaly. LUNGS: Diminished breath sounds bilaterally with some mild expiratory wheezing noted and diffuse bilateral rhonchi noted in the left lower bases. No intercostal retractions. Improved from yesterday's exam HEART: Regular rate and rhythm. No murmur. ABDOMEN: Soft. obese. Bowel sounds are present. No masses. No tenderness. EXTREMITIES: No pedal edema. No calf tenderness. NEUROLOGICAL: Patient is awake, alert and oriented x3. diffusely weak. - Labs CBC & Chem 7: 04/05/21 06:38 04/05/21 06:38 Labs: Abnormal Lab Results - Last 24 Hours (Table) 04/06/21 04/06/21 04/06/21 Range/Units 13:08 17:40 21:36 POC Glucose (mg/dL) 194 H 203 H 334 H (75-99) mg/dL 04/07/21 Range/Units 07:49 POC Glucose (mg/dL) 141 H (75-99) mg/dL Assessment and Plan Assessment: Chronic obstructive pulmonary disease, acute exacerbation, with acute hypoxic respiratory failure as well as acute purulent tracheobronchitis, present on admission Hyperkalemia History of asthma History of gastroesophageal reflux disease History of degenerative joint disease history of noncompliance history of esophagitis History of Rapp's esophagus history of spinal disc herniation history of MRSA history of appendectomy History back surgery History of anxiety, depression, post-traumatic stress disorder and schizophrenia History of OCD Obesity with a body mass index of 53.2 Full code Plan: Recommend to continue with breathing inhalational treatments and symptomatic treatment and will until new oral prednisone tapering dose. Longer prednisone taper prescribed on discharge. Patient was seen and evaluated by pulmonary and will follow-up outpatient in the next 1-[address] Glover for further evaluation. Patient encouraged to continue with consistent carb diet and monitor sugars closely along with continuing with low potassium diet as her blood sugars have been elevated along with elevated potassium. Patient was taking potassium supplements prescribed by her doctor and will discontinue for now and recommend follow-up labs at her primary care provider's appointment. Transportation being scheduled through her insurance and came to cotton picker the patient and was unable to provide any oxygen support nor wheelchair support and patient requires both for safe discharge. Will discuss with case management about safe discharge planning and transportation in the a.m. Due to multiple complex medical issues, prognosis is guarded. Will continue to monitor closely. Anticipate discharge in 24 hours.
[2021-04-07 08:30] VITALS: BP 132/72
--- NOTE | 2021-04-07 11:19 | P.PN ---
Subjective Progress Note Date: 04/07/21 Principal diagnosis: COPD exacerbation This is a morbidly obese 66-year-old female patient has history of COPD/asthma is coming in for worsening shortness of breath. The patient was in the hospital on 02/05/2021 treated for the same and the patient was discharged home. Once yvonne ngo is off the systemic steroids and after completing the prednisone burst taper, the patient's symptoms of increased dyspnea cough chest tightness and wheezing came back. The patient was initially seen an outside hospital. Computed tomography scan of the chest was done and showed no acute abnormalities. There was some atelectatic changes in lung bases bilaterally. Otherwise, no consolidation, no pulmonary embolism. The patient is oxygen dependent. She is morbidly obese with a component of obesity hypoventilation syndrome. She has home O2. She has also on nebulizer and she utilizes DuoNeb nebulized units [id number] up to 4 times a day. Maintenance as for medications include Spiriva 1 patient day and Advair Diskus 250/50/50 one puff twice a day. COVID- 19 testing was negative. White cell count done in the outside hospital showed a count of 11.5. The patient was referred to us for further evaluation the patient was hospitalized for further treatment. No history of any CAD. No history of any DVT or pulmonary embolism. No increased swelling in lower extremities. 03/31/2021, clinically the patient is feeling better and the patient is less short of breath with bronchospastic and wheezy compared to yesterday. She has developed some mild steroid-induced hyperglycemia. No fever. No chills. No chest pain. General. No swelling lower extremities bilaterally. Remains on a combination of bronchodilators and steroids. He white cell count today is at 9.6 with a hemoglobin of 15.8. BMI 35 with a creatinine of 1.1. Sodium is at 139. 04/01/2021, no new complaints and the patient continues to improve as she is being treated for COPD/asthma exacerbation. Remains on IV Solu Medrol 60 mg every 6 hours. Remains on DuoNeb nebulized treatments. Remains on Pulmicort Respules. Remains on empiric antibiotic coverage with IV Rocephin. Blood sugar from today still 67. The rest of the labs On today's follow-up on the 04/02/2021 patient seen on medical surgical floor. She is sitting up on the edge of the bed, in no acute distress, she feels that her breathing is improving, lung sounds reveal end expiratory wheezes on forced exhalation, still has some chest congestion, loose cough, with no phlegm production. Vital signs have been stable, she is currently on 5 L of oxygen sat 95%, no fever or chills, still has some chest tightness, but overall she feels like she is improving. On high-dose IV steroids 60 mg every 6 hours, she has developed steroid induced hyperglycemia, today's blood sugars are in the range of 153-260. On nebulized bronchodilators, remains on Jere, she's had no fever or chills. On today's evaluation on 04/04/2021 patient seen in follow-up on medical surgical floor. Patient is awake alert, she sits up and had been, she is cur rently on 6 L of oxygen pulse ox is 95%, no fever or chills, blood pressure is stable. No acute events overnight, no worsening dyspnea however patient has been much bedbound, and only been up on the edge of the bed, and occasionally standing up, however it has not ambulated at all. Lung sounds are positive for diffuse wheezes, she has been on high-dose IV steroids 60 mg every 6 hours, advise bronchodilators, Pulmicort and Perforomist, and empiric antibiotics. She's had no acute events overnight, no chest discomfort. He is tolerating oral intake, no nausea or vomiting. The patient is seen today 04/05/2021 follow-up regular medical floor. She is currently sitting up at the bedside. Awake and alert in no acute distress. Still has a loose nonproductive cough. Maintaining O2 saturations in the mid 90s on 5 L/m per nasal cannula. She's afebrile. Hemodynamically stable. White count 8.9. Hemoglobin 14.6. Sodium 141. Potassium 5.4. Creatinine 0.92. Glucose 165. She remains on DuoNeb inhalations, Pulmicort and Perforomist inhalations, IV Solu-Medrol. Antibiotics in the form of ceftriaxone. Currently on a heparin drip at 4 units per hour. Chest x-ray limited due to body habitus. Possible basilar atelectasis. The patient is seen today 04/06/2021 in follow-up on the regular medical floor. Awake and alert in no acute distress. Breathing is back to her baseline. No wo rsening shortness of breath, cough or congestion. Blood sugar 180. Remains on prednisone, bronchodilators. Heparin for DVT prophylaxis. The patient is seen today 04/07/2021 and follow-up on the regular medical floor. Currently sitting up at the bedside. Awake and alert in no acute distress. S till with some loose nonproductive cough. No fever chills or night sweats. Blood sugar 141. She remains on DuoNeb inhalations, Pulmicort and Perforomist inhalations, prednisone. Objective - Vital Signs Vital signs: Vital Signs Temp 97.6 F 04/07/21 08:00 Pulse 84 04/07/21 08:33 Resp 18 04/07/21 08:33 BP 132/72 04/07/21 08:00 Pulse Ox 94 L 04/07/21 08:10 Intake & Output 04/06/21 04/07/21 04/07/21 18:59 06:59 18:59 Intake Total 480 Output Total 1100 2200 Balance -1100 -2200 480 Weight 158.757 kg Intake: Oral 480 Output: Urine 1100 2200 Other: Voiding Method Bedside Commode Bedside Commode # Voids 1 - Exam GENERAL EXAM: Alert, morbidly obese 66-year-old female patient on 5 liters, O2 saturation 94%, comfortable in no apparent distress. HEAD: Normocephalic. EYES: Normal reaction of pupils, equal size. NOSE: Clear with pink turbinates. THROAT: No erythema or exudates. NECK: No masses, no JVD. CHEST: No chest wall deformity. LUNGS: Equal air entry with faint end expiratory wheeze, diminished. CVS: S1 and S2 normal with no audible murmur, regular rhythm. ABDOMEN: Unable to appreciate organomegaly due to obesity, normal bowel sounds, no guarding or rigidity. SPINE: No scoliosis or deformity SKIN: No rashes CENTRAL NERVOUS SYSTEM: No focal deficits, tone is normal in all 4 extremities. EXTREMITIES: There is no peripheral edema. No clubbing, no cyanosis. Peripheral pulses are intact. - Labs CBC & Chem 7: 04/05/21 06:38 04/05/21 06:38 Labs: Abnormal Lab Results - Last 24 Hours (Table) 04/06/21 04/06/21 04/06/21 Range/Units 13:08 17:40 21:36 POC Glucose (mg/dL) 194 H 203 H 334 H (75-99) mg/dL 04/07/21 Range/Units 07:49 POC Glucose (mg/dL) 141 H (75-99) mg/dL Assessment and Plan Assessment: 1 acute exacerbation of chronic COPD/asthma. The patient presented again with acute bronchospasm wheezing and increased shortness of breath. Computed tomography scan of the chest was done in outside hospital showed no acute abnormalities. The patient is improving and the patient is less bronchospastic and wheezy 2 COPD/asthma maintained on examination Spiriva and Advair and outpatient basis in addition to DuoNeb nebulized treatments around the clock. Most recent hospitalization was in January 2021 for the same. 3 morbid obesity with a BMI of above 50 4 chronic hypoxic respiratory failure limited in oxygen at 4 L of oxygen by nasal cannula 5 chronic back pain/lumbar disc disease/osteoarthritis 6 history of anxiety/depression/PTSD/schizophrenia 7 history of reflux with Rapp's esophagus 8 diabetes mellitus with a component of steroid-induced hyperglycemia 9 complicated abdominal hernia requiring multiple abdominal surgeries in the past 10 hypothyroidism Plan: The patient was seen and evaluated by Dr. Glover Cleared for discharge from the pulmonary standpoint Add a flutter valve Complete prednisone taper Continue her home pulmonary medications Follow up in the office in 1-2 weeks' I, the cosigning physician, performed a history & physical examination of the patient. Lungs sounds with faint end expiratory wheeze, diminished Maintaining good O2 saturations in the 90s on 5 L/m per nasal cannula I discussed the assessment and plan of care with my nurse practitioner, Rosa Manzanares. I attest to the above note as dictated by her.
[2021-04-07 11:46] VITALS: PULSE 90
[2021-04-07 12:09] LABS: Glucose,Whole Blood 287 mg/dL (75-99)
--- NOTE | 2021-04-11 15:49 | P.DS ---
Providers Date of admission: 03/30/21 11:24 Expected date of discharge: 04/07/21 Attending physician: Norma Hernández Consults: 03/30/21 00:50 Consult Physician Routine Consulting Provider: Pedro Glover Consult Reason/Comments: COPD exacerbation Do you want consulting provider notified?: Yes Primary care physician: Tre James [facility] Course: Final diagnosis Chronic obstructive pulmonary disease, acute exacerbation, with acute hypoxic respiratory failure as well as acute purulent tracheobronchitis, present on admission Hyperkalemia History of asthma History of gastroesophageal reflux disease History of degenerative joint disease history of noncompliance history of esophagitis History of Rapp's esophagus history of spinal disc herniation history of MRSA history of appendectomy History back surgery History of anxiety, depression, post-traumatic stress disorder and schizophrenia History of OCD Obesity with a body mass index of 53.2 Full code Discharge disposition Patient is being discharged in a stable condition with guarded prognosis to home. Patient will follow-up with Dr. Baldwin in the outpatient setting upon discharge. Patient is to continue with hemodialysis as scheduled. Total time taken is greater than 35 minutes. Hospital course This is a 66-year-old female who was recently admitted with chronic obstructive pulmonary disease, acute exacerbation and is being closely monitored. Patient continues to have increased blood sugars and is maintained on high dose IV steroids and will titrate the dose of steroids as she continues to have some wheezing, but is slowly improving. Patient was maintained on sliding scale along with long acting insulin and continued accuchecks. Patient is currently maintained on 6L via NC and normally requires 4-5 L in the outpatient setting. Discussed with nursing staff about weaning as tolerated. Patient to continue with breathing inhalational treatments and also maintained on IV ceftriaxone. 04/05/2021 Patient is seen in follow-up continues to be sitting at the bedside currently receiving a breathing treatment and is maintained on her baseline of 5 L via nasal cannula with oxygen saturations in the high 90s. Patient continues to be bronchospastic with expiratory wheezing noted throughout especially in the left lower bases and patient continues with a cough. Patient does have Robitussin bu t she states the syrup irritates her throat and will add oral Mucinex and continue with breathing inhalational treatments along with oral steroids. Pulmonary is following closely. White blood count within normal limits at 8.9, hemoglobin is 14.6, sodium is 141, potassium is 5.4, current creatinine is 0.92, and blood sugars continue to monitored and are elevated and will continue with current regimen of sliding scale along with long acting and will discontinue insulin drip. Patient is afebrile. 04/06/2021 Patient is seen and examined in follow-up with pulmonary at the bedside. Patient's wheezing has slightly improved and will continue on a longer prednisone taper along with breathing inhalational treatments in the outpatient setting. Patient is at baseline of 5 L via nasal cannula and is being discharged today and transportation was set up although unable to provide accommodation for oxygen and will discuss with case management about arranging wheelchair van that provides oxygen support to safely transport the patient home. She does have oxygen and all necessary equipment at home. 04/07/2021 Patient is seen and evaluated in follow-up with no acute overnight issues. Patient is being scheduled by wheelchair van with proper accommodation for nasal cannula oxygen at 5 L along with wheelchair assistance. Patient will follow-up outpatient with pulmonary along with her primary care provider upon discharge. Recommended and encouraged consistent carb diet and monitoring blood sugars and continue with low potassium diet. Patient was taking potassium supplements which are being discontinued. Patient on a prednisone taper on discharge. Currently no reports of chest pain, shortness of breath, or palpitations. Patient is afebrile. No reports of nausea or vomiting and patient is tolerating diet. Patient will be discharged home today. Guarded prognosis Gen: This is a 66-year-old female sitting up at the side of the bed awake, alert and oriented 3, morbidly obese HEENT: Head is atraumatic, normocephalic. Pupils equal, round. Sclerae is anicteric. NECK: Supple. No JVD. No lymphadenopathy. No thyromegaly. LUNGS: Diminished breath sounds bilaterally with some mild expiratory wheezing noted and diffuse bilateral rhonchi noted in the left lower bases. No intercostal retractions. HEART: Regular rate and rhythm. No murmur. ABDOMEN: Soft. obese. Bowel sounds are present. No masses. No tenderness. EXTREMITIES: No pedal edema. No calf tenderness. NEUROLOGICAL: Patient is awake, alert and oriented x3. diffusely weak. Please refer to medication reconciliation sheet for a list of medications. Patient Condition at Discharge: Fair Plan - Discharge Summary Discharge Rx Participant: Yes New Discharge Prescriptions: New guaiFENesin [Mucinex] 600 mg PO Q12HR #20 tablet predniSONE 10 mg PO DIRECTED #50 tab Continue Oxybutynin Chloride [Ditropan] 5 mg PO HS Omeprazole 20 mg PO BID Ipratropium/Albuterol Sulfate [Duoneb 0.5 mg-3 mg/3 ml Soln] 3 ml INHALATION RT-Q4H Loratadine 10 mg PO DAILY Loperamide [Imodium] 2 - 4 mg PO QID PRN PRN Reason: Diarrhea Albuterol Sulfate [Proair Hfa] 2 puff INHALATION RT-Q4H PRN PRN Reason: Shortness Of Breath diphenhydrAMINE [Benadryl] 50 mg PO BID Magnesium Oxide [Magox 400] 400 mg PO HS Cholecalciferol [Vitamin D3 (25 Mcg = 1000 Iu)] 25 mcg PO HS busPIRone HCL 15 - 30 mg PO BID Metoprolol Succinate [Toprol XL] 25 mg PO DAILY QUEtiapine [SEROquel] 100 mg PO DAILY Morphine Sulfate [Ms Contin] 30 mg PO BID Morphine Sulfate 15 mg PO BID PRN PRN Reason: Pain Fluticasone/Salmeterol [Advair 250-50 Diskus] 1 puff INHALATION RT-BID Ipratropium-Albuterol Nebulize [Duoneb 0.5 mg-3 mg/3 ml Soln] 3 ml INHALATION RT-Q2H PRN #1 box PRN Reason: Shortness Of Breath Or Wheezing Oxybutynin Chloride [Ditropan] 5 mg PO AC-BID PRN PRN Reason: bladder control tiZANidine [Zanaflex] 4 mg PO Q8HR Multivitamins, Thera [Multivitamin (formulary)] 1 tab PO DAILY Levothyroxine Sodium [Synthroid] 50 mcg PO HS QUEtiapine [SEROquel] 50 mg PO HS Mirtazapine [Remeron] 45 mg PO HS QUEtiapine FUMARATE [SEROquel] 200 mg PO HS Iron Polysaccharide Complex [Ferrex 150] 150 mg PO Q48H Fluticasone Nasal [place] [Flonase Nasal [place]] 2 spr EA NOSTRIL DAILY Gabapentin 300 mg PO BID Tiotropium [place] [Spiriva] 1 cap INHALATION RT-DAILY Discontinued Potassium Chloride ER [K-Dur 20] 20 meq PO HS Discharge Medication List Albuterol Sulfate [Proair Hfa] 2 puff INHALATION RT-Q4H PRN 03/27/14 [History] Ipratropium/Albuterol Sulfate [Duoneb 0.5 mg-3 mg/3 ml Soln] 3 ml INHALATION RT- Q4H 03/27/14 [History] Loperamide [Imodium] 2 - 4 mg PO QID PRN 03/27/14 [History] Loratadine 10 mg PO DAILY 03/27/14 [History] Omeprazole 20 mg PO BID 03/27/14 [History] Oxybutynin Chloride [Ditropan] 5 mg PO HS 03/27/14 [History] Cholecalciferol [Vitamin D3 (25 Mcg = 1000 Iu)] 25 mcg PO HS 02/04/21 [History] Fluticasone Nasal [place] [Flonase Nasal [place]] 2 spr EA NOSTRIL DAILY 02/04/21 [History] Fluticasone/Salmeterol [Advair 250-50 Diskus] 1 puff INHALATION RT-BID 02/04/21 [History] Gabapentin 300 mg PO BID 02/04/21 [History] Iron Polysaccharide Complex [Ferrex 150] 150 mg PO Q48H 02/04/21 [History] Levothyroxine Sodium [Synthroid] 50 mcg PO HS 02/04/21 [History] Magnesium Oxide [Magox 400] 400 mg PO HS 02/04/21 [History] Metoprolol Succinate [Toprol XL] 25 mg PO DAILY 02/04/21 [History] Mirtazapine [Remeron] 45 mg PO HS 02/04/21 [History] Morphine Sulfate 15 mg PO BID PRN 02/04/21 [History] Morphine Sulfate [Ms Contin] 30 mg PO BID 02/04/21 [History] Multivitamins, Thera [Multivitamin (formulary)] 1 tab PO DAILY 02/04/21 [History] QUEtiapine FUMARATE [SEROquel] 200 mg PO HS 02/04/21 [History] QUEtiapine [SEROquel] 50 mg PO HS 02/04/21 [History] QUEtiapine [SEROquel] 100 mg PO DAILY 02/04/21 [History] Tiotropium [place] [Spiriva] 1 cap INHALATION RT-DAILY 02/04/21 [History] busPIRone HCL 15 - 30 mg PO BID 02/04/21 [History] diphenhydrAMINE [Benadryl] 50 mg PO BID 02/04/21 [History] tiZANidine [Zanaflex] 4 mg PO Q8HR 02/04/21 [History] Ipratropium-Albuterol Nebulize [Duoneb 0.5 mg-3 mg/3 ml Soln] 3 ml INHALATION RT-Q2H PRN #1 box 02/09/21 [Rx] Oxybutynin Chloride [Ditropan] 5 mg PO AC-BID PRN 03/30/21 [History] guaiFENesin [Mucinex] 600 mg PO Q12HR #20 tablet 04/06/21 [Rx] predniSONE 10 mg PO DIRECTED #50 tab 04/06/21 [Rx] Follow up Appointment(s)/Referral(s): Tre Doss DO [Primary Care Provider] - 1 Week Pedro Glover MD [STAFF PHYSICIAN] - 04/21/21 3:00 pm Patient Instructions/Handouts: Potassium Content of Foods List (DC), COPD (Chronic Obstructive Pulmonary Disease) (DC), Basic Carbohydrate Counting (DC), Epilepsy (DC) Activity/Diet/Wound Care/Special Instructions: CASE MANAGEMENT NOTE: Take nebulizer machine to [employer] store to exchange it for a new one. It is under warranty for 5 years from date of dispense which was 02/09/2021. [employer] is located at [address] [place] [address] (inside the [facility]) Activity Limited until follow-up Follow-up with primary care provider upon discharge Follow-up with pulmonary outpatient in 1-2 weeks Continue with steroid taper as directed Continue with low potassium diet Discharge Disposition: HOME SELF-CARE
== END 2021-04-07 12:50 | disposition home or self-care (01) | DRG 190 ==
LOC: EC 23:58 → 6NMEDSUR 03-30 00:45 → OBSVTOIN 03-30 11:24
PROVIDERS: ADMIT Hospitalist; ATTEND Hospitalist
DX: J44.1 Chronic obstructive pulmonary disease with (acute) exacerbation (principal); J96.21 Acute and chronic respiratory failure with hypoxia; Z68.43 Body mass index [BMI] 50.0-59.9, adult; E66.2 Morbid (severe) obesity with alveolar hypoventilation; Z16.24 Resistance to multiple antibiotics; J45.51 Severe persistent asthma with (acute) exacerbation; J98.11 Atelectasis; G89.29 Other chronic pain; K21.00 Gastro-esophageal reflux disease with esophagitis, without bleeding; Z99.81 Dependence on supplemental oxygen; Z91.19 Patient's noncompliance with other medical treatment and regimen; Z90.711 Acquired absence of uterus with remaining cervical stump; Z90.49 Acquired absence of other specified parts of digestive tract; Z86.14 Personal history of Methicillin resistant Staphylococcus aureus infection; Z79.899 Other long term (current) drug therapy; Z79.890 Hormone replacement therapy; Z79.52 Long term (current) use of systemic steroids; Z74.01 Bed confinement status; Z20.822 Contact with and (suspected) exposure to COVID-19; T38.0X5A Adverse effect of glucocorticoids and synthetic analogues, initial encounter; M19.90 Unspecified osteoarthritis, unspecified site; F43.10 Post-traumatic stress disorder, unspecified; F32.9 Major depressive disorder, single episode, unspecified; F42.9 Obsessive-compulsive disorder, unspecified; E03.9 Hypothyroidism, unspecified; E87.5 Hyperkalemia; F20.9 Schizophrenia, unspecified; D72.829 Elevated white blood cell count, unspecified; K22.70 Barrett's esophagus without dysplasia; M51.9 Unspecified thoracic, thoracolumbar and lumbosacral intervertebral disc disorder; K46.9 Unspecified abdominal hernia without obstruction or gangrene; R56.9 Unspecified convulsions; M54.9 Dorsalgia, unspecified; J20.9 Acute bronchitis, unspecified; J44.0 Chronic obstructive pulmonary disease with (acute) lower respiratory infection
CPT/HCPCS: 71045; 80048; 85025; 94640; 94667; 94760; 99285

== ENCOUNTER 2024-04-06 19:47 | Inpatient (IN) | payer MEDICARE, OTHER ==
[2024-04-06] MEDS: ACETAMINOPHEN TAB 500 MG TAB PO STA (20:16)
--- NOTE | 2024-04-06 22:05 | ED ---
General Adult HPI - General Chief complaint: Recheck/Abnormal Lab/Rx Stated complaint: Sepsis Time Seen by Provider: 04/06/24 19:50 Source: patient, EMS, RN notes reviewed Mode of arrival: EMS Limitations: no limitations - History of Present Illness Initial comments: 69-year-old female transferred from [facility] she was found to have a urinary tract infection with pyelonephritis also evidence of a non-ST elevation myocardial infarction with elevated troponin but no EKG changes seen. Patient was transferred by EMS. Recently presented to [facility] with complaints of lower abdominal pain and fatigue she has a history of morbid obesity and states she weighs 380 pounds she also is on 3 L of oxygen with a history of COPD. Lower abdominal pain started a few days ago. Is gotten worse. She was found to have evidence of a UTI elevated troponin and evidence of pyelonephritis on examination and workup. - Related Data Home Medications Medication Instructions Recorded Confirmed Albuterol Sulfate [Proair Hfa] 2 puff INHALATION RT-Q4H PRN 03/27/14 03/30/21 Ipratropium/Albuterol Sulfate 3 ml INHALATION RT-Q4H 03/27/14 03/30/21 [Duoneb 0.5 mg-3 mg/3 ml Soln] Loperamide [Imodium] 2 - 4 mg PO QID PRN 03/27/14 03/30/21 Loratadine 10 mg PO DAILY 03/27/14 03/30/21 Omeprazole 20 mg PO BID 03/27/14 03/30/21 oxyBUTYnin chloride [Ditropan] 5 mg PO HS 03/27/14 03/30/21 Cholecalciferol [Vitamin D3 (25 25 mcg PO HS 02/04/21 03/30/21 Mcg = 1000 Iu)] Fluticasone Nasal [place] [Flonase 2 spr EA NOSTRIL DAILY 02/04/21 03/30/21 Nasal [place]] Fluticasone Propion/Salmeterol 1 puff INHALATION RT-BID 02/04/21 03/30/21 [Advair 250-50 Diskus] Gabapentin 300 mg PO BID 02/04/21 03/30/21 Iron Polysaccharide Complex 150 mg PO Q48H 02/04/21 03/30/21 [Ferrex 150] Levothyroxine Sodium [Synthroid] 50 mcg PO HS 02/04/21 03/30/21 Magnesium Oxide [Magox 400] 400 mg PO HS 02/04/21 03/30/21 Metoprolol Succinate [Toprol XL] 25 mg PO DAILY 02/04/21 03/30/21 Mirtazapine [Remeron] 45 mg PO HS 02/04/21 03/30/21 Morphine Sulfate 15 mg PO BID PRN 02/04/21 03/30/21 Morphine Sulfate [Ms Contin] 30 mg PO BID 02/04/21 03/30/21 Multivitamins, Thera [Multivitamin 1 tab PO DAILY 02/04/21 03/30/21 (formulary)] QUEtiapine FUMARATE [SEROquel] 200 mg PO HS 02/04/21 03/30/21 QUEtiapine [SEROquel] 50 mg PO HS 02/04/21 03/30/21 QUEtiapine [SEROquel] 100 mg PO DAILY 02/04/21 03/30/21 Tiotropium [place] [Spiriva] 1 cap INHALATION RT-DAILY 02/04/21 03/30/21 busPIRone HCL [Buspar] 15 - 30 mg PO BID 02/04/21 03/30/21 diphenhydrAMINE [Benadryl] 50 mg PO BID 02/04/21 03/30/21 tiZANidine [Zanaflex] 4 mg PO Q8HR 02/04/21 03/30/21 oxyBUTYnin chloride [Ditropan] 5 mg PO AC-BID PRN 03/30/21 03/30/21 Previous Rx's Medication Instructions Recorded Ipratropium-Albuterol Nebulize 3 ml INHALATION RT-Q2H PRN #1 box 02/09/21 [Duoneb 0.5 mg-3 mg/3 ml Soln] guaiFENesin [Mucinex] 600 mg PO Q12HR #20 tablet 04/06/21 predniSONE 10 mg PO DIRECTED #50 tab 04/06/21 Allergies Allergy/AdvReac Type Severity Reaction Status Date / Time azithromycin Allergy Swelling Verified 03/30/21 09:11 diltiazem HCl [From Cardizem] Allergy Anaphylaxis Verified 03/30/21 09:11 doxycycline Allergy Swelling Verified 03/30/21 09:11 hydromorphone HCl AdvReac Nausea & Verified 04/06/24 19:56 [From Dilaudid] Vomiting Review of Systems ROS Statement: Those systems with pertinent positive or pertinent negative responses have been documented in the HPI. ROS Other: All systems not noted in ROS Statement are negative. Past Medical History Past Medical History: Asthma, COPD, GERD/Reflux, Osteoarthritis (OA) Additional Past Medical History / Comment(s): DJD, Esophagitis, OCD, barretts esophagus, spinal disk herniation, severe spinal pain. pt states she has seizures x1/week History of Any Multi-Drug Resistant Organisms: MRSA Date of last positivie culture/infection: 12/19/2009 MDRO Source:: Abdomen Past Surgical History: Appendectomy, Back Surgery, Section, Cholecystectomy, Hysterectomy Additional Past Surgical History / Comment(s): D&C, partial hysterectomy, Past Anesthesia/Blood Transfusion Reactions: No Reported Reaction Past Psychological History: Anxiety, Depression, PTSD, Schizophrenia Smoking Status: Never smoker, Second hand smoke exposure Past Alcohol Use History: None Reported Past Drug Use History: Marijuana - Past Family History Family Family Medical History: No Reported History General Exam - General Exam Comments Initial Comments: This is a well-developed obese female who is awake alert oriented x 4 female Limitations: no limitations General appearance: alert, anxious Head exam: Present: atraumatic, normocephalic, normal inspection Eye exam: Present: normal appearance, PERRL, EOMI. Absent: scleral icterus, conjunctival injection, periorbital swelling ENT exam: Present: normal exam, mucous membranes dry Neck exam: Present: normal inspection, full ROM, other (JVD or bruits). Absent: tenderness, meningismus, lymphadenopathy Respiratory exam: Present: normal lung sounds bilaterally. Absent: respiratory distress, wheezes, rales, rhonchi, stridor Cardiovascular Exam: Present: regular rate, normal rhythm, tachycardia, normal heart sounds. Absent: systolic murmur, diastolic murmur, rubs, gallop, clicks GI/Abdominal exam: Present: soft, normal bowel sounds. Absent: distended, tenderness, guarding, rebound, rigid, bruit, pulsatile mass Extremities exam: Present: normal inspection, full ROM, normal capillary refill. Absent: tenderness, pedal edema, joint swelling, calf tenderness Back exam: Present: normal inspection Neurological exam: Present: alert, oriented X3, CN II-XII intact Psychiatric exam: Present: normal affect, normal mood Skin exam: Present: warm, dry, normal color, other (Was seen on the upper abdominal wall no drainage seen at this time.). Absent: rash Course Vital Signs 04/06/24 04/06/24 04/06/24 19:50 20:01 21:03 Temperature 102.9 F H 99.2 F Pulse Rate 111 H 102 H Respiratory 22 20 Rate Blood Pressure 141/85 147/72 O2 Sat by Pulse 94 L 95 Oximetry 04/06/24 22:00 Temperature Pulse Rate 97 Respiratory 20 Rate Blood Pressure 118/53 O2 Sat by Pulse 95 Oximetry Medical Decision Making - Medical Decision Making CT findings with the patient I did review the material sent in from [facility]. I did discuss case with Dr. Dallas who did see the patient in the emergency department. Patient will be admitted with continued treatment. Was pt. sent in by a medical professional or institution (, PA, SHUTTLE FILLER, urgent care, hospital, or long term...) When possible be specific @ -No Did you speak to anyone other than the patient for history (EMS, parent, family, police, friend...)? What history was obtained from this source @ -No Did you review nursing and triage notes (agree or disagree)? Why? @ -I reviewed and agree with nursing and triage notes Were old charts reviewed (outside hosp., previous admission, EMS record, old EKG, old radiological studies, urgent care reports/EKG's, long term records)? Report findings @ -Old charts were reviewed Differential Diagnosis (chest pain, altered mental status, abdominal pain women, abdominal pain men, vaginal bleeding, weakness, fever, dyspnea, syncope, headache, dizziness, GI bleed, back pain, seizure, CVA, palpatations, mental health, musculoskeletal)? @ -Non-ST elevation myocardial infarction, pyelonephritis, UTI, febrile illness EKG interpreted by me (3pts min.). @ -As above EKG interpreted by me sinus tachycardia rate 104 MO interval 155 QRS duration 85 QT/QTc 318/379 pulmonary disease pattern evidence of right ventr icular conduction delay nonspecific inferior wall configuration this is consistent with the EKG submitted from [facility]. X-rays interpreted by me (1pt min.). @ -None done CT interpreted by me (1pt min.). @ -None done U/S interpreted by me (1pt. min.). @ -None done What testing was considered but not performed or refused? (CT, X-rays, U/S, labs)? Why? @ -None What meds were considered but not given or refused? Why? @ -None Did you discuss the management of the patient with other professionals (professionals i.e. , PA, SHUTTLE FILLER, lab, RT, psych nurse, social services designee, food counter worker, teacher, community development officer, case briefer)? Give summary @ -Dr. Dallas Was smoking cessation discussed for >3mins.? @ -No Was critical care preformed (if so, how long)? @ -No Were there social determinants of health that impacted care today? How? (Homelessness, low income, unemployed, alcoholism, drug addiction, transportation, low edu. Level, literacy, decrease access to med. care, custodial, rehab)? @ -No Was there de-escalation of care discussed even if they declined (Discuss DNR or withdrawal of care, Hospice)? DNR status @ -No What co-morbidities impacted this encounter? (DM, HTN, Smoking, COPD, CAD, Cancer, CVA, ARF, Chemo, Hep., AIDS, mental health diagnosis, sleep apnea, morbid obesity)? @ -COPD, morbid obesity schizophrenia Was patient admitted / discharged? Hospital course, mention meds given and route, prescriptions, significant lab abnormalities, going to OR and other pertinent info. @ -Hospital course was admitted for inpatient treatment Undiagnosed new problem with uncertain prognosis? @ -No Drug Therapy requiring intensive monitoring for toxicity (Heparin, Nitro, Insulin, Cardizem)? @ -No Were any procedures done? @ -No Diagnosis/symptom? @ -Pyelonephritis, NSTEMI, febrile illness Acute, or Chronic, or Acute on Chronic? @ -Acute] Uncomplicated (without systemic symptoms) or Complicated (systemic symptoms)? @ -Complicated Side effects of treatment? @ -No Exacerbation, Progression, or Severe Exacerbation? @ -No Poses a threat to life or bodily function? How? (Chest pain, [place], [place], pneumonia, PE, COPD, DKA, ARF, appy, cholecystitis, CVA, Diverticulitis, Homicidal, S uicidal, threat to staff... and all critical care pts) @ -Potential - Lab Data Lab Results 04/06/24 04/06/24 Range/Units 19:59 19:59 Plasma Lactic Acid Nate 1.0 (0.7-2.0) mmol/L Troponin I 0.058 H* (0.000-0.034) ng/mL Disposition Clinical Impression: Pyelonephritis, NSTEMI (non-ST elevated myocardial infarction), Febrile illness, acute Disposition: ADMITTED IP TO THIS [facility] Condition: Fair Referrals: Ashlie Brian MD [Primary Care Provider] - 1-2 days Time of Disposition: 22:20 Decision Date: 04/06/24 Decision Time: 22:20
[2024-04-06] MEDS ORDERED: NITROGLYCERIN SL TABS 0.4 MG TAB SUBLINGUAL PRN (22:20)
[2024-04-06] MEDS ORDERED: ALBUTEROL NEBULIZED 2.5 MG/3 ML INHALATION PRN (22:24)
[2024-04-06] MEDS ORDERED: oxyBUTYnin chloride 5 MG TAB PO PRN (22:24)
[2024-04-06] MEDS: tiZANidine 4 MG TAB PO SCH (23:46)
[2024-04-07] MEDS ORDERED: IPRATROPIUM-ALBUTEROL 3 ML NEB INHALATION SCH
[2024-04-07] MEDS: MORPHINE SULFATE ER 30 MG TABLET PO STA (00:34)
[2024-04-07] MEDS: SODIUM CHLORIDE 0.9% 1,000 ML IV SCH (00:47)
[2024-04-07] MEDS: HEPARIN SOD,PORK IN 0.45% NACL 25,000 UNIT in 0.45% NACL 1 250ML.BAG IV SCH (00:48)
[2024-04-07 02:31] LABS: INR 1.1 (<1.2); Partial Thromboplastin Time 25.8 sec (22.0-30.0); Prothrombin Time 11.5 sec (10.0-12.5)
--- NOTE | 2024-04-07 02:48 | P.HPIM ---
History of Present Illness H&P Date: 04/07/24 Patient is a 69-year-old female with a PMH of COPD with chronic hypoxic respiratory failure on 3 L of the cannula oxygen continuously at home, morbid obesity, hypothyroidism, chronic debility and wheelchair-bound, who was transferred from [facility] where she had presented with urinary co mplaints along with chest discomfort. Patient reports that over the past 1 week, she has experienced gradually worsening dysuria along with hematuria with bright red urine without clots. Denies any prior history of such symptoms. Denies flank pain or abdominal pain. She also reports chronic lateral chest discomfort but also has been experiencing central chest tightness over the past several days. Also reports feeling unwell over the past 1 week with generalized malaise. Denies fever, chills, cough, nausea, vomiting. The patient underwent an extensive evaluation at [facility] which was all reviewed. CT chest was unremarkable with CT abdomen and pelvis showing large anterior ventral abdominal hernia with findings of possible right sided pyelonephritis. EKG had revealed sinus tachycardia at 109 bpm. With poor R wave progression no other ST/T wave changes noted and reviewed by me. Laboratory evaluation had revealed troponin high-sensitivity 111.5, respiratory viral panel negative, UA consistent with UTI with 3+ blood, BMP showing sodium 135, potassium 3.6, chloride 97, CO2 24, BUN 20, creatinine 1.0, and glucose 201 with lactic acid 0.9. WBC count was 9.6, hemoglobin 14.3, and platelet count 156. ED documentation reviewed and case discussed with ED provider. Review of systems: Pertinent positives and negatives as discussed in HPI, a complete review of systems was performed and all other systems are negative. Physical examination: Vital signs reviewed General: non toxic, no distress, appears older than stated age, morbidly obese Derm: no unusual rashes/lesions, warm Head: atraumatic, normocephalic, symmetric Eyes: EOMI, no lid lag, anicteric sclera, pupils equal round reactive to light ENT: Nose and ears atraumatic Neck: No cervical lymphadenopathy, trachea midline, supple Mouth: no lip lesion, mucus membranes moist Cardiovascular: S1S2 reg, no murmur, positive dorsalis pedis pulse bilateral, no edema Lungs: Somewhat diminished bilateral air entry with mild expiratory wheezing without rhonchi or rales or coarse breath sounds, no accessory muscle use Abdominal: soft, nontender to palpation, no guarding Ext: muscle strength 4 out of 5 in all 4 extremities grossly, no gross muscle atrophy, no contractures, Neuro: CN II-XI grossly intact, no gross focal neuro deficits Psych: Alert, oriented, appropriate affect Assessment: Non-ST elevation ME UTI with hematuria Chronic conditions: COPD with chronic hypoxic respiratory failure, hypothyroidism, debility Imaging: The patient underwent an extensive evaluation at [facility] which was all reviewed. CT chest was unremarkable with CT abdomen and pelvis showing large anterior ventral abdominal hernia with findings of possible right sided pyelonephritis. EKG had revealed sinus tachycardia at 109 bpm. With poor R wave progression no other ST/T wave changes noted and reviewed by me. Data Review: Laboratory evaluation had revealed troponin high-sensitivity 111.5, respiratory viral panel negative, UA consistent with UTI with 3+ blood, BMP showing sodium 135, potassium 3.6, chloride 97, CO2 24, BUN 20, creatinine 1.0, and glucose 201 with lactic acid 0.9. WBC count was 9.6, hemoglobin 14.3, and platelet count 156. Plan: Continue patient on heparin infusion Continue with aspirin and statin Cardiology consulted Cardiac monitoring Trend troponin Nitroglycerin as needed Initiate ceftriaxone and follow-up urine and blood cultures Resume home medications DuoNebs [id number] Continue with IV fluids normal saline 100 cc/h DVT prophylaxis: Heparin infusion The patient is admitted with an anticipated greater than 2 midnight stay for evaluation of non-ST elation ME CODE STATUS: Full Code Discussed with: Patient Anticipated discharge place: Home Past Medical History Past Medical History: Asthma, COPD, GERD/Reflux, Osteoarthritis (OA), Seizure Disorder Additional Past Medical History / Comment(s): DJD, Esophagitis, OCD, barretts esophagus, spinal disk herniation, severe spinal pain. pt states last seizure 6 months ago History of Any Multi-Drug Resistant Organisms: None Reported Date of last positivie culture/infection: 12/19/2009 MDRO Source:: Abdomen Past Surgical History: Back Surgery, Section, Hysterectomy Additional Past Surgical History / Comment(s): D&C, partial hysterectomy Past Anesthesia/Blood Transfusion Reactions: No Reported Reaction Past Psychological History: Anxiety, Depression, PTSD, Schizophrenia Additional Psychological History / Comment(s): OCD Smoking Status: Never smoker Past Alcohol Use History: None Reported Past Drug Use History: Marijuana Additional Drug Use History / Comment(s): Marijuana gummies for stress - Past Family History Family Family Medical History: Hyperlipidemia Medications and Allergies Home Medications Medication Instructions Recorded Confirmed Type Albuterol Sulfate [Proair Hfa] 2 puff INHALATION RT-Q4H PRN 03/27/14 03/30/21 History Ipratropium/Albuterol Sulfate 3 ml INHALATION RT-Q4H 03/27/14 03/30/21 History [Duoneb 0.5 mg-3 mg/3 ml Soln] Loperamide [Imodium] 2 - 4 mg PO QID PRN 03/27/14 03/30/21 History Loratadine 10 mg PO DAILY 03/27/14 03/30/21 History Omeprazole 20 mg PO BID 03/27/14 03/30/21 History oxyBUTYnin chloride [Ditropan] 5 mg PO HS 03/27/14 03/30/21 History Cholecalciferol [Vitamin D3 (25 25 mcg PO HS 02/04/21 03/30/21 History Mcg = 1000 Iu)] Fluticasone Nasal [place] [Flonase 2 spr EA NOSTRIL DAILY 02/04/21 03/30/21 History Nasal [place]] Fluticasone Propion/Salmeterol 1 puff INHALATION RT-BID 02/04/21 03/30/21 History [Advair 250-50 Diskus] Gabapentin 300 mg PO BID 02/04/21 03/30/21 History Iron Polysaccharide Complex 150 mg PO Q48H 02/04/21 03/30/21 History [Ferrex 150] Levothyroxine Sodium [Synthroid] 50 mcg PO HS 02/04/21 03/30/21 History Magnesium Oxide [Magox 400] 400 mg PO HS 02/04/21 03/30/21 History Metoprolol Succinate [Toprol XL] 25 mg PO DAILY 02/04/21 03/30/21 History Mirtazapine [Remeron] 45 mg PO HS 02/04/21 03/30/21 History Morphine Sulfate 15 mg PO BID PRN 02/04/21 03/30/21 History Morphine Sulfate [Ms Contin] 30 mg PO BID 02/04/21 03/30/21 History Multivitamins, Thera [Multivitamin 1 tab PO DAILY 02/04/21 03/30/21 History (formulary)] QUEtiapine FUMARATE [SEROquel] 200 mg PO HS 02/04/21 03/30/21 History QUEtiapine [SEROquel] 50 mg PO HS 02/04/21 03/30/21 History QUEtiapine [SEROquel] 100 mg PO DAILY 02/04/21 03/30/21 History Tiotropium [place] [Spiriva] 1 cap INHALATION RT-DAILY 02/04/21 03/30/21 History busPIRone HCL [Buspar] 15 - 30 mg PO BID 02/04/21 03/30/21 History diphenhydrAMINE [Benadryl] 50 mg PO BID 02/04/21 03/30/21 History tiZANidine [Zanaflex] 4 mg PO Q8HR 02/04/21 03/30/21 History Ipratropium-Albuterol Nebulize 3 ml INHALATION RT-Q2H PRN #1 box 02/09/21 03/30/21 Rx [Duoneb 0.5 mg-3 mg/3 ml Soln] oxyBUTYnin chloride [Ditropan] 5 mg PO AC-BID PRN 03/30/21 03/30/21 History guaiFENesin [Mucinex] 600 mg PO Q12HR #20 tablet 04/06/21 Rx predniSONE 10 mg PO DIRECTED #50 tab 04/06/21 Rx Allergies Allergy/AdvReac Type Severity Reaction Status Date / Time azithromycin Allergy Swelling Verified 03/30/21 09:11 diltiazem HCl [From Cardizem] Allergy Anaphylaxis Verified 03/30/21 09:11 doxycycline Allergy Swelling Verified 03/30/21 09:11 hydromorphone HCl AdvReac Nausea & Verified 04/06/24 19:56 [From Dilaudid] Vomiting Physical Exam Vitals: Vital Signs Temp Pulse Pulse Resp BP BP Pulse Ox 04/06/24 23:47 98.3 F 96 20 128/69 94 L 04/06/24 22:00 97 20 118/53 95 04/06/24 21:03 99.2 F 04/06/24 20:01 102 H 20 147/72 95 04/06/24 19:50 102.9 F H 111 H 22 141/85 94 L Intake and Output 04/06/24 04/06/24 04/07/24 14:59 22:59 06:59 Other: Voiding Method External Catheter Weight 172.365 kg 172.365 kg Results Labs: Abnormal Lab Results - Last 24 Hours (Table) 04/06/24 Range/Units 19:59 Troponin I 0.058 H* (0.000-0.034) ng/mL Thrombosis Risk Factor Assmnt - Choose All That Apply Any of the Below Risk Factors Present?: Yes Each Factor Represents 1 point: Abnormal pulmonary function (COPD), Obesity (BMI >25), Sepsis (< 1month) Other Risk Factors: Yes Each Risk Factor Represents 2 Points: Age 61-74 years Other congenital or acquired thrombophilia - If yes, enter type in comment: No Thrombosis Risk Factor Assessment Total Risk Factor Score: 5 Thrombosis Risk Factor Assessment Level: High Risk
[2024-04-07] MEDS: HEPARIN SODIUM 1,000 UN/ML (10ML VL) IV PRN (04:23)
[2024-04-07] MEDS: ONDANSETRON 4 MG/2 ML VIAL IVP STA (04:53)
[2024-04-07] MEDS: PANTOPRAZOLE 40 MG TABLET PO SCH (06:20)
[2024-04-07] MEDS ORDERED: NON FORMULARY DRUG (Tiotropium Bromide [Spiriva] 18 MCG Cap.W.Dev) INHALATION SCH (08:00)
[2024-04-07] MEDS: IRON POLYSACCHARIDES COMPLEX 150 MG CAP PO SCH (09:24)
[2024-04-07] MEDS: MORPHINE SULFATE ER 30 MG TABLET PO SCH (09:24)
[2024-04-07] MEDS: QUEtiapine 100 MG TAB PO SCH (09:24)
[2024-04-07] MEDS: FLUTICASONE NASAL 50MCG/SPRAY 16GM BTL EA NOSTRIL SCH (09:24)
[2024-04-07] MEDS: diphenhydrAMINE 25 MG CAP PO SCH (09:24)
[2024-04-07] MEDS: GABAPENTIN 300 MG CAP PO SCH (09:24)
[2024-04-07] MEDS: ASPIRIN 325 MG TAB PO SCH (09:25)
[2024-04-07] MEDS: METOPROLOL SUCCINATE (ER) 25 MG TAB.ER.24H PO SCH (09:25)
[2024-04-07] MEDS: guaiFENesin 600 MG TABLET.ER PO SCH (09:25)
[2024-04-07] MEDS: LORATADINE 10 MG TAB PO SCH (09:25)
[2024-04-07] MEDS: busPIRone HCl 5 MG TAB PO SCH (09:26)
[2024-04-07] MEDS: SYMBICORT 80-4.5 MCG INHALER INHALATION SCH (09:53)
[2024-04-07] MEDS: IPRATROPIUM-ALBUTEROL 3 ML NEB INHALATION SCH (09:54)
--- NOTE | 2024-04-07 11:22 | P.CRDCN ---
History of Present Illness Consult date: 04/07/24 History of present illness: Patient is a 69-year-old female who was transferred from [facility] due to elevated troponins and suspicion of NSTEMI. Endorses mild chest pain for the last week, thought it was heartburn or her lungs due to her history of COPD, acute asthma, and peptic ulcers. Troponin at [facility] was 111.5. She states that she has been very sick for the last week with fevers, left-sided abdominal pain, and hematuria. Her CT chest/abdomen/pelvis at [facility] showed no pericardial effusion or cardiomegaly, mild atherosclerotic calcification of the coronary arteries. 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 She has a PMH of HTN, COPD, acute asthma, peptic ulcers, hypothyroidism. She is maintained on metoprolol 25mg daily, 3-4L home oxygen, levothyroxine 50mcg daily, pepcid. Review of Systems General: Endorses fever (self-reported up to 103), chills; denies weight changes. HEENT: Denies pain or changes. Lungs: Endorses increased SOB from baseline; maintained on 3-4L home oxygen. GI: Endorses nausea, vomiting, left sided abdominal pain; denies hematochezia, melena, hemoptysis. : Endorses hematuria, urgency, frequency. Extremities: Denies edema. Neuro: Endorses headache, lightheadedness, dizziness. Past Medical History Past Medical History: Asthma, COPD, GERD/Reflux, Osteoarthritis (OA), Seizure Disorder Additional Past Medical History / Comment(s): DJD, Esophagitis, OCD, barretts esophagus, spinal disk herniation, severe spinal pain. pt states last seizure 6 months ago History of Any Multi-Drug Resistant Organisms: None Reported Date of last positivie culture/infection: 12/19/2009 MDRO Source:: Abdomen Past Surgical History: Back Surgery, Section, Hysterectomy Additional Past Surgical History / Comment(s): D&C, partial hysterectomy Past Anesthesia/Blood Transfusion Reactions: No Reported Reaction Past Psychological History: Anxiety, Depression, PTSD, Schizophrenia Additional Psychological History / Comment(s): OCD Smoking Status: Never smoker Past Alcohol Use History: None Reported Past Drug Use History: Marijuana Additional Drug Use History / Comment(s): Marijuana gummies for stress - Past Family History Family Family Medical History: Hyperlipidemia Medications and Allergies Home Medications Medication Instructions Recorded Confirmed Type Albuterol Sulfate [Proair Hfa] 2 puff INHALATION RT-Q4H PRN 03/27/14 04/07/24 History Ipratropium/Albuterol Sulfate 3 ml INHALATION RT-Q4H 03/27/14 04/07/24 History [Duoneb 0.5 mg-3 mg/3 ml Soln] Omeprazole 20 mg PO BID 03/27/14 04/07/24 History Metoprolol Succinate [Toprol XL] 25 mg PO DAILY 02/04/21 04/07/24 History Mirtazapine [Remeron] 45 mg PO HS 02/04/21 04/07/24 History Multivitamins, Thera [Multivitamin 1 tab PO DAILY 02/04/21 04/07/24 History (formulary)] QUEtiapine FUMARATE [SEROquel] 200 mg PO HS 02/04/21 04/07/24 History QUEtiapine [SEROquel] 50 mg PO HS 02/04/21 04/07/24 History QUEtiapine [SEROquel] 100 mg PO DAILY 02/04/21 04/07/24 History busPIRone HCL [Buspar] 30 mg PO BID PRN 02/04/21 04/07/24 History Fluticasone Propion/Salmeterol 1 puff INHALATION RT-BID 04/07/24 04/07/24 History [Wixela 500-50 Inhub] Umeclidinium [place] [Incruse 1 puff INHALATION RT-DAILY 04/07/24 04/07/24 History Ellipta] Vitamin C(Unknown Dose) 1 tab PO DAILY 04/07/24 04/07/24 History Vitamin D(Unknown Dose) 1 tab PO DAILY 04/07/24 04/07/24 History Allergies Allergy/AdvReac Type Severity Reaction Status Date / Time azithromycin Allergy Swelling Verified 04/07/24 09:12 diltiazem HCl [From Cardizem] Allergy Anaphylaxis Verified 04/07/24 09:12 doxycycline Allergy Swelling Verified 04/07/24 09:12 hydromorphone HCl AdvReac Nausea & Verified 04/07/24 09:12 [From Dilaudid] Vomiting Physical Exam Vitals: Vital Signs Temp Pulse Pulse Resp BP BP Pulse Ox 04/07/24 09:57 85 18 93 L 04/07/24 08:00 98.3 F 70 20 121/73 94 L 04/07/24 03:44 99.1 F 89 21 153/96 96 04/06/24 23:47 98.3 F 96 20 128/69 94 L 04/06/24 22:00 97 20 118/53 95 04/06/24 21:03 99.2 F 04/06/24 20:01 102 H 20 147/72 95 04/06/24 19:50 102.9 F H 111 H 22 141/85 94 L Intake and Output 04/06/24 04/07/24 04/07/24 22:59 06:59 14:59 Intake Total 25.333 Output Total 600 Balance -574.667 Intake: Intake, IV Titration 25.333 Amount Heparin Sod,Pork in 0.45% 25.333 NaCl 25,000 unit In 0.45 % NaCl 1 250ml.bag @ 5. 802 UNITS/KG/HR 10.001 mls/hr IV .Q24H [facility] Rx#: [id number] Output: Urine 600 Straight 600 Other: Voiding Method External Catheter Weight 172.365 kg 187.3 kg Vitals stable. General: No acute distress. Head: Atraumatic. CV: Regular rate and rhythm, S1S2 present. Lungs: Clear to auscultation bilaterally. Abdomen: Soft, obese, TTP LUQ. Extremities: No edema present. Neuro: CN 2-12 grossly intact. Results Cardiac Enzymes 04/06/24 04/07/24 04/07/24 Range/Units 19:59 01:38 08:49 Troponin I 0.058 H* 0.043 H* 0.031 (0.000-0.034) ng/mL Coagulation 04/07/24 04/07/24 Range/Units 01:38 08:49 PT 11.5 (10.0-12.5) sec APTT 25.8 28.0 (22.0-30.0) sec Current Medications Generic Name Dose Route Start Last Admin Trade Name Freq PRN Reason Stop Dose Admin Albuterol Sulfate 2.5 mg 04/06/24 22:24 Albuterol Nebulized 2.5 Mg/3 Ml INHALATION RT-Q4H PRN Shortness Of Breath Albuterol/Ipratropium 3 ml 04/07/24 08:00 04/07/24 09:54 Ipratropium-Albuterol 3 Ml Neb INHALATION 3 ml RT-QID DOV Administration Aspirin 325 mg 04/07/24 09:00 04/07/24 09:25 Aspirin 325 Mg Tab PO 325 mg DAILY DOV Administration Budesonide/Formoterol Fumarate 2 puff 04/07/24 08:00 04/07/24 09:53 Symbicort 80-4.5 Mcg Inhaler INHALATION 2 puff RT-BID DOV Administration Buspirone HCl 15 mg 04/07/24 09:00 04/07/24 09:26 Buspirone Hcl 5 Mg Tab PO Not Given BID DOV Cholecalciferol 25 mcg 04/07/24 21:00 Cholecalciferol 25 Mcg (1000 Iu) Tablet PO HS DOV Diphenhydramine HCl 50 mg 04/07/24 09:00 04/07/24 09:24 Diphenhydramine 25 Mg Cap PO 50 mg BID DOV Administration Fluticasone Propionate 2 spray 04/07/24 09:00 04/07/24 09:24 Fluticasone Nasal 50mcg/[place] 16gm Btl EA NOSTRIL 2 spray DAILY DOV Administration Gabapentin 300 mg 04/07/24 09:00 04/07/24 09:24 Gabapentin 300 Mg Cap PO 300 mg BID DOV Administration Guaifenesin 600 mg 04/07/24 09:00 04/07/24 09:25 Guaifenesin 600 Mg Tablet.Er PO 600 mg Q12HR DOV Administration Heparin Sodium (Porcine) 0 unit 04/07/24 03:56 04/07/24 04:23 Heparin Sodium 1,000 Un/Ml (10ml Vl) IV 4,000 unit PER PROTOCOL PRN Administration Low PTT Protocol Sodium Chloride 1,000 mls @ 100 mls/hr 04/06/24 22:30 04/07/24 00:47 Saline 0.9% IV 100 mls/hr .Q10H DOV Administration Heparin Sodium/Sodium Chloride 250 mls @ 10.001 mls/hr 04/06/24 22:30 04/07/24 03:20 25,000 unit/ Sodium Chloride IV 8.8 units/kg/hr .Q24H DOV 15.168 mls/hr Titration Protocol 5.802 UNITS/KG/HR Ceftriaxone Sodium 2 gm/ 50 mls @ 100 mls/hr 04/07/24 03:15 04/07/24 03:17 Sodium Chloride IVPB 100 mls/hr Q24HR@1800 DOV Administration Protocol Levothyroxine Sodium 50 mcg 04/07/24 21:00 Levothyroxine 50 Mcg Tab PO HS [facility] Loperamide HCl 2 mg 04/06/24 22:24 Loperamide 2 Mg Cap PO QID PRN Diarrhea Loratadine 10 mg 04/07/24 09:00 04/07/24 09:25 Loratadine 10 Mg Tab PO 10 mg DAILY DOV Administration Magnesium Oxide 400 mg 04/07/24 21:00 Magnesium Oxide 400 Mg Tab PO HS [facility] Metoprolol Succinate 25 mg 04/07/24 09:00 04/07/24 09:25 Metoprolol Succinate (Er) 25 Mg Tab.Er.24h PO 25 mg DAILY DOV Administration Morphine Sulfate 30 mg 04/07/24 09:00 04/07/24 09:24 Morphine Sulfate Er 30 Mg Tablet PO 30 mg BID DOV Administration Protocol Nitroglycerin 0.4 mg 04/06/24 22:20 Nitroglycerin Sl Tabs 0.4 Mg Tab SUBLINGUAL Q5M PRN Chest Pain Oxybutynin Chloride 5 mg 04/07/24 21:00 Oxybutynin Chloride 5 Mg Tab PO HS [facility] Oxybutynin Chloride 5 mg 04/06/24 22:24 Oxybutynin Chloride 5 Mg Tab PO AC-BID PRN bladder control Pantoprazole Sodium 40 mg 04/07/24 07:30 04/07/24 06:20 Pantoprazole 40 Mg Tablet PO 40 mg AC-BRKFST DOV Administration Polysaccharide Iron Complex 150 mg 04/07/24 09:00 04/07/24 09:24 Iron Polysaccharides Complex 150 Mg Cap PO 150 mg Q48H DOV Administration Quetiapine Fumarate 200 mg 04/07/24 21:00 Quetiapine 200 Mg Tab PO HS [facility] Quetiapine Fumarate 100 mg 04/07/24 09:00 04/07/24 09:24 Quetiapine 100 Mg Tab PO 100 mg DAILY DOV Administration Tizanidine HCl 4 mg 04/07/24 00:00 04/07/24 09:25 Tizanidine 4 Mg Tab PO 4 mg Q8HR DOV Administration Intake and Output 04/06/24 04/07/24 04/07/24 22:59 06:59 14:59 Intake Total 25.333 Output Total 600 Balance -574.667 Intake: Intake, IV Titration 25.333 Amount Heparin Sod,Pork in 0.45% 25.333 NaCl 25,000 unit In 0.45 % NaCl 1 250ml.bag @ 5. 802 UNITS/KG/HR 10.001 mls/hr IV .Q24H [facility] Rx#: [id number] Output: Urine 600 Straight 600 Other: Voiding Method External Catheter Weight 172.365 kg 187.3 kg Assessment and Plan Assessment: 1. Elevated troponins, possibly due to UTI sepsis. 2. COPD. Maintained on 3-4L nasal cannula. 3. UTI. Maintained on antibiotics as per primary. 4. Pyelonephritis. Maintained on antibiotics as per primary. Plan: 1. Obtain echo to assess LV function. 2. Maintain BP medications. 3. Continue monitoring telemetry. 4. Continue antibiotics as per primary. Thank you for the consultation. We will continue to follow her during her hospital stay.
[2024-04-07 12:22] LABS: Basophils # (A) 0.1 k/uL (0-0.2); Basophils % (A) 1 %; Eosinophils # (A) 0.1 k/uL (0-0.7); Eosinophils % (A) 1 %; HCT 39.5 % (34.0-46.0); HGB 12.1 gm/dL (11.4-16.0); Hypochromasia Marked; Lymphocytes # (A) 0.5 k/uL (1.0-4.8); Lymphocytes % (A) 7 %; MCH 29.3 pg (25.0-35.0); MCHC 30.6 g/dL (31.0-37.0); MCV 95.7 fL (80.0-100.0); Monocytes # (A) 0.5 k/uL (0-1.0); Monocytes % (A) 8 %; Neutrophils # (A) 5.2 k/uL (1.3-7.7); Neutrophils % (A) 81 %; Platelet Count 140 k/uL (150-450); RBC 4.13 m/uL (3.80-5.40); RDW 13.9 % (11.5-15.5); WBC 6.4 k/uL (3.8-10.6)
[2024-04-07] MEDS: MORPHINE SULFATE ER 30 MG TABLET PO ONE ×2 (12:29→12:30)
[2024-04-07] MEDS: ASPIRIN 325 MG TAB ONE (12:30)
[2024-04-07] MEDS: diphenhydrAMINE 25 MG CAP ONE (12:30)
[2024-04-07] MEDS: PANTOPRAZOLE 40 MG TABLET PO ONE (12:30)
[2024-04-07] MEDS: ONDANSETRON 4 MG/2 ML VIAL ONE (12:30)
[2024-04-07 12:38] LABS: African American GFR (CKD) 60 (>60 ml/min/1.73 sqM); Anion Gap 3 mmol/L; Blood Urea Nitrogen 27 mg/dL (7-17); Calcium 7.9 mg/dL (8.4-10.2); Carbon Dioxide 26 mmol/L (22-30); Chloride 105 mmol/L (98-107); Glucose 245 mg/dL (74-99); Magnesium 1.6 mg/dL (1.6-2.3); Non-African American GFR(CKD) 52 (>60 ml/min/1.73 sqM); Potassium 3.6 mmol/L (3.5-5.1); Sodium 134 mmol/L (137-145)
[2024-04-07] MEDS: ATORVASTATIN 40 MG TAB PO SCH (13:16)
[2024-04-07] MEDS: LOPERAMIDE 2 MG CAP PO PRN (13:42)
--- NOTE | 2024-04-07 14:28 | US ---
EXAMINATION TYPE: US kidneys/renal and bladder DATE OF EXAM: 04/07/2024 COMPARISON: NONE CLINICAL INDICATION: Female, 69 years old with history of hematuria, prior kidney stones; hematuria h x of stones. Exam limited due to body habitus. EXAM MEASUREMENTS: Right Kidney: 11.1 x 4.2 x 3.8 cm Left Kidney: 10.7 x 5.9 x 4.2 cm Right Kidney: No hydronephrosis or masses seen Left Kidney: No hydronephrosis or masses seen Bladder: Not visualized. Bilateral Jets seen: no There is no evidence for hydronephrosis at this point in time. No nephrolithiasis is seen. No natan s are identified. Increased echotexture to the liver parenchyma. IMPRESSION: 1. No evidence for obstructive uropathy or hydronephrosis. 2. Hepatic steatosis.
[2024-04-07] MEDS: HEPARIN SODIUM,PORCINE 5,000 UNIT/ML 1 ML VIAL SQ SCH (15:37)
[2024-04-07 16:33] LABS: Chol/HDL Ratio 6.48 Ratio; LDL Cholesterol,Calculated 97.8 mg/dL (0.0-131.0)
[2024-04-07] MEDS: AMPICILLIN-SULBACTAM 3 GM in SODIUM CHLORIDE 0.9% 100 ML IVPB SCH (17:22)
[2024-04-07] MEDS ORDERED: SYMBICORT 160-4.5 MCG INHALER INHALATION SCH (20:00)
[2024-04-07] MEDS: QUEtiapine 200 MG TAB PO SCH (20:48)
[2024-04-07] MEDS: MAGNESIUM OXIDE 400 MG TAB PO SCH (20:48)
[2024-04-07] MEDS: oxyBUTYnin chloride 5 MG TAB PO SCH (20:49)
[2024-04-07] MEDS: CHOLECALCIFEROL 25 MCG (1000 IU) TABLET PO SCH (20:50)
[2024-04-07] MEDS: LEVOTHYROXINE 50 MCG TAB PO SCH (20:50)
[2024-04-07] MEDS ORDERED: QUEtiapine 50 MG TAB PO SCH (21:00)
[2024-04-08] MEDS: ALPRAZolam 0.25 MG TAB PO STA (04:10)
[2024-04-08] MEDS: IPRATROPIUM 0.5 MG/2.5 ML NEBU INHALATION SCH (08:05)
[2024-04-08] MEDS: ASPIRIN 81 MG PO SCH (09:17)
[2024-04-08 09:28] LABS: Glucose,Whole Blood 149 mg/dL (70-110)
[2024-04-08] MEDS: ACETAMINOPHEN TAB 325 MG TAB PO PRN (10:16)
[2024-04-08 10:59] LABS: African American GFR (CKD) 47 (>60 ml/min/1.73 sqM); Anion Gap 9 mmol/L; Blood Urea Nitrogen 37 mg/dL (7-17); Calcium 7.4 mg/dL (8.4-10.2); Carbon Dioxide 24 mmol/L (22-30); Chloride 102 mmol/L (98-107); Glucose 178 mg/dL (74-99); Magnesium 1.6 mg/dL (1.6-2.3); Non-African American GFR(CKD) 41 (>60 ml/min/1.73 sqM); Potassium 4.4 mmol/L (3.5-5.1); Sodium 135 mmol/L (137-145)
[2024-04-08 11:36] LABS: HCT 40.6 % (34.0-46.0); HGB 12.5 gm/dL (11.4-16.0); Hypochromasia Marked; MCH 29.3 pg (25.0-35.0); MCHC 30.8 g/dL (31.0-37.0); MCV 95.2 fL (80.0-100.0); Mean Platelet Volume 8.6; Platelet Count 125 k/uL (150-450); RBC 4.27 m/uL (3.80-5.40); RDW 13.9 % (11.5-15.5); WBC 4.9 k/uL (3.8-10.6)
--- NOTE | 2024-04-08 12:50 | P.PN ---
Subjective Progress Note Date: 04/08/24 Patient does not have any chest pain. Shortness of breath is improved. Echo results are still pending at this time. On exam patient is morbidly overweight appears in mild respiratory distress vital signs are stable there is no regular venous distention carotid upstroke is normal there is no bruit chest exam reveals good air entry bilaterally heart exam reveals first and second heart sounds On exam comfortable at rest vital signs are stable there is ventricular venous distention carotid upstroke is normal there is no bruit chest exam reveals good air entry bilaterally heart exam reveals first and second heart sounds no gallop exam extremities did not reveal any edema peripheral pulses are felt labs have been reviewed Assessment and plan: Elevated troponin could be due to renal insufficiency or a type II myocardial infarction I will review echocardiogram once it is available continue current therapies Objective - Vital Signs Vital signs: Vital Signs Temp 101.2 F H 04/08/24 08:00 Pulse 100 04/08/24 12:23 Resp 24 04/08/24 08:00 BP 121/66 04/08/24 08:00 Pulse Ox 92 L 04/08/24 08:05 FiO2 Intake & Output 04/07/24 04/08/24 04/08/24 18:59 06:59 18:59 Intake Total 480 240 Output Total 500 Balance 480 -500 240 Weight 181.5 kg Intake: Oral 480 240 Output: Urine 500 Other: Voiding Method Bedpan Incontinent # Voids 1 - Labs CBC & Chem 7: 04/08/24 10:22 04/08/24 10:22 Labs: Abnormal Lab Results - Last 24 Hours (Table) 04/07/24 04/08/24 04/08/24 Range/Units 08:49 09:27 10:22 MCHC 30.8 L (31.0-37.0) g/dL Plt Count 125 L (150-450) k/uL Sodium (137-145) mmol/L BUN (7-17) mg/dL Creatinine (0.52-1.04) mg/dL Glucose (74-99) mg/dL POC Glucose (mg/dL) 149 H (70-110) mg/dL Calcium (8.4-10.2) mg/dL Triglycerides 251.00 H (0.00-149.00) mg/dL VLDL Cholesterol, Calc 50.20 H (5.00-40.00) mg/dL HDL Cholesterol 27.00 L (40.00-60.00) mg/dL 04/08/24 Range/Units 10:22 MCHC (31.0-37.0) g/dL Plt Count (150-450) k/uL Sodium 135 L (137-145) mmol/L BUN 37 H (7-17) mg/dL Creatinine 1.34 H (0.52-1.04) mg/dL Glucose 178 H (74-99) mg/dL POC Glucose (mg/dL) (70-110) mg/dL Calcium 7.4 L (8.4-10.2) mg/dL Triglycerides (0.00-149.00) mg/dL VLDL Cholesterol, Calc (5.00-40.00) mg/dL HDL Cholesterol (40.00-60.00) mg/dL Microbiology - Last 24 Hours (Table) 04/06/24 19:59 Blood Culture Gram Stain - Preliminary Blood Blood Culture - Preliminary Molecular ID Coagulase Negative Staph Molecular ID#2 04/07/24 06:50 Urine Culture - Final Urine,Catheterized
--- NOTE | 2024-04-08 13:07 | CA ---
Transthoracic Echo Report Name: Rama Ferrell Age: 69 Gender: F : 1955 Exam Date: 04/07/2024 10:54 Exam Location: [facility] Ht (in): 68 Wt (lb): 380 Ordering Physician: Sean Weir MD Attending/Referring Phys: Malware Analyst Viviane Martinez RDCS Procedure CPT: Indications: nstemi Cardiac Hx: Technical Quality: Very technically difficult study Contrast 1: Definity Total Dose (mL): 2 Contrast 2: Total Dose (mL): MEASUREMENTS (Male / Female) Normal Values 2D ECHO RV Internal Dim ED PLAX 4.8 cm M-MODE LV Diastolic Diameter MM 3.6 cm 4.2 - 5.9 / 3.9 - 5.3 cm LV Systolic Diameter MM 2.6 cm LV Cardiac Index MM Teich 753.8 cm???/min???m??? IVS Diastolic Thickness MM 1.7 cm 0.6 - 1.0 / 0.6 - 0.9 cm LVPW Diastolic Thickness MM 1.8 cm 0.6 - 1.0 / 0.6 - 0.9 cm LV Relative Wall Thickness MM 1.0 0.24 - 0.42 / 0.22 - 0.42 LV Mass Index MM 91.2 g/m??? 49 - 115 / 43 - 95 g/m??? Aortic Root Diameter MM 3.2 cm LA Systolic Diameter MM 5.4 cm LA Ao Ratio MM 1.7 FINDINGS Left Ventricle Severely increased left ventricular wall thickness. Left ventricular cavity size normal. Normal left ventricular systolic function with no obvious regional wall motion abnormalities. Left ventricular ejection fraction is estimated at 55 %. Right Ventricle Right ventricle not well visualized. Right Atrium Right atrium not well visualized. Left Atrium Left atrium not well visualized. Mitral Valve Mitral valve not well visualized. Aortic Valve Aortic valve not well visualized. No aortic stenosis. No aortic regurgitation. Tricuspid Valve Tricuspid valve not well visualized. Pulmonic Valve Pulmonic valve not well visualized. Pericardium No pericardial effusion. Aorta Normal size aortic root and proximal ascending aorta. CONCLUSIONS Left ventricular ejection fraction 55% Severely increased left ventricular wall thickness No aortic regurgitation No pericardial effusion Previewed by: Dr. Jace Martinez DO (Electronically Signed) Final Date: 08 April 2024 13:06
[2024-04-08 14:02] LABS: Band Neutrophils % 1 %; Lymphocytes # (M) 0.39 k/uL (1.0-4.8); Metamyelocytes % 2 %; Monocytes # (M) 0.83 k/uL (0-1.0); Myelocytes # (M) 0.05 k/uL (0); Myelocytes % 1 %; Neutrophils % (M) 72 %; Nucleated Red Blood Cells 0 /100 WBC (0-0); Total Cells Counted 200
--- NOTE | 2024-04-08 14:57 | P.PN ---
Subjective Progress Note Date: 04/08/24 Subjective: Patient was seen at the bedside. 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 O2 saturation improved into the 90s with 4 L via nasal cannula. Urinary catheter was placed overnight. All Systems reviewed and pertinent positives and negatives noted in HPI, all other symptoms are negative Objective: Vital signs reviewed. Blood pressure 121/66, heart rate 115, O2 saturation 91% on 4 L via nasal cannula, temperature 101.2 F General: non toxic, no distress, appears older than stated age, morbid obesity Derm: no unusual rashes/lesions, warm Head: atraumatic, normocephalic, symmetric Eyes: EOMI, no lid lag, anicteric sclera, pupils equal round reactive to light ENT: Nose and ears atraumatic Neck: No cervical lymphadenopathy, trachea midline, supple Mouth: no lip lesion, mucus membranes moist Cardiovascular: S1S2 reg, no murmur, positive dorsalis pedis pulse bilateral, no edema Lungs: CTA bilateral, no rhonchi, no rales, no accessory muscle use Abdominal: soft, bilateral CVA tenderness (left > right), no guarding Ext: muscle strength 5 out of 5 in all 4 extremities grossly, no gross muscle atrophy, no contractures, Neuro: CN II-XI grossly intact, no gross focal neuro deficits Psych: Alert, oriented, appropriate affect Data reviewed today: White blood cell count 4.9, hemoglobin 12.5, MCV 95.2, platelet count 125, sodium 135, potassium 4.4, BUN 37, creatinine 1.34, EGFR 41, glucose 138, calcium 7.4. Images: No new imaging Assessment and Plan: 69-year-old female with past medical history of COPD and chronic approximate respiratory failure on 3 L of the cannula oxygen continuously at home, morbid obesity, hypothyroidism, chronic debility and wheelchair-bound was a transfer from [facility] who presented to the ED on 04/07/2024 with urinary complaints and chest discomfort. 1. Sepsis secondary to pyelonephritis SIRS: heart rate 115, temperature 101.2 F Source: Suspected pyelonephritis Urine culture ordered for culture and sensitivity, will need to follow up outpatient UA with reflex to culture Started on ceftriaxone 2 g IVPB every 24 hour Unasyn discontinued 2. NSTEMI, likely type II secondary to sepsis Troponin I: 0.058 on 04/06/2024 and 0.043 on 04/07/2024 Echocardiogram ordered, results pending Cardiology following Continue with telemetry monitoring Continue with aspirin 81 mg p.o. daily, Lipitor 40 mg p.o. daily 3. Acute on chronic hypoxic respiratory failure, secondary to COPD Continue on 4 L oxygen via nasal cannula DuoNebs [id number] and as needed Chronic conditions: Hypothyroidism: Synthroid 50 mcg p.o. at bedtime Debility: Wheelchair-bound F: IV normal saline 100 cc/h E: Replete as needed N: Heart healthy diet A: Wheelchair-bound DVT ppx: Heparin subcu Code Status: Full code Anticipated discharge place: Home Anticipated discharge date: Pending clinical course I saw and evaluated the patient during the burgess and critical portions of this encounter, and discussed the case in detail with the resident author of this note, I agree with the Assessment and Plan, and my changes, if any, are highlighted in blue. Objective - Vital Signs Vital signs: Vital Signs Temp 98.3 F 04/08/24 12:00 Pulse 100 04/08/24 12:23 Resp 20 04/08/24 12:00 BP 116/64 04/08/24 12:00 Pulse Ox 94 L 04/08/24 12:00 FiO2 Intake & Output 04/07/24 04/08/24 04/08/24 18:59 06:59 18:59 Intake Total 480 240 Output Total 500 Balance 480 -500 240 Weight 181.5 kg Intake: Oral 480 240 Output: Urine 500 Other: Voiding Method Bedpan Incontinent # Voids 1 - Labs CBC & Chem 7: 04/08/24 10:22 04/08/24 10:22 Labs: Abnormal Lab Results - Last 24 Hours (Table) 04/07/24 04/08/24 04/08/24 Range/Units 08:49 09:27 10:22 MCHC 30.8 L (31.0-37.0) g/dL Plt Count 125 L (150-450) k/uL Sodium (137-145) mmol/L BUN (7-17) mg/dL Creatinine (0.52-1.04) mg/dL Glucose (74-99) mg/dL POC Glucose (mg/dL) 149 H (70-110) mg/dL Calcium (8.4-10.2) mg/dL Triglycerides 251.00 H (0.00-149.00) mg/dL VLDL Cholesterol, Calc 50.20 H (5.00-40.00) mg/dL HDL Cholesterol 27.00 L (40.00-60.00) mg/dL 04/08/24 Range/Units 10:22 MCHC (31.0-37.0) g/dL Plt Count (150-450) k/uL Sodium 135 L (137-145) mmol/L BUN 37 H (7-17) mg/dL Creatinine 1.34 H (0.52-1.04) mg/dL Glucose 178 H (74-99) mg/dL POC Glucose (mg/dL) (70-110) mg/dL Calcium 7.4 L (8.4-10.2) mg/dL Triglycerides (0.00-149.00) mg/dL VLDL Cholesterol, Calc (5.00-40.00) mg/dL HDL Cholesterol (40.00-60.00) mg/dL Microbiology - Last 24 Hours (Table) 04/06/24 19:59 Blood Culture Gram Stain - Preliminary Blood Blood Culture - Preliminary Molecular ID Coagulase Negative Staph Molecular ID#2 04/07/24 06:50 Urine Culture - Final Urine,Catheterized
[2024-04-09 06:16] LABS: Glucose,Whole Blood 224 mg/dL (70-110)
[2024-04-09 06:39] LABS: ABG Base Excess -2.1 mmol/L; ABG HCO3 28 mmol/L (21-25); ABG Oxygen Saturation 92.5 % (94-97); ABG PO2 69 mmHg (83-108); ABG TCO2 31 mmol/L (19-24); Allen Test Performed? Yes
--- NOTE | 2024-04-09 06:50 | XR ---
EXAMINATION TYPE: XR chest 1V portable DATE OF EXAM: 04/09/2024 CLINICAL HISTORY: Unresponsive, snoring breathing. TECHNIQUE: Single AP portable frontal view of the chest is obtained. COMPARISON: Chest x-ray from April 05, 2021 FINDINGS: Evaluation is suboptimal due to portable technique and large body habitus. There is mild c ardiomegaly with new bilateral central increased opacities. Osseous structures are intact. IMPRESSION: Findings suggest CHF exacerbation/fluid overload state. Correlate clinically. Progress st carmen advised.
[2024-04-09 07:00] LABS: ABG PCO2 78 mmHg (35-45); ABG PH 7.17 (7.35-7.45)
[2024-04-09] MEDS: IPRATROPIUM-ALBUTEROL 3 ML NEB INHALATION PRN (08:10)
[2024-04-09] MEDS: FUROSEMIDE 10 MG/ML 2 ML VIAL IV ONE (12:20)
[2024-04-09] MEDS: FUROSEMIDE 10 MG/ML 4 ML VIAL IV SCH (12:47)
--- NOTE | 2024-04-09 13:58 | P.PN ---
Subjective Progress Note Date: 04/09/24 Subjective: Patient was seen at the bedside. Patient had a rapid response this morning where she was in hypercarbic respiratory failure with lethargy, was started on BiPAP with improvement. Chest x-ray noted that she was floridly volume overloaded and was started on Lasix. All Systems reviewed and pertinent positives and negatives noted in HPI, all other symptoms are negative Objective: Vital signs reviewed. Blood pressure 121/66, heart rate 115, O2 saturation 91% on 4 L via nasal cannula, temperature 101.2 F General: non toxic, no distress, appears older than stated age, morbid obesity Derm: no unusual rashes/lesions, warm Head: atraumatic, normocephalic, symmetric Eyes: EOMI, no lid lag, anicteric sclera, pupils equal round reactive to light ENT: Nose and ears atraumatic Neck: No cervical lymphadenopathy, trachea midline, supple Mouth: no lip lesion, mucus membranes moist Cardiovascular: S1S2 reg, no murmur, positive dorsalis pedis pulse bilateral, no edema Lungs: CTA bilateral, no rhonchi, no rales, no accessory muscle use Abdominal: soft, bilateral CVA tenderness (left > right), no guarding Ext: muscle strength 5 out of 5 in all 4 extremities grossly, no gross muscle atrophy, no contractures, Neuro: CN II-XI grossly intact, no gross focal neuro deficits Psych: Alert, oriented, appropriate affect Data reviewed today: White blood cell count 4.9, hemoglobin 12.5, MCV 95.2, platelet count 125, sodium 135, potassium 4.4, BUN 37, creatinine 1.34, EGFR 41, glucose 138, calcium 7.4. Images: No new imaging Assessment and Plan: 69-year-old female with past medical history of COPD and chronic approximate respiratory failure on 3 L of the cannula oxygen continuously at home, morbid obesity, hypothyroidism, chronic debility and wheelchair-bound was a transfer from [facility] who presented to the ED on 04/07/2024 with urinary complaints and chest discomfort. 1. Sepsis secondary to pyelonephritis Source: pyelonephritis Urine culture ordered for culture and sensitivity, will need to follow up outpatient UA with reflex to culture Started on ceftriaxone 2 g IVPB every 24 hour Unasyn discontinued 2. NSTEMI, likely type II secondary to sepsis Troponin I: 0.058 on 04/06/2024 and 0.043 on 04/07/2024 Echocardiogram ordered, results pending Cardiology following Continue with telemetry monitoring Continue with aspirin 81 mg p.o. daily, Lipitor 40 mg p.o. daily 3. Acute on chronic hypoxic respiratory failure, secondary to heart failure exacerbation, unknown ejection fraction Continue on 4 L oxygen via nasal cannula DuoNebs [id number] and as needed Continue with IV Lasix Chronic conditions: Hypothyroidism: Synthroid 50 mcg p.o. at bedtime Debility: Wheelchair-bound F: Stop fluids E: Replete as needed N: Heart healthy diet A: Wheelchair-bound DVT ppx: Heparin subcu Code Status: Full code Anticipated discharge place: Home Anticipated discharge date: Pending clinical course I saw and evaluated the patient during the burgess and critical portions of this encounter, and discussed the case in detail with the resident author of this note, I agree with the Assessment and Plan, and my changes, if any, are highlighted in blue. Objective - Vital Signs Vital signs: Vital Signs Temp 98.0 F 04/09/24 03:08 Pulse 96 04/09/24 12:00 Resp 18 04/09/24 03:08 BP 115/76 04/09/24 03:08 Pulse Ox 95 04/09/24 03:08 FiO2 50 04/09/24 11:54 Intake & Output 04/08/24 04/09/24 04/09/24 18:59 06:59 18:59 Intake Total 360 Output Total 600 1250 Balance -240 -1250 Weight 193 kg Intake: Oral 360 Output: Urine 600 1250 Other: Voiding Method Indwelling Catheter # Voids 1 - Labs CBC & Chem 7: 04/08/24 10:22 04/08/24 10:22 Labs: Abnormal Lab Results - Last 24 Hours (Table) 04/08/24 04/09/24 04/09/24 Range/Units 10:22 06:14 06:35 Lymphocytes # (Manual) 0.39 L (1.0-4.8) k/uL Metamyelocytes # (Man) 0.10 H (0) k/uL Myelocytes # (Manual) 0.05 H (0) k/uL ABG pH 7.17 L* (7.35-7.45) ABG pCO2 78 H* (35-45) mmHg ABG pO2 69 L (83-108) mmHg ABG HCO3 28 H (21-25) mmol/L ABG Total CO2 31 H (19-24) mmol/L ABG O2 Saturation 92.5 L (94-97) % POC Glucose (mg/dL) 224 H (70-110) mg/dL
--- NOTE | 2024-04-09 15:19 | P.PN ---
Subjective Progress Note Date: 04/09/24 History of present illness: 89-year-old lady atrial tachycardia coronary artery disease status post prior angioplasty COPD comes to hospital with symptoms of shortness of breath that have been going on since yesterday. Symptoms started around 530 yesterday p.m. gradually got worse hence she was brought to the hospital. She is currently living in a shelter. Patient did not have any chest pain. There is no history of focal neurological deficits. She does not have any leg edema PND or orthopnea. When she initially presented to the ER she was tachycardic with heart rates in the 130 bpm with suggested atrial tachycardia. This EKGs was very similar to the EKG that she had on her previous admission. I started her on intravenous Cardizem for rate control. Once we control the heart rate we may have a better sense of what her rhythm is. If she has atrial flutter or atrial fibrillation I will consider starting her on anticoagulant. Past medical history is significant for coronary artery disease status post prior angioplasty atrial tachycardia and COPD Allergies are as charted Family history is negative for premature coronary artery disease Social history is negative for smoking it is feels of drug abuse Labs: Reviewed EKG shows atrial tachycardia 04/09 Patient is seen today in follow-up. Echocardiogram reveals EF of 55%. Patient had ATEAM called this morning for possible seizure activity. Telemetry is sinus rhythm. Heart rate is in the 90s, blood pressure 115/76, pulse ox 95% on 4 L. On exam: Patient is comfortable at rest chest exam reveals diminished air entry at the bases heart exam reveals first and second heart sounds regular rhythm and a systolic murmur at the apex abdomen is soft examination extremities did not reveal any edema peripheral pulses are felt [employer] HEAD exam did not reveal focal neurological deficits. Assessment and plan: Atrial tachyarrhythmia Shortness of breath probably due to congestive heart failure COPD History of coronary artery disease Continue IV Lasix No further workup by cardiology. After discharge, patient may follow-up in the office in 4 to 6 weeks. Cardiology will sign off this case and follow on an as-needed basis. Please reconsult for any new concerns. Nurse practitioner note has been reviewed, I agree with documented findings and plan of care. Patient was seen and examined. Objective - Vital Signs Vital signs: Vital Signs Temp 98.0 F 04/09/24 03:08 Pulse 90 04/09/24 08:23 Resp 18 04/09/24 03:08 BP 115/76 04/09/24 03:08 Pulse Ox 95 04/09/24 03:08 FiO2 50 04/09/24 08:05 Intake & Output 04/08/24 04/09/24 04/09/24 18:59 06:59 18:59 Intake Total 360 Output Total 600 1250 Balance -240 -1250 Weight 193 kg Intake: Oral 360 Output: Urine 600 1250 Other: Voiding Method Indwelling Catheter # Voids 1 - Labs CBC & Chem 7: 04/08/24 10:22 04/08/24 10:22 Labs: Abnormal Lab Results - Last 24 Hours (Table) 04/08/24 04/08/24 04/09/24 Range/Units 10:22 10:22 06:14 MCHC 30.8 L (31.0-37.0) g/dL Plt Count 125 L (150-450) k/uL Lymphocytes # (Manual) 0.39 L (1.0-4.8) k/uL Metamyelocytes # (Man) 0.10 H (0) k/uL Myelocytes # (Manual) 0.05 H (0) k/uL ABG pH (7.35-7.45) ABG pCO2 (35-45) mmHg ABG pO2 (83-108) mmHg ABG HCO3 (21-25) mmol/L ABG Total CO2 (19-24) mmol/L ABG O2 Saturation (94-97) % Sodium 135 L (137-145) mmol/L BUN 37 H (7-17) mg/dL Creatinine 1.34 H (0.52-1.04) mg/dL Glucose 178 H (74-99) mg/dL POC Glucose (mg/dL) 224 H (70-110) mg/dL Calcium 7.4 L (8.4-10.2) mg/dL 04/09/24 Range/Units 06:35 MCHC (31.0-37.0) g/dL Plt Count (150-450) k/uL Lymphocytes # (Manual) (1.0-4.8) k/uL Metamyelocytes # (Man) (0) k/uL Myelocytes # (Manual) (0) k/uL ABG pH 7.17 L* (7.35-7.45) ABG pCO2 78 H* (35-45) mmHg ABG pO2 69 L (83-108) mmHg ABG HCO3 28 H (21-25) mmol/L ABG Total CO2 31 H (19-24) mmol/L ABG O2 Saturation 92.5 L (94-97) % Sodium (137-145) mmol/L BUN (7-17) mg/dL Creatinine (0.52-1.04) mg/dL Glucose (74-99) mg/dL POC Glucose (mg/dL) (70-110) mg/dL Calcium (8.4-10.2) mg/dL Microbiology - Last 24 Hours (Table) 04/06/24 19:59 Blood Culture Gram Stain - Preliminary Blood Blood Culture - Preliminary Molecular ID Coagulase Negative Staph Molecular ID#2 04/07/24 06:50 Urine Culture - Final Urine,Catheterized
[2024-04-10] MEDS ORDERED: FUROSEMIDE 10 MG/ML 4 ML VIAL ONE (00:35)
[2024-04-10] MEDS ORDERED: tiZANidine 4 MG TAB ONE (00:35)
[2024-04-10] MEDS ORDERED: HEPARIN SODIUM,PORCINE 5,000 UNIT/ML 1 ML VIAL ONE (00:35)
[2024-04-10 06:18] LABS: Basophils % (A) 1 %; Eosinophils # (A) 0.1 k/uL (0-0.7); Eosinophils % (A) 2 %; HCT 36.4 % (34.0-46.0); HGB 11.3 gm/dL (11.4-16.0); Hypochromasia Moderate; Lymphocytes # (A) 0.6 k/uL (1.0-4.8); Lymphocytes % (A) 12 %; MCH 29.6 pg (25.0-35.0); MCHC 31.1 g/dL (31.0-37.0); MCV 95.3 fL (80.0-100.0); Monocytes # (A) 0.5 k/uL (0-1.0); Monocytes % (A) 9 %; Neutrophils # (A) 3.7 k/uL (1.3-7.7); Neutrophils % (A) 70 %; Platelet Count 135 k/uL (150-450); RBC 3.81 m/uL (3.80-5.40); WBC 5.2 k/uL (3.8-10.6)
[2024-04-10 07:54] LABS: African American GFR (CKD) 66 (>60 ml/min/1.73 sqM); Anion Gap 3 mmol/L; Blood Urea Nitrogen 35 mg/dL (7-17); Calcium 7.6 mg/dL (8.4-10.2); Carbon Dioxide 32 mmol/L (22-30); Chloride 103 mmol/L (98-107); Glucose 147 mg/dL (74-99); Magnesium 1.6 mg/dL (1.6-2.3); Non-African American GFR(CKD) 57 (>60 ml/min/1.73 sqM); Potassium 4.2 mmol/L (3.5-5.1); Sodium 138 mmol/L (137-145)
[2024-04-10] MEDS: MAGNESIUM SULFATE-D5W PMX 1 GM in DEXTROSE/WATER 1 100ML.BAG IVPB SCH (12:43)
[2024-04-10] MEDS: WATER ONE (14:46)
[2024-04-10] MEDS: DEXTROSE ONE (14:46)
--- NOTE | 2024-04-10 15:22 | P.PN ---
Subjective Progress Note Date: 04/10/24 Subjective: Patient was seen at the bedside. No acute events reported overnight. Patient denies shortness of breath and chest pain. All Systems reviewed and pertinent positives and negatives noted in HPI, all other symptoms are negative Objective: Vital signs reviewed. Temperature 97.7 F, heart rate 76, respiratory rate 16, BP 104/59, O2 saturation 97% on 6 L via nasal cannula General: non toxic, no distress, appears older than stated age, morbid obesity Derm: no unusual rashes/lesions, warm Head: atraumatic, normocephalic, symmetric Eyes: EOMI, no lid lag, anicteric sclera, pupils equal round reactive to light ENT: Nose and ears atraumatic Neck: No cervical lymphadenopathy, trachea midline, supple Mouth: no lip lesion, mucus membranes moist Cardiovascular: S1S2 reg, no murmur, positive dorsalis pedis pulse bilateral, no edema Lungs: CTA bilateral, no rhonchi, no rales, no accessory muscle use Abdominal: soft, bilateral CVA tenderness (left > right), no guarding Ext: muscle strength 5 out of 5 in all 4 extremities grossly, no gross muscle atrophy, no contractures, Neuro: CN II-XI grossly intact, no gross focal neuro deficits Psych: Alert, oriented, appropriate affect Data reviewed today: WBC 5.2, hemoglobin 11.3, hematocrit 36.4, MCV 95.3, platelet count 135, sodium 138, potassium 4.8, chloride 103, bicarb 32, BUN 35, creatinine 1.02, EGFR 57, glucose 147, calcium 7.6, magnesium 1.6 Images: No new imaging Assessment and Plan: 69-year-old female with past medical history of COPD and chronic approximate respiratory failure on 3 L of the cannula oxygen continuously at home, morbid obesity, hypothyroidism, chronic debility and wheelchair-bound was a transfer from [facility] who presented to the ED on 04/07/2024 with urinary complaints and chest discomfort. 1. Sepsis secondary to pyelonephritis Source: pyelonephritis Urinalysis with reflex to culture ordered Will need to follow up outpatient UA with reflex to culture continue with ceftriaxone 2 g IVPB every 24 hour Results pending for repeat blood culture on 04/07/2024 Continue monitor CBC and BMP and mag 2. NSTEMI, likely type II secondary to sepsis Troponin I: 0.058 on 04/06/2024 and 0.043 on 04/07/2024 Echocardiogram done on 04/07/2024 shows LVEF 55% Cardiology following Continue with telemetry monitoring Continue with aspirin 81 mg p.o. daily, Lipitor 40 mg p.o. daily Pulmonology consulted 3. Acute on chronic hypoxic respiratory failure, secondary to heart failure exacerbation, unknown ejection fraction Continue on 6 L oxygen via nasal cannula; will wean down to her baseline home oxygen at 3L as tolerated DuoNebs [id number] and as needed Continue with IV Lasix 4. Debility: Wheelchair-bound PT/OT Chronic conditions: Hypothyroidism: Synthroid 50 mcg p.o. at bedtime F: Stop fluids E: Replete as needed N: Heart healthy diet A: Wheelchair-bound DVT ppx: Heparin subcu Code Status: Full code Anticipated discharge place: Home Anticipated discharge date: Pending clinical course Patient was seen and examined by me and the resident. I agree with the subjective and objective as above. We discussed the assessment and plan as documented below: Patient reports improvement in her breathing. Her mentation appears improved. Not a fan of BiPAP. Currently on 5L NC (baseline 3L). CBC, BMP significant for Hg 11.3, Plt 135, bicarb 32, BUN 35, glu 147. Mag 1.6. Acute on chronic hypoxic hypercapneic respiratory failure Diastolic CHF exacerbation: Echo EF 55% with severe LV thickness. Continue Lasix 40 mg IV TID. Monitor electrolytes and renal function. Strict intake and outtake. Daily weights. Hypomagnesemia: Mag sulfate 4g IV x 1. Sepsis thought to be related to pyelonephritis: No UA collected on admission. UCx negative. Repeat UA with reflex to UCx. Rocephin 2g IV QD in the meantime. Staph epidermitis bacteremia: Possible contaminant? Repeat BCx collected. Continue Rocephin as above and follow up with the repeat BCx. Metabolic alkalosis and prerenal azotemia thought to be related to forced diuresis. Type II NSTEMI: ASA 81 mg PO QD. Lipitor 40 mg PO QD. Metoprolol 25 mg PO QD. Cardiology signed off. COPD: Symbicort 2 INH BID. Atrovent 0.5 INH QID. DuoNeb Q2H PRN for SOB/whee zing. Hypothyroid: Synthroid 50 mcg PO QHS. Objective - Vital Signs Vital signs: Vital Signs Temp 98.0 F 04/09/24 19:48 Pulse 87 04/09/24 20:37 Resp 16 04/09/24 19:48 BP 122/69 04/09/24 19:48 Pulse Ox 93 L 04/09/24 19:48 FiO2 50 04/10/24 00:03 Intake & Output 04/09/24 04/10/24 04/10/24 18:59 06:59 18:59 Intake Total 0 Output Total 1400 Balance -1400 Weight 192 kg Intake: Oral 0 Output: Urine 1400 Other: Voiding Method Indwelling Catheter - Labs CBC & Chem 7: 04/10/24 04:58 04/10/24 04:58 Labs: Abnormal Lab Results - Last 24 Hours (Table) 04/10/24 04/10/24 Range/Units 04:58 04:58 Hgb 11.3 L (11.4-16.0) gm/dL Plt Count 135 L (150-450) k/uL Lymphocytes # 0.6 L (1.0-4.8) k/uL Carbon Dioxide 32 H (22-30) mmol/L BUN 35 H (7-17) mg/dL Glucose 147 H (74-99) mg/dL Calcium 7.6 L (8.4-10.2) mg/dL
[2024-04-11 06:42] LABS: Appearance,Urine Clear (Clear); Bilirubin,Urine Negative (Negative); Blood,Urine Small (Negative); Color,Urine Colorless; Glucose,Urine (UA) Negative (Negative); Hyaline Casts,Urine 51 /lpf (0-2); Ketones,Urine Negative (Negative); Leukocyte Esterase,Urine Trace (Negative); Mucus,Urine Rare /hpf; Nitrite,Urine Negative (Negative); PH, Urine 5.5 (5.0-8.0); Protein,Urine Negative (Negative); RBC,Urine 18 /hpf (0-5); Specific Gravity,Urine 1.011 (1.001-1.035); Squamous Epithelial Cell,Urine 2 /hpf (0-4); Urobilinogen,Urine <2.0 mg/dL (<2.0); WBC,Urine 7 /hpf (0-5)
[2024-04-11] MEDS: NALOXONE 0.4 MG/ML 1 ML VIAL IVP PRN (10:22)
--- NOTE | 2024-04-11 11:05 | XR ---
EXAMINATION TYPE: XR chest 1V portable DATE OF EXAM: 04/11/2024 10:35 AM CLINICAL INDICATION: Female, 69 years old with history of CHF; [facility] COMPARISON: Chest radiographs from 04/09/2024 TECHNIQUE: XR chest 1V portable Frontal view of the chest. FINDINGS: Lungs/Pleura: There is no evidence of pleural effusion, focal consolidation, or pneumothorax. Pulmonary vascularity: Pulmonary vascular congestion. Heart/mediastinum: Cardiomediastinal silhouette is enlarged. Musculoskeletal: No acute osseous pathology. Other findings: None Lines/Tubes: IMPRESSION: Cardiomegaly and mild pulmonary vascular congestion. Correlate with BNP for congestive heart failure.
[2024-04-11] MEDS: NALOXONE 0.4 MG/ML 1 ML VIAL ONE (12:39)
[2024-04-11 13:52] LABS: HCT 37.9 % (34.0-46.0); HGB 11.9 gm/dL (11.4-16.0); Hypochromasia Moderate; MCH 29.2 pg (25.0-35.0); MCHC 31.6 g/dL (31.0-37.0); MCV 92.7 fL (80.0-100.0); Platelet Count 199 k/uL (150-450); RBC 4.08 m/uL (3.80-5.40); RDW 13.4 % (11.5-15.5)
[2024-04-11 14:03] LABS: African American GFR (CKD) >90 (>60 ml/min/1.73 sqM); Blood Urea Nitrogen 27 mg/dL (7-17); Calcium 8.2 mg/dL (8.4-10.2); Chloride 98 mmol/L (98-107); Glucose 158 mg/dL (74-99); Non-African American GFR(CKD) >90 (>60 ml/min/1.73 sqM); Potassium 3.7 mmol/L (3.5-5.1); Sodium 142 mmol/L (137-145)
[2024-04-11 14:10] LABS: Anion Gap 6 mmol/L
--- NOTE | 2024-04-11 14:10 | P.CNPUL ---
History of Present Illness Consult date: 04/11/24 Requesting physician: Phoebe Dallas Reason for consult: dyspnea, COPD, hypoxemia, obstructive sleep apnea Chief complaint: Respiratory failure. History of present illness: Pulmonary consult dated April 11, 2024. 69-year-old morbidly obese female, transferred from [facility], for urinary tract infection, and pyelonephritis. In addition, the patient apparently was thought to have a non-ST segment elevation myocardial infarction. The patient was brought to [facility], by EMS. We were asked to see her because of possible respiratory failure. We saw her today room 375. She was on BiPAP, with settings of 16/6, and 50%. Saturations were 98%. She is not receiving any IV fluids. Blood gases were done and showed a pO2 of 69, pCO2 of 78, pH of 7.17. The patient was apparently on a number of sedatives, hypnotics, narcotics. Those have all been discontinued. Looking at the patient, she likely has sleep apnea syndrome, and also likely has obesity/hypoventilation sy ndrome (pickwickian syndrome). The patient apparently has a history of asthma, COPD, GERD, osteoarthritis, esophagitis, OCD, Rapp's esophagus, chronic back pain, seizure history, methicillin-resistant Staph aureus infection, as well as a number of surgeries. The patient also apparently has a history of anxiety/depression, PTSD, schizophrenia, and is a lifelong non-smoker. Current labs include a white count of 6, hemoglobin 1.9, hematocrit 37.9, and platelet count of 199,000. Urinalysis shows small amount of blood, trace leukocyte Estrace positive, 18 RBCs, 7 WBCs, rare WBC clumps, and no bacteria. Blood cultures were positive for coag negative staph, and bacillus species. The patient is currently on Rocephin. Review of Systems REVIEW OF SYSTEMS: CONSTITUTIONAL: Fatigue. NEUROLOGIC: [ Negative.] HEENT: [ Negative.] CARDIAC: [Negative.] PULMONARY: [Negative.] GI: Abdominal pain. : Possible urinary tract symptoms. RHEUMATOLOGIC: [ Negative.] IMMUNOLOGIC: [ Negative.] ENDOCRINE: [Negative. ] DERMATOLOGIC: [Negative.] Past Medical History Past Medical History: Asthma, COPD, GERD/Reflux, Osteoarthritis (OA), Seizure Disorder Additional Past Medical History / Comment(s): DJD, Esophagitis, OCD, barretts esophagus, spinal disk herniation, severe spinal pain. pt states last seizure 6 months ago History of Any Multi-Drug Resistant Organisms: None Reported Date of last positivie culture/infection: 12/19/2009 MDRO Source:: Abdomen Past Surgical History: Back Surgery, Section, Hysterectomy Additional Past Surgical History / Comment(s): D&C, partial hysterectomy Past Anesthesia/Blood Transfusion Reactions: No Reported Reaction Past Psychological History: Anxiety, Depression, PTSD, Schizophrenia Additional Psychological History / Comment(s): OCD Smoking Status: Never smoker Past Alcohol Use History: None Reported Past Drug Use History: Marijuana Additional Drug Use History / Comment(s): Marijuana gummies for stress - Past Family History Family Family Medical History: Hyperlipidemia Medications and Allergies Home Medications Medication Instructions Recorded Confirmed Type Albuterol Sulfate [Proair Hfa] 2 puff INHALATION RT-Q4H PRN 03/27/14 04/07/24 History Ipratropium/Albuterol Sulfate 3 ml INHALATION RT-Q4H 03/27/14 04/07/24 History [Duoneb 0.5 mg-3 mg/3 ml Soln] Omeprazole 20 mg PO BID 03/27/14 04/07/24 History Metoprolol Succinate [Toprol XL] 25 mg PO DAILY 02/04/21 04/07/24 History Mirtazapine [Remeron] 45 mg PO HS 02/04/21 04/07/24 History Multivitamins, Thera [Multivitamin 1 tab PO DAILY 02/04/21 04/07/24 History (formulary)] QUEtiapine FUMARATE [SEROquel] 200 mg PO HS 02/04/21 04/07/24 History QUEtiapine [SEROquel] 50 mg PO HS 02/04/21 04/07/24 History QUEtiapine [SEROquel] 100 mg PO DAILY 02/04/21 04/07/24 History busPIRone HCL [Buspar] 30 mg PO BID PRN 02/04/21 04/07/24 History Fluticasone Propion/Salmeterol 1 puff INHALATION RT-BID 04/07/24 04/07/24 History [Wixela 500-50 Inhub] Umeclidinium Caney [Incruse 1 puff INHALATION RT-DAILY 04/07/24 04/07/24 History Ellipta] Vitamin C(Unknown Dose) 1 tab PO DAILY 04/07/24 04/07/24 History Vitamin D(Unknown Dose) 1 tab PO DAILY 04/07/24 04/07/24 History Allergies Allergy/AdvReac Type Severity Reaction Status Date / Time azithromycin Allergy Swelling Verified 04/07/24 09:12 diltiazem HCl [From Cardizem] Allergy Anaphylaxis Verified 04/07/24 09:12 doxycycline Allergy Swelling Verified 04/07/24 09:12 hydromorphone HCl AdvReac Nausea & Verified 04/07/24 09:12 [From Dilaudid] Vomiting Physical Exam Osteopathic Statement: *. No significant issues noted on an osteopathic structural exam other than those noted in the History and Physical/Consult. Vitals: Vital Signs Temp Pulse Pulse Resp BP Pulse Ox FiO2 04/11/24 12:00 81 18 140/78 96 04/11/24 11:29 80 17 04/11/24 11:21 82 15 50 04/11/24 10:22 10 L 04/11/24 08:31 80 20 04/11/24 08:19 82 20 92 L 04/11/24 08:00 98.6 F 77 10 L 150/89 98 04/11/24 04:00 76 16 107/65 95 04/11/24 00:00 67 16 94/51 94 L 04/10/24 20:00 97.9 F 69 16 122/77 97 04/10/24 16:00 98.0 F 66 16 118/68 94 L 04/10/24 15:49 78 04/10/24 15:41 76 04/10/24 14:00 76 16 Intake and Output 04/10/24 04/11/24 04/11/24 22:59 06:59 14:59 Intake Total 1080 Output Total 2750 1999 -1669 Intake: Oral 1080 Output: Urine 2750 1999 Other: Voiding Method Indwelling Catheter Indwelling Catheter Indwelling Catheter # Voids 1 Weight 184.5 kg 184.5 kg Restless patient, currently on BiPAP, trying to pull the mask off. HEENT examination is grossly unremarkable. Neck supple. Full range of motion. No adenopathy thyromegaly or neck vein distention. Cardiovascular examination reveals regular rhythm rate. S1-S2 normal. No S3 or S4. No discernible murmur noted. Heart sounds are distant. Heart rate 80 bpm. Lungs reveal mostly clear breath sounds. Scattered rhonchi are noted. No wheezes or crackles. Breath sounds equal. Abdomen, obese, soft. No tenderness. Extremities are intact. No cyanosis clubbing or edema. Skin is without rash or lesion. Neurologic examination is brief but nonfocal. Results - Laboratory Findings CBC and BMP: 04/11/24 13:41 04/10/24 04:58 ABG ABG pH 7.17 (7.35-7.45) L* 04/09/24 06:35 ABG pCO2 78 mmHg (35-45) H* 04/09/24 06:35 ABG pO2 69 mmHg (83-108) L 04/09/24 06:35 ABG O2 Saturation 92.5 % (94-97) L 04/09/24 06:35 PT/INR, D-dimer PT 11.5 sec (10.0-12.5) 04/07/24 01:38 INR 1.1 (<1.2) 04/07/24 01:38 Abnormal lab findings: Abnormal Labs 04/06/24 04/07/24 04/07/24 19:59 01:38 08:49 Hgb MCHC Plt Count Lymphocytes # Lymphocytes # (Manual) Metamyelocytes # (Man) Myelocytes # (Manual) ABG pH ABG pCO2 ABG pO2 ABG HCO3 ABG Total CO2 ABG O2 Saturation Sodium Carbon Dioxide BUN Creatinine Glucose POC Glucose (mg/dL) Calcium Troponin I 0.058 H* 0.043 H* Triglycerides 251.00 H VLDL Cholesterol, Calc 50.20 H HDL Cholesterol 27.00 L Urine Blood Ur Leukocyte Esterase Urine RBC Urine WBC Urine WBC Clumps Hyaline Casts Urine Mucus 04/07/24 04/07/24 04/08/24 08:49 08:49 09:27 Hgb MCHC 30.6 L Plt Count 140 L Lymphocytes # 0.5 L Lymphocytes # (Manual) Metamyelocytes # (Man) Myelocytes # (Manual) ABG pH ABG pCO2 ABG pO2 ABG HCO3 ABG Total CO2 ABG O2 Saturation Sodium 134 L Carbon Dioxide BUN 27 H Creatinine 1.11 H Glucose 245 H POC Glucose (mg/dL) 149 H Calcium 7.9 L Troponin I Triglycerides VLDL Cholesterol, Calc HDL Cholesterol Urine Blood Ur Leukocyte Esterase Urine RBC Urine WBC Urine WBC Clumps Hyaline Casts Urine Mucus 04/08/24 04/08/24 04/09/24 10:22 10:22 06:14 Hgb MCHC 30.8 L Plt Count 125 L Lymphocytes # Lymphocytes # (Manual) 0.39 L Metamyelocytes # (Man) 0.10 H Myelocytes # (Manual) 0.05 H ABG pH ABG pCO2 ABG pO2 ABG HCO3 ABG Total CO2 ABG O2 Saturation Sodium 135 L Carbon Dioxide BUN 37 H Creatinine 1.34 H Glucose 178 H POC Glucose (mg/dL) 224 H Calcium 7.4 L Troponin I Triglycerides VLDL Cholesterol, Calc HDL Cholesterol Urine Blood Ur Leukocyte Esterase Urine RBC Urine WBC Urine WBC Clumps Hyaline Casts Urine Mucus 04/09/24 04/10/24 04/10/24 06:35 04:58 04:58 Hgb 11.3 L MCHC Plt Count 135 L Lymphocytes # 0.6 L Lymphocytes # (Manual) Metamyelocytes # (Man) Myelocytes # (Manual) ABG pH 7.17 L* ABG pCO2 78 H* ABG pO2 69 L ABG HCO3 28 H ABG Total CO2 31 H ABG O2 Saturation 92.5 L Sodium Carbon Dioxide 32 H BUN 35 H Creatinine Glucose 147 H POC Glucose (mg/dL) Calcium 7.6 L Troponin I Triglycerides VLDL Cholesterol, Calc HDL Cholesterol Urine Blood Ur Leukocyte Esterase Urine RBC Urine WBC Urine WBC Clumps Hyaline Casts Urine Mucus 04/11/24 04:45 Hgb MCHC Plt Count Lymphocytes # Lymphocytes # (Manual) Metamyelocytes # (Man) Myelocytes # (Manual) ABG pH ABG pCO2 ABG pO2 ABG HCO3 ABG Total CO2 ABG O2 Saturation Sodium Carbon Dioxide BUN Creatinine Glucose POC Glucose (mg/dL) Calcium Troponin I Triglycerides VLDL Cholesterol, Calc HDL Cholesterol Urine Blood Small H Ur Leukocyte Esterase Trace H Urine RBC 18 H Urine WBC 7 H Urine WBC Clumps Rare H Hyaline Casts 51 H Urine Mucus Rare H - Diagnostic Findings Chest x-ray: image reviewed Assessment and Plan Assessment: Acute on chronic hypercapnic respiratory failure, likely related to obesity/hypoventilation syndrome (pickwickian syndrome), restrictive lung disease secondary to obesity, and possible obstructive sleep apnea syndrome. History of asthma/COPD, in a patient who is a lifelong non-smoker. Morbid obesity. Gastroesophageal reflux disease. History of osteoarthritis/DJD. History of Rapp's esophagus. History of seizure disorder. History of spinal disc herniation. Prior history of methicillin-resistant Staph aureus infection. History of anxiety/depression/PTSD/schizophrenia. Plan: Plan dated April 11, 2024. The patient was on a number of respiratory depressant medications, and they have all been discontinued, as they should be. The patient currently is on BiPAP. The patient's blood gases, suggest a pattern of alveolar hypoventilation, secondary to medications, but also, the patient likely suffers from pickwickian syndrome, as well as restrictive lung disease secondary to obesity, as well as possible underlying obstructive sleep apnea syndrome. The patient is a lifelong non-smoker. She apparently has a history of asthma/COPD?? We will continue to follow make recommendations. Time with Patient: Greater than 30
[2024-04-11 14:28] LABS: Carbon Dioxide 38 mmol/L (22-30)
[2024-04-11] MEDS ORDERED: DEXTROSE 50% SYRINGE 50 ML IVP PRN ×2 (16:57)
--- NOTE | 2024-04-11 17:01 | P.PN ---
Subjective Progress Note Date: 04/11/24 Subjective: Patient was seen at the bedside. Patient was mildly short of breath and agitated overnight and in morning. BiPAP was attempted but patient did not tolerate it. All Systems reviewed and pertinent positives and negatives noted in HPI, all other symptoms are negative Objective: Vital signs reviewed. Temperature 98.6 F, heart rate of 77, respiratory rate 20, blood pressure 150/ 89, 98% O2 saturation 4 L via nasal cannula General: non toxic, no distress, appears older than stated age, morbid obesity Derm: no unusual rashes/lesions, warm Head: atraumatic, normocephalic, symmetric Eyes: EOMI, no lid lag, anicteric sclera, pupils equal round reactive to light ENT: Nose and ears atraumatic Neck: No cervical lymphadenopathy, trachea midline, supple Mouth: no lip lesion, mucus membranes moist Cardiovascular: S1S2 reg, no murmur, positive dorsalis pedis pulse bilateral, no edema Lungs: CTA bilateral, no rhonchi, no rales, no accessory muscle use Abdominal: soft, nontender, nondistended, no guarding Ext: muscle strength 5 out of 5 in all 4 extremities grossly, no gross muscle atrophy, no contractures, Neuro: CN II-XI grossly intact, no gross focal neuro deficits Psych: Alert, oriented, appropriate affect Data reviewed today: WBC 6.0, hemoglobin 11.9, hematocrit 37.9, MCV 92.7, platelet count 199, sodium 142, potassium 3.7, bicarb 38, BUN 27, creatinine 0.69, glucose 158, calcium 8.2, magnesium 2.0. Images: Chest x-ray shows cardiomegaly and mild pulmonary vascular congestion. Assessment and Plan: 69-year-old female with past medical history of COPD and chronic approximate respiratory failure on 3 L of the cannula oxygen continuously at home, morbid obesity, hypothyroidism, chronic debility and wheelchair-bound was a transfer from [facility] who presented to the ED on 04/07/2024 with urinary complaints and chest discomfort. 1. Acute on chronic hypercapnic respiratory failure, secondary to pickwickian syndrome, restrictive lung disease secondary to obesity, and possible obstructive sleep apnea syndrome Continue with BiPAP; will wean down to her baseline home oxygen at 3L as tolerated DuoNebs [id number] and as needed Continue with IV Lasix Pulmonology note reviewed: Respiratory depressant medications have been discontinued 2. Sepsis secondary to pyelonephritis (resolved) Repeat blood culture on 04/09/2024: Preliminary report shows no growth Likely source: pyelonephritis Urinalysis with reflex to culture ordered; results pending Will need to follow up outpatient UA with reflex to culture continue with ceftriaxone 2 g IVPB every 24 hour Continue monitor CBC and BMP and mag BNP ordered 3. NSTEMI, likely type II secondary to sepsis Troponin I: 0.058 on 04/06/2024 and 0.043 on 04/07/2024 Echocardiogram done on 04/07/2024 shows LVEF 55% Cardiology signed off Continue with telemetry monitoring Continue with aspirin 81 mg p.o. daily, Lipitor 40 mg p.o. daily 4. Debility: Wheelchair-bound PT/OT 5. Hyperglycemia Ordered HbA1c Started on short acting sliding scale insulin Chronic conditions: Hypothyroidism: Synthroid 50 mcg p.o. at bedtime Morbid obesity Patient was seen and examined by me and the resident. I agree with the subjective and objective as above. We discussed the assessment and plan as documented below: Patient more lethargic this morning. Med rec of her home meds were complete and realized that she was started on MS Contin along with other sedative medication like Tizanidine, Benadryl, Gabapentin which I discontinued. Patient was given Narcan which resulted in significant improvement in mentation. Currently on 4L NC. CBC and BMP significant for bicarb 38, BUN 27, glu 158, Ca 8.2. BNP 894. UA trace LE. Repeat BCx negative so far. CXR mild pulmonary vascular congestion. Acute metabolic encephalopathy likely due to hypercapnic respiratory failure and overuse of sedating medication Acute on chronic hypoxic hypercapnic respiratory failure Diastolic CHF exacerbation: Echo EF 55% with severe LV thickness. Switch Lasix 40 mg IV to BID dosing. Likely transition to PO tomorrow. Monitor electrolytes and renal function. Strict intake and outtake. Daily weights. Sepsis thought to be related to pyelonephritis: No UA collected on admission. UCx negative. Repeat UA not very impressive in terms of infection. Rocephin 2g IV QD in the meantime. Staph epidermitis bacteremia: Possible contaminant? Repeat BCx collected and negative so far. Continue Rocephin as above and follow up with the repeat BCx. Metabolic alkalosis and prerenal azotemia thought to be related to forced diuresis. Type II NSTEMI: ASA 81 mg PO QD. Lipitor 40 mg PO QD. Metoprolol 25 mg PO QD. Cardiology signed off. COPD: Symbicort 2 INH BID. Atrovent 0.5 INH QID. DuoNeb Q2H PRN for SOB/wheezing. Hypothyroid: Synthroid 50 mcg PO QHS. Objective - Vital Signs Vital signs: Vital Signs Temp 98.6 F 04/11/24 08:00 Pulse 80 04/11/24 11:29 Resp 17 04/11/24 11:29 BP 150/89 04/11/24 08:00 Pulse Ox 92 L 04/11/24 08:19 FiO2 50 04/11/24 11:21 Intake & Output 04/10/24 04/11/24 04/11/24 18:59 06:59 18:59 Intake Total 1080 Output Total 2200 1500 500 Balance -2200 -420 -500 Weight 184.5 kg 184.5 kg Intake: Oral 1080 Output: Urine 2200 1500 500 Other: Voiding Method Indwelling Catheter Indwelling Catheter Indwelling Catheter # Voids 1 - Labs CBC & Chem 7: 04/11/24 13:41 04/11/24 13:41 Labs: Abnormal Lab Results - Last 24 Hours (Table) 04/11/24 Range/Units 04:45 Urine Blood Small H (Negative) Ur Leukocyte Esterase Trace H (Negative) Urine RBC 18 H (0-5) /hpf Urine WBC 7 H (0-5) /hpf Urine WBC Clumps Rare H (None) /hpf Hyaline Casts 51 H (0-2) /lpf Urine Mucus Rare H (None) /hpf Microbiology - Last 24 Hours (Table) 04/09/24 08:35 Blood Culture - Preliminary Blood 04/06/24 19:59 Blood Culture Gram Stain - Final Blood Blood Culture - Final Coagulase Negative Staph Bacillus species Molecular ID
[2024-04-11] MEDS: INSULIN ASPART (NovoLOG) 100 UNIT/ML VIAL SQ SCH (18:05)
[2024-04-11] MEDS: FUROSEMIDE 10 MG/ML 4 ML VIAL IV SCH (20:01)
[2024-04-11 20:14] LABS: Glucose,Whole Blood 123 mg/dL (70-110)
[2024-04-12 06:12] LABS: Glucose,Whole Blood 152 mg/dL (70-110)
[2024-04-12 10:18] LABS: African American GFR (CKD) >90 (>60 ml/min/1.73 sqM); Anion Gap 8 mmol/L; Blood Urea Nitrogen 25 mg/dL (7-17); Calcium 9.1 mg/dL (8.4-10.2); Carbon Dioxide 37 mmol/L (22-30); Chloride 95 mmol/L (98-107); Glucose 156 mg/dL (74-99); Magnesium 1.7 mg/dL (1.6-2.3); Non-African American GFR(CKD) >90 (>60 ml/min/1.73 sqM); Potassium 3.5 mmol/L (3.5-5.1); Sodium 140 mmol/L (137-145)
[2024-04-12] MEDS: METOPROLOL SUCCINATE (ER) 25 MG TAB.ER.24H PO ONE (11:31)
[2024-04-12] MEDS: LISINOPRIL-HCTZ 20-12.5 MG 1 EACH TAB PO SCH (11:32)
--- NOTE | 2024-04-12 11:32 | P.PN ---
Subjective Progress Note Date: 04/12/24 Principal diagnosis: Respiratory failure. Pulmonary consult dated April 11, 2024. 69-year-old morbidly obese female, transferred from [facility], for urinary tract infection, and pyelonephritis. In addition, the patient apparently was thought to have a non-ST segment elevation myocardial infarction. The patient was brought to [facility], by EMS. We were asked to see her because of possible respiratory failure. We saw her today room 375. She was on BiPAP, with settings of 16/6, and 50%. Saturations were 98%. She is not receiving any IV fluids. Blood gases were done and showed a pO2 of 69, pCO2 of 78, pH of 7.17. The patient was apparently on a number of sedatives, hypnotics, narcotics. Those have all been discontinued. Looking at the patient, she likely has sleep apnea syndrome, and also likely has obesity/hypoventilation syndrome (pickwickian syndrome). The patient apparently has a history of asthma, COPD, GERD, osteoarthritis, esophagitis, OCD, Rapp's esophagus, chronic back pain, seizure history, methicillin-resistant Staph aureus infection, as well as a number of surgeries. The patient also apparently has a history of anxiety/depression, PTSD, schizophrenia, and is a lifelong non- smoker. Current labs include a white count of 6, hemoglobin 1.9, hematocrit 37.9, and platelet count of 199,000. Urinalysis shows small amount of blood, trace leukocyte Estrace positive, 18 RBCs, 7 WBCs, rare WBC clumps, and no bacteria. Blood cultures were positive for coag negative staph, and bacillus species. The patient is currently on Rocephin. Progress note dated April 12, 2024. This is a 69-year-old female who I was asked to see for respiratory failure. The patient likely has obesity/hypoventilation syndrome, and possible sleep apnea syndrome as well. In addition, she may have a component of restrictive lung disease secondary to obesity. Currently, the patient is on 3 L. She is getting saline at 10 cc an hour. The patient is on albuterol and Symbicort because she apparently has a history of asthma. She has a history of lifelong nontobacco use. The BiPAP device is next to her, and it is unclear to me wheth er or not she used it last night. Settings include an IPAP of 16, EPAP of 6, and 50% FiO2. Current labs include a sodium 140, potassium 3.5, chlorides 95, CO2 37, BUN 25, creatinine 0.68. Chest x-ray was consistent with cardiomegaly, and pulmonary vascular congestion. Objective - Vital Signs Vital signs: Vital Signs Temp 97.8 F 04/12/24 08:10 Pulse 88 04/12/24 08:43 Resp 22 04/12/24 08:10 BP 184/94 04/12/24 08:10 Pulse Ox 95 04/12/24 08:10 FiO2 50 04/11/24 11:21 Intake & Output 04/11/24 04/12/24 04/12/24 18:59 06:59 18:59 Output Total 3500 2400 Balance -3500 -2400 Weight 184.5 kg 177 kg Output: Urine 3500 2400 Other: Voiding Method Indwelling Catheter Indwelling Catheter Indwelling Catheter - Exam Currently on 3 L of oxygen. The patient does not seem to answer any questions. HEENT examination is grossly unremarkable. Neck supple. Full range of motion. No adenopathy thyromegaly or neck vein distention. Cardiovascular examination reveals regular rhythm rate. S1-S2 normal. No S3 or S4. No discernible murmur noted. Heart sounds are distant. Heart rate 88 bpm. Lungs reveal mostly clear breath sounds. Scattered rhonchi are noted. No wheezes or crackles. Breath sounds equal. Saturations are 95% on 3 L. Abdomen, obese, soft. No tenderness. Extremities are intact. No cyanosis clubbing or edema. Skin is without rash or lesion. Neurologic examination is brief but nonfocal. - Labs CBC & Chem 7: 04/11/24 13:41 04/12/24 08:04 Labs: Abnormal Lab Results - Last 24 Hours (Table) 04/11/24 04/11/24 04/12/24 Range/Units 13:41 20:12 06:10 Chloride (98-107) mmol/L Carbon Dioxide 38 H (22-30) mmol/L BUN 27 H (7-17) mg/dL Glucose 158 H (74-99) mg/dL POC Glucose (mg/dL) 123 H 152 H (70-110) mg/dL Calcium 8.2 L (8.4-10.2) mg/dL 04/12/24 Range/Units 08:04 Chloride 95 L (98-107) mmol/L Carbon Dioxide 37 H (22-30) mmol/L BUN 25 H (7-17) mg/dL Glucose 156 H (74-99) mg/dL POC Glucose (mg/dL) (70-110) mg/dL Calcium (8.4-10.2) mg/dL Microbiology - Last 24 Hours (Table) 04/09/24 08:35 Blood Culture - Preliminary Blood Assessment and Plan Assessment: Acute on chronic hypercapnic respiratory failure, likely related to obesity /hypoventilation syndrome (pickwickian syndrome), restrictive lung disease secondary to obesity, and possible obstructive sleep apnea syndrome. History of asthma/COPD, in a patient who is a lifelong non-smoker. Morbid obesity. Gastroesophageal reflux disease. History of osteoarthritis/DJD. History of Rapp's esophagus. History of seizure disorder. History of spinal disc herniation. Prior history of methicillin-resistant Staph aureus infection. History of anxiety/depression/PTSD/schizophrenia. Plan: Plan dated April 11, 2024. The patient was on a number of respiratory depressant medications, and they have all been discontinued, as they should be. The patient currently is on BiPAP. The patient's blood gases, suggest a pattern of alveolar hypoventilation, secondary to medications, but also, the patient likely suffers from pickwickian syndrome, as well as restrictive lung disease secondary to obesity, as well as possible underlying obstructive sleep apnea syndrome. The patient is a lifelong non-smoker. She apparently has a history of asthma/COPD?? We will continue to follow make recommendations. Plan dated April 12, 2024. The patient is currently on 3 L nasal cannula. We saw her yesterday, she was on BiPAP, and quite agitated, trying to rip the mask off. Her saturations are 95%. She is getting saline at 10 cc an hour. She continues on Symbicort, and albuterol, for asthma. She apparently is a lifelong nontobacco user. She likely has pickwickian syndrome, and possible obstructive sleep apnea syndrome. In addition, there may be a component of restrictive lung disease, extrapulmonary, secondary to obesity. We will continue to follow. Prognosis is guarded. Time with Patient: Less than 30
[2024-04-12 11:47] LABS: Glucose,Whole Blood 170 mg/dL (70-110)
--- NOTE | 2024-04-12 13:09 | XR ---
EXAMINATION TYPE: XR chest 1V portable DATE OF EXAM: 04/12/2024 COMPARISON: 04/11/2024 INDICATION: CHF TECHNIQUE: Single frontal view of the chest is obtained. Sample limited due to body habitus. Patient is rotated to the left. FINDINGS: The heart size is normal. The pulmonary vasculature is normal. This may be improved. Mild diffuse increased lung markings may remain present. Findings could be related to residual pulmon shivam edema. Note that x-ray findings may lag behind the clinical course. IMPRESSION: 1. Resolving pulmonary edema or volume overload
--- NOTE | 2024-04-12 14:31 | P.PN ---
Subjective Progress Note Date: 04/12/24 Subjective: Patient was seen and examined at the bedside. Patient was mildly short of breath and agitated overnight. BiPAP was attempted but patient refused it. Currently on 3 L oxygen via nasal. All Systems reviewed and pertinent positives and negatives noted in HPI, all other symptoms are negative Objective: Vital signs reviewed. General: non toxic, no distress, appears older than stated age, morbid obesity Derm: no unusual rashes/lesions, warm Head: atraumatic, normocephalic, symmetric Eyes: EOMI, no lid lag, anicteric sclera, pupils equal round reactive to light ENT: Nose and ears atraumatic Neck: No cervical lymphadenopathy, trachea midline, supple Mouth: no lip lesion, mucus membranes moist Cardiovascular: S1S2 reg, no murmur, positive dorsalis pedis pulse bilateral, no edema Lungs: Decreased breath sounds bilaterally Abdominal: soft, nontender, nondistended, no guarding Ext: muscle strength 5 out of 5 in all 4 extremities grossly, no gross muscle atrophy, no contractures, Neuro: CN II-XI grossly intact, no gross focal neuro deficits Psych: Alert, oriented, appropriate affect Data reviewed today: Sodium 140, potassium 3.5, chloride 95, bicarb 37, BUN 8, creatinine 25, glucose 156, Images: Chest x-ray shows cardiomegaly and mild pulmonary vascular congestion. Assessment and Plan: 69-year-old female with past medical history of COPD and chronic approximate respiratory failure on 3 L of the cannula oxygen continuously at home, morbid obesity, hypothyroidism, chronic debility and wheelchair-bound was a transfer from [facility] who presented to the ED on 04/07/2024 with urinary complaints and chest discomfort. 1. Acute on chronic hypercapnic respiratory failure, secondary to pickwickian syndrome, restrictive lung disease secondary to obesity, and possible obstructive sleep apnea syndrome Continue with BiPAP; will wean down to her baseline home oxygen at 3L as tolerated DuoNebs [id number] and as needed IV Lasix discontinued; started on Lasix 40 mg p.o. daily Pulmonology note reviewed: Respiratory depressant medications have been discontinued 2. Diastolic congestive heart failure with preserved ejection fraction Echocardiogram done on 04/07/2024 shows LVEF 55% with severe left ventricular wall thickness Continue with telemetry monitoring Continue with aspirin 81 mg p.o. daily, Lipitor 40 mg p.o. daily Continue with metoprolol 50 mg p.o. once daily, lisinoprilhydrochlorothiazide 20-12.5 mg p.o. daily Check daily weights Strict I's and O's Cardiology signed off 2. Sepsis secondary to pyelonephritis (resolved) Repeat blood culture on 04/09/2024: Preliminary report shows no growth Likely source: pyelonephritis UA negative for infection Will need to follow up outpatient UA with reflex to culture continue with ceftriaxone 2 g IVPB every 24 hour Continue monitor CBC and BMP and mag BNP ordered 4. Debility: Wheelchair-bound PT/OT 5. Hyperglycemia Ordered HbA1c Started on short acting sliding scale insulin Chronic conditions: Hypothyroidism: Synthroid 50 mcg p.o. at bedtime Morbid obesity Patient was seen and examined by me and the resident. I agree with the subjective and objective as above. We discussed the assessment and plan as documented below: Mentation significantly improved. Diuresing well. Switch Lasix IV to PO. CXR appears improved. Breathing essentially back to baseline. Will attempt to reach family/medicare nurse regarding dispo plan. Repeat cultures negative so far. Patient is extremely debilitated. Prognosis is poor. May benefit from palliative care. Acute metabolic encephalopathy likely due to hypercapnic respiratory failure and overuse of sedating medication Acute on chronic hypoxic hypercapnic respiratory failure Diastolic CHF exacerbation: Echo EF 55% with severe LV thickness. Switch Lasix to 40 mg PO QD. Monitor electrolytes and renal function. Strict intake and outtake. Daily weights. Hypertension: Increase Metoprolol to 50 mg PO QD and add Lisinopril 20 mg PO QD and HCTZ 12.5 mg PO QD. Sepsis thought to be related to pyelonephritis: No UA collected on admission. UCx negative. Repeat UA not very impressive in terms of infection. Rocephin 2g IV QD in the meantime. Staph epidermitis bacteremia: Possible contaminant? Repeat BCx collected and negative so far. Continue Rocephin as above and follow up with the repeat BCx. Metabolic alkalosis and prerenal azotemia thought to be related to forced diuresis. Type II NSTEMI: ASA 81 mg PO QD. Lipitor 40 mg PO QD. Metoprolol 25 mg PO QD. Cardiology signed off. COPD: Symbicort 2 INH BID. Atrovent 0.5 INH QID. DuoNeb Q2H PRN for SOB/wheezing. Hypothyroid: Synthroid 50 mcg PO QHS. Objective - Vital Signs Vital signs: Vital Signs Temp 97.8 F 04/12/24 08:10 Pulse 92 04/12/24 12:05 Resp 22 04/12/24 08:10 BP 184/94 04/12/24 08:10 Pulse Ox 95 04/12/24 08:10 FiO2 50 04/11/24 11:21 Intake & Output 04/11/24 04/12/24 04/12/24 18:59 06:59 18:59 Output Total 3500 2400 1100 Balance -3500 -2400 -1100 Weight 184.5 kg 177 kg Output: Urine 3500 2400 1100 Other: Voiding Method Indwelling Catheter Indwelling Catheter Indwelling Catheter - Labs CBC & Chem 7: 04/11/24 13:41 04/12/24 08:04 Labs: Abnormal Lab Results - Last 24 Hours (Table) 04/11/24 04/11/24 04/12/24 Range/Units 13:41 20:12 06:10 Chloride (98-107) mmol/L Carbon Dioxide 38 H (22-30) mmol/L BUN 27 H (7-17) mg/dL Glucose 158 H (74-99) mg/dL POC Glucose (mg/dL) 123 H 152 H (70-110) mg/dL Calcium 8.2 L (8.4-10.2) mg/dL 04/12/24 04/12/24 Range/Units 08:04 11:45 Chloride 95 L (98-107) mmol/L Carbon Dioxide 37 H (22-30) mmol/L BUN 25 H (7-17) mg/dL Glucose 156 H (74-99) mg/dL POC Glucose (mg/dL) 170 H (70-110) mg/dL Calcium (8.4-10.2) mg/dL Microbiology - Last 24 Hours (Table) 04/09/24 08:35 Blood Culture - Preliminary Blood
[2024-04-12] MEDS ORDERED: FUROSEMIDE 40 MG TAB PO SCH (16:00)
[2024-04-12 17:05] LABS: Glucose,Whole Blood 168 mg/dL (70-110)
[2024-04-12 20:15] LABS: Glucose,Whole Blood 190 mg/dL (70-110)
[2024-04-12] MEDS: SYMBICORT 160-4.5 MCG INHALER INHALATION SCH (21:04)
[2024-04-13 06:17] LABS: Glucose,Whole Blood 202 mg/dL (70-110)
[2024-04-13] MEDS: FUROSEMIDE 40 MG TAB PO SCH (08:32)
[2024-04-13] MEDS: METOPROLOL SUCCINATE (ER) 50 MG TAB.ER.24H PO SCH (08:33)
--- NOTE | 2024-04-13 10:26 | P.PN ---
Subjective Progress Note Date: 04/13/24 Principal diagnosis: Respiratory failure. Pulmonary consult dated April 11, 2024. 69-year-old morbidly obese female, transferred from [facility], for urinary tract infection, and pyelonephritis. In addition, the patient apparently was thought to have a non-ST segment elevation myocardial infarction. The patient was brought to [facility], by EMS. We were asked to see her because of possible respiratory failure. We saw her today room 375. She was on BiPAP, with settings of 16/6, and 50%. Saturations were 98%. She is not receiving any IV fluids. Blood gases were done and showed a pO2 of 69, pCO2 of 78, pH of 7.17. The patient was apparently on a number of sedatives, hypnotics, narcotics. Those have all been discontinued. Looking at the patient, she likely has sleep apnea syndrome, and also likely has obesity/hypoventilation syndrome (pickwickian syndrome). The patient apparently has a history of asthma, COPD, GERD, osteoarthritis, esophagitis, OCD, Rapp's esophagus, chronic back pain, seizure history, methicillin-resistant Staph aureus infection, as well as a number of surgeries. The patient also apparently has a history of anxiety/depression, PTSD, schizophrenia, and is a lifelong non- smoker. Current labs include a white count of 6, hemoglobin 1.9, hematocrit 37.9, and platelet count of 199,000. Urinalysis shows small amount of blood, trace leukocyte Estrace positive, 18 RBCs, 7 WBCs, rare WBC clumps, and no bacteria. Blood cultures were positive for coag negative staph, and bacillus species. The patient is currently on Rocephin. Progress note dated April 12, 2024. This is a 69-year-old female who I was asked to see for respiratory failure. The patient likely has obesity/hypoventilation syndrome, and possible sleep apnea syndrome as well. In addition, she may have a component of restrictive lung disease secondary to obesity. Currently, the patient is on 3 L. She is getting saline at 10 cc an hour. The patient is on albuterol and Symbicort because she apparently has a history of asthma. She has a history of lifelong nontobacco use. The BiPAP device is next to her, and it is unclear to me wheth er or not she used it last night. Settings include an IPAP of 16, EPAP of 6, and 50% FiO2. Current labs include a sodium 140, potassium 3.5, chlorides 95, CO2 37, BUN 25, creatinine 0.68. Chest x-ray was consistent with cardiomegaly, and pulmonary vascular congestion. Progress note dated April 13, 2024. 69-year-old female seen today in room 375. The patient does not respond to any questions today, and appears to be relatively comfortable on 4 L nasal cannula. When not on nasal cannula, she uses BiPAP, 16/6, 50%. The patient is not receiving any IV fluids. According to the nurse, the patient has been refusing her medication. Labs today include a glucose of 202. Blood cultures from April 06, are positive for coagulase-negative staph, and bacillus species. Chest x-ray from yesterday showed, resolving pulmonary edema. The patient continues on Augmentin. Objective - Vital Signs Vital signs: Vital Signs Temp 98.1 F 04/13/24 08:30 Pulse 87 04/13/24 08:30 Resp 22 04/13/24 08:30 BP 164/89 04/13/24 08:30 Pulse Ox 97 04/13/24 08:30 FiO2 50 04/11/24 11:21 Intake & Output 04/12/24 04/13/24 04/13/24 18:59 06:59 18:59 Intake Total 60 0 Output Total 1100 Balance -1040 0 Weight 175 kg Intake: Oral 60 0 Output: Urine 1100 Other: Voiding Method Indwelling Catheter Indwelling Catheter Indwelling Catheter - Exam Currently on 4 L of oxygen. The patient does not seem to answer any questions. HEENT examination is grossly unremarkable. Neck supple. Full range of motion. No adenopathy thyromegaly or neck vein distention. Cardiovascular examination reveals regular rhythm rate. S1-S2 normal. No S3 or S4. No discernible murmur noted. Heart sounds are distant. Heart rate is 7 bpm. Lungs reveal mostly clear breath sounds. Scattered rhonchi are noted. No wheezes or crackles. Breath sounds equal. Saturations are 97% on 4 L nasal cannula. Abdomen, obese, soft. No tenderness. Extremities are intact. No cyanosis clubbing or edema. Skin is without rash or lesion. Neurologic examination is brief but nonfocal. - Labs CBC & Chem 7: 04/11/24 13:41 08/31/24 08:04 Labs: Abnormal Lab Results - Last 24 Hours (Table) 04/12/24 04/12/24 04/12/24 Range/Units 08:04 11:45 17:03 POC Glucose (mg/dL) 170 H 168 H (70-110) mg/dL Hemoglobin A1c 8.4 H (<=6.0) % 04/12/24 04/13/24 Range/Units 20:13 06:16 POC Glucose (mg/dL) 190 H 202 H (70-110) mg/dL Hemoglobin A1c (<=6.0) % Microbiology - Last 24 Hours (Table) 04/09/24 08:35 Blood Culture - Preliminary Blood Assessment and Plan Assessment: Acute on chronic hypercapnic respiratory failure, likely related to obesity/hypoventilation syndrome (Pickwickian syndrome), restrictive lung disease secondary to obesity, and possible obstructive sleep apnea syndrome. History of asthma/COPD, in a patient who is a lifelong non-smoker. Morbid obesity. Gastroesophageal reflux disease. History of osteoarthritis/DJD. History of Rapp's esophagus. History of seizure disorder. History of spinal disc herniation. Prior history of methicillin-resistant Staph aureus infection. History of anxiety/depression/PTSD/schizophrenia. Plan: Plan dated April 11, 2024. The patient was on a number of respiratory depressant medications, and they have all been discontinued, as they should be. The patient currently is on BiPAP. The patient's blood gases, suggest a pattern of alveolar hypoventilation, secondary to medications, but also, the patient likely suffers from pickwickian syndrome, as well as restrictive lung disease secondary to obesity, as well as possible underlying obstructive sleep apnea syndrome. The patient is a lifelong non-smoker. She apparently has a history of asthma/COPD?? We will continue to follow make recommendations. Plan dated April 12, 2024. The patient is currently on 3 L nasal cannula. We saw her yesterday, she was on BiPAP, and quite agitated, trying to rip the mask off. Her saturations are 95%. She is getting saline at 10 cc an hour. She continues on Symbicort, and albuterol, for asthma. She apparently is a lifelong nontobacco user. She likely has pickwickian syndrome, and possible obstructive sleep apnea syndrome. In addition, there may be a component of restrictive lung disease, extrapulmonary, secondary to obesity. We will continue to follow. Prognosis is guarded. Plan dated April 13, 2024. The patient appears to be relatively stable. She is on 4 L nasal cannula. She does use BiPAP, with settings of 16/6, and 50%. Labs, x-rays, medications are reviewed. She continues on Symbicort and albuterol for her asthma. She was placed on Augmentin by the primary service. We will continue to follow. Again, she likely has Pickwickian syndrome, as well as sleep apnea syndrome, and restrictive lung disease from obesity. Time with Patient: Less than 30
[2024-04-13 11:46] LABS: Glucose,Whole Blood 169 mg/dL (70-110)
[2024-04-13] MEDS: AMOXIC-POT CLAV 875-125MG 1 EACH TAB PO SCH (12:01)
--- NOTE | 2024-04-13 12:14 | P.PN ---
Subjective Progress Note Date: 04/13/24 69 year old F with PMH of COPD with chronic hypoxic respiratory failure on 3 L of the cannula oxygen continuously at home, morbid obesity, hypothyroidism, chronic debility and wheelchair-bound, who was transferred from [facility] where she had presented with urinary complaints along with chest discomfort. The patient underwent an extensive evaluation at [facility]. CT chest was unremarkable with CT abdomen and pelvis showing large anterior ventral abdominal hernia with findings of possible right sided pyelonephritis. EKG had revealed sinus tachycardia at 109 bpm. With poor R w ave progression no other ST/T wave changes. Laboratory evaluation had revealed troponin high-sensitivity 111.5, respiratory viral panel negative, UA consistent with UTI with 3+ blood, BMP showing sodium 135, potassium 3.6, chloride 97, CO2 24, BUN 20, creatinine 1.0, and glucose 201 with lactic acid 0.9. WBC count was 9.6, hemoglobin 14.3, and platelet count 156. Patient was started on Heparin drip for NSTEMI and Rocephin for treatment of pyelonephritis and admitted for further workup and management. Cardiology consulted. Troponins trending 0.058, 0.043, 0.031. Echo showed EF 55% with sever e LV wall thickness. Thought to be Type II ND from sepsis, heparin drip was discontinued. She did have Tmax of 102.9F on 04/06. BCx grew staph epidermitis with repeat BCx negative so far. Renal US negative for obstruction. UCx finalized negative. A-team was called on 04/09 for lethargy, ABG shows pH 7.17 with pCO2 of 78. She was started on BiPAP. CXR with concerns of CHF exacerbation, also started on Lasix IV. Med rec review noted that patient was incorrectly started on MS Contin which was not a home medication along with multiple other sedative medications including Gabapentin, Benadryl and Tizanidine which was discontinued. She was also given a dose on Narcan. Her mentation improved and her respiratory status is currently at baseline. 04/13 Patient was seen and examined. Currently on 4L NC saturating 97%. I was able to call [facility], initial UCx collected there grew ye sensitive E. coli. She has received 6 days of Rocephin so far, we will start Augmentin for 8 more days to complete a total of 14 days. Repeat BCx is negative at 72 hours bacteremia is doubtful at this time. General: non toxic, no distress, appears at stated age, morbidly obese and debilitated Derm: warm, dry Head: atraumatic, normocephalic, symmetric Eyes: EOMI, no lid lag, anicteric sclera Mouth: no lip lesion, mucus membranes moist Cardiovascular: Normal S1 S2. No murmurs, rubs or gallops. No edema Lungs: Decreased BS bilaterally, no accessory muscle use Ext: No muscle atrophy Neuro: no focal neuro deficits Psych: Flat affect Based on my assessment of this patient, this patient meets a high complexity level of care. Acute metabolic encephalopathy likely due to hypercapnic respiratory failure and overuse of sedating medication Acute on chronic hypoxic hypercapnic respiratory failure Diastolic CHF exacerbation: Echo EF 55% with severe LV thickness. Lasix to 40 mg PO QD. Strict intake and outtake. Daily weights. Hypertension: Metoprolol 50 mg PO QD. Lisinopril 20 mg PO QD. HCTZ 12.5 mg PO QD. Sepsis thought to be related to pyelonephritis: UCx > 100k E. coli at [place]. Completed 6 days of Rocephin IV. Continue Augmentin for 8 more days to complete total of 14 days. Staph epidermitis bacteremia: Repeat BCx negative. Doubt true bacteremia. Metabolic alkalosis and prerenal azotemia thought to be related to forced diuresis. Type II NSTEMI: ASA 81 mg PO QD. Lipitor 40 mg PO QD. Metoprolol as above. Cardiology signed off. COPD: Symbicort 2 INH BID. Atrovent 0.5 INH QID. DuoNeb Q2H PRN for SOB/wheezing. Hypothyroid: Synthroid 50 mcg PO QHS. Schizophrenia: Seroquel 200 mg PO QHS + 100 mg PO QD. Discussed with RN, patient usually able to transfer from bed to chair with assistance which she is not able to do at this time. She did not do much with PT and OT when evaluated on 04/11. Will need repeat PT and OT eval. Possible discharge to SNF. Patient is also flat affect and whispering a few words. Much less verbal the last 2 days. This could be due to her Schizophrenia. Will consult Psyc for evaluation. CODE STATUS: FULL CODE DVT Prophylaxis: Heparin SQ GI Prophylaxis: Protonix PO Designated medical POA if patient is not able to make medical decisions for themselves: I have reviewed the following development consultant notes: Pulmonary. I have reviewed the results of the following tests: I have ordered the following tests: I have discussed the care of this patient with the following independent historian: MAGDA. I have independently interpreted the following test below: I have discussed the management of this patient with the following physician: Objective - Vital Signs Vital signs: Vital Signs Temp 98.2 F 04/12/24 20:00 Pulse 100 04/13/24 08:22 Resp 22 04/13/24 04:00 BP 85/49 04/13/24 04:00 Pulse Ox 97 04/13/24 04:00 FiO2 50 04/11/24 11:21 Intake & Output 04/12/24 04/13/24 04/13/24 18:59 06:59 18:59 Intake Total 60 0 Output Total 1100 Balance -1040 0 Weight 175 kg Intake: Oral 60 0 Output: Urine 1100 Other: Voiding Method Indwelling Catheter Indwelling Catheter - Labs CBC & Chem 7: 04/11/24 13:41 04/12/24 08:04 Labs: Abnormal Lab Results - Last 24 Hours (Table) 04/12/24 04/12/24 04/12/24 Range/Units 08:04 08:04 11:45 Chloride 95 L (98-107) mmol/L Carbon Dioxide 37 H (22-30) mmol/L BUN 25 H (7-17) mg/dL Glucose 156 H (74-99) mg/dL POC Glucose (mg/dL) 170 H (70-110) mg/dL Hemoglobin A1c 8.4 H (<=6.0) % 04/12/24 04/12/24 04/13/24 Range/Units 17:03 20:13 06:16 Chloride (98-107) mmol/L Carbon Dioxide (22-30) mmol/L BUN (7-17) mg/dL Glucose (74-99) mg/dL POC Glucose (mg/dL) 168 H 190 H 202 H (70-110) mg/dL Hemoglobin A1c (<=6.0) % Microbiology - Last 24 Hours (Table) 04/09/24 08:35 Blood Culture - Preliminary Blood
[2024-04-13 16:57] LABS: Glucose,Whole Blood 165 mg/dL (70-110)
[2024-04-13 19:35] LABS: Glucose,Whole Blood 180 mg/dL (70-110)
[2024-04-13 20:44] LABS: Glucose,Whole Blood 144 mg/dL (70-110)
[2024-04-13] MEDS: MIRTAZAPINE 45 MG TABLET PO SCH (20:45)
[2024-04-14 05:33] LABS: Glucose,Whole Blood 165 mg/dL (70-110)
[2024-04-14 08:47] LABS: African American GFR (CKD) 38 (>60 ml/min/1.73 sqM); Blood Urea Nitrogen 52 mg/dL (7-17); Calcium 9.8 mg/dL (8.4-10.2); Chloride 92 mmol/L (98-107); Glucose 170 mg/dL (74-99); Non-African American GFR(CKD) 33 (>60 ml/min/1.73 sqM); Potassium 3.3 mmol/L (3.5-5.1); Sodium 139 mmol/L (137-145)
[2024-04-14 08:55] LABS: Anion Gap 10 mmol/L
[2024-04-14 09:40] LABS: Carbon Dioxide 37 mmol/L (22-30)
[2024-04-14 10:24] LABS: HCT 44.7 % (34.0-46.0); HGB 14.1 gm/dL (11.4-16.0); Hypochromasia Slight; MCH 28.7 pg (25.0-35.0); MCHC 31.5 g/dL (31.0-37.0); MCV 91.2 fL (80.0-100.0); Mean Platelet Volume 7.8; Platelet Count 390 k/uL (150-450); RDW 13.9 % (11.5-15.5); WBC 12.9 k/uL (3.8-10.6)
--- NOTE | 2024-04-14 10:47 | P.PN ---
Subjective Progress Note Date: 04/14/24 Principal diagnosis: Respiratory failure. Pulmonary consult dated April 11, 2024. 69-year-old morbidly obese female, transferred from [facility], for urinary tract infection, and pyelonephritis. In addition, the patient apparently was thought to have a non-ST segment elevation myocardial infarction. The patient was brought to [facility], by EMS. We were asked to see her because of possible respiratory failure. We saw her today room 375. She was on BiPAP, with settings of 16/6, and 50%. Saturations were 98%. She is not receiving any IV fluids. Blood gases were done and showed a pO2 of 69, pCO2 of 78, pH of 7.17. The patient was apparently on a number of sedatives, hypnotics, narcotics. Those have all been discontinued. Looking at the patient, she likely has sleep apnea syndrome, and also likely has obesity/hypoventilation syndrome (pickwickian syndrome). The patient apparently has a history of asthma, COPD, GERD, osteoarthritis, esophagitis, OCD, Rapp's esophagus, chronic back pain, seizure history, methicillin-resistant Staph aureus infection, as well as a number of surgeries. The patient also apparently has a history of anxiety/depression, PTSD, schizophrenia, and is a lifelong non- smoker. Current labs include a white count of 6, hemoglobin 1.9, hematocrit 37.9, and platelet count of 199,000. Urinalysis shows small amount of blood, trace leukocyte Estrace positive, 18 RBCs, 7 WBCs, rare WBC clumps, and no bacteria. Blood cultures were positive for coag negative staph, and bacillus species. The patient is currently on Rocephin. Progress note dated April 12, 2024. This is a 69-year-old female who I was asked to see for respiratory failure. The patient likely has obesity/hypoventilation syndrome, and possible sleep apnea syndrome as well. In addition, she may have a component of restrictive lung disease secondary to obesity. Currently, the patient is on 3 L. She is getting saline at 10 cc an hour. The patient is on albuterol and Symbicort because she apparently has a history of asthma. She has a history of lifelong nontobacco use. The BiPAP device is next to her, and it is unclear to me wheth er or not she used it last night. Settings include an IPAP of 16, EPAP of 6, and 50% FiO2. Current labs include a sodium 140, potassium 3.5, chlorides 95, CO2 37, BUN 25, creatinine 0.68. Chest x-ray was consistent with cardiomegaly, and pulmonary vascular congestion. Progress note dated April 13, 2024. 69-year-old female seen today in room 375. The patient does not respond to any questions today, and appears to be relatively comfortable on 4 L nasal cannula. When not on nasal cannula, she uses BiPAP, 16/6, 50%. The patient is not receiving any IV fluids. According to the nurse, the patient has been refusing her medication. Labs today include a glucose of 202. Blood cultures from April 06, are positive for coagulase-negative staph, and bacillus species. Chest x-ray from yesterday showed, resolving pulmonary edema. The patient continues on Augmentin. Progress note dated April 14, 2024. 69-year-old obese white female, seen today in room 375. She is currently on shantelle al O2, at 4 L. When I asked her whether or not she used the BiPAP last night, she cannot remember if she used it or not. BiPAP settings include 16/6, and 50%. Current labs include a white count 12.9, hemoglobin 14.1, hematocrit 44.7, and a normal platelet count. Sodium 139, potassium 3.3, chlorides 92, CO2 37, BUN 52, creatinine 1.60. Glucose 170. Calcium 9.8, magnesium 2.0. Objective - Vital Signs Vital signs: Vital Signs Temp 97.7 F 04/14/24 09:23 Pulse 87 04/14/24 09:23 Resp 20 04/14/24 09:23 BP 102/61 04/14/24 09:23 Pulse Ox 94 L 04/14/24 09:23 FiO2 50 04/11/24 11:21 Intake & Output 04/13/24 04/14/24 04/14/24 18:59 06:59 18:59 Intake Total 2029 540 360 Balance 2029 540 360 Intake: Oral 2029 540 360 Other: Voiding Method Indwelling Catheter Indwelling Catheter # Bowel Movements 0 1 - Exam Currently on 4 L of oxygen. Patient is a bit more interactive today, but cannot remember if she used BiPAP last night. HEENT examination is grossly unremarkable. Neck supple. Full range of motion. No adenopathy thyromegaly or neck vein distention. Cardiovascular examination reveals regular rhythm rate. S1-S2 normal. No S3 or S4. No discernible murmur noted. Heart sounds are distant. Heart rate is 87 bpm. Lungs reveal mostly clear breath sounds. Scattered rhonchi are noted. No wheezes or crackles. Breath sounds equal. Saturations are 94 % on 4 L nasal cannula. Abdomen, obese, soft. No tenderness. Extremities are intact. No cyanosis clubbing or edema. Skin is without rash or lesion. Neurologic examination is brief but nonfocal. - Labs CBC & Chem 7: 04/14/24 10:00 04/14/24 08:16 Labs: Abnormal Lab Results - Last 24 Hours (Table) 04/13/24 04/13/24 04/13/24 Range/Units 11:44 16:56 19:33 WBC (3.8-10.6) k/uL Potassium (3.5-5.1) mmol/L Chloride (98-107) mmol/L Carbon Dioxide (22-30) mmol/L BUN (7-17) mg/dL Creatinine (0.52-1.04) mg/dL Glucose (74-99) mg/dL POC Glucose (mg/dL) 169 H 165 H 180 H (70-110) mg/dL 04/13/24 04/14/24 04/14/24 Range/Units 20:43 05:31 08:16 WBC (3.8-10.6) k/uL Potassium 3.3 L (3.5-5.1) mmol/L Chloride 92 L (98-107) mmol/L Carbon Dioxide 37 H (22-30) mmol/L BUN 52 H (7-17) mg/dL Creatinine 1.60 H (0.52-1.04) mg/dL Glucose 170 H (74-99) mg/dL POC Glucose (mg/dL) 144 H 165 H (70-110) mg/dL 04/14/24 Range/Units 10:00 WBC 12.9 H (3.8-10.6) k/uL Potassium (3.5-5.1) mmol/L Chloride (98-107) mmol/L Carbon Dioxide (22-30) mmol/L BUN (7-17) mg/dL Creatinine (0.52-1.04) mg/dL Glucose (74-99) mg/dL POC Glucose (mg/dL) (70-110) mg/dL Assessment and Plan Assessment: Acute on chronic hypercapnic respiratory failure, likely related to ob esity/hypoventilation syndrome (Pickwickian syndrome), restrictive lung disease secondary to obesity, and possible obstructive sleep apnea syndrome. History of asthma/COPD, in a patient who is a lifelong non-smoker. Morbid obesity. Gastroesophageal reflux disease. History of osteoarthritis/DJD. History of Rapp's esophagus. History of seizure disorder. History of spinal disc herniation. Prior history of methicillin-resistant Staph aureus infection. History of anxiety/depression/PTSD/schizophrenia. Plan: Plan dated April 11, 2024. The patient was on a number of respiratory depressant medications, and they have all been discontinued, as they should be. The patient currently is on BiPAP. The patient's blood gases, suggest a pattern of alveolar hypoventilation, secondary to medications, but also, the patient likely suffers from pickwickian syndrome, as well as restrictive lung disease secondary to obesity, as well as possible underlying obstructive sleep apnea syndrome. The patient is a lifelong non-smoker. She apparently has a history of asthma/COPD?? We will continue to follow make recommendations. Plan dated April 12, 2024. The patient is currently on 3 L nasal cannula. We saw her yesterday, she was on BiPAP, and quite agitated, trying to rip the mask off. Her saturations are 95%. She is getting saline at 10 cc an hour. She continues on Symbicort, and albuterol, for asthma. She apparently is a lifelong nontobacco user. She likely has pickwickian syndrome, and possible obstructive sleep apnea syndrome. In addition, there may be a component of restrictive lung disease, extrapulmonary, secondary to obesity. We will continue to follow. Prognosis is guarded. Plan dated April 13, 2024. The patient appears to be relatively stable. She is on 4 L nasal cannula. She does use BiPAP, with settings of 16/6, and 50%. Labs, x-rays, medications are reviewed. She continues on Symbicort and albuterol for her asthma. She was placed on Augmentin by the primary service. We will continue to follow. Again, she likely has Pickwickian syndrome, as well as sleep apnea syndrome, and restrictive lung disease from obesity. Plan dated April 14, 2024. The patient is seen today in room 375. She continues on O2, by nasal cannula at 4 L. Saturations are in the mid 90s. When asked whether or not she used BiPAP last night, the patient cannot remember. Labs, x-rays, and all medications are reviewed. We will continue to follow make recommendations along the way. Prognosis is guarded. Time with Patient: Less than 30
[2024-04-14] MEDS: POTASSIUM CHLORIDE ER 20 MEQ TAB.ER PO ONE (11:43)
[2024-04-14] MEDS: POTASSIUM CHLORIDE ER 20 MEQ TAB.ER PO STA (11:43)
[2024-04-14 11:53] LABS: Glucose,Whole Blood 201 mg/dL (70-110)
--- NOTE | 2024-04-14 13:53 | P.CN ---
Psychiatric Consult - . Consult date: 04/14/24 Consult:: 04/14/24 13:10 IDENTIFYING DATA: This patient is a 69-year-old female, is , she has 2 kids, she lives with her daughter in a house, she collects SSI REASON FOR REFERRAL: Psychiatry was consulted for "flat affect, history of schiz ophrenia" HISTORY OF PRESENT ILLNESS: The patient presented to the hospital initially on 04/06 as a transfer from an outside hospital. Patient apparently has a history of COPD, morbid obesity, was diagnosed with polynephritis and an NSTEMI and currently being treated for these on the medical floor. Patient was seen today laying in the bed and agreeable to speak to commercial insurance underwriter. She states that she was dealing with a "heart attack" and also states that she has severe lung disease and was having shortness of breath. Claims that she has a history of "lots of things" when asked about her psychiatric history. She states that she has a history of schizophrenia. Also claims that she deals with chronic anxiety. States that she is feeling down about her health issues, claims that her mood is mildly depressed, is endorsing anxiety, states that she also does have a history of panic attacks. Denies any paranoia at this time, states that her sleep has been on and off, appetite has been poor. At this time patient denies any suicidal or homical ideations, intent or plan. Patient denies any auditory, visual hallucinations and denies any paranoia or delusions. Patients admits to using no recreational drugs or cigarettes PAST PSYCHIATRIC HISTORY: Patient has a a history of suppose it schizophrenia bipolar, depression and anxiety. She is currently on Seroquel Remeron and BuSpar patient denies any previous psychiatric hospitalizations. Patient denies any psychiatric outpatient follow-up. Patient denies any history of suicide attempts in the past. PAST MEDICAL HISTORY:Past Medical History: Asthma, COPD, GERD/Reflux, Osteoarthritis (OA) Additional Past Medical History / Comment(s): DJD, Esophagitis, OCD, barretts esophagus, spinal disk herniation, severe spinal pain. pt states she has seizures x1/week History of Any Multi-Drug Resistant Organisms: MRSA Date of last positivie culture/infection: 12/19/2009 MDRO Source:: Abdomen Past Surgical History: Appendectomy, Back Surgery, Section, Cholecystectomy, Hysterectomy Additional Past Surgical History / Comment(s): D&C, partial hysterectomy, Past Anesthesia/Blood Transfusion Reactions: No Reported Reaction Past Psychological History: Anxiety, Depression, PTSD, Schizophrenia Smoking Status: Never smoker, Second hand smoke exposure Past Alcohol Use History: None Reported Past Drug Use History: Marijuana ALLERGIES: as per EMR. CHEMICAL DEPENDENCY HISTORY: as per HPI. 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 Claims that she lives with her daughter in a house, she has 2 kids, she collects SSI. She is a . MENTAL STATUS EXAM: General Appearance: Patient appears to be morbidly obese, wearing glasses, stated age is alert, attempts to be cooperative. Patient appears to have fair hygiene and grooming wearing hospital gown with fair eye contact. Behavior: Patient is calmly lying in bed without any agitated behavior. Attempts to cooperate Speech: Patient's speech is fluent and nonpressured. Monotone Mood/Affect: Patient reports their mood is "a bit depressed and anxious", affect is congruent and constricted Suicidality/Homicidality: Patient denies having any suicidal or homicidal id eation intent or plan. Perceptions: Patient denies any visual hallucinations and denies any auditory hallucinations Though content/process: There is no evidence of any delusional thought content and thought process is linear and goal-directed. Memory and concentration: AOX3, grossly intact for the purposes of this session. Can spell "WORLD" backwards Judgment and insight: Fair IMPRESSIONS: Mood disorder unspecified Generalized anxiety disorder Morbid obesity PLAN: -At this time patient DOES NOT meet criteria for inpatient psychiatric admission. -Would recommend the following medication changes/additions: Can continue with Seroquel Remeron and BuSpar as prescribed. Patient is agreeable to try melatonin 5 mg nightly for sleep and also Cymbalta will give 1 dose now 30 mg and increase to 30 mg twice daily starting tomorrow morning for mood/anxiety. -cushion worker to provide patient with outpatient mental health/psychiatry resources for appropriate follow up upon discharge -Communicated plan to patient's nurse -Psychiatry will sign off at this time -Please contact with any questions. 09/02/24 13:48
--- NOTE | 2024-04-14 14:51 | P.PN ---
Subjective Progress Note Date: 04/14/24 Subjective: Patient was seen and examined at the bedside. No acute events overnight. All Systems reviewed and pertinent positives and negatives noted in HPI, all other symptoms are negative Objective: Vital signs reviewed. General: non toxic, no distress, appears older than stated age, morbid obesity Derm: no unusual rashes/lesions, warm Head: atraumatic, normocephalic, symmetric Eyes: EOMI, no lid lag, anicteric sclera, pupils equal round reactive to light ENT: Nose and ears atraumatic Neck: No cervical lymphadenopathy, trachea midline, supple Mouth: no lip lesion, mucus membranes moist Cardiovascular: S1S2 reg, no murmur, positive dorsalis pedis pulse bilateral, +1 bilateral pitting edema Lungs: Decreased breath sounds bilaterally Abdominal: soft, nontender, nondistended, no guarding Ext: muscle strength 5 out of 5 in all 4 extremities grossly, no gross muscle atrophy, no contractures, Neuro: CN II-XI grossly intact, no gross focal neuro deficits Psych: Alert, oriented, flat affect Data reviewed today: WBC 12.9, hemoglobin 14.1, hematocrit 44.7, platelet count 390 Sodium 139, potassium 3.3, chloride 92, bicarb 37, BUN 52, creatinine 1.6 Images: No new imaging Assessment and Plan: 69-year-old female with past medical history of COPD and chronic hypoxemic respiratory failure on 3 L of the cannula oxygen continuously at home, morbid obesity, hypothyroidism, chronic debility and wheelchair-bound was a transfer from [facility] who presented to the ED on 04/07/2024 with urinary complaints and chest discomfort. Patient was initially evaluated for NSTEMI secondary to diastolic CHF. Cardiology was consulted. Patient was started on IV Lasix. She also had hypercapnic respiratory failure secondary to sedated medications. Was briefly on BiPAP now resolved. #Acute kidney injury secondary to prerenal versus intrarenal azotemia #Hypokalemia BUN 52, creatinine 1.6, magnesium 2.0, calcium 3.3 Discontinue Lasix 40 mg p.o. Discontinue Lisinopril/HCTZ 20/12.5 mg p.o. IV normal saline 120 cc/h Start potassium chloride 40 mEq p.o. once stat Repeat BMP tomorrow a.m. #Sepsis secondary to pyelonephritis #Leukocytosis secondary to hemoconcentration Discontinue Lasix 40 mg p.o. Monitor CBC tomorrow a.m. Blood culture on 04/06/2024: Staph epidermidis, likely contamination Repeat blood culture on 04/09/2024: Negative Urine culture at [facility]: Pansensitive E. coli Urine culture on 04/07/2024: Negative UA on 04/11/2024: Urine nitrite negative Repeat urinalysis tomorrow a.m. Completed 6 days of Rocephin IV. Continue Augmentin for 8 more days to complete total of 14 days. Voiding trial today #Acute on chronic hypercapnic hypoxemic respiratory failure, secondary to pickwickian syndrome, restrictive lung disease secondary to obesity, and possible obstructive sleep apnea syndrome BiPAP as needed or as tolerated Continue on 4 L via nasal cannula; baseline at home is 3-4 L via nasal cannula DuoNebs [id number] and as needed Pulmonology note reviewed #Diastolic congestive heart failure with preserved ejection fraction, no longer exacerbation Echocardiogram done on 04/07/2024 shows LVEF 55% with severe left ventricular w all thickness Continue with telemetry monitoring Continue with aspirin 81 mg p.o. daily, Lipitor 40 mg p.o. daily Continue with metoprolol 50 mg p.o. once daily Check daily weights Strict I's and O's Cardiology signed off #Debility: Wheelchair-bound PT/OT #Hyperglycemia short acting sliding scale insulin, monitor for hypoglycemia Schizophrenia Depression/anxiety -Psychiatry note from, Cymbalta 30 twice daily -Continue Seroquel home dose, BuSpar 15 twice daily Chronic conditions: Hypothyroidism: Synthroid 50 mcg p.o. at bedtime Morbid obesity DVT prophylaxis: Subcu heparin Disposition: Home with home care possibly tomorrow I have seen and evaluated the patient today. Discussed with the resident and agree with the residents finding and plan as documented in the resident's note. Changes highlighted in blue font. Objective - Vital Signs Vital signs: Vital Signs Temp 97.9 F 04/13/24 20:00 Pulse 87 04/14/24 04:00 Resp 20 04/14/24 04:00 BP 97/62 04/14/24 04:00 Pulse Ox 93 L 04/14/24 04:00 FiO2 50 04/11/24 11:21 Intake & Output 04/13/24 04/14/24 04/14/24 18:59 06:59 18:59 Intake Total 2029 540 Balance 2029 540 Intake: Oral 2029 Other: Voiding Method Indwelling Catheter Indwelling Catheter # Bowel Movements 0 1 - Labs CBC & Chem 7: 04/14/24 10:00 04/14/24 08:16 Labs: Abnormal Lab Results - Last 24 Hours (Table) 04/13/24 04/13/24 04/13/24 Range/Units 11:44 16:56 19:33 POC Glucose (mg/dL) 169 H 165 H 180 H (70-110) mg/dL 04/13/24 04/14/24 Range/Units 20:43 05:31 POC Glucose (mg/dL) 144 H 165 H (70-110) mg/dL
[2024-04-14] MEDS: ONDANSETRON 4 MG/2 ML VIAL IVP PRN (16:19)
[2024-04-14] MEDS: DULoxetine HCL 30 MG CAPSULE.DR PO ONE (16:19)
[2024-04-14 16:56] LABS: Glucose,Whole Blood 146 mg/dL (70-110)
[2024-04-14 19:51] LABS: Glucose,Whole Blood 167 mg/dL (70-110)
[2024-04-14] MEDS: MELATONIN 5 MG TABLET PO SCH (22:02)
[2024-04-15 06:08] LABS: Glucose,Whole Blood 172 mg/dL (70-110)
[2024-04-15 06:33] LABS: Appearance,Urine Cloudy (Clear); Bacteria,Urine Rare /hpf; Bilirubin,Urine 1+ (Negative); Blood,Urine Small (Negative); Budding Yeast,Urine Few /hpf; Color,Urine Yellow; Glucose,Urine (UA) Negative (Negative); Hyaline Casts,Urine 83 /lpf (0-2); Ketones,Urine Trace (Negative); Leukocyte Esterase,Urine Large (Negative); Mucus,Urine Rare /hpf; Nitrite,Urine Negative (Negative); Protein,Urine Trace (Negative); RBC,Urine 18 /hpf (0-5); Specific Gravity,Urine 1.025 (1.001-1.035); Squamous Epithelial Cell,Urine 9 /hpf (0-4); WBC,Urine 27 /hpf (0-5)
[2024-04-15] MEDS: DULoxetine HCL 30 MG CAPSULE.DR PO SCH (09:26)
[2024-04-15 09:45] LABS: African American GFR (CKD) 18 (>60 ml/min/1.73 sqM); Blood Urea Nitrogen 70 mg/dL (7-17); Calcium 8.8 mg/dL (8.4-10.2); Chloride 92 mmol/L (98-107); Glucose 164 mg/dL (74-99); Non-African American GFR(CKD) 15 (>60 ml/min/1.73 sqM); Potassium 3.1 mmol/L (3.5-5.1); Sodium 138 mmol/L (137-145)
[2024-04-15 09:49] LABS: Basophils # (A) 0.1 k/uL (0-0.2); Basophils % (A) 1 %; Eosinophils # (A) 0.3 k/uL (0-0.7); Eosinophils % (A) 2 %; HCT 44.8 % (34.0-46.0); HGB 14.3 gm/dL (11.4-16.0); Lymphocytes # (A) 1.7 k/uL (1.0-4.8); Lymphocytes % (A) 11 %; MCH 29.5 pg (25.0-35.0); MCHC 31.9 g/dL (31.0-37.0); MCV 92.4 fL (80.0-100.0); Mean Platelet Volume 8.6; Monocytes # (A) 0.6 k/uL (0-1.0); Monocytes % (A) 4 %; Neutrophils # (A) 12.4 k/uL (1.3-7.7); Neutrophils % (A) 81 %; Platelet Count 345 k/uL (150-450); RBC 4.85 m/uL (3.80-5.40); RDW 14.1 % (11.5-15.5); WBC 15.4 k/uL (3.8-10.6)
[2024-04-15 09:51] LABS: Anion Gap 13 mmol/L; Carbon Dioxide 33 mmol/L (22-30)
--- NOTE | 2024-04-15 11:09 | US ---
EXAMINATION TYPE: US kidneys/renal and bladder DATE OF EXAM: 04/15/2024 COMPARISON: 04/07/2024 CLINICAL INDICATION: Female, 69 years old with history of becka; BECKA extremely limited due to morbidly obesity and bowel gas. EXAM MEASUREMENTS: Right Kidney: Unable to visualize Left Kidney: Unable to visualize Right Kidney: Obscured by overlying bowel gas Left Kidney: Obscured by overlying bowel gas Bladder: Not visualized Nondiagnostic exam.. IMPRESSION: Nondiagnostic exam. The kidneys and bladder could not be identified likely due to overlying bowel gas .
--- NOTE | 2024-04-15 11:35 | P.NPCON ---
History of Present Illness - Reason for Consult acute renal failure - History of Present Illness patient is a 69-year-old female with history of COPD, morbid obesity, chronic debility who was admitted to the hospital with complaints of chest pain. She was also treated for UTI. Urine culture however showed no growth. Serum creatinine was 1.1 on admission and improved to 0.68 on 04/12/2024. Subsequently serum creatinine has increased to 1.6 yesterday and it is 3.0 today. episodes of hypotension noted with systolic blood pressure in the 90s yesterday and in the 80s on 04/13/2024. Arsh inhibitors have been discontinued. Patient also had a Beverly catheter which was removed yesterday. Ultrasound on 04/07/2024 did not show any evidence of obstruction. Patient was also maintained on Lasix which is now discontinued. Review of Systems as per HPI no diarrhea vomiting nausea noted. Past Medical History Past Medical History: Asthma, COPD, GERD/Reflux, Osteoarthritis (OA), Seizure Disorder Additional Past Medical History / Comment(s): DJD, Esophagitis, OCD, barretts esophagus, spinal disk herniation, severe spinal pain. pt states last seizure 6 months ago History of Any Multi-Drug Resistant Organisms: None Reported Date of last positivie culture/infection: 12/19/2009 MDRO Source:: Abdomen Past Surgical History: Back Surgery, Section, Hysterectomy Additional Past Surgical History / Comment(s): D&C, partial hysterectomy Past Anesthesia/Blood Transfusion Reactions: No Reported Reaction Past Psychological History: Anxiety, Depression, PTSD, Schizophrenia Additional Psychological History / Comment(s): OCD Smoking Status: Never smoker Past Alcohol Use History: None Reported Past Drug Use History: Marijuana Additional Drug Use History / Comment(s): Marijuana gummies for stress - Past Family History Family Family Medical History: Hyperlipidemia Medications and Allergies Home Medications Medication Instructions Recorded Confirmed Type Albuterol Sulfate [Proair Hfa] 2 puff INHALATION RT-Q4H PRN 03/27/14 04/07/24 History Ipratropium/Albuterol Sulfate 3 ml INHALATION RT-Q4H 03/27/14 04/07/24 History [Duoneb 0.5 mg-3 mg/3 ml Soln] Omeprazole 20 mg PO BID 03/27/14 04/07/24 History Metoprolol Succinate [Toprol XL] 25 mg PO DAILY 02/04/21 04/07/24 History Mirtazapine [Remeron] 45 mg PO HS 02/04/21 04/07/24 History Multivitamins, Thera [Multivitamin 1 tab PO DAILY 02/04/21 04/07/24 History (formulary)] QUEtiapine FUMARATE [SEROquel] 200 mg PO HS 02/04/21 04/07/24 History QUEtiapine [SEROquel] 50 mg PO HS 02/04/21 04/07/24 History QUEtiapine [SEROquel] 100 mg PO DAILY 02/04/21 04/07/24 History busPIRone HCL [Buspar] 30 mg PO BID PRN 02/04/21 04/07/24 History Fluticasone Propion/Salmeterol 1 puff INHALATION RT-BID 04/07/24 04/07/24 History [Wixela 500-50 Inhub] Umeclidinium Velva [Incruse 1 puff INHALATION RT-DAILY 04/07/24 04/07/24 His tory Ellipta] Vitamin C(Unknown Dose) 1 tab PO DAILY 04/07/24 04/07/24 History Vitamin D(Unknown Dose) 1 tab PO DAILY 04/07/24 04/07/24 History Allergies Allergy/AdvReac Type Severity Reaction Status Date / Time azithromycin Allergy Swelling Verified 04/07/24 09:12 diltiazem HCl [From Cardizem] Allergy Anaphylaxis Verified 04/07/24 09:12 doxycycline Allergy Swelling Verified 04/07/24 09:12 hydromorphone HCl AdvReac Nausea & Verified 04/07/24 09:12 [From Dilaudid] Vomiting Physical Exam Vitals: Vital Signs Temp Pulse Pulse Pulse Resp BP Pulse Ox 04/15/24 08:21 80 04/15/24 08:06 76 04/15/24 08:00 86 19 118/65 96 04/15/24 04:54 86 17 100/68 96 04/15/24 00:01 88 24 96/62 95 04/14/24 20:27 97.8 F 82 18 106/70 94 L 04/14/24 16:00 97.8 F 60 18 126/69 98 04/14/24 15:42 92 04/14/24 15:32 92 04/14/24 11:44 97.9 F 100 20 91/53 96 04/14/24 11:37 100 04/14/24 11:28 100 Intake and Output 04/14/24 04/15/24 04/15/24 22:59 06:59 14:59 Intake Total 360 50 Output Total 150 110 Balance 210 -110 50 Intake: Oral 360 50 Output: Urine 150 110 Straight 110 Other: Voiding Method Bedside Commode Bedside Commode # Bowel Movements 2 Weight 186.3 kg patient is awake, comfortable, no acute distress. Examination of the heart S1 and S2 Examination the lungs bilateral breath sounds are heard Examination of the lower extremities shows no evidence of edema Abdomen is morbidly obese Patient is alert oriented 3 Results - Lab Results Most recent lab results ABG pH 7.17 (7.35-7.45) L* 04/09/24 06:35 ABG pCO2 78 mmHg (35-45) H* 04/09/24 06:35 ABG pO2 69 mmHg (83-108) L 04/09/24 06:35 ABG HCO3 28 mmol/L (21-25) H 04/09/24 06:35 ABG O2 Saturation 92.5 % (94-97) L 04/09/24 06:35 Calcium 8.8 mg/dL (8.4-10.2) 04/15/24 09:04 Magnesium 2.0 mg/dL (1.6-2.3) 04/14/24 10:03 04/15/24 09:04 04/15/24 09:04 Assessment and Plan Assessment: 1. Acute kidney injury, ATN currently oliguric secondary to hypotension and volume depletion. 2. Pyuria with urine culture showing no growth 3. Volume overload on initial admission status post diuresis. Ejection fraction at 55%. 4. Acute hypoxic respiratory failure on top of chronic hypercapnic respiratory failure. 5. History of anxiety/depression/posttraumatic stress disorder 6. Hypokalemia secondary to diuretics, replace cautiously in view of poor urine output. Plan: agree with discontinuation of ARSH inhibitor as an diuretics. Fluid bolus 1 now Repeat bladder scan Avoid nephrotoxic agents. Repeat labs in a.m. Replace potassium cautiously. Thank you for the consultation. We will continue to follow the patient with you during her hospitalization.
[2024-04-15 11:55] LABS: Glucose,Whole Blood 192 mg/dL (70-110)
[2024-04-15] MEDS: POTASSIUM CHLORIDE ER 20 MEQ TAB.ER PO STA (12:00)
[2024-04-15] MEDS: SODIUM CHLORIDE 0.9% 1,000 ML IV ONE (12:00)
--- NOTE | 2024-04-15 12:44 | P.PN ---
Subjective Progress Note Date: 04/15/24 Subjective: Patient was seen and examined at the bedside. Patient is complaining of increased bowel movements overnight. Patient reports 3-4 bowel movements with mild generalized abdominal pain. Urine output has gone down. All Systems reviewed and pertinent positives and negatives noted in HPI, all other symptoms are negative Objective: Vital signs reviewed. General: non toxic, no distress, appears older than stated age, morbid obesity Derm: no unusual rashes/lesions, warm Head: atraumatic, normocephalic, symmetric Eyes: EOMI, no lid lag, anicteric sclera, pupils equal round reactive to light ENT: Nose and ears atraumatic Neck: No cervical lymphadenopathy, trachea midline, supple Mouth: no lip lesion, mucus membranes moist Cardiovascular: S1S2 reg, no murmur, positive dorsalis pedis pulse bilateral, +1 bilateral pitting edema Lungs: Decreased breath sounds bilaterally Abdominal: soft, nontender, nondistended, no guarding Ext: muscle strength 5 out of 5 in all 4 extremities grossly, no gross muscle atrophy, no contractures, Neuro: CN II-XI grossly intact, no gross focal neuro deficits Psych: Alert, oriented, flat affect Data reviewed today: WBC 15.4, hemoglobin 14.3, hematocrit 44.8, platelet count 345, sodium 138, potassium 3.1, chloride 92, bicarb 33, BUN 70, creatinine 3.01, glucose 164 Images: Kidney and bladder ultrasound was nondiagnostic due to morbid obesity and bowel gas Assessment and Plan: 69-year-old female with past medical history of COPD and chronic hypoxemic respiratory failure on 3 L of the cannula oxygen continuously at home, morbid obesity, hypothyroidism, chronic debility and wheelchair-bound was a transfer from [facility] who presented to the ED on 04/07/2024 with urinary complaints and chest discomfort. Patient was initially evaluated for NSTEMI secondary to diastolic CHF. Cardiology was consulted. Patient was started on IV Lasix. She also had hypercapnic respiratory failure secondary to sedated medications. Was briefly on BiPAP now resolved. Patient developed BECKA seco ndary to prerenal azotemia likely due to diuretic medication. Nephrology is consulted for worsening creatinine level. #Acute kidney injury secondary to prerenal versus intrarenal azotemia #Hypokalemia BUN 70, creatinine 3.01 Discontinue Lasix 40 mg p.o. Discontinue Lisinopril/HCTZ 01/08.5 mg p.o. Continue with IV 0.45% normal saline at 75 cc/h Start potassium chloride 20 mEq p.o. once stat Ordered urine creatinine, sodium and urea nitrogen Order urine eosinophils for interstitial nephritis workup Oxybutynin has been discontinued Nephrology been consulted #Sepsis secondary to pyelonephritis #Leukocytosis secondary to hemoconcentration versus reactive Discontinue Lasix 40 mg p.o. Continue with IV 0.45% normal saline at 75 cc/h Monitor CBC tomorrow a.m. Blood culture on 04/06/2024: Staph epidermidis, likely contamination Repeat blood culture on 04/09/2024: Negative Urine culture at [facility]: Pansensitive E. coli Urine culture on 04/07/2024: Negative UA on 04/11/2024: Urine nitrite negative Order UA reflex to culture Completed 6 days of Rocephin IV. Continue Augmentin for 8 more days to complete total of 14 days. #Acute on chronic hypercapnic hypoxemic respiratory failure, secondary to pickwickian syndrome, restrictive lung disease secondary to obesity, and possible obstructive sleep apnea syndrome BiPAP as needed or as tolerated Continue on 4 L via nasal cannula; baseline at home is 3-4 L via nasal cannula DuoNebs [id number] and as needed Discussed management with pulmonology #Diastolic congestive heart failure with preserved ejection fraction, no longer exacerbation Echocardiogram done on 04/07/2024 shows LVEF 55% with severe left ventricular wall thickness Continue with telemetry monitoring Continue with aspirin 81 mg p.o. daily, Lipitor 40 mg p.o. daily Continue with metoprolol 50 mg p.o. once daily Check daily weights Strict I's and O's Cardiology signed off #Acute diarrhea C. difficile EIA ordered to rule out C. difficile infection Hold Imodium 2 mg p.o. 4 times daily as needed Consider CT abdomen pelvis if worsening abdominal pain #Debility: Wheelchair-bound PT/OT #Hyperglycemia short acting sliding scale insulin, monitor for hypoglycemia Schizophrenia Depression/anxiety -Psychiatry note from, Cymbalta 30 twice daily -Continue Seroquel home dose, BuSpar 15 twice daily Chronic conditions: Hypothyroidism: Synthroid 50 mcg p.o. at bedtime Morbid obesity DVT prophylaxis: Subcu heparin Disposition: Pending clinical course I have seen and evaluated the patient today. Discussed with the resident and agree with the residents finding and plan as documented in the resident's note. Changes highlighted in blue font. Objective - Vital Signs Vital signs: Vital Signs Temp 97.8 F 04/14/24 20:27 Pulse 86 04/15/24 04:54 Resp 17 04/15/24 04:54 BP 100/68 04/15/24 04:54 Pulse Ox 96 04/15/24 04:54 FiO2 50 04/11/24 11:21 Intake & Output 04/14/24 04/15/24 04/15/24 18:59 06:59 18:59 Intake Total 960 Output Total 150 110 Balance 810 -110 Weight 186.3 kg Intake: Oral 960 Output: Urine 150 110 Straight 110 Other: Voiding Method Indwelling Catheter Bedside Commode - Labs CBC & Chem 7: 04/15/24 09:04 04/15/24 09:04 Labs: Abnormal Lab Results - Last 24 Hours (Table) 04/14/24 04/14/24 04/14/24 Range/Units 08:16 10:00 11:51 WBC 12.9 H (3.8-10.6) k/uL Potassium 3.3 L (3.5-5.1) mmol/L Chloride 92 L (98-107) mmol/L Carbon Dioxide 37 H (22-30) mmol/L BUN 52 H (7-17) mg/dL Creatinine 1.60 H (0.52-1.04) mg/dL Glucose 170 H (74-99) mg/dL POC Glucose (mg/dL) 201 H (70-110) mg/dL Urine Appearance (Clear) Urine Protein (Negative) Urine Ketones (Negative) Urine Blood (Negative) Urine Bilirubin (Negative) Ur Leukocyte Esterase (Negative) Urine RBC (0-5) /hpf Urine WBC (0-5) /hpf Ur Squamous Epith Cells (0-4) /hpf Urine Bacteria (None) /hpf Hyaline Casts (0-2) /lpf Urine Mucus (None) /hpf Urine Yeast (Budding) (None) /hpf 04/14/24 04/14/24 04/15/24 Range/Units 16:54 19:49 05:20 WBC (3.8-10.6) k/uL Potassium (3.5-5.1) mmol/L Chloride (98-107) mmol/L Carbon Dioxide (22-30) mmol/L BUN (7-17) mg/dL Creatinine (0.52-1.04) mg/dL Glucose (74-99) mg/dL POC Glucose (mg/dL) 146 H 167 H (70-110) mg/dL Urine Appearance Cloudy H (Clear) Urine Protein Trace H (Negative) Urine Ketones Trace H (Negative) Urine Blood Small H (Negative) Urine Bilirubin 1+ H (Negative) Ur Leukocyte Esterase Large H (Negative) Urine RBC 18 H (0-5) /hpf Urine WBC 27 H (0-5) /hpf Ur Squamous Epith Cells 9 H (0-4) /hpf Urine Bacteria Rare H (None) /hpf Hyaline Casts 83 H (0-2) /lpf Urine Mucus Rare H (None) /hpf Urine Yeast (Budding) Few H (None) /hpf 04/15/24 Range/Units 06:00 WBC (3.8-10.6) k/uL Potassium (3.5-5.1) mmol/L Chloride (98-107) mmol/L Carbon Dioxide (22-30) mmol/L BUN (7-17) mg/dL Creatinine (0.52-1.04) mg/dL Glucose (74-99) mg/dL POC Glucose (mg/dL) 172 H (70-110) mg/dL Urine Appearance (Clear) Urine Protein (Negative) Urine Ketones (Negative) Urine Blood (Negative) Urine Bilirubin (Negative) Ur Leukocyte Esterase (Negative) Urine RBC (0-5) /hpf Urine WBC (0-5) /hpf Ur Squamous Epith Cells (0-4) /hpf Urine Bacteria (None) /hpf Hyaline Casts (0-2) /lpf Urine Mucus (None) /hpf Urine Yeast (Budding) (None) /hpf Microbiology - Last 24 Hours (Table) 04/09/24 08:35 Blood Culture - Final Blood
[2024-04-15] MEDS: SODIUM CHLORIDE 0.45% 1,000 ML IV SCH (14:03)
--- NOTE | 2024-04-15 14:31 | P.PN ---
Subjective Progress Note Date: 04/15/24 69-year-old morbidly obese female, transferred from [facility], for urinary tract infection, and pyelonephritis. In addition, the patient apparently was thought to have a non-ST segment elevation myocardial infarction. The patient was brought to [facility], by EMS. We were asked to see her because of possible respiratory failure. We saw her today room 375. She was on BiPAP, with settings of 16/6, and 50%. Saturations were 98%. She is not receiving any IV fluids. Blood gases were done and showed a pO2 of 69, pCO2 of 78, pH of 7.17. The patient was apparently on a number of sedatives, hypnotics, narcotics. Those have all been discontinued. Looking at the patient, she likely has sleep apnea syndrome, and also likely has obesity/hypoventilation syndrome (pickwickian syndrome). The patient apparently has a history of asthma, COPD, GERD, osteoarthritis, esophagitis, OCD, Rapp's esophagus, chronic back pain, seizure history, methicillin-resistant Staph aureus inf ection, as well as a number of surgeries. The patient also apparently has a history of anxiety/depression, PTSD, schizophrenia, and is a lifelong non- smoker. Current labs include a white count of 6, hemoglobin 1.9, hematocrit 37.9, and platelet count of 199,000. Urinalysis shows small amount of blood, trace leukocyte Estrace positive, 18 RBCs, 7 WBCs, rare WBC clumps, and no bacteria. Blood cultures were positive for coag negative staph, and bacillus species. The patient is currently on Rocephin. Progress note dated April 12, 2024. This is a 69-year-old female who I was asked to see for respiratory failure. The patient likely has obesity/hypoventilation syndrome, and possible sleep apnea syndrome as well. In addition, she may have a component of restrictive lung disease secondary to obesity. Currently, the patient is on 3 L. She is getting saline at 10 cc an hour. The patient is on albuterol and Symbicort because she apparently has a history of asthma. She has a history of lifelong nontobacco use. The BiPAP device is next to her, and it is unclear to me whether or not she used it last night. Settings include an IPAP of 16, EPAP of 6, and 50% FiO2. Current labs include a sodium 140, potassium 3.5, chlorides 95, CO2 37, BUN 25, creatinine 0.68. Chest x-ray was consistent with cardiomegaly, and pulmonary vascular congestion. Progress note dated April 13, 2024. 69-year-old female seen today in room 375. The patient does not respond to any questions today, and appears to be relatively comfortable on 4 L nasal cannula. When not on nasal cannula, she uses BiPAP, 16/6, 50%. The patient is not receiving any IV fluids. According to the nurse, the patient has been refusing her medication. Labs today include a glucose of 202. Blood cultures from April 06, are positive for coagulase-negative staph, and bacillus species. Chest x-ray from yesterday showed, resolving pulmonary edema. The patient continues on Augmentin. Progress note dated April 14, 2024. 69-year-old obese white female, seen today in room 375. She is currently on nasal O2, at 4 L. When I asked her whether or not she used the BiPAP last night, she cannot remember if she used it or not. BiPAP settings include 16/6, and 50%. Current labs include a white count 12.9, hemoglobin 14.1, hematocrit 44.7, and a normal platelet count. Sodium 139, potassium 3.3, chlorides 92, CO2 37, BUN 52, creatinine 1.60. Glucose 170. Calcium 9.8, magnesium 2.0. 08/31/2023, seen the patient for a follow-up. The patient is resting comfortably in bed. She denies having any significant respiratory distress. Noted the patient has sustained acute kidney injury. Creatinine is on the rise and the patient was taken off diuretics. No major edema lower extremities bilaterally. No altered mentation. The patient's white cell count today is at 15.4 with a hemoglobin of 14.3 and a platelet count of 345. Sodium level is at 138, BUN 70 with a creatinine of 3.01 and a potassium level of 3.1. She is on Augmentin. She is on Symbicort. He is on albuterol/ipratropium nebulizer treatments 4 times a day. Rest of the medications are essentially unchanged. She is on heparin subcu for DVT prophylaxis. Objective - Vital Signs Vital signs: Vital Signs Temp 97.8 F 04/14/24 20:27 Pulse 80 04/15/24 08:21 Resp 19 04/15/24 08:00 BP 118/65 04/15/24 08:00 Pulse Ox 96 04/15/24 08:00 FiO2 50 04/11/24 11:21 Intake & Output 04/14/24 04/15/24 04/15/24 18:59 06:59 18:59 Intake Total 960 50 Output Total 150 110 Balance 810 -110 50 Weight 186.3 kg Intake: Oral 960 50 Output: Urine 150 110 Straight 110 Other: Voiding Method Indwelling Catheter Bedside Commode # Bowel Movements 2 - Exam Currently on 4 L of oxygen. Patient is morbidly obese,, comfortable, communicating, no signs of encephalopathy or CO2 narcosis HEENT examination is grossly unremarkable. Neck supple. Full range of motion. No adenopathy thyromegaly or neck vein distention. Cardiovascular examination reveals regular rhythm rate. S1-S2 normal. No S3 or S4. No discernible murmur noted. Heart sounds are distant. Lungs reveal mostly clear breath sounds. Scattered rhonchi are noted. No whe ezes or crackles. Breath sounds equal. Saturations are 94 % on 4 L nasal cannula. Abdomen, obese, soft. No tenderness. Extremities are intact. No cyanosis clubbing or edema. Skin is without rash or lesion. Neurologic examination is brief but nonfocal. - Labs CBC & Chem 7: 04/15/24 09:04 04/15/24 09:04 Labs: Abnormal Lab Results - Last 24 Hours (Table) 04/14/24 04/14/24 04/14/24 Range/Units 11:51 16:54 19:49 WBC (3.8-10.6) k/uL Neutrophils # (1.3-7.7) k/uL Potassium (3.5-5.1) mmol/L Chloride (98-107) mmol/L Carbon Dioxide (22-30) mmol/L BUN (7-17) mg/dL Creatinine (0.52-1.04) mg/dL Glucose (74-99) mg/dL POC Glucose (mg/dL) 201 H 146 H 167 H (70-110) mg/dL Urine Appearance (Clear) Urine Protein (Negative) Urine Ketones (Negative) Urine Blood (Negative) Urine Bilirubin (Negative) Ur Leukocyte Esterase (Negative) Urine RBC (0-5) /hpf Urine WBC (0-5) /hpf Ur Squamous Epith Cells (0-4) /hpf Urine Bacteria (None) /hpf Hyaline Casts (0-2) /lpf Urine Mucus (None) /hpf Urine Yeast (Budding) (None) /hpf 04/15/24 04/15/24 04/15/24 Range/Units 05:20 06:00 09:04 WBC 15.4 H (3.8-10.6) k/uL Neutrophils # 12.4 H (1.3-7.7) k/uL Potassium (3.5-5.1) mmol/L Chloride (98-107) mmol/L Carbon Dioxide (22-30) mmol/L BUN (7-17) mg/dL Creatinine (0.52-1.04) mg/dL Glucose (74-99) mg/dL POC Glucose (mg/dL) 172 H (70-110) mg/dL Urine Appearance Cloudy H (Clear) Urine Protein Trace H (Negative) Urine Ketones Trace H (Negative) Urine Blood Small H (Negative) Urine Bilirubin 1+ H (Negative) Ur Leukocyte Esterase Large H (Negative) Urine RBC 18 H (0-5) /hpf Urine WBC 27 H (0-5) /hpf Ur Squamous Epith Cells 9 H (0-4) /hpf Urine Bacteria Rare H (None) /hpf Hyaline Casts 83 H (0-2) /lpf Urine Mucus Rare H (None) /hpf Urine Yeast (Budding) Few H (None) /hpf 04/15/24 Range/Units 09:04 WBC (3.8-10.6) k/uL Neutrophils # (1.3-7.7) k/uL Potassium 3.1 L (3.5-5.1) mmol/L Chloride 92 L (98-107) mmol/L Carbon Dioxide 33 H (22-30) mmol/L BUN 70 H (7-17) mg/dL Creatinine 3.01 H (0.52-1.04) mg/dL Glucose 164 H (74-99) mg/dL POC Glucose (mg/dL) (70-110) mg/dL Urine Appearance (Clear) Urine Protein (Negative) Urine Ketones (Negative) Urine Blood (Negative) Urine Bilirubin (Negative) Ur Leukocyte Esterase (Negative) Urine RBC (0-5) /hpf Urine WBC (0-5) /hpf Ur Squamous Epith Cells (0-4) /hpf Urine Bacteria (None) /hpf Hyaline Casts (0-2) /lpf Urine Mucus (None) /hpf Urine Yeast (Budding) (None) /hpf Microbiology - Last 24 Hours (Table) 04/09/24 08:35 Blood Culture - Final Blood Assessment and Plan Plan: Acute on chronic hypercapnic respiratory failure, likely related to obesity/hypoventilation syndrome (Pickwickian syndrome), restrictive lung disease secondary to obesity, and possible obstructive sleep apnea syndrome. Clinically improved and the patient is currently on 4 L of O2 nasal cannula History of asthma/COPD, in a patient who is a lifelong non-smoker. Morbid obesity. Acute kidney injury, likely secondary to diuretics Gastroesophageal reflux disease. History of osteoarthritis/DJD. History of Rapp's esophagus. History of seizure disorder. History of spinal disc herniation. Prior history of methicillin-resistant Staph aureus infection. History of anxiety/depression/PTSD/schizophrenia. Plan: Stop the diuretics and put the patient on half-normal saline at rate of 75 cc an hour Monitor renal function. She continues on O2, by nasal cannula at 4 L. Saturations are in the mid 90s. Recommend using the BiPAP overnight Patient is very much debilitated and nonambulatory because of her body habitus Keep same medications Nephrology consultation has been obtained prognosis is guarded.
[2024-04-15 16:46] LABS: Glucose,Whole Blood 162 mg/dL (70-110)
[2024-04-15 20:29] LABS: Glucose,Whole Blood 236 mg/dL (70-110)
[2024-04-16 00:01] LABS: Creatinine,Urine Random 195.1 mg/dL
[2024-04-16 06:09] LABS: Glucose,Whole Blood 138 mg/dL (70-110)
[2024-04-16 06:59] LABS: Basophils # (A) 0.1 k/uL (0-0.2); Basophils % (A) 1 %; Eosinophils # (A) 0.3 k/uL (0-0.7); Eosinophils % (A) 2 %; HCT 42.4 % (34.0-46.0); HGB 13.5 gm/dL (11.4-16.0); Hypochromasia Slight; Lymphocytes # (A) 1.9 k/uL (1.0-4.8); Lymphocytes % (A) 17 %; MCH 29.5 pg (25.0-35.0); MCHC 31.8 g/dL (31.0-37.0); Mean Platelet Volume 8.4; Monocytes # (A) 0.5 k/uL (0-1.0); Monocytes % (A) 4 %; Neutrophils # (A) 8.7 k/uL (1.3-7.7); Neutrophils % (A) 75 %; Platelet Count 287 k/uL (150-450); RBC 4.56 m/uL (3.80-5.40); RDW 14.2 % (11.5-15.5); WBC 11.6 k/uL (3.8-10.6)
[2024-04-16 07:14] LABS: African American GFR (CKD) 21 (>60 ml/min/1.73 sqM); Anion Gap 7 mmol/L; Blood Urea Nitrogen 80 mg/dL (7-17); Calcium 8.3 mg/dL (8.4-10.2); Carbon Dioxide 32 mmol/L (22-30); Chloride 98 mmol/L (98-107); Glucose 134 mg/dL (74-99); Non-African American GFR(CKD) 19 (>60 ml/min/1.73 sqM); Potassium 3.7 mmol/L (3.5-5.1); Sodium 137 mmol/L (137-145)
[2024-04-16] MEDS: MIDODRINE 5 MG TAB PO SCH ×2 (10:43→18:27)
[2024-04-16] MEDS: SODIUM CHLORIDE 0.9% 1,000 ML IV ONE (10:44)
[2024-04-16 11:33] LABS: Glucose,Whole Blood 206 mg/dL (70-110)
--- NOTE | 2024-04-16 11:42 | P.PN ---
Subjective Progress Note Date: 04/16/24 Subjective: Patient was seen and examined at the bedside. Patient is complaining of feeling lightheaded. No other acute events overnight. Denies any diarrhea or constipation. Urine output is still low. All Systems reviewed and pertinent positives and negatives noted in HPI, all other symptoms are negative Objective: Vital signs reviewed. General: non toxic, no distress, appears older than stated age, morbid obesity Derm: no unusual rashes/lesions, warm Head: atraumatic, normocephalic, symmetric Eyes: EOMI, no lid lag, anicteric sclera, pupils equal round reactive to light ENT: Nose and ears atraumatic Neck: No cervical lymphadenopathy, trachea midline, supple Mouth: no lip lesion, mucus membranes moist Cardiovascular: S1S2 reg, no murmur, positive dorsalis pedis pulse bilateral, +1 bilateral pitting edema Lungs: Decreased breath sounds bilaterally Abdominal: soft, nontender, nondistended, no guarding Ext: muscle strength 5 out of 5 in all 4 extremities grossly, no gross muscle at rophy, no contractures, Neuro: CN II-XI grossly intact, no gross focal neuro deficits Psych: Alert, oriented, flat affect Data reviewed today: WBC 11.6, hemoglobin 13.5, hematocrit 42.4, MCV 93.0, platelet count 287 Sodium 137, potassium 3.7, chloride 98, bicarb 32, BUN 80, creatinine 2.58 Images: No new imaging Assessment and Plan: 69-year-old female with past medical history of COPD and chronic hypoxemic respiratory failure on 3 L of the cannula oxygen continuously at home, morbid obesity, hypothyroidism, chronic debility and wheelchair-bound was a transfer from [facility] who presented to the ED on 04/07/2024 with urinary complaints and chest discomfort. Patient was initially evaluated for NSTEMI secondary to diastolic CHF. Cardiology was consulted. Patient was started on IV Lasix. She also had hypercapnic respiratory failure secondary to sedated medications. Was briefly on BiPAP now resolved. Patient developed BECKA secondary to prerenal azotemia likely due to diuretic medication. Nephrology is consulted for worsening creatinine level. #Oliguric acute kidney injury secondary to diuretics, improving #Hypokalemia (resolved) Symptomatic hypotension BUN 80, creatinine 2.58 (improving) Continue with IV 0.45% normal saline at 75 cc/h Added 1 L normal saline bolus and midodrine 5 mg p.o. 3 times daily for lightheadedness secondary to hypovolemia Oxybutynin has been discontinued Nephrology following #Sepsis secondary to pyelonephritis (resolved) #Leukocytosis secondary to hemoconcentration versus reactive, improving Management as above Monitor CBC tomorrow a.m. Blood culture on 04/06/2024: Staph epidermidis, likely contamination Repeat blood culture on 04/09/2024: Negative Urine culture at [facility]: Pansensitive E. coli Urine culture on 04/07/2024: Negative UA on 04/11/2024: Urine nitrite negative Completed 6 days of Rocephin IV. Continue Augmentin to complete total of 14 days of antibiotic course. #Acute on chronic hypercapnic hypoxemic respiratory failure, secondary to pick wickian syndrome, restrictive lung disease secondary to obesity, and possible obstructive sleep apnea syndrome, resolved BiPAP as needed or as tolerated Continue on 4 L via nasal cannula; baseline at home is 3-4 L via nasal cannula DuoNebs [id number] and as needed Neurology following #Diastolic congestive heart failure with preserved ejection fraction, no longer exacerbation Echocardiogram done on 04/07/2024 shows LVEF 55% with severe left ventricular wall thickness Continue with telemetry monitoring Continue with aspirin 81 mg p.o. daily, Lipitor 40 mg p.o. daily Continue with metoprolol 50 mg p.o. once daily Check daily weights Strict I's and O's Cardiology signed off #Acute diarrhea (resolved) #Debility: Wheelchair-bound PT/OT #Hyperglycemia short acting sliding scale insulin, monitor for hypoglycemia #Schizophrenia #Depression/anxiety -Psychiatry note from, Cymbalta 30 twice daily -Continue Seroquel home dose, BuSpar 15 twice daily Chronic conditions: Hypothyroidism: Synthroid 50 mcg p.o. at bedtime Morbid obesity F: As above E: Replete as needed N: Heart healthy diet A: Wheelchair-bound DVT ppx: Heparin subcu Code Status: Full code Anticipated discharge place: Home Anticipated discharge date: Pending clinical course I have seen and evaluated the patient today. Discussed with the resident and agree with the residents finding and plan as documented in the resident's note. Changes highlighted in blue font. Objective - Vital Signs Vital signs: Vital Signs Temp 97.6 F 04/16/24 00:00 Pulse 65 04/16/24 00:00 Resp 16 04/16/24 00:00 BP 90/57 04/16/24 00:00 Pulse Ox 96 04/16/24 00:00 FiO2 50 04/11/24 11:21 Intake & Output 04/15/24 04/15/24 04/16/24 06:59 18:59 06:59 Intake Total 818 Output Total 110 87 Balance -110 731 Weight 186.3 kg 181.8 kg Intake: Oral 818 Output: Urine 110 Straight 110 Post Void Residual 87 Other: Voiding Method Bedside Commode Bedside Commode Bedside Commode # Bowel Movements 2 - Labs CBC & Chem 7: 04/16/24 06:09 04/16/24 06:09 Labs: Abnormal Lab Results - Last 24 Hours (Table) 04/15/24 04/15/24 04/15/24 Range/Units 09:04 09:04 11:54 WBC 15.4 H (3.8-10.6) k/uL Neutrophils # 12.4 H (1.3-7.7) k/uL Potassium 3.1 L (3.5-5.1) mmol/L Chloride 92 L (98-107) mmol/L Carbon Dioxide 33 H (22-30) mmol/L BUN 70 H (7-17) mg/dL Creatinine 3.01 H (0.52-1.04) mg/dL Glucose 164 H (74-99) mg/dL POC Glucose (mg/dL) 192 H (70-110) mg/dL 04/15/24 04/15/24 04/16/24 Range/Units 16:45 20:26 06:08 WBC (3.8-10.6) k/uL Neutrophils # (1.3-7.7) k/uL Potassium (3.5-5.1) mmol/L Chloride (98-107) mmol/L Carbon Dioxide (22-30) mmol/L BUN (7-17) mg/dL Creatinine (0.52-1.04) mg/dL Glucose (74-99) mg/dL POC Glucose (mg/dL) 162 H 236 H 138 H (70-110) mg/dL
--- NOTE | 2024-04-16 13:23 | P.PN ---
Subjective patient is seen for follow-up for acute kidney injury. Patient was started on IV fluids yesterday. Renal function has improved. Serum creatinine at 2.5 today. Patient has been voiding well. Objective - Vital Signs Vital signs: Vital Signs Temp 97.4 F L 04/16/24 08:00 Pulse 69 04/16/24 11:56 Resp 18 04/16/24 11:56 BP 120/64 04/16/24 08:00 Pulse Ox 94 L 04/16/24 08:00 FiO2 50 04/11/24 11:21 Intake & Output 04/15/24 04/16/24 04/16/24 18:59 06:59 18:59 Intake Total 893 725 Output Total 87 400 Balance 806 325 Weight 181.8 kg Intake: IV 75 725 Sodium Chloride 0.45% 1, 75 225 000 ml @ 75 mls/hr IV . [id number] D[facility] Rx#:[id number] Sodium Chloride 0.9% 1, 500 000 ml @ 999 mls/hr IV . Q1H1M ONE Rx#:[id number] Oral 818 Output: Urine 400 Post Void Residual 87 Other: Voiding Method Bedside Commode Bedside Commode # Bowel Movements 2 - Exam patient is awake, comfortable, no acute distress. Examination of the heart S1 and S2 Examination the lungs bilateral breath sounds are heard Examination of the lower extremities shows no evidence of edema Abdomen is morbidly obese Patient is alert oriented 3 - Labs CBC & Chem 7: 04/16/24 06:09 04/16/24 06:09 Labs: Abnormal Lab Results - Last 24 Hours (Table) 04/15/24 04/15/24 04/16/24 Range/Units 16:45 20:26 06:08 WBC (3.8-10.6) k/uL Neutrophils # (1.3-7.7) k/uL Carbon Dioxide (22-30) mmol/L BUN (7-17) mg/dL Creatinine (0.52-1.04) mg/dL Glucose (74-99) mg/dL POC Glucose (mg/dL) 162 H 236 H 138 H (70-110) mg/dL Calcium (8.4-10.2) mg/dL 04/16/24 04/16/24 04/16/24 Range/Units 06:09 06:09 11:32 WBC 11.6 H (3.8-10.6) k/uL Neutrophils # 8.7 H (1.3-7.7) k/uL Carbon Dioxide 32 H (22-30) mmol/L BUN 80 H (7-17) mg/dL Creatinine 2.58 H (0.52-1.04) mg/dL Glucose 134 H (74-99) mg/dL POC Glucose (mg/dL) 206 H (70-110) mg/dL Calcium 8.3 L (8.4-10.2) mg/dL Microbiology - Last 24 Hours (Table) 04/15/24 05:20 Urine Culture - Preliminary Urine,Voided Yeast species Assessment and Plan Assessment: 1. Acute kidney injury, ATN currently oliguric secondary to hypotension and volume depletion. Improving with IV hydration. 2. Pyuria with urine culture showing no growth 3. Volume overload on initial admission status post diuresis. Ejection fraction at 55%. 4. Acute hypoxic respiratory failure on top of chronic hypercapnic respiratory failure. 5. History of anxiety/depression/posttraumatic stress disorder 6. Hypokalemia secondary to diuretics, status post replacement. Plan: continue off of DOUGIE inhibitor's. Continue with IV fluids. Repeat labs in a.m.
[2024-04-16] MEDS: oxyCODONE-APAP 5-325MG 1 EACH TAB PO PRN (15:38)
[2024-04-16 16:34] LABS: Glucose,Whole Blood 131 mg/dL (70-110)
--- NOTE | 2024-04-16 18:24 | XR ---
EXAMINATION TYPE: XR abdomen 2V DATE OF EXAM: 04/16/2024 COMPARISON: None INDICATION: Acute abdominal pain TECHNIQUE: Abdomen is examined in supine view FINDINGS: There is a normal bowel gas pattern. Psoas margins are normal. No organomegaly is present. No acute osseous abnormality evident. Advanced degenerative changes are at the right hip. IMPRESSION: 1. No suspicious acute changes. 2. Advanced degenerative changes right hip
[2024-04-16] MEDS: NYSTATIN 100,000 UNIT/GM POWD 15 GM TOPICAL SCH (18:25)
[2024-04-16 20:07] LABS: Glucose,Whole Blood 166 mg/dL (70-110)
--- NOTE | 2024-04-16 21:35 | P.PN ---
Subjective Progress Note Date: 04/16/24 69-year-old morbidly obese female, transferred from [facility], for urinary tract infection, and pyelonephritis. In addition, the patient apparently was thought to have a non-ST segment elevation myocardial infarction. The patient was brought to [facility], by EMS. We were asked to see her because of possible respiratory failure. We saw her today room 375. She was on BiPAP, with settings of 16/6, and 50%. Saturations were 98%. She is not receiving any IV fluids. Blood gases were done and showed a pO2 of 69, pCO2 of 78, pH of 7.17. The patient was apparently on a number of sedatives, hypnotics, narcotics. Those have all been discontinued. Looking at the patient, she likely has sleep apnea syndrome, and also likely has obesity/hypoventilation syndrome (pickwickian syndrome). The patient apparently has a history of asthma, COPD, GERD, osteoarthritis, esophagitis, OCD, Rapp's esophagus, chronic back pain, seizure history, methicillin-resistant Staph aureus inf ection, as well as a number of surgeries. The patient also apparently has a history of anxiety/depression, PTSD, schizophrenia, and is a lifelong non- smoker. Current labs include a white count of 6, hemoglobin 1.9, hematocrit 37.9, and platelet count of 199,000. Urinalysis shows small amount of blood, trace leukocyte Estrace positive, 18 RBCs, 7 WBCs, rare WBC clumps, and no bacteria. Blood cultures were positive for coag negative staph, and bacillus species. The patient is currently on Rocephin. Progress note dated April 12, 2024. This is a 69-year-old female who I was asked to see for respiratory failure. The patient likely has obesity/hypoventilation syndrome, and possible sleep apnea syndrome as well. In addition, she may have a component of restrictive lung disease secondary to obesity. Currently, the patient is on 3 L. She is getting saline at 10 cc an hour. The patient is on albuterol and Symbicort because she apparently has a history of asthma. She has a history of lifelong nontobacco use. The BiPAP device is next to her, and it is unclear to me whether or not she used it last night. Settings include an IPAP of 16, EPAP of 6, and 50% FiO2. Current labs include a sodium 140, potassium 3.5, chlorides 95, CO2 37, BUN 25, creatinine 0.68. Chest x-ray was consistent with cardiomegaly, and pulmonary vascular congestion. Progress note dated April 13, 2024. 69-year-old female seen today in room 375. The patient does not respond to any questions today, and appears to be relatively comfortable on 4 L nasal cannula. When not on nasal cannula, she uses BiPAP, 16/6, 50%. The patient is not receiving any IV fluids. According to the nurse, the patient has been refusing her medication. Labs today include a glucose of 202. Blood cultures from April 06, are positive for coagulase-negative staph, and bacillus species. Chest x-ray from yesterday showed, resolving pulmonary edema. The patient continues on Augmentin. Progress note dated April 14, 2024. 69-year-old obese white female, seen today in room 375. She is currently on nasal O2, at 4 L. When I asked her whether or not she used the BiPAP last night, she cannot remember if she used it or not. BiPAP settings include 16/6, and 50%. Current labs include a white count 12.9, hemoglobin 14.1, hematocrit 44.7, and a normal platelet count. Sodium 139, potassium 3.3, chlorides 92, CO2 37, BUN 52, creatinine 1.60. Glucose 170. Calcium 9.8, magnesium 2.0. 08/31/2023, seen the patient for a follow-up. The patient is resting comfortably in bed. She denies having any significant respiratory distress. Noted the patient has sustained acute kidney injury. Creatinine is on the rise and the patient was taken off diuretics. No major edema lower extremities bilaterally. No altered mentation. The patient's white cell count today is at 15.4 with a hemoglobin of 14.3 and a platelet count of 345. Sodium level is at 138, BUN 70 with a creatinine of 3.01 and a potassium level of 3.1. She is on Augmentin. She is on Symbicort. He is on albuterol/ipratropium nebulizer treatments 4 times a day. Rest of the medications are essentially unchanged. She is on heparin subcu for DVT prophylaxis. On today's evaluation of 04/16/2024, the patient is calm and comfortable, blood pressure is more stable compared to yesterday. The patient was started on gentle hydration with IV fluids and the patient is on half-normal saline. Renal function continues to improve and the creatinine is down to 2.5 on today's evaluation. She is afebrile. She is hemodynamically stable. No interval change in her respiratory status and she remains on 3 days of oxygen by nasal cannula with a pulse ox of 94%. White cell count 11.6 levo 13.5. He is afebrile creatinine 2.5 and sodium is at 137 with a potassium level of 3.7. The patient remains on Symbicort. The patient remains on DuoNeb nebulized treatments [id number]. No diuretics for now. She is on midodrine. She is on half-normal saline at rate of 75 cc an hour. Nephrology on the case. Objective - Vital Signs Vital signs: Vital Signs Temp 97.4 F L 04/16/24 08:00 Pulse 69 04/16/24 11:56 Resp 18 04/16/24 11:56 BP 120/64 04/16/24 08:00 Pulse Ox 94 L 04/16/24 08:00 FiO2 50 04/11/24 11:21 Intake & Output 04/15/24 04/16/24 04/16/24 18:59 06:59 18:59 Intake Total 893 725 Output Total 87 400 Balance 806 325 Weight 181.8 kg Intake: IV 75 725 Sodium Chloride 0.45% 1, 75 225 000 ml @ 75 mls/hr IV . [id number] [facility] Rx#:[id number] Sodium Chloride 0.9% 1, 500 000 ml @ 999 mls/hr IV . Q1H1M ONE Rx#:[id number] Oral 818 Output: Urine 400 Post Void Residual 87 Other: Voiding Method Bedside Commode Bedside Commode # Bowel Movements 2 - Exam Currently on 4 L of oxygen. Patient is morbidly obese,, comfortable, communicating, no signs of encephalopathy or CO2 narcosis HEENT examination is grossly unremarkable. Neck supple. Full range of motion. No adenopathy thyromegaly or neck vein distention. Cardiovascular examination reveals regular rhythm rate. S1-S2 normal. No S3 or S4. No discernible murmur noted. Heart sounds are distant. Lungs reveal mostly clear breath sounds. Scattered rhonchi are noted. No wheezes or crackles. Breath sounds equal. Saturations are 94 % on 4 L nasal cannula. Abdomen, obese, soft. No tenderness. Extremities are intact. No cyanosis clubbing or edema. Skin is without rash or lesion. Neurologic examination is brief but nonfocal. - Labs CBC & Chem 7: 04/16/24 06:09 04/16/24 06:09 Labs: Abnormal Lab Results - Last 24 Hours (Table) 04/15/24 04/15/24 04/16/24 Range/Units 16:45 20:26 06:08 WBC (3.8-10.6) k/uL Neutrophils # (1.3-7.7) k/uL Carbon Dioxide (22-30) mmol/L BUN (7-17) mg/dL Creatinine (0.52-1.04) mg/dL Glucose (74-99) mg/dL POC Glucose (mg/dL) 162 H 236 H 138 H (70-110) mg/dL Calcium (8.4-10.2) mg/dL 04/16/24 04/16/24 04/16/24 Range/Units 06:09 06:09 11:32 WBC 11.6 H (3.8-10.6) k/uL Neutrophils # 8.7 H (1.3-7.7) k/uL Carbon Dioxide 32 H (22-30) mmol/L BUN 80 H (7-17) mg/dL Creatinine 2.58 H (0.52-1.04) mg/dL Glucose 134 H (74-99) mg/dL POC Glucose (mg/dL) 206 H (70-110) mg/dL Calcium 8.3 L (8.4-10.2) mg/dL Microbiology - Last 24 Hours (Table) 04/15/24 05:20 Urine Culture - Preliminary Urine,Voided Yeast species Assessment and Plan Plan: Acute on chronic hypercapnic respiratory failure, likely related to obesity/hypoventilation syndrome (Pickwickian syndrome), restrictive lung disease secondary to obesity, and possible obstructive sleep apnea syndrome. Clinically improved and the patient is currently on 3 L of O2 nasal cannula History of asthma/COPD, in a patient who is a lifelong non-smoker. Morbid obesity. Acute kidney injury, likely secondary to diuretics, improving with fluid resuscitation. Gastroesophageal reflux disease. History of osteoarthritis/DJD. History of Rapp's esophagus. History of seizure disorder. History of spinal disc herniation. Prior history of methicillin-resistant Staph aureus infection. History of anxiety/depression/PTSD/schizophrenia. Plan: Keep diuretics on hold Continue half-normal saline at rate of 75 cc an hour Monitor renal function. She continues on O2, by nasal cannula at 3 L. Saturations are in the mid 90s. Recommend using the BiPAP overnight Patient is very much debilitated and nonambulatory because of her body habitus Keep same medications Nephrology consultation has been obtained prognosis is guarded.
[2024-04-17 06:13] LABS: Glucose,Whole Blood 176 mg/dL (70-110)
[2024-04-17 08:01] LABS: Basophils # (A) 0.1 k/uL (0-0.2); Basophils % (A) 1 %; Eosinophils # (A) 0.2 k/uL (0-0.7); Eosinophils % (A) 3 %; HCT 41.4 % (34.0-46.0); HGB 12.9 gm/dL (11.4-16.0); Hypochromasia Moderate; Lymphocytes # (A) 2.1 k/uL (1.0-4.8); Lymphocytes % (A) 27 %; MCHC 31.2 g/dL (31.0-37.0); MCV 93.1 fL (80.0-100.0); Mean Platelet Volume 7.9; Monocytes # (A) 0.4 k/uL (0-1.0); Monocytes % (A) 5 %; Neutrophils # (A) 4.9 k/uL (1.3-7.7); Neutrophils % (A) 61 %; Platelet Count 293 k/uL (150-450); RBC 4.45 m/uL (3.80-5.40); RDW 13.8 % (11.5-15.5)
[2024-04-17 08:12] LABS: African American GFR (CKD) 31 (>60 ml/min/1.73 sqM); Anion Gap 6 mmol/L; Blood Urea Nitrogen 78 mg/dL (7-17); Calcium 8.5 mg/dL (8.4-10.2); Carbon Dioxide 33 mmol/L (22-30); Chloride 100 mmol/L (98-107); Glucose 121 mg/dL (74-99); Non-African American GFR(CKD) 27 (>60 ml/min/1.73 sqM); Potassium 3.6 mmol/L (3.5-5.1); Sodium 139 mmol/L (137-145)
[2024-04-17 11:40] LABS: Glucose,Whole Blood 158 mg/dL (70-110)
--- NOTE | 2024-04-17 12:20 | P.PN ---
Subjective patient is seen for follow-up for acute kidney injury. Patient was started on IV fluids and Renal function has improved. Serum creatinine at 1.9 today. Patient has been voiding well. Blood pressure however remains low with systolic in the 90s and occasionally 80s Objective - Vital Signs Vital signs: Vital Signs Temp 97.9 F 04/17/24 08:00 Pulse 72 04/17/24 12:11 Resp 18 04/17/24 08:00 BP 96/60 04/17/24 08:00 Pulse Ox 94 L 04/17/24 08:00 FiO2 50 04/11/24 11:21 Intake & Output 04/16/24 04/17/24 04/17/24 18:59 06:59 18:59 Intake Total 725 Output Total 400 Balance 325 Weight 181.8 kg 183.6 kg Intake: IV 725 Sodium Chloride 0.45% 1, 225 000 ml @ 75 mls/hr IV . [id number] [facility] Rx#:[id number] Sodium Chloride 0.9% 1, 500 000 ml @ 999 mls/hr IV . Q1H1M ONE Rx#:[id number] Output: Urine 400 Other: Voiding Method Bedside Commode Bedside Commode Bedside Commode Bedpan Bedpan # Voids 1 - Exam patient is awake, comfortable, no acute distress. Examination of the heart S1 and S2 Examination the lungs bilateral breath sounds are heard Examination of the lower extremities shows no evidence of edema Abdomen is morbidly obese Patient is alert oriented 3 - Labs CBC & Chem 7: 04/17/24 07:33 04/17/24 07:33 Labs: Abnormal Lab Results - Last 24 Hours (Table) 04/16/24 04/16/24 04/17/24 Range/Units 16:32 20:05 06:11 Carbon Dioxide (22-30) mmol/L BUN (7-17) mg/dL Creatinine (0.52-1.04) mg/dL Glucose (74-99) mg/dL POC Glucose (mg/dL) 131 H 166 H 176 H (70-110) mg/dL 04/17/24 04/17/24 Range/Units 07:33 11:39 Carbon Dioxide 33 H (22-30) mmol/L BUN 78 H (7-17) mg/dL Creatinine 1.90 H (0.52-1.04) mg/dL Glucose 121 H (74-99) mg/dL POC Glucose (mg/dL) 158 H (70-110) mg/dL Microbiology - Last 24 Hours (Table) 04/15/24 05:20 Urine Culture - Preliminary Urine,Voided Yeast species Assessment and Plan Assessment: 1. Acute kidney injury, ATN currently oliguric secondary to hypotension and volume depletion. Improving with IV hydration. 2. Pyuria with urine culture showing no growth 3. Volume overload on initial admission status post diuresis. Ejection fraction at 55%. 4. Acute hypoxic respiratory failure on top of chronic hypercapnic respiratory failure. 5. History of anxiety/depression/posttraumatic stress disorder 6. Hypokalemia secondary to diuretics, status post replacement. 7. Hypotension most likely from hypovolemia. Patient is also maintained on midodrine. Plan: continue off of DOUGIE inhibitor's. Continue with IV fluids. May continue with midodrine until hypovolemia is corrected Repeat labs in a.m.
--- NOTE | 2024-04-17 13:00 | P.PN ---
Subjective Progress Note Date: 04/17/24 Subjective: Patient was seen and examined at the bedside. No other acute events overnight. Denies any abdominal discomfort, diarrhea or constipation. Patient voiding well. All Systems reviewed and pertinent positives and negatives noted in HPI, all other symptoms are negative Objective: Vital signs reviewed. General: non toxic, no distress, appears older than stated age, morbid obesity Derm: no unusual rashes/lesions, warm Head: atraumatic, normocephalic, symmetric Eyes: EOMI, no lid lag, anicteric sclera, pupils equal round reactive to light ENT: Nose and ears atraumatic Neck: No cervical lymphadenopathy, trachea midline, supple Mouth: no lip lesion, mucus membranes moist Cardiovascular: S1S2 reg, no murmur, positive dorsalis pedis pulse bilateral, +1 bilateral pitting edema Lungs: Decreased breath sounds bilaterally Abdominal: soft, nontender, nondistended, no guarding Ext: muscle strength 5 out of 5 in all 4 extremities grossly, no gross muscle atrophy, no contractures, Neuro: CN II-XI grossly intact, no gross focal neuro deficits Psych: Alert, oriented, flat affect Data reviewed today: WBC 8.0, hemoglobin 12.9, hematocrit 41.4 sodium 139, potassium 3.6, chloride 100, bicarb 23, BUN 70, creatinine 1.9, glucose 121, calcium 8.5 Images: No new imaging Assessment and Plan: 69-year-old female with past medical history of COPD and chronic hypoxemic respiratory failure on 3 L of the cannula oxygen continuously at home, morbid obesity, hypothyroidism, chronic debility and wheelchair-bound was a transfer from [facility] who presented to the ED on 04/07/2024 with urinary complaints and chest discomfort. Patient was initially evaluated for NSTEMI secondary to diastolic CHF. Cardiology was consulted. Patient was started on IV Lasix. She also had hypercapnic respiratory failure secondary to sedated medications. Was briefly on BiPAP now resolved. Patient developed BECKA secondary to prerenal azotemia likely due to diuretic medication. Nephrology is consulted for worsening creatinine level. Creatinine trending down and improving. # Nonoliguric acute kidney injury secondary to diuretics, improving #Hypokalemia (resolved) Symptomatic hypotension: Continue with midodrine 5 mg p.o. 3 times daily BUN 70, creatinine 1.9 (improving) Continue with IV 0.45% normal saline at 75 cc/h Oxybutynin has been discontinued Discussed management with nephrology, continue on fluids for 1 more day, possible discharge tomorrow #Sepsis secondary to pyelonephritis (resolved) #Leukocytosis secondary to hemoconcentration versus reactive, resolved Management as above Monitor CBC tomorrow a.m. Blood culture on 04/06/2024: Staph epidermidis, likely contamination Repeat blood culture on 04/09/2024: Negative Urine culture at [facility]: Pansensitive E. coli Urine culture on 04/07/2024: Negative UA on 04/11/2024: Urine nitrite negative Completed 6 days of Rocephin IV. Continue Augmentin to complete total of 14 days of antibiotic course. #Acute on chronic hypercapnic hypoxemic respiratory failure, secondary to pickwickian syndrome, restrictive lung disease secondary to obesity, and possible obstructive sleep apnea syndrome, resolved BiPAP as needed or as tolerated Continue on 4 L via nasal cannula; baseline at home is 3-4 L via nasal cannula DuoNebs [id number] and as needed Pulmonology following, discussed management, continue current treatment #Diastolic congestive heart failure with preserved ejection fraction, no longer exacerbation Echocardiogram done on 04/07/2024 shows LVEF 55% with severe left ventricular wall thickness Continue with telemetry monitoring Continue with aspirin 81 mg p.o. daily, Lipitor 40 mg p.o. daily Continue with metoprolol 50 mg p.o. once daily Check daily weights Strict I's and O's Cardiology signed off #Acute diarrhea (resolved) #Debility: Wheelchair-bound PT/OT #Hyperglycemia short acting sliding scale insulin, monitor for hypoglycemia #Schizophrenia #Depression/anxiety -Psychiatry note from, Cymbalta 30 twice daily -Continue Seroquel home dose, BuSpar 15 twice daily Chronic conditions: Hypothyroidism: Synthroid 50 mcg p.o. at bedtime Morbid obesity F: As above E: Replete as needed N: Heart healthy diet A: Wheelchair-bound DVT ppx: Heparin subcu Code Status: Full code Anticipated discharge place: Home Anticipated discharge date: Pending clinical course I have seen and evaluated the patient today. Discussed with the resident and agree with the residents finding and plan as documented in the resident's note. Changes highlighted in blue font. Objective - Vital Signs Vital signs: Vital Signs Temp 97.6 F 04/17/24 03:45 Pulse 62 04/17/24 03:45 Resp 18 04/17/24 03:45 BP 100/62 04/17/24 03:45 Pulse Ox 96 04/17/24 03:45 FiO2 50 04/11/24 11:21 Intake & Output 04/16/24 04/16/24 04/17/24 06:59 18:59 06:59 Intake Total 725 Output Total 400 Balance 325 Weight 181.8 kg 181.8 kg 183.6 kg Intake: IV 725 Sodium Chloride 0.45% 1, 225 000 ml @ 75 mls/hr IV . [id number] [facility] Rx#:[id number] Sodium Chloride 0.9% 1, 500 000 ml @ 999 mls/hr IV . Q1H1M ONE Rx#:[id number] Output: Urine 400 Other: Voiding Method Bedside Commode Bedside Commode Bedside Commode Bedpan # Voids 1 - Labs CBC & Chem 7: 04/17/24 07:33 04/17/24 07:33 Labs: Abnormal Lab Results - Last 24 Hours (Table) 04/16/24 04/16/24 04/16/24 Range/Units 06:09 06:09 11:32 WBC 11.6 H (3.8-10.6) k/uL Neutrophils # 8.7 H (1.3-7.7) k/uL Carbon Dioxide 32 H (22-30) mmol/L BUN 80 H (7-17) mg/dL Creatinine 2.58 H (0.52-1.04) mg/dL Glucose 134 H (74-99) mg/dL POC Glucose (mg/dL) 206 H (70-110) mg/dL Calcium 8.3 L (8.4-10.2) mg/dL 04/16/24 04/16/24 04/17/24 Range/Units 16:32 20:05 06:11 WBC (3.8-10.6) k/uL Neutrophils # (1.3-7.7) k/uL Carbon Dioxide (22-30) mmol/L BUN (7-17) mg/dL Creatinine (0.52-1.04) mg/dL Glucose (74-99) mg/dL POC Glucose (mg/dL) 131 H 166 H 176 H (70-110) mg/dL Calcium (8.4-10.2) mg/dL Microbiology - Last 24 Hours (Table) 04/15/24 05:20 Urine Culture - Preliminary Urine,Voided Yeast species
--- NOTE | 2024-04-17 15:32 | P.PN ---
Subjective Progress Note Date: 04/17/24 69-year-old morbidly obese female, transferred from [facility], for urinary tract infection, and pyelonephritis. In addition, the patient apparently was thought to have a non-ST segment elevation myocardial infarction. The patient was brought to [facility], by EMS. We were asked to see her because of possible respiratory failure. We saw her today room 375. She was on BiPAP, with settings of 16/6, and 50%. Saturations were 98%. She is not receiving any IV fluids. Blood gases were done and showed a pO2 of 69, pCO2 of 78, pH of 7.17. The patient was apparently on a number of sedatives, hypnotics, narcotics. Those have all been discontinued. Looking at the patient, she likely has sleep apnea syndrome, and also likely has obesity/hypoventilation syndrome (pickwickian syndrome). The patient apparently has a history of asthma, COPD, GERD, osteoarthritis, esophagitis, OCD, Rapp's esophagus, chronic back pain, seizure history, methicillin-resistant Staph aureus inf ection, as well as a number of surgeries. The patient also apparently has a history of anxiety/depression, PTSD, schizophrenia, and is a lifelong non- smoker. Current labs include a white count of 6, hemoglobin 1.9, hematocrit 37.9, and platelet count of 199,000. Urinalysis shows small amount of blood, trace leukocyte Estrace positive, 18 RBCs, 7 WBCs, rare WBC clumps, and no bacteria. Blood cultures were positive for coag negative staph, and bacillus species. The patient is currently on Rocephin. Progress note dated April 12, 2024. This is a 69-year-old female who I was asked to see for respiratory failure. The patient likely has obesity/hypoventilation syndrome, and possible sleep apnea syndrome as well. In addition, she may have a component of restrictive lung disease secondary to obesity. Currently, the patient is on 3 L. She is getting saline at 10 cc an hour. The patient is on albuterol and Symbicort because she apparently has a history of asthma. She has a history of lifelong nontobacco use. The BiPAP device is next to her, and it is unclear to me whether or not she used it last night. Settings include an IPAP of 16, EPAP of 6, and 50% FiO2. Current labs include a sodium 140, potassium 3.5, chlorides 95, CO2 37, BUN 25, creatinine 0.68. Chest x-ray was consistent with cardiomegaly, and pulmonary vascular congestion. Progress note dated April 13, 2024. 69-year-old female seen today in room 375. The patient does not respond to any questions today, and appears to be relatively comfortable on 4 L nasal cannula. When not on nasal cannula, she uses BiPAP, 16/6, 50%. The patient is not receiving any IV fluids. According to the nurse, the patient has been refusing her medication. Labs today include a glucose of 202. Blood cultures from April 06, are positive for coagulase-negative staph, and bacillus species. Chest x-ray from yesterday showed, resolving pulmonary edema. The patient continues on Augmentin. Progress note dated April 14, 2024. 69-year-old obese white female, seen today in room 375. She is currently on nasal O2, at 4 L. When I asked her whether or not she used the BiPAP last night, she cannot remember if she used it or not. BiPAP settings include 16/6, and 50%. Current labs include a white count 12.9, hemoglobin 14.1, hematocrit 44.7, and a normal platelet count. Sodium 139, potassium 3.3, chlorides 92, CO2 37, BUN 52, creatinine 1.60. Glucose 170. Calcium 9.8, magnesium 2.0. 08/31/2023, seen the patient for a follow-up. The patient is resting comfortably in bed. She denies having any significant respiratory distress. Noted the patient has sustained acute kidney injury. Creatinine is on the rise and the patient was taken off diuretics. No major edema lower extremities bilaterally. No altered mentation. The patient's white cell count today is at 15.4 with a hemoglobin of 14.3 and a platelet count of 345. Sodium level is at 138, BUN 70 with a creatinine of 3.01 and a potassium level of 3.1. She is on Augmentin. She is on Symbicort. He is on albuterol/ipratropium nebulizer treatments 4 times a day. Rest of the medications are essentially unchanged. She is on heparin subcu for DVT prophylaxis. On today's evaluation of 04/16/2024, the patient is calm and comfortable, blood pressure is more stable compared to yesterday. The patient was started on gentle hydration with IV fluids and the patient is on half-normal saline. Renal function continues to improve and the creatinine is down to 2.5 on today's evaluation. She is afebrile. She is hemodynamically stable. No interval change in her respiratory status and she remains on 3 days of oxygen by nasal cannula with a pulse ox of 94%. White cell count 11.6 levo 13.5. He is afebrile creatinine 2.5 and sodium is at 137 with a potassium level of 3.7. The patient remains on Symbicort. The patient remains on DuoNeb nebulized treatments [id number]. No diuretics for now. She is on midodrine. She is on half-normal saline at rate of 75 cc an hour. Nephrology on the case. On 04/17/2024, the patient is being seen for a follow-up. Condition is stable. Hemodynamically stable. No hypotension. Renal function continues to improve. Creatinine is down to 1.9. The patient remains on IV fluids and the patient is currently on half-normal saline at a rate of 75 cc an hour. She is currently off antihypertensive medication. Most recent blood pressure is 118/85. She is on 3 L of oxygen by nasal cannula with pulse ox of 97%. No signs of any CO2 narcosis. No other significant events overnight. Night was essentially uneventful. Objective - Vital Signs Vital signs: Vital Signs Temp 97.9 F 04/17/24 08:00 Pulse 72 04/17/24 08:51 Resp 18 04/17/24 08:00 BP 96/60 04/17/24 08:00 Pulse Ox 94 L 04/17/24 08:00 FiO2 50 04/11/24 11:21 Intake & Output 04/16/24 04/17/24 04/17/24 18:59 06:59 18:59 Intake Total 725 Output Total 400 Balance 325 Weight 181.8 kg 183.6 kg Intake: IV 725 Sodium Chloride 0.45% 1, 225 000 ml @ 75 mls/hr IV . [id number] [facility] Rx#:[id number] Sodium Chloride 0.9% 1, 500 000 ml @ 999 mls/hr IV . Q1H1M ONE Rx#:[id number] Output: Urine 400 Other: Voiding Method Bedside Commode Bedside Commode Bedside Commode Bedpan Bedpan # Voids 1 - Exam Currently on 3 L of oxygen. Patient is morbidly obese,, comfortable, communicating, no signs of encephalopathy or CO2 narcosis HEENT examination is grossly unremarkable. Neck supple. Full range of motion. No adenopathy thyromegaly or neck vein distention. Cardiovascular examination reveals regular rhythm rate. S1-S2 normal. No S3 or S4. No discernible murmur noted. Heart sounds are distant. Lungs reveal mostly clear breath sounds. Scattered rhonchi are noted. No wheezes or crackles. Breath sounds equal. Abdomen, obese, soft. No tenderness. Extremities are intact. No cyanosis clubbing or edema. Skin is without rash or lesion. Neurologic examination is brief but nonfocal. - Labs CBC & Chem 7: 04/17/24 07:33 04/17/24 07:33 Labs: Abnormal Lab Results - Last 24 Hours (Table) 04/16/24 04/16/24 04/16/24 Range/Units 11:32 16:32 20:05 Carbon Dioxide (22-30) mmol/L BUN (7-17) mg/dL Creatinine (0.52-1.04) mg/dL Glucose (74-99) mg/dL POC Glucose (mg/dL) 206 H 131 H 166 H (70-110) mg/dL 04/17/24 04/17/24 Range/Units 06:11 07:33 Carbon Dioxide 33 H (22-30) mmol/L BUN 78 H (7-17) mg/dL Creatinine 1.90 H (0.52-1.04) mg/dL Glucose 121 H (74-99) mg/dL POC Glucose (mg/dL) 176 H (70-110) mg/dL Microbiology - Last 24 Hours (Table) 04/15/24 05:20 Urine Culture - Preliminary Urine,Voided Yeast species Assessment and Plan Plan: Acute on chronic hypercapnic respiratory failure, likely related to obesity/hypoventilation syndrome (Pickwickian syndrome), restrictive lung disease secondary to obesity, and possible obstructive sleep apnea syndrome. Clinically improved and the patient is currently on 3 L of O2 nasal cannula History of asthma/COPD, in a patient who is a lifelong non-smoker. Morbid obesity. Acute kidney injury, likely secondary to diuretics, improving with fluid resuscitation. Creatinine continues to improve. Gastroesophageal reflux disease. History of osteoarthritis/DJD. History of Rapp's esophagus. History of seizure disorder. History of spinal disc herniation. Prior history of methicillin-resistant Staph aureus infection. History of anxiety/depression/PTSD/schizophrenia. Plan: Keep diuretics on hold Continue half-normal saline at rate of 75 cc an hour Monitor renal function. She continues on O2, by nasal cannula at 3 L. Saturations are in the mid 90s. Hold antihypertensive medications Recommend using the BiPAP overnight Patient is very much debilitated and nonambulatory because of her body habitus Keep same medications Nephrology consultation has been obtained prognosis is guarded.
--- NOTE | 2024-04-17 16:26 | XR ---
EXAMINATION TYPE: XR chest 1V portable DATE OF EXAM: 04/17/2024 4:18 PM CLINICAL INDICATION: Female, 69 years old with history of follow up volume overload, o2 nc sob; [facility] COMPARISON: Chest radiographs from 04/12/2024. TECHNIQUE: XR chest 1V portable Frontal view of the chest. FINDINGS: Lungs/Pleura: Improved aeration of lungs. There is no evidence of pleural effusion, focal consolidati on, or pneumothorax. Pulmonary vascularity: Unremarkable. Heart/mediastinum: Cardiomediastinal silhouette is enlarged. Musculoskeletal: No acute osseous pathology. IMPRESSION: Improved aeration of lungs which could be partially due to technique, Cardiomegaly and mild pulmonary vascular congestion. Correlate with BNP for congestive heart failure.
[2024-04-17 17:16] LABS: Glucose,Whole Blood 153 mg/dL (70-110)
[2024-04-17 20:08] LABS: Glucose,Whole Blood 183 mg/dL (70-110)
[2024-04-18 05:59] LABS: Glucose,Whole Blood 166 mg/dL (70-110)
[2024-04-18 07:00] LABS: Basophils # (A) 0.1 k/uL (0-0.2); Basophils % (A) 1 %; Eosinophils # (A) 0.2 k/uL (0-0.7); Eosinophils % (A) 3 %; HCT 41.5 % (34.0-46.0); HGB 12.8 gm/dL (11.4-16.0); Hypochromasia Marked; Lymphocytes % (A) 30 %; MCH 28.7 pg (25.0-35.0); MCHC 30.8 g/dL (31.0-37.0); MCV 93.3 fL (80.0-100.0); Mean Platelet Volume 8.8; Monocytes # (A) 0.4 k/uL (0-1.0); Monocytes % (A) 6 %; Neutrophils # (A) 3.7 k/uL (1.3-7.7); Neutrophils % (A) 57 %; Platelet Count 294 k/uL (150-450); RBC 4.45 m/uL (3.80-5.40); RDW 13.9 % (11.5-15.5); WBC 6.5 k/uL (3.8-10.6)
[2024-04-18 07:27] LABS: African American GFR (CKD) 37 (>60 ml/min/1.73 sqM); Anion Gap 4 mmol/L; Blood Urea Nitrogen 68 mg/dL (7-17); Calcium 8.8 mg/dL (8.4-10.2); Carbon Dioxide 34 mmol/L (22-30); Chloride 102 mmol/L (98-107); Glucose 131 mg/dL (74-99); Non-African American GFR(CKD) 32 (>60 ml/min/1.73 sqM); Potassium 4.6 mmol/L (3.5-5.1); Sodium 140 mmol/L (137-145)
[2024-04-18 11:40] LABS: Glucose,Whole Blood 159 mg/dL (70-110)
--- NOTE | 2024-04-18 12:31 | P.PN ---
Subjective Progress Note Date: 04/18/24 Subjective: Patient was seen and examined at the bedside. Mild purulent draining skin abscess on her left upper quadrant abdomen which patient stated is chronic. Mild abdominal pain associated with it. She also continue to feel lightheaded associated with changing her position. All Systems reviewed and pertinent positives and negatives noted in HPI, all other symptoms are negative Objective: Vital signs reviewed. General: non toxic, no distress, appears older than stated age, morbid obesity Derm: no unusual rashes/lesions, warm Head: atraumatic, normocephalic, symmetric Eyes: EOMI, no lid lag, anicteric sclera, pupils equal round reactive to light ENT: Nose and ears atraumatic Neck: No cervical lymphadenopathy, trachea midline, supple Mouth: no lip lesion, mucus membranes moist Cardiovascular: S1S2 reg, no murmur, positive dorsalis pedis pulse bilateral, +1 bilateral pitting edema Lungs: Decreased breath sounds bilaterally Abdominal: soft, nontender, nondistended, no guarding, Mild purulent draining skin abscess on her left upper quadrant abdomen with surrounding erythema Ext: muscle strength 5 out of 5 in all 4 extremities grossly, no gross muscle atrophy, no contractures, Neuro: CN II-XI grossly intact, no gross focal neuro deficits Psych: Alert, oriented, flat affect Data reviewed today: WBC 6.7, hemoglobin 12.8, hematocrit 41.5, MCV 93.3, platelet count 294. Sodium 140, potassium 4.6, chloride 102, bicarb 34, BUN 68, creatinine 1.66, glucose 131 Images: Soft ultrasound for the soft tissue abscess/infection ordered, results pending Assessment and Plan: 69-year-old female with past medical history of COPD and chronic hypoxemic respiratory failure on 3 L of the cannula oxygen continuously at home, morbid obesity, hypothyroidism, chronic debility and wheelchair-bound was a transfer from [facility] who presented to the ED on 04/07/2024 with urinary c omplaints and chest discomfort. Patient was admitted for sepsis secondary to pyelonephritis, NSTEMI type II secondary to diastolic CHF and acute hypoxemic hypercapnic respiratory failure exacerbation. Cardiology and pulmonology were consulted. Resolved. patient also developed BECKA secondary to diuretics. Nephrology was consulted. Creatinine trending down and improving. # Nonoliguric acute kidney injury secondary to diuretics, improving #Hypokalemia (resolved) #Orthostatic hypotension: Increase midodrine to 10 mg p.o. 3 times daily BUN 68, creatinine 1.66 (improving) Continue with IV 0.45% normal saline at 75 cc/h Oxybutynin has been discontinued #Sepsis secondary to pyelonephritis (resolved) #Leukocytosis secondary to hemoconcentration versus reactive, resolved Management as above Monitor CBC tomorrow a.m. Blood culture on 04/06/2024: Staph epidermidis, likely contamination Repeat blood culture on 04/09/2024: Negative Urine culture at [facility]: Pansensitive E. coli Urine culture on 04/07/2024: Negative UA on 04/11/2024: Urine nitrite negative Completed 6 days of Rocephin IV. Continue Augmentin to complete total of 14 days of antibiotic course. #Acute on chronic hypercapnic hypoxemic respiratory failure, secondary to pickwickian syndrome, restrictive lung disease secondary to obesity, and possible obstructive sleep apnea syndrome, resolved BiPAP as needed or as tolerated Continue on 4 L via nasal cannula; baseline at home is 3-4 L via nasal cannula DuoNebs [id number] and as needed Pulmonology following, discussed management, continue current treatment #Diastolic congestive heart failure with preserved ejection fraction, no longer exacerbation Echocardiogram done on 04/07/2024 shows LVEF 55% with severe left ventricular wall thickness Continue with telemetry monitoring Continue with aspirin 81 mg p.o. daily, Lipitor 40 mg p.o. daily Continue with metoprolol 50 mg p.o. once daily Check daily weights Strict I's and O's Cardiology signed off #Left upper quadrant draining skin abscess Ultrasound order; result pending Continue monitor for worsening signs of infection #Acute diarrhea (resolved) #Debility: Wheelchair-bound PT/OT #Hyperglycemia short acting sliding scale insulin, monitor for hypoglycemia #Schizophrenia #Depression/anxiety -Psychiatry note from, Cymbalta 30 twice daily -Continue Seroquel home dose, BuSpar 15 twice daily Chronic conditions: Hypothyroidism: Synthroid 50 mcg p.o. at bedtime Morbid obesity F: As above E: Replete as needed N: Heart healthy diet A: Wheelchair-bound DVT ppx: Heparin subcu Code Status: Full code Anticipated discharge place: Home Anticipated discharge date: Pending clinical course I have seen and evaluated the patient today. Discussed with the resident and agree with the residents finding and plan as documented in the resident's note. Changes highlighted in blue font. Objective - Vital Signs Vital signs: Vital Signs Temp 97.6 F 04/18/24 08:00 Pulse 72 04/18/24 11:52 Resp 18 04/18/24 08:00 BP 86/47 04/18/24 08:00 Pulse Ox 98 04/18/24 08:46 FiO2 50 04/11/24 11:21 Intake & Output 04/17/24 04/18/24 04/18/24 18:59 06:59 18:59 Intake Total 236 Balance 236 Weight 173.5 kg Intake: Oral 236 Other: Voiding Method Bedside Commode Bedside Commode Bedside Commode Bedpan Bedpan Bedpan - Labs CBC & Chem 7: 04/18/24 06:26 04/18/24 06:26 Labs: Abnormal Lab Results - Last 24 Hours (Table) 04/17/24 04/17/24 04/18/24 Range/Units 17:09 20:06 05:55 MCHC (31.0-37.0) g/dL Carbon Dioxide (22-30) mmol/L BUN (7-17) mg/dL Creatinine (0.52-1.04) mg/dL Glucose (74-99) mg/dL POC Glucose (mg/dL) 153 H 183 H 166 H (70-110) mg/dL 04/18/24 04/18/24 04/18/24 Range/Units 06:26 06:26 11:37 MCHC 30.8 L (31.0-37.0) g/dL Carbon Dioxide 34 H (22-30) mmol/L BUN 68 H (7-17) mg/dL Creatinine 1.66 H (0.52-1.04) mg/dL Glucose 131 H (74-99) mg/dL POC Glucose (mg/dL) 159 H (70-110) mg/dL Microbiology - Last 24 Hours (Table) 04/15/24 05:20 Urine Culture - Final Urine,Voided Amairani glabrata
[2024-04-18] MEDS: MIDODRINE 5 MG TAB PO SCH (13:22)
--- NOTE | 2024-04-18 13:40 | P.PN ---
Subjective patient is seen for follow-up for acute kidney injury. patient is maintained on IV fluids. Renal function has improved. Serum creatinine at 1.6 today. Patient has been voiding well. Blood pressure has improved. Objective - Vital Signs Vital signs: Vital Signs Temp 97.6 F 04/18/24 08:00 Pulse 70 04/18/24 12:07 Resp 18 04/18/24 08:00 BP 86/47 04/18/24 08:00 Pulse Ox 98 04/18/24 08:46 FiO2 50 04/11/24 11:21 Intake & Output 04/17/24 04/18/24 04/18/24 18:59 06:59 18:59 Intake Total 236 Balance 236 Weight 173.5 kg Intake: Oral 236 Other: Voiding Method Bedside Commode Bedside Commode Bedside Commode Bedpan Bedpan Bedpan - Exam patient is awake, comfortable, no acute distress. Examination of the heart S1 and S2 Examination the lungs bilateral breath sounds are heard Examination of the lower extremities shows no evidence of edema Abdomen is morbidly obese Patient is alert oriented 3 - Labs CBC & Chem 7: 04/18/24 06:26 04/18/24 06:26 Labs: Abnormal Lab Results - Last 24 Hours (Table) 04/17/24 04/17/24 04/18/24 Range/Units 17:09 20:06 05:55 MCHC (31.0-37.0) g/dL Carbon Dioxide (22-30) mmol/L BUN (7-17) mg/dL Creatinine (0.52-1.04) mg/dL Glucose (74-99) mg/dL POC Glucose (mg/dL) 153 H 183 H 166 H (70-110) mg/dL 04/18/24 04/18/24 04/18/24 Range/Units 06:26 06:26 11:37 MCHC 30.8 L (31.0-37.0) g/dL Carbon Dioxide 34 H (22-30) mmol/L BUN 68 H (7-17) mg/dL Creatinine 1.66 H (0.52-1.04) mg/dL Glucose 131 H (74-99) mg/dL POC Glucose (mg/dL) 159 H (70-110) mg/dL Microbiology - Last 24 Hours (Table) 04/15/24 05:20 Urine Culture - Final Urine,Voided Amairani glabrata Assessment and Plan Assessment: 1. Acute kidney injury, ATN currently oliguric secondary to hypotension and volume depletion. Improving with IV hydration. 2. Pyuria with urine culture showing no growth 3. Volume overload on initial admission status post diuresis. Ejection fraction at 55%. 4. Acute hypoxic respiratory failure on top of chronic hypercapnic respiratory failure. 5. History of anxiety/depression/posttraumatic stress disorder 6. Hypokalemia secondary to diuretics, status post replacement. 7. Hypotension most likely from hypovolemia. Patient is also maintained on midodrine. Plan: continue off of DOUGIE inhibitor's. Continue with IV fluids. May continue with midodrine until hypovolemia is corrected Repeat labs in a.m.
--- NOTE | 2024-04-18 13:59 | US ---
EXAMINATION TYPE: US mass soft tissue chest/back DATE OF EXAM: 04/18/2024 COMPARISON: NONE CLINICAL INDICATION: Female, 69 years old with history of LUQ possible skin abscess; chronic wound un royer large left breast on abdominal wall, leaking puss TECHNIQUE: Soft tissue scan on abd at wound FINDINGS: Estimated 2.8 x 2.6cm complex fluid collection diving from skin line IMPRESSION: 2.8 cm complex fluid collection would be compatible with abscess.
--- NOTE | 2024-04-18 14:39 | P.PN ---
Subjective Progress Note Date: 04/18/24 69-year-old morbidly obese female, transferred from [facility], for urinary tract infection, and pyelonephritis. In addition, the patient apparently was thought to have a non-ST segment elevation myocardial infarction. The patient was brought to [facility], by EMS. We were asked to see her because of possible respiratory failure. We saw her today room 375. She was on BiPAP, with settings of 16/6, and 50%. Saturations were 98%. She is not receiving any IV fluids. Blood gases were done and showed a pO2 of 69, pCO2 of 78, pH of 7.17. The patient was apparently on a number of sedatives, hypnotics, narcotics. Those have all been discontinued. Looking at the patient, she likely has sleep apnea syndrome, and also likely has obesity/hypoventilation syndrome (pickwickian syndrome). The patient apparently has a history of asthma, COPD, GERD, osteoarthritis, esophagitis, OCD, Rapp's esophagus, chronic back pain, seizure history, methicillin-resistant Staph aureus inf ection, as well as a number of surgeries. The patient also apparently has a history of anxiety/depression, PTSD, schizophrenia, and is a lifelong non- smoker. Current labs include a white count of 6, hemoglobin 1.9, hematocrit 37.9, and platelet count of 199,000. Urinalysis shows small amount of blood, trace leukocyte Estrace positive, 18 RBCs, 7 WBCs, rare WBC clumps, and no bacteria. Blood cultures were positive for coag negative staph, and bacillus species. The patient is currently on Rocephin. Progress note dated April 12, 2024. This is a 69-year-old female who I was asked to see for respiratory failure. The patient likely has obesity/hypoventilation syndrome, and possible sleep apnea syndrome as well. In addition, she may have a component of restrictive lung disease secondary to obesity. Currently, the patient is on 3 L. She is getting saline at 10 cc an hour. The patient is on albuterol and Symbicort because she apparently has a history of asthma. She has a history of lifelong nontobacco use. The BiPAP device is next to her, and it is unclear to me whether or not she used it last night. Settings include an IPAP of 16, EPAP of 6, and 50% FiO2. Current labs include a sodium 140, potassium 3.5, chlorides 95, CO2 37, BUN 25, creatinine 0.68. Chest x-ray was consistent with cardiomegaly, and pulmonary vascular congestion. Progress note dated April 13, 2024. 69-year-old female seen today in room 375. The patient does not respond to any questions today, and appears to be relatively comfortable on 4 L nasal cannula. When not on nasal cannula, she uses BiPAP, 16/6, 50%. The patient is not receiving any IV fluids. According to the nurse, the patient has been refusing her medication. Labs today include a glucose of 202. Blood cultures from April 06, are positive for coagulase-negative staph, and bacillus species. Chest x-ray from yesterday showed, resolving pulmonary edema. The patient continues on Augmentin. Progress note dated April 14, 2024. 69-year-old obese white female, seen today in room 375. She is currently on nasal O2, at 4 L. When I asked her whether or not she used the BiPAP last night, she cannot remember if she used it or not. BiPAP settings include 16/6, and 50%. Current labs include a white count 12.9, hemoglobin 14.1, hematocrit 44.7, and a normal platelet count. Sodium 139, potassium 3.3, chlorides 92, CO2 37, BUN 52, creatinine 1.60. Glucose 170. Calcium 9.8, magnesium 2.0. 08/31/2023, seen the patient for a follow-up. The patient is resting comfortably in bed. She denies having any significant respiratory distress. Noted the patient has sustained acute kidney injury. Creatinine is on the rise and the patient was taken off diuretics. No major edema lower extremities bilaterally. No altered mentation. The patient's white cell count today is at 15.4 with a hemoglobin of 14.3 and a platelet count of 345. Sodium level is at 138, BUN 70 with a creatinine of 3.01 and a potassium level of 3.1. She is on Augmentin. She is on Symbicort. He is on albuterol/ipratropium nebulizer treatments 4 times a day. Rest of the medications are essentially unchanged. She is on heparin subcu for DVT prophylaxis. On today's evaluation of 04/16/2024, the patient is calm and comfortable, blood pressure is more stable compared to yesterday. The patient was started on gentle hydration with IV fluids and the patient is on half-normal saline. Renal function continues to improve and the creatinine is down to 2.5 on today's evaluation. She is afebrile. She is hemodynamically stable. No interval change in her respiratory status and she remains on 3 days of oxygen by nasal cannula with a pulse ox of 94%. White cell count 11.6 levo 13.5. He is afebrile creatinine 2.5 and sodium is at 137 with a potassium level of 3.7. The patient remains on Symbicort. The patient remains on DuoNeb nebulized treatments [id number]. No diuretics for now. She is on midodrine. She is on half-normal saline at rate of 75 cc an hour. Nephrology on the case. On 04/17/2024, the patient is being seen for a follow-up. Condition is stable. Hemodynamically stable. No hypotension. Renal function continues to improve. Creatinine is down to 1.9. The patient remains on IV fluids and the patient is currently on half-normal saline at a rate of 75 cc an hour. She is currently off antihypertensive medication. Most recent blood pressure is 118/85. She is on 3 L of oxygen by nasal cannula with pulse ox of 97%. No signs of any CO2 narcosis. No other significant events overnight. Night was essentially uneventful. On 04/18/2024, the patient is still complaining of some dizziness. Blood pressure is stable. Creatinine is gradually improving and the patient remains on IV fluids. Hemodynamically stable and the cardiac rhythm is sinus. The white count is 6.5 bleeding was 4.8 and a platelet count of 294. BUN 68 with a creatinine of 1.66 and a sodium levels at 140. Serum bicarb is at 34. No other complaints otherwise. Patient is resting comfortably in bed. Medications remain unchanged. Nephrology on the case. Remains on half-normal saline at rate of 75 cc an hour. Objective - Vital Signs Vital signs: Vital Signs Temp 97.6 F 04/18/24 08:00 Pulse 70 04/18/24 12:07 Resp 18 04/18/24 08:00 BP 86/47 04/18/24 08:00 Pulse Ox 98 04/18/24 08:46 FiO2 50 04/11/24 11:21 Intake & Output 04/17/24 04/18/24 04/18/24 18:59 06:59 18:59 Intake Total 236 Balance 236 Weight 173.5 kg Intake: Oral 236 Other: Voiding Method Bedside Commode Bedside Commode Bedside Commode Bedpan Bedpan Bedpan - Exam Currently on 3 L of oxygen. Patient is morbidly obese,, comfortable, communicating, no signs of encephalopathy or CO2 narcosis HEENT examination is grossly unremarkable. Neck supple. Full range of motion. No adenopathy thyromegaly or neck vein distention. Cardiovascular examination reveals regular rhythm rate. S1-S2 normal. No S3 or S4. No discernible murmur noted. Heart sounds are distant. Lungs reveal mostly clear breath sounds. Scattered rhonchi are noted. No wheezes or crackles. Breath sounds equal. Abdomen, obese, soft. No tenderness. Extremities are intact. No cyanosis clubbing or edema. Skin is without rash or lesion. Neurologic examination is brief but nonfocal. - Labs CBC & Chem 7: 04/18/24 06:26 04/18/24 06:26 Labs: Abnormal Lab Results - Last 24 Hours (Table) 04/17/24 04/17/24 04/18/24 Range/Units 17:09 20:06 05:55 MCHC (31.0-37.0) g/dL Carbon Dioxide (22-30) mmol/L BUN (7-17) mg/dL Creatinine (0.52-1.04) mg/dL Glucose (74-99) mg/dL POC Glucose (mg/dL) 153 H 183 H 166 H (70-110) mg/dL 04/18/24 04/18/24 04/18/24 Range/Units 06:26 06:26 11:37 MCHC 30.8 L (31.0-37.0) g/dL Carbon Dioxide 34 H (22-30) mmol/L BUN 68 H (7-17) mg/dL Creatinine 1.66 H (0.52-1.04) mg/dL Glucose 131 H (74-99) mg/dL POC Glucose (mg/dL) 159 H (70-110) mg/dL Microbiology - Last 24 Hours (Table) 04/15/24 05:20 Urine Culture - Final Urine,Voided Amairani glabrata Assessment and Plan Plan: Acute on chronic hypercapnic respiratory failure, likely related to obesity/hypoventilation syndrome (Pickwickian syndrome), restrictive lung disease secondary to obesity, and possible obstructive sleep apnea syndrome. Clinically improved and the patient is currently on 2 L of O2 nasal cannula History of asthma/COPD, in a patient who is a lifelong non-smoker. Morbid obesity. Acute kidney injury, likely secondary to diuretics, improving with fluid resuscitation. Creatinine continues to improve. Gastroesophageal reflux disease. History of osteoarthritis/DJD. History of Rapp's esophagus. History of seizure disorder. History of spinal disc herniation. Prior history of methicillin-resistant Staph aureus infection. History of anxiety/depression/PTSD/schizophrenia. Plan: Patient continues to have some dizziness. This will be monitored. Keep diuretics on hold Hold antihypertensive medications Continue half-normal saline at rate of 75 cc an hour Monitor renal function. She continues on O2, by nasal cannula at 2 L. Saturations are in the mid 90s. Recommend using the BiPAP overnight Patient is very much debilitated and nonambulatory because of her body habitus Keep same medications Nephrology consultation has been obtained prognosis is guarded.
[2024-04-18 16:12] LABS: Glucose,Whole Blood 145 mg/dL (70-110)
[2024-04-18 20:16] LABS: Glucose,Whole Blood 198 mg/dL (70-110)
[2024-04-19 06:01] LABS: Glucose,Whole Blood 120 mg/dL (70-110)
[2024-04-19 07:56] LABS: Basophils # (A) 0.1 k/uL (0-0.2); Basophils % (A) 1 %; Eosinophils # (A) 0.2 k/uL (0-0.7); Eosinophils % (A) 3 %; HGB 12.7 gm/dL (11.4-16.0); Hypochromasia Marked; Lymphocytes # (A) 2.2 k/uL (1.0-4.8); Lymphocytes % (A) 35 %; MCH 29.6 pg (25.0-35.0); MCHC 31.7 g/dL (31.0-37.0); MCV 93.5 fL (80.0-100.0); Mean Platelet Volume 8.8; Monocytes # (A) 0.4 k/uL (0-1.0); Monocytes % (A) 6 %; Neutrophils # (A) 3.3 k/uL (1.3-7.7); Neutrophils % (A) 53 %; Platelet Count 271 k/uL (150-450); RBC 4.28 m/uL (3.80-5.40); RDW 13.8 % (11.5-15.5); WBC 6.2 k/uL (3.8-10.6)
[2024-04-19 08:33] LABS: African American GFR (CKD) 42 (>60 ml/min/1.73 sqM); Anion Gap 5 mmol/L; Blood Urea Nitrogen 67 mg/dL (7-17); Calcium 8.9 mg/dL (8.4-10.2); Carbon Dioxide 30 mmol/L (22-30); Chloride 102 mmol/L (98-107); Glucose 122 mg/dL (74-99); Non-African American GFR(CKD) 36 (>60 ml/min/1.73 sqM); Potassium 4.9 mmol/L (3.5-5.1); Sodium 137 mmol/L (137-145)
--- NOTE | 2024-04-19 10:55 | P.CON ---
Consult Note - . Consult date: 04/19/24 Assessment/Plan:: 69-year-old female transferred from [facility] she was found to have a urinary tract infection with pyelonephritis also evidence of a non-ST elevation myocardial infarction with elevated troponin but no EKG changes seen. Patient was transferred by EMS. Patient evaluated here for draining abdominal wall abscess. The abscess is open and draining . There is no fluctuance. She states this is a recurrent problem and no one has offered to take care of it for her. It appears to be a recurrent infected sebaceous cyst. Review of Systems ROS Statement: Those systems with pertinent positive or pertinent negative responses have been documented in the HPI. ROS Other: All systems not noted in ROS Statement are negative. Past Medical History Past Medical History: Asthma, COPD, GERD/Reflux, Osteoarthritis (OA) Additional Past Medical History / Comment(s): DJD, Esophagitis, OCD, barretts esophagus, spinal disk herniation, severe spinal pain. pt states she has seizures x1/week History of Any Multi-Drug Resistant Organisms: MRSA Date of last positivie culture/infection: 12/19/2009 MDRO Source:: Abdomen Past Surgical History: Appendectomy, Back Surgery, Section, Cho lecystectomy, Hysterectomy Additional Past Surgical History / Comment(s): D&C, partial hysterectomy, Past Anesthesia/Blood Transfusion Reactions: No Reported Reaction Past Psychological History: Anxiety, Depression, PTSD, Schizophrenia Smoking Status: Never smoker, Second hand smoke exposure Past Alcohol Use History: None Reported Past Drug Use History: Marijuana - Past Family History Family Family Medical History: No Reported History General Exam - General Exam Comments Initial Comments: This is a well-developed obese female who is awake alert oriented x 4 female Limitations: no limitations General appearance: alert, anxious Head exam: Present: atraumatic, normocephalic, normal inspection Eye exam: Present: normal appearance, PERRL, EOMI. Absent: scleral icterus, conjunctival injection, periorbital swelling ENT exam: Present: normal exam, mucous membranes dry Neck exam: Present: normal inspection, full ROM, other (JVD or bruits). Absent: tenderness, meningismus, lymphadenopathy Respiratory exam: Present: normal lung sounds bilaterally. Absent: respiratory distress, wheezes, rales, rhonchi, stridor Cardiovascular Exam: Present: regular rate, normal rhythm, tachycardia, normal heart sounds. Absent: systolic murmur, diastolic murmur, rubs, gallop, clicks GI/Abdominal exam: Present: soft, normal bowel sounds. Absent: distended, tenderness, guarding, rebound, rigid, bruit, pulsatile mass Extremities exam: Present: normal inspection, full ROM, normal capillary refill. Absent: tenderness, pedal edema, joint swelling, calf tenderness Back exam: Present: normal inspection Neurological exam: Present: alert, oriented X3, CN II-XII intact Psychiatric exam: Present: normal affect, normal mood Skin exam: Present: warm, dry, normal color, other (Was seen on the upper abdominal wall no drainage seen at this time.) 69 year old female with draining abdominal wall abscess -No current need for incision and drainage as abscess is draining -I did offer patient outpatient formal removal of the sebaceous cyst and patient is agreeable -Patient will follow up in office once discharged -Will follow patient during hospital stay Gabe Leija DO [facility] [phone]
[2024-04-19 11:41] LABS: Glucose,Whole Blood 139 mg/dL (70-110)
--- NOTE | 2024-04-19 12:38 | P.PN ---
Subjective patient is seen for follow-up for acute kidney injury. patient is maintained on IV fluids. Renal function has improved. Serum creatinine at 1.4 today. Patient has been voiding well. Blood pressure has improved but still remains low with documented systolic blood pressure in the 90s. Serum cortisol was low at 4.8. Patient states she had been on steroids about 2 months ago. Cosyntropin stimulation test will be ordered. Objective - Vital Signs Vital signs: Vital Signs Temp 97.4 F L 04/19/24 08:00 Pulse 64 04/19/24 12:19 Resp 18 04/19/24 11:25 BP 109/71 04/19/24 11:25 Pulse Ox 97 04/19/24 11:25 FiO2 50 04/11/24 11:21 Intake & Output 04/18/24 04/19/24 04/19/24 18:59 06:59 18:59 Intake Total 354 240 120 Balance 354 240 120 Weight 170.5 kg 170.5 kg Intake: Oral 354 240 120 Other: Voiding Method Bedside Commode Bedside Commode Bedpan Bedpan # Voids 3 1 - Exam patient is awake, comfortable, no acute distress. Examination of the heart S1 and S2 Examination the lungs bilateral breath sounds are heard Examination of the lower extremities shows no evidence of edema Abdomen is morbidly obese Patient is alert oriented 3 - Labs CBC & Chem 7: 04/19/24 07:15 04/19/24 07:15 Labs: Abnormal Lab Results - Last 24 Hours (Table) 04/18/24 04/18/24 04/19/24 Range/Units 16:10 20:15 06:00 BUN (7-17) mg/dL Creatinine (0.52-1.04) mg/dL Glucose (74-99) mg/dL POC Glucose (mg/dL) 145 H 198 H 120 H (70-110) mg/dL 04/19/24 04/19/24 Range/Units 07:15 11:39 BUN 67 H (7-17) mg/dL Creatinine 1.49 H (0.52-1.04) mg/dL Glucose 122 H (74-99) mg/dL POC Glucose (mg/dL) 139 H (70-110) mg/dL Assessment and Plan Assessment: 1. Acute kidney injury, ATN currently oliguric secondary to hypotension and vo lume depletion. Improving with IV hydration. 2. Pyuria with urine culture showing no growth 3. Volume overload on initial admission status post diuresis. Ejection fraction at 55%. 4. Acute hypoxic respiratory failure on top of chronic hypercapnic respiratory failure. 5. History of anxiety/depression/posttraumatic stress disorder 6. Hypokalemia secondary to diuretics, status post replacement. 7. Hypotension most likely from hypovolemia and underlying infection. Rule out adrenal insufficiency as random cortisol was 4.8. Patient is maintained on midodrine. 8. Recurrent infected sebaceous cyst/abscess Plan: Check cosyntropin stimulation test to rule out adrenal insufficiency. History of use of steroids about 2 months ago. continue off of DOUGIE inhibitor's. Continue with IV fluids. May continue with midodrine until hypovolemia is corrected Repeat labs in a.m.
--- NOTE | 2024-04-19 13:12 | P.PN ---
Subjective Progress Note Date: 04/19/24 69-year-old morbidly obese female, transferred from [facility], for urinary tract infection, and pyelonephritis. In addition, the patient apparently was thought to have a non-ST segment elevation myocardial infarction. The patient was brought to [facility], by EMS. We were asked to see her because of possible respiratory failure. We saw her today room 375. She was on BiPAP, with settings of 16/6, and 50%. Saturations were 98%. She is not receiving any IV fluids. Blood gases were done and showed a pO2 of 69, pCO2 of 78, pH of 7.17. The patient was apparently on a number of sedatives, hypnotics, narcotics. Those have all been discontinued. Looking at the patient, she likely has sleep apnea syndrome, and also likely has obesity/hypoventilation syndrome (pickwickian syndrome). The patient apparently has a history of asthma, COPD, GERD, osteoarthritis, esophagitis, OCD, Rapp's esophagus, chronic back pain, seizure history, methicillin-resistant Staph aureus inf ection, as well as a number of surgeries. The patient also apparently has a history of anxiety/depression, PTSD, schizophrenia, and is a lifelong non- smoker. Current labs include a white count of 6, hemoglobin 1.9, hematocrit 37.9, and platelet count of 199,000. Urinalysis shows small amount of blood, trace leukocyte Estrace positive, 18 RBCs, 7 WBCs, rare WBC clumps, and no bacteria. Blood cultures were positive for coag negative staph, and bacillus species. The patient is currently on Rocephin. Progress note dated April 12, 2024. This is a 69-year-old female who I was asked to see for respiratory failure. The patient likely has obesity/hypoventilation syndrome, and possible sleep apnea syndrome as well. In addition, she may have a component of restrictive lung disease secondary to obesity. Currently, the patient is on 3 L. She is getting saline at 10 cc an hour. The patient is on albuterol and Symbicort because she apparently has a history of asthma. She has a history of lifelong nontobacco use. The BiPAP device is next to her, and it is unclear to me whether or not she used it last night. Settings include an IPAP of 16, EPAP of 6, and 50% FiO2. Current labs include a sodium 140, potassium 3.5, chlorides 95, CO2 37, BUN 25, creatinine 0.68. Chest x-ray was consistent with cardiomegaly, and pulmonary vascular congestion. Progress note dated April 13, 2024. 69-year-old female seen today in room 375. The patient does not respond to any questions today, and appears to be relatively comfortable on 4 L nasal cannula. When not on nasal cannula, she uses BiPAP, 16/6, 50%. The patient is not receiving any IV fluids. According to the nurse, the patient has been refusing her medication. Labs today include a glucose of 202. Blood cultures from April 06, are positive for coagulase-negative staph, and bacillus species. Chest x-ray from yesterday showed, resolving pulmonary edema. The patient continues on Augmentin. Progress note dated April 14, 2024. 69-year-old obese white female, seen today in room 375. She is currently on nasal O2, at 4 L. When I asked her whether or not she used the BiPAP last night, she cannot remember if she used it or not. BiPAP settings include 16/6, and 50%. Current labs include a white count 12.9, hemoglobin 14.1, hematocrit 44.7, and a normal platelet count. Sodium 139, potassium 3.3, chlorides 92, CO2 37, BUN 52, creatinine 1.60. Glucose 170. Calcium 9.8, magnesium 2.0. 08/31/2023, seen the patient for a follow-up. The patient is resting comfortably in bed. She denies having any significant respiratory distress. Noted the patient has sustained acute kidney injury. Creatinine is on the rise and the patient was taken off diuretics. No major edema lower extremities bilaterally. No altered mentation. The patient's white cell count today is at 15.4 with a hemoglobin of 14.3 and a platelet count of 345. Sodium level is at 138, BUN 70 with a creatinine of 3.01 and a potassium level of 3.1. She is on Augmentin. She is on Symbicort. He is on albuterol/ipratropium nebulizer treatments 4 times a day. Rest of the medications are essentially unchanged. She is on heparin subcu for DVT prophylaxis. On today's evaluation of 04/16/2024, the patient is calm and comfortable, blood pressure is more stable compared to yesterday. The patient was started on gentle hydration with IV fluids and the patient is on half-normal saline. Renal function continues to improve and the creatinine is down to 2.5 on today's evaluation. She is afebrile. She is hemodynamically stable. No interval change in her respiratory status and she remains on 3 days of oxygen by nasal cannula with a pulse ox of 94%. White cell count 11.6 levo 13.5. He is afebrile creatinine 2.5 and sodium is at 137 with a potassium level of 3.7. The patient remains on Symbicort. The patient remains on DuoNeb nebulized treatments [id number]. No diuretics for now. She is on midodrine. She is on half-normal saline at rate of 75 cc an hour. Nephrology on the case. On 04/17/2024, the patient is being seen for a follow-up. Condition is stable. Hemodynamically stable. No hypotension. Renal function continues to improve. Creatinine is down to 1.9. The patient remains on IV fluids and the patient is currently on half-normal saline at a rate of 75 cc an hour. She is currently off antihypertensive medication. Most recent blood pressure is 118/85. She is on 3 L of oxygen by nasal cannula with pulse ox of 97%. No signs of any CO2 narcosis. No other significant events overnight. Night was essentially uneventful. On 04/18/2024, the patient is still complaining of some dizziness. Blood pressure is stable. Creatinine is gradually improving and the patient remains on IV fluids. Hemodynamically stable and the cardiac rhythm is sinus. The white count is 6.5 bleeding was 4.8 and a platelet count of 294. BUN 68 with a creatinine of 1.66 and a sodium levels at 140. Serum bicarb is at 34. No other complaints otherwise. Patient is resting comfortably in bed. Medications remain unchanged. Nephrology on the case. Remains on half-normal saline at rate of 75 cc an hour. 04/19/2024, the patient continues to have some minimal dizziness and this is essentially improved. No new complaints. She remains on IV fluids and the patient remains on half-normal citrate at 75 cc an hour. Creatinine continues to gradually improve and currently is down to 1.49 with a BUN of 67. Electrolytes are all within normal limits. CBC is also within normal limits. Most recent blood pressure is 109/71. She remains on 3 L of oxygen by nasal cannula with a pulse ox of 97%. No other complaints otherwise for now. Objective - Vital Signs Vital signs: Vital Signs Temp 97.4 F L 04/19/24 08:00 Pulse 62 04/19/24 08:53 Resp 16 04/19/24 08:00 BP 95/60 04/19/24 08:00 Pulse Ox 97 04/19/24 08:30 FiO2 50 04/11/24 11:21 Intake & Output 04/18/24 04/19/24 04/19/24 18:59 06:59 18:59 Intake Total 354 240 120 Balance 354 240 120 Weight 170.5 kg Intake: Oral 354 240 120 Other: Voiding Method Bedside Commode Bedside Commode Bedpan Bedpan # Voids 3 1 - Exam Currently on 3 L of oxygen. Patient is morbidly obese,, comfortable, communicating, no signs of encephalopathy or CO2 narcosis HEENT examination is grossly unremarkable. Neck supple. Full range of motion. No adenopathy thyromegaly or neck vein distention. Cardiovascular examination reveals regular rhythm rate. S1-S2 normal. No S3 or S4. No discernible murmur noted. Heart sounds are distant. Lungs reveal mostly clear breath sounds. Scattered rhonchi are noted. No wheezes or crackles. Breath sounds equal. Abdomen, obese, soft. No tenderness. Extremities are intact. No cyanosis clubbing or edema. Skin is without rash or lesion. Neurologic examination is brief but nonfocal. - Labs CBC & Chem 7: 04/19/24 07:15 04/19/24 07:15 Labs: Abnormal Lab Results - Last 24 Hours (Table) 04/18/24 04/18/24 04/18/24 Range/Units 11:37 16:10 20:15 BUN (7-17) mg/dL Creatinine (0.52-1.04) mg/dL Glucose (74-99) mg/dL POC Glucose (mg/dL) 159 H 145 H 198 H (70-110) mg/dL 04/19/24 04/19/24 Range/Units 06:00 07:15 BUN 67 H (7-17) mg/dL Creatinine 1.49 H (0.52-1.04) mg/dL Glucose 122 H (74-99) mg/dL POC Glucose (mg/dL) 120 H (70-110) mg/dL Assessment and Plan Plan: Acute on chronic hypercapnic respiratory failure, likely related to obesity /hypoventilation syndrome (Pickwickian syndrome), restrictive lung disease secondary to obesity, and possible obstructive sleep apnea syndrome. Clinically improved and the patient is currently on 3 L of O2 nasal cannula History of asthma/COPD, in a patient who is a lifelong non-smoker. Morbid obesity. Acute kidney injury, likely secondary to diuretics, improving with fluid resuscitation. Creatinine continues to improve. Gastroesophageal reflux disease. History of osteoarthritis/DJD. History of Rapp's esophagus. History of seizure disorder. History of spinal disc herniation. Prior history of methicillin-resistant Staph aureus infection. History of anxiety/depression/PTSD/schizophrenia. Plan: Clinically stable Patient continues to have some dizziness. This will be monitored. Will check orthostatics and orthostatic blood pressure. Keep diuretics on hold Hold antihypertensive medications Continue half-normal saline at rate of 75 cc an hour Monitor renal function. Creatinine continues to gradually improve She continues on O2, by nasal cannula at 3 L. Saturations are in the mid 90s. Recommend using the BiPAP overnight Patient is very much debilitated and nonambulatory because of her body habitus Keep same medications Nephrology consultation has been obtained prognosis is guarded.
--- NOTE | 2024-04-19 14:01 | P.PN ---
Subjective Progress Note Date: 04/19/24 Patient was seen and examined at the bedside. Left abdominal skin abscess is draining very minimally. Patient is not complaining of abdominal pain. She continues to feel lightheaded associated with postural change. All Systems reviewed and pertinent positives and negatives noted in HPI, all other symptoms are negative Objective: Vital signs reviewed. General: non toxic, no distress, appears older than stated age, morbid obesity Derm: no unusual rashes/lesions, warm Head: atraumatic, normocephalic, symmetric Eyes: EOMI, no lid lag, anicteric sclera, pupils equal round reactive to light ENT: Nose and ears atraumatic Neck: No cervical lymphadenopathy, trachea midline, supple Mouth: no lip lesion, mucus membranes moist Cardiovascular: S1S2 reg, no murmur, positive dorsalis pedis pulse bilateral, +1 bilateral pitting edema Lungs: Decreased breath sounds bilaterally Abdominal: soft, nontender, nondistended, no guarding, Mild purulent draining skin abscess on her left upper quadrant abdomen with surrounding erythema Ext: muscle strength 5 out of 5 in all 4 extremities grossly, no gross muscle atrophy, no contractures, Neuro: CN II-XI grossly intact, no gross focal neuro deficits Psych: Alert, oriented, flat affect Data reviewed today: WBC 6.2, hemoglobin 12.7, hematocrit 40, platelet count 271. Sodium 137, potassium 4.9, chloride 102, bicarb 30, BUN 67, creatinine 1.49 Images: No new imaging Assessment and Plan: 69-year-old female with past medical history of COPD and chronic hypoxemic respiratory failure on 3 L of the cannula oxygen continuously at home, morbid obesity, hypothyroidism, chronic debility and wheelchair-bound was a transfer from [facility] who presented to the ED on 04/07/2024 with urinary complaints and chest discomfort. Patient was admitted for sepsis secondary to pyelonephritis, NSTEMI type II secondary to diastolic CHF and acute hypoxemic hypercapnic respiratory failure exacerbation. Cardiology and pulmonology were consulted. Resolved. patient also developed BECKA secondary to diuretics. Nephrology was consulted. Creatinine trending down and improving. Continues to have orthostatic hypotension. # Nonoliguric acute kidney injury secondary to diuretics, improving #Hypokalemia (resolved) #Orthostatic hypotension: Continue with midodrine to 10 mg p.o. 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 Course completed. Continue monitor CBC #Acute on chronic hypercapnic hypoxemic respiratory failure, secondary to pickwickian syndrome, restrictive lung disease secondary to obesity, and possible obstructive sleep apnea syndrome, resolved BiPAP as needed or as tolerated Continue on 4 L via nasal cannula; baseline at home is 3-4 L via nasal cannula DuoNebs [id number] and as needed Pulmonology following, continue current treatment #Diastolic congestive heart failure with preserved ejection fraction, no longer exacerbation Echocardiogram done on 04/07/2024 shows LVEF 55% with severe left ventricular wall thickness Continue with telemetry monitoring Continue with aspirin 81 mg p.o. daily, Lipitor 40 mg p.o. daily Continue with metoprolol 50 mg p.o. once daily Check daily weights Strict I's and O's Cardiology signed off #Left upper quadrant draining skin abscess, likely sebaceous cyst Soft tissue ultrasound of the left upper quadrant shows abscess of 2.8 cm with complex fluid collection. Surgery recommends no I&D as abscess is draining Outpatient follow-up for removal of sebaceous cyst Continue monitor for worsening signs of infection #Acute diarrhea (resolved) #Debility: Wheelchair-bound PT/OT #Hyperglycemia short acting sliding scale insulin, monitor for hypoglycemia #Schizophrenia #Depression/anxiety -Psychiatry note from, Cymbalta 30 twice daily -Continue Seroquel home dose, BuSpar 15 twice daily Chronic conditions: Hypothyroidism: Synthroid 50 mcg p.o. at bedtime Morbid obesity F: As above E: Replete as needed N: Heart healthy diet A: Wheelchair-bound DVT ppx: Heparin subcu Code Status: Full code Anticipated discharge place: Home Anticipated discharge date: Pending clinical course I have seen and evaluated the patient today. Discussed with the resident and agree with the residents finding and plan as documented in the resident's note. Changes highlighted in blue font. Objective - Vital Signs Vital signs: Vital Signs Temp 97.4 F L 04/19/24 08:00 Pulse 64 04/19/24 12:19 Resp 18 04/19/24 11:25 BP 109/71 04/19/24 11:25 Pulse Ox 97 04/19/24 11:25 FiO2 50 04/11/24 11:21 Intake & Output 04/18/24 04/19/24 04/19/24 18:59 06:59 18:59 Intake Total 354 240 360 Balance 354 240 360 Weight 170.5 kg 170.5 kg Intake: Oral 354 240 360 Other: Voiding Method Bedside Commode Bedside Commode Bedpan Bedpan # Voids 3 1 - Labs CBC & Chem 7: 04/19/24 07:15 04/19/24 07:15 Labs: Abnormal Lab Results - Last 24 Hours (Table) 04/18/24 04/18/24 04/19/24 Range/Units 16:10 20:15 06:00 BUN (7-17) mg/dL Creatinine (0.52-1.04) mg/dL Glucose (74-99) mg/dL POC Glucose (mg/dL) 145 H 198 H 120 H (70-110) mg/dL 04/19/24 04/19/24 Range/Units 07:15 11:39 BUN 67 H (7-17) mg/dL Creatinine 1.49 H (0.52-1.04) mg/dL Glucose 122 H (74-99) mg/dL POC Glucose (mg/dL) 139 H (70-110) mg/dL
[2024-04-19] MEDS: COSYNTROPIN 0.25 MG VIAL IVP ONE (16:04)
[2024-04-19 16:15] LABS: Glucose,Whole Blood 167 mg/dL (70-110)
[2024-04-19 20:02] LABS: Glucose,Whole Blood 195 mg/dL (70-110)
[2024-04-20 06:18] LABS: Glucose,Whole Blood 135 mg/dL (70-110)
[2024-04-20 06:50] LABS: Basophils % (A) 1 %; Eosinophils # (A) 0.2 k/uL (0-0.7); Eosinophils % (A) 3 %; HCT 39.3 % (34.0-46.0); HGB 12.4 gm/dL (11.4-16.0); Hypochromasia Slight; Lymphocytes % (A) 31 %; MCH 29.8 pg (25.0-35.0); MCHC 31.6 g/dL (31.0-37.0); MCV 94.4 fL (80.0-100.0); Mean Platelet Volume 8.9; Monocytes # (A) 0.4 k/uL (0-1.0); Monocytes % (A) 6 %; Neutrophils # (A) 3.7 k/uL (1.3-7.7); Neutrophils % (A) 57 %; Platelet Count 207 k/uL (150-450); RBC 4.16 m/uL (3.80-5.40); RDW 13.9 % (11.5-15.5); WBC 6.5 k/uL (3.8-10.6)
--- NOTE | 2024-04-20 07:05 | P.PN ---
Progress Note - Text Progress Note Date: 04/20/24 NAEO. Resting comfortable. Denies fevers and chills. General appearance: alert, anxious Head exam: Present: atraumatic, normocephalic, normal inspection Eye exam: Present: normal appearance, PERRL, EOMI. Absent: scleral icterus, conjunctival injection, periorbital swelling ENT exam: Present: normal exam, mucous membranes dry Neck exam: Present: normal inspection, full ROM, other (JVD or bruits). Absent: tenderness, meningismus, lymphadenopathy Respiratory exam: Present: normal lung sounds bilaterally. Absent: respiratory distress, wheezes, rales, rhonchi, stridor Cardiovascular Exam: Present: regular rate, normal rhythm, tachycardia, normal heart sounds. Absent: systolic murmur, diastolic murmur, rubs, gallop, clicks GI/Abdominal exam: Present: soft, normal bowel sounds. Absent: distended, tenderness, guarding, rebound, rigid, bruit, pulsatile mass Extremities exam: Present: normal inspection, full ROM, normal capillary refill. Absent: tenderness, pedal edema, joint swelling, calf tenderness Back exam: Present: normal inspection Neurological exam: Present: alert, oriented X3, CN II-XII intact Psychiatric exam: Present: normal affect, normal mood Skin exam: Present: warm, dry, normal color, other (Was seen on the upper abdominal wall no drainage seen at this time.) 69 year old female with draining abdominal wall abscess -No current need for incision and drainage as abscess is draining -I did offer patient outpatient formal removal of the sebaceous cyst and patient is agreeable -Patient will follow up in office once discharged -Will follow patient during hospital stay Gabe Leija DO [facility] [phone]
[2024-04-20 07:11] LABS: African American GFR (CKD) 45 (>60 ml/min/1.73 sqM); Anion Gap 6 mmol/L; Blood Urea Nitrogen 65 mg/dL (7-17); Calcium 8.7 mg/dL (8.4-10.2); Carbon Dioxide 25 mmol/L (22-30); Chloride 109 mmol/L (98-107); Glucose 117 mg/dL (74-99); Non-African American GFR(CKD) 39 (>60 ml/min/1.73 sqM); Potassium 5.1 mmol/L (3.5-5.1); Sodium 140 mmol/L (137-145)
--- NOTE | 2024-04-20 11:19 | P.PN ---
Subjective Progress Note Date: 04/20/24 Patient was seen and examined at the bedside. No acute events overnight. Still having lightheadedness with changing position. All Systems reviewed and pertinent positives and negatives noted in HPI, all other symptoms are negative Objective: Vital signs reviewed. General: non toxic, no distress, appears older than stated age, morbid obesity Derm: no unusual rashes/lesions, warm Head: atraumatic, normocephalic, symmetric Eyes: EOMI, no lid lag, anicteric sclera, pupils equal round reactive to light ENT: Nose and ears atraumatic Neck: No cervical lymphadenopathy, trachea midline, supple Mouth: no lip lesion, mucus membranes moist Cardiovascular: S1S2 reg, no murmur, positive dorsalis pedis pulse bilateral, no edema Lungs: Decreased breath sounds bilaterally Abdominal: soft, nontender, nondistended, no guarding, Mild purulent draining skin abscess on her left upper quadrant abdomen with surrounding erythema Ext: muscle strength 5 out of 5 in all 4 extremities grossly, no gross muscle atrophy, no contractures, Neuro: CN II-XI grossly intact, no gross focal neuro deficits Psych: Alert, oriented, flat affect Data reviewed today: WBC 6.5, hemoglobin 12.4, platelet 207, potassium 5.1, creatinine 1.4, blood sugars range between 1 35-1 95, cortisol levels pending Images: No new imaging Assessment and Plan: 69-year-old female with past medical history of COPD and chronic hypoxemic respiratory failure on 3 L of the cannula oxygen continuously at home, morbid obesity, hypothyroidism, chronic debility and wheelchair-bound was a transfer from [facility] who presented to the ED on 04/07/2024 with urinary complaints and chest discomfort. Patient was admitted for sepsis secondary to pyelonephritis, NSTEMI type II secondary to diastolic CHF and acute hypoxemic hy percapnic respiratory failure exacerbation. Cardiology and pulmonology were consulted. Resolved. patient also developed BECKA secondary to diuretics. Nephrology was consulted. Creatinine trending down and improving. Continues to have orthostatic hypotension. # Nonoliguric acute kidney injury secondary to diuretics, improving #Hypokalemia (resolved) #Orthostatic hypotension: Continue with midodrine to 10 mg p.o. 3 times daily Continue half-normal saline at 75 cc an hour -Cosyntropin stimulation test results pending -Nephrology following #Sepsis secondary to pyelonephritis (resolved) #Leukocytosis secondary to hemoconcentration versus reactive, resolved #Positive blood cultures, likely contamination Completed 6 days of Rocephin IV and 8 days of oral Augmentin. Course completed. Continue monitor CBC #Acute on chronic hypercapnic hypoxemic respiratory failure, secondary to pickwickian syndrome, restrictive lung disease secondary to obesity, and possible obstructive sleep apnea syndrome, resolved Ipratropium 4 times daily, DuoNeb as needed, Symbicort twice daily Pulmonology following, continue current treatment #Diastolic congestive heart failure with preserved ejection fraction, no longer exacerbation Echocardiogram done on 04/07/2024 shows LVEF 55% with severe left ventricular wall thickness Continue with telemetry monitoring Continue with aspirin 81 mg p.o. daily, Lipitor 40 mg p.o. daily Continue with metoprolol 50 mg p.o. once daily Check daily weights Strict I's and O's Cardiology signed off #Left upper quadrant draining skin abscess, likely sebaceous cyst Surgery recommending outpatient follow-up #Acute diarrhea (resolved) #Debility: Wheelchair-bound PT/OT #Hyperglycemia short acting sliding scale insulin, monitor for hypoglycemia #Schizophrenia #Depression/anxiety -Psychiatry note from, Cymbalta 30 twice daily -Continue Seroquel home dose, BuSpar 15 twice daily Chronic conditions: Hypothyroidism: Synthroid 50 mcg p.o. at bedtime Morbid obesity F: As above E: Replete as needed N: Heart healthy diet A: Wheelchair-bound DVT ppx: Heparin subcu Code Status: Full code Anticipated discharge place: Home Anticipated discharge date: Pending clinical course Objective - Vital Signs Vital signs: Vital Signs Temp 97.5 F L 04/20/24 08:00 Pulse 62 04/20/24 09:24 Resp 18 04/20/24 08:00 BP 118/74 04/20/24 08:00 Pulse Ox 99 04/20/24 08:00 FiO2 50 04/11/24 11:21 Intake & Output 04/19/24 04/20/24 04/20/24 18:59 06:59 18:59 Intake Total 560 20 Balance 560 20 Weight 170.5 kg 150 kg Intake: IV 20 Invasive Line 9 20 Oral 560 Other: Voiding Method Bedside Commode Bedpan # Voids 2 - Labs CBC & Chem 7: 04/20/24 06:29 04/20/24 06:29 Labs: Abnormal Lab Results - Last 24 Hours (Table) 04/19/24 04/19/24 04/19/24 Range/Units 11:39 16:13 19:58 Chloride (98-107) mmol/L BUN (7-17) mg/dL Creatinine (0.52-1.04) mg/dL Glucose (74-99) mg/dL POC Glucose (mg/dL) 139 H 167 H 195 H (70-110) mg/dL 04/20/24 04/20/24 Range/Units 06:17 06:29 Chloride 109 H (98-107) mmol/L BUN 65 H (7-17) mg/dL Creatinine 1.40 H (0.52-1.04) mg/dL Glucose 117 H (74-99) mg/dL POC Glucose (mg/dL) 135 H (70-110) mg/dL
[2024-04-20 11:57] LABS: Glucose,Whole Blood 180 mg/dL (70-110)
--- NOTE | 2024-04-20 12:04 | P.PN ---
Subjective Progress Note Date: 04/20/24 69-year-old morbidly obese female, transferred from [facility], for urinary tract infection, and pyelonephritis. In addition, the patient apparently was thought to have a non-ST segment elevation myocardial infarction. The patient was brought to [facility], by EMS. We were asked to see her because of possible respiratory failure. We saw her today room 375. She was on BiPAP, with settings of 16/6, and 50%. Saturations were 98%. She is not receiving any IV fluids. Blood gases were done and showed a pO2 of 69, pCO2 of 78, pH of 7.17. The patient was apparently on a number of sedatives, hypnotics, narcotics. Those have all been discontinued. Looking at the patient, she likely has sleep apnea syndrome, and also likely has obesity/hypoventilation syndrome (pickwickian syndrome). The patient apparently has a history of asthma, COPD, GERD, osteoarthritis, esophagitis, OCD, Rapp's esophagus, chronic back pain, seizure history, methicillin-resistant Staph aureus inf ection, as well as a number of surgeries. The patient also apparently has a history of anxiety/depression, PTSD, schizophrenia, and is a lifelong non- smoker. Current labs include a white count of 6, hemoglobin 1.9, hematocrit 37.9, and platelet count of 199,000. Urinalysis shows small amount of blood, trace leukocyte Estrace positive, 18 RBCs, 7 WBCs, rare WBC clumps, and no bacteria. Blood cultures were positive for coag negative staph, and bacillus species. The patient is currently on Rocephin. Progress note dated April 12, 2024. This is a 69-year-old female who I was asked to see for respiratory failure. The patient likely has obesity/hypoventilation syndrome, and possible sleep apnea syndrome as well. In addition, she may have a component of restrictive lung disease secondary to obesity. Currently, the patient is on 3 L. She is getting saline at 10 cc an hour. The patient is on albuterol and Symbicort because she apparently has a history of asthma. She has a history of lifelong nontobacco use. The BiPAP device is next to her, and it is unclear to me whether or not she used it last night. Settings include an IPAP of 16, EPAP of 6, and 50% FiO2. Current labs include a sodium 140, potassium 3.5, chlorides 95, CO2 37, BUN 25, creatinine 0.68. Chest x-ray was consistent with cardiomegaly, and pulmonary vascular congestion. Progress note dated April 13, 2024. 69-year-old female seen today in room 375. The patient does not respond to any questions today, and appears to be relatively comfortable on 4 L nasal cannula. When not on nasal cannula, she uses BiPAP, 16/6, 50%. The patient is not receiving any IV fluids. According to the nurse, the patient has been refusing her medication. Labs today include a glucose of 202. Blood cultures from April 06, are positive for coagulase-negative staph, and bacillus species. Chest x-ray from yesterday showed, resolving pulmonary edema. The patient continues on Augmentin. Progress note dated April 14, 2024. 69-year-old obese white female, seen today in room 375. She is currently on nasal O2, at 4 L. When I asked her whether or not she used the BiPAP last night, she cannot remember if she used it or not. BiPAP settings include 16/6, and 50%. Current labs include a white count 12.9, hemoglobin 14.1, hematocrit 44.7, and a normal platelet count. Sodium 139, potassium 3.3, chlorides 92, CO2 37, BUN 52, creatinine 1.60. Glucose 170. Calcium 9.8, magnesium 2.0. 08/31/2023, seen the patient for a follow-up. The patient is resting comfortably in bed. She denies having any significant respiratory distress. Noted the patient has sustained acute kidney injury. Creatinine is on the rise and the patient was taken off diuretics. No major edema lower extremities bilaterally. No altered mentation. The patient's white cell count today is at 15.4 with a hemoglobin of 14.3 and a platelet count of 345. Sodium level is at 138, BUN 70 with a creatinine of 3.01 and a potassium level of 3.1. She is on Augmentin. She is on Symbicort. He is on albuterol/ipratropium nebulizer treatments 4 times a day. Rest of the medications are essentially unchanged. She is on heparin subcu for DVT prophylaxis. On today's evaluation of 04/16/2024, the patient is calm and comfortable, blood pressure is more stable compared to yesterday. The patient was started on gentle hydration with IV fluids and the patient is on half-normal saline. Renal function continues to improve and the creatinine is down to 2.5 on today's evaluation. She is afebrile. She is hemodynamically stable. No interval change in her respiratory status and she remains on 3 days of oxygen by nasal cannula with a pulse ox of 94%. White cell count 11.6 levo 13.5. He is afebrile creatinine 2.5 and sodium is at 137 with a potassium level of 3.7. The patient remains on Symbicort. The patient remains on DuoNeb nebulized treatments [id number]. No diuretics for now. She is on midodrine. She is on half-normal saline at rate of 75 cc an hour. Nephrology on the case. On 04/17/2024, the patient is being seen for a follow-up. Condition is stable. Hemodynamically stable. No hypotension. Renal function continues to improve. Creatinine is down to 1.9. The patient remains on IV fluids and the patient is currently on half-normal saline at a rate of 75 cc an hour. She is currently off antihypertensive medication. Most recent blood pressure is 118/85. She is on 3 L of oxygen by nasal cannula with pulse ox of 97%. No signs of any CO2 narcosis. No other significant events overnight. Night was essentially uneventful. On 04/18/2024, the patient is still complaining of some dizziness. Blood pressure is stable. Creatinine is gradually improving and the patient remains on IV fluids. Hemodynamically stable and the cardiac rhythm is sinus. The white count is 6.5 bleeding was 4.8 and a platelet count of 294. BUN 68 with a creatinine of 1.66 and a sodium levels at 140. Serum bicarb is at 34. No other complaints otherwise. Patient is resting comfortably in bed. Medications remain unchanged. Nephrology on the case. Remains on half-normal saline at rate of 75 cc an hour. 04/19/2024, the patient continues to have some minimal dizziness and this is essentially improved. No new complaints. She remains on IV fluids and the patient remains on half-normal citrate at 75 cc an hour. Creatinine continues to gradually improve and currently is down to 1.49 with a BUN of 67. Electrolytes are all within normal limits. CBC is also within normal limits. Most recent blood pressure is 109/71. She remains on 3 L of oxygen by nasal cannula with a pulse ox of 97%. No other complaints otherwise for now. 04/20/2024, the patient is doing well with no specific complaints. Occasional dizziness. Remains on IV fluid. Creatinine is down to 1.5 with a BUN of 65. Rest of the electrolytes are essentially within normal limits with a potassium level of 5.1. The white cell count of 6.5 with a hemoglobin of 12.4. Medications remain unchanged. She is off of her antihypertensive medication. She is on midodrine. Objective - Vital Signs Vital signs: Vital Signs Temp 97.5 F L 04/20/24 08:00 Pulse 62 04/20/24 09:24 Resp 18 04/20/24 08:00 BP 118/74 04/20/24 08:00 Pulse Ox 99 04/20/24 08:00 FiO2 50 04/11/24 11:21 Intake & Output 04/19/24 04/20/24 04/20/24 18:59 06:59 18:59 Intake Total 560 20 Balance 560 20 Weight 170.5 kg 150 kg Intake: IV 20 Invasive Line 9 20 Oral 560 Other: Voiding Method Bedside Commode Bedpan # Voids 2 - Exam Currently on 3 L of oxygen. Patient is morbidly obese,, comfortable, communicating, no signs of encephalopathy or CO2 narcosis HEENT examination is grossly unremarkable. Neck supple. Full range of motion. No adenopathy thyromegaly or neck vein distention. Cardiovascular examination reveals regular rhythm rate. S1-S2 normal. No S3 or S4. No discernible murmur noted. Heart sounds are distant. Lungs reveal mostly clear breath sounds. Scattered rhonchi are noted. No wheezes or crackles. Breath sounds equal. Abdomen, obese, soft. No tenderness. Extremities are intact. No cyanosis clubbing or edema. Skin is without rash or lesion. Neurologic examination is brief but nonfocal. - Labs CBC & Chem 7: 04/20/24 06:29 04/20/24 06:29 Labs: Abnormal Lab Results - Last 24 Hours (Table) 04/19/24 04/19/24 04/19/24 Range/Units 11:39 16:13 19:58 Chloride (98-107) mmol/L BUN (7-17) mg/dL Creatinine (0.52-1.04) mg/dL Glucose (74-99) mg/dL POC Glucose (mg/dL) 139 H 167 H 195 H (70-110) mg/dL 04/20/24 04/20/24 Range/Units 06:17 06:29 Chloride 109 H (98-107) mmol/L BUN 65 H (7-17) mg/dL Creatinine 1.40 H (0.52-1.04) mg/dL Glucose 117 H (74-99) mg/dL POC Glucose (mg/dL) 135 H (70-110) mg/dL Assessment and Plan Plan: Acute on chronic hypercapnic respiratory failure, likely related to obesity/hypoventilation syndrome (Pickwickian syndrome), restrictive lung disease secondary to obesity, and possible obstructive sleep apnea syndrome. Clinically improved and the patient is currently on 3 L of O2 nasal cannula History of asthma/COPD, in a patient who is a lifelong non-smoker. Morbid obesity. Acute kidney injury, likely secondary to diuretics, improving with fluid resuscitation. Creatinine continues to improve. Gastroesophageal reflux disease. History of osteoarthritis/DJD. History of Rapp's esophagus. History of seizure disorder. History of spinal disc herniation. Prior history of methicillin-resistant Staph aureus infection. History of anxiety/depression/PTSD/schizophrenia. Plan: Continue same management Clinically stable Patient continues to have some dizziness. This will be monitored. Will check orthostatics and orthostatic blood pressure. This is to be checked on a daily basis. Keep diuretics on hold Hold antihypertensive medications, the patient is back on metoprolol Continue half-normal saline at rate of 75 cc an hour Monitor renal function. Creatinine continues to gradually improve She continues on O2, by nasal cannula at 3 L. Saturations are in the mid 90s. Recommend using the BiPAP overnight Patient is very much debilitated and nonambulatory because of her body habitus Keep same medications Nephrology consultation has been obtained prognosis is guarded.
--- NOTE | 2024-04-20 12:20 | P.PN ---
Subjective patient is seen for follow-up for acute kidney injury. patient is maintained on IV fluids. Renal function has improved. Serum creatinine at 1.4 today. Patient has been voiding well. Blood pressure still remains on the lower side on and off. Serum cortisol was low at 4.8. Patient states she had been on steroids about 2 months ago. Cosyntropin stimulation test was performed yesterday. Results not available yet Objective - Vital Signs Vital signs: Vital Signs Temp 97.5 F L 04/20/24 08:00 Pulse 60 04/20/24 12:00 Resp 18 04/20/24 12:00 BP 104/67 04/20/24 12:00 Pulse Ox 99 04/20/24 12:00 FiO2 50 04/11/24 11:21 Intake & Output 04/19/24 04/20/24 04/20/24 18:59 06:59 18:59 Intake Total 560 20 Balance 560 20 Weight 170.5 kg 150 kg Intake: IV 20 Invasive Line 9 20 Oral 560 Other: Voiding Method Bedside Commode Bedpan # Voids 2 - Exam patient is awake, comfortable, no acute distress. Examination of the heart S1 and S2 Examination the lungs bilateral breath sounds are heard Examination of the lower extremities shows no evidence of edema Abdomen is morbidly obese Patient is alert oriented 3 - Labs CBC & Chem 7: 04/20/24 06:29 04/20/24 06:29 Labs: Abnormal Lab Results - Last 24 Hours (Table) 04/19/24 04/19/24 04/20/24 Range/Units 16:13 19:58 06:17 Chloride (98-107) mmol/L BUN (7-17) mg/dL Creatinine (0.52-1.04) mg/dL Glucose (74-99) mg/dL POC Glucose (mg/dL) 167 H 195 H 135 H (70-110) mg/dL 04/20/24 04/20/24 Range/Units 06:29 11:56 Chloride 109 H (98-107) mmol/L BUN 65 H (7-17) mg/dL Creatinine 1.40 H (0.52-1.04) mg/dL Glucose 117 H (74-99) mg/dL POC Glucose (mg/dL) 180 H (70-110) mg/dL Assessment and Plan Assessment: 1. Acute kidney injury, ATN currently oliguric secondary to hypotension and volume depletion. Improving with IV hydration. 2. Pyuria with urine culture showing no growth 3. Volume overload on initial admission status post diuresis. Ejection fraction at 55%. 4. Acute hypoxic respiratory failure on top of chronic hypercapnic respiratory failure. 5. History of anxiety/depression/posttraumatic stress disorder 6. Hypokalemia secondary to diuretics, status post replacement. 7. Hypotension most likely from hypovolemia and underlying infection. Rule out adrenal insufficiency as random cortisol was 4.8. Patient is maintained on midodrine. 8. Recurrent infected sebaceous cyst/abscess Plan: Follow-up on cosyntropin stimulation test continue off of DOUGIE inhibitor's. Continue with IV fluids. May continue with midodrine Repeat labs in a.m.
[2024-04-20 16:48] LABS: Glucose,Whole Blood 112 mg/dL (70-110)
[2024-04-20 20:37] LABS: Glucose,Whole Blood 220 mg/dL (70-110)
[2024-04-21 06:14] LABS: Glucose,Whole Blood 128 mg/dL (70-110)
[2024-04-21 07:45] LABS: Basophils # (A) 0.1 k/uL (0-0.2); Basophils % (A) 2 %; Eosinophils # (A) 0.1 k/uL (0-0.7); Eosinophils % (A) 3 %; HCT 40.4 % (34.0-46.0); HGB 12.7 gm/dL (11.4-16.0); Hypochromasia Marked; Lymphocytes # (A) 1.9 k/uL (1.0-4.8); Lymphocytes % (A) 38 %; MCH 29.7 pg (25.0-35.0); MCHC 31.4 g/dL (31.0-37.0); MCV 94.7 fL (80.0-100.0); Mean Platelet Volume 9.2; Monocytes # (A) 0.3 k/uL (0-1.0); Monocytes % (A) 6 %; Neutrophils # (A) 2.4 k/uL (1.3-7.7); Neutrophils % (A) 49 %; Platelet Count 217 k/uL (150-450); RBC 4.27 m/uL (3.80-5.40); RDW 13.8 % (11.5-15.5); WBC 4.9 k/uL (3.8-10.6)
[2024-04-21 08:14] LABS: African American GFR (CKD) 48 (>60 ml/min/1.73 sqM); Anion Gap 5 mmol/L; Blood Urea Nitrogen 52 mg/dL (7-17); Calcium 9.2 mg/dL (8.4-10.2); Carbon Dioxide 32 mmol/L (22-30); Chloride 106 mmol/L (98-107); Glucose 114 mg/dL (74-99); Non-African American GFR(CKD) 42 (>60 ml/min/1.73 sqM); Potassium 5.1 mmol/L (3.5-5.1); Sodium 143 mmol/L (137-145)
--- NOTE | 2024-04-21 10:02 | P.PN ---
Subjective Patient is seen in follow-up for acute kidney injury. Receiving IV fluids. Renal function improving. Has been voiding. Blood pressure 136/81 this morning. Vital signs are stable. General: No acute distress. HEENT: Head exam is unremarkable. Cut the LUNGS: No audible rhonchi or wheezes. HEART: Rate and Rhythm are regular. ABDOMEN: Obese, nontender. EXTREMITITES: No edema. Objective - Vital Signs Vital signs: Vital Signs Temp 98.0 F 04/21/24 04:00 Pulse 76 04/21/24 08:38 Resp 18 04/21/24 08:08 BP 136/81 04/21/24 08:08 Pulse Ox 95 04/21/24 08:26 FiO2 50 04/11/24 11:21 Intake & Output 04/20/24 04/21/24 04/21/24 18:59 06:59 18:59 Intake Total 420 Balance 420 Weight 189.6 kg Intake: Oral 420 Other: Voiding Method Bedside Commode # Voids 4 - Labs CBC & Chem 7: 04/21/24 07:14 04/21/24 07:14 Labs: Abnormal Lab Results - Last 24 Hours (Table) 04/20/24 04/20/24 04/20/24 Range/Units 11:56 16:45 20:36 Carbon Dioxide (22-30) mmol/L BUN (7-17) mg/dL Creatinine (0.52-1.04) mg/dL Glucose (74-99) mg/dL POC Glucose (mg/dL) 180 H 112 H 220 H (70-110) mg/dL 04/21/24 04/21/24 Range/Units 06:13 07:14 Carbon Dioxide 32 H (22-30) mmol/L BUN 52 H (7-17) mg/dL Creatinine 1.32 H (0.52-1.04) mg/dL Glucose 114 H (74-99) mg/dL POC Glucose (mg/dL) 128 H (70-110) mg/dL Assessment and Plan Plan: Assessment: 1. Acute kidney injury secondary to ATN secondary to hypotension. Improving. Baseline creatinine near 1 and peaked at 3.01 this admission. 1.32 today. No hydronephrosis noted on kidney ultrasound. No proteinuria on UA. 2. Volume overload status post diuresis. Improved. 3. Hypotension related to hypovolemia and infection. Improved. Cosyntropin stimulation test negative. Plan: Maintain IV fluids for now. Encouraged oral intake. Hold midodrine for systolic blood pressure greater than 110. Avoid nephrotoxins. Continue to monitor renal function and urine output.
[2024-04-21 11:51] LABS: Glucose,Whole Blood 133 mg/dL (70-110)
--- NOTE | 2024-04-21 12:27 | P.PN ---
Subjective Progress Note Date: 04/21/24 Patient was seen and examined at the bedside. No acute events overnight. Still having lightheadedness with changing position. All Systems reviewed and pertinent positives and negatives noted in HPI, all other symptoms are negative Objective: Vital signs reviewed. General: non toxic, no distress, appears older than stated age, morbid obesity Derm: no unusual rashes/lesions, warm Head: atraumatic, normocephalic, symmetric Eyes: EOMI, no lid lag, anicteric sclera, pupils equal round reactive to light ENT: Nose and ears atraumatic Neck: No cervical lymphadenopathy, trachea midline, supple Mouth: no lip lesion, mucus membranes moist Cardiovascular: S1S2 reg, no murmur, positive dorsalis pedis pulse bilateral, no edema Lungs: Decreased breath sounds bilaterally Abdominal: soft, nontender, nondistended, no guarding, Mild purulent draining skin abscess on her left upper quadrant abdomen with surrounding erythema Ext: muscle strength 5 out of 5 in all 4 extremities grossly, no gross muscle atrophy, no contractures, Neuro: CN II-XI grossly intact, no gross focal neuro deficits Psych: Alert, oriented, flat affect Data reviewed today: WBC 4.9, hemoglobin 12.7, MCV 94.7, platelet count 217, sodium 143, potassium 5.1, BUN 52, creatinine 1.32 blood sugars range between 135-195, photographer scientific cortisol level 6.9 ACTH stimulation test: Cortisol levels 18.7 and 19.1 Images: No new imaging Assessment and Plan: 69-year-old female with past medical history of COPD and chronic hypoxemic respi ratory failure on 3 L of the cannula oxygen continuously at home, morbid obesity, hypothyroidism, chronic debility and wheelchair-bound was a transfer from [facility] who presented to the ED on 04/07/2024 with urinary complaints and chest discomfort. Patient was admitted for sepsis secondary to pyelonephritis, NSTEMI type II secondary to diastolic CHF and acute hypoxemic hypercapnic respiratory failure exacerbation. Cardiology and pulmonology were consulted. Resolved. patient also developed BECKA secondary to diuretics. Nephrology was consulted. Creatinine trending down and improving. Continues to have orthostatic hypotension. # Nonoliguric acute kidney injury secondary to diuretics, improving #Hypokalemia (resolved) #Orthostatic hypotension: Continue with midodrine to 10 mg p.o. 3 times daily Continue half-normal saline at 75 cc an hour Cosyntropin stimulation test negative Nephrology following #Sepsis secondary to pyelonephritis (resolved) #Leukocytosis secondary to hemoconcentration versus reactive, resolved #Positive blood cultures, likely contamination Completed 6 days of Rocephin IV and 8 days of oral Augmentin. Course completed. Continue monitor CBC #Acute on chronic hypercapnic hypoxemic respiratory failure, secondary to pickwickian syndrome, restrictive lung disease secondary to obesity, and possible obstructive sleep apnea syndrome, resolved Ipratropium 4 times daily, DuoNeb as needed, Symbicort twice daily Pulmonology following, continue current treatment #Diastolic congestive heart failure with preserved ejection fraction, no longer exacerbation Echocardiogram done on 04/07/2024 shows LVEF 55% with severe left ventricular wall thickness Continue with telemetry monitoring Continue with aspirin 81 mg p.o. daily, Lipitor 40 mg p.o. daily Continue with metoprolol 50 mg p.o. once daily Check daily weights Strict I's and O's Cardiology signed off #Left upper quadrant draining skin abscess, likely sebaceous cyst Surgery recommending outpatient follow-up #Acute diarrhea (resolved) #Debility: Wheelchair-bound PT/OT #Hyperglycemia short acting sliding scale insulin, monitor for hypoglycemia #Schizophrenia #Depression/anxiety Psychiatry note from, Cymbalta 30 twice daily Continue Seroquel home dose, BuSpar 15 twice daily Chronic conditions: Hypothyroidism: Synthroid 50 mcg p.o. at bedtime Morbid obesity F: As above E: Replete as needed N: Heart healthy diet A: Wheelchair-bound DVT ppx: Heparin subcu Code Status: Full code Anticipated discharge place: Home Anticipated discharge date: Pending clinical course I have seen and evaluated the patient today. Discussed with the resident and agree with the residents finding and plan as documented in the resident's note. Patient reports changes in vision when going from a laying to a sitting position. Orthostats are negative. Cr is 1.32. Continue IV hydration. PT re- eval. Objective - Vital Signs Vital signs: Vital Signs Temp 98.0 F 04/21/24 04:00 Pulse 68 04/21/24 12:16 Resp 16 04/21/24 12:16 BP 136/78 04/21/24 12:16 Pulse Ox 95 04/21/24 12:16 FiO2 50 08/30/24 11:21 Intake & Output 04/20/24 04/21/24 04/21/24 18:59 06:59 18:59 Intake Total 420 Balance 420 Weight 189.6 kg Intake: Oral 420 Other: Voiding Method Bedside Commode # Voids 4 - Labs CBC & Chem 7: 04/21/24 07:14 04/21/24 07:14 Labs: Abnormal Lab Results - Last 24 Hours (Table) 04/20/24 04/20/24 04/21/24 Range/Units 16:45 20:36 06:13 Carbon Dioxide (22-30) mmol/L BUN (7-17) mg/dL Creatinine (0.52-1.04) mg/dL Glucose (74-99) mg/dL POC Glucose (mg/dL) 112 H 220 H 128 H (70-110) mg/dL 04/21/24 04/21/24 Range/Units 07:14 11:49 Carbon Dioxide 32 H (22-30) mmol/L BUN 52 H (7-17) mg/dL Creatinine 1.32 H (0.52-1.04) mg/dL Glucose 114 H (74-99) mg/dL POC Glucose (mg/dL) 133 H (70-110) mg/dL
--- NOTE | 2024-04-21 14:28 | P.PN ---
Progress Note - Text Progress Note Date: 04/21/24 NAEO. Resting comfortable. Denies fevers and chills. General appearance: alert, anxious Head exam: Present: atraumatic, normocephalic, normal inspection Eye exam: Present: normal appearance, PERRL, EOMI. Absent: scleral icterus, conjunctival injection, periorbital swelling ENT exam: Present: normal exam, mucous membranes dry Neck exam: Present: normal inspection, full ROM, other (JVD or bruits). Absent: tenderness, meningismus, lymphadenopathy Respiratory exam: Present: normal lung sounds bilaterally. Absent: respiratory distress, wheezes, rales, rhonchi, stridor Cardiovascular Exam: Present: regular rate, normal rhythm, tachycardia, normal heart sounds. Absent: systolic murmur, diastolic murmur, rubs, gallop, clicks GI/Abdominal exam: Present: soft, normal bowel sounds. Absent: distended, tenderness, guarding, rebound, rigid, bruit, pulsatile mass Extremities exam: Present: normal inspection, full ROM, normal capillary refill. Absent: tenderness, pedal edema, joint swelling, calf tenderness Back exam: Present: normal inspection Neurological exam: Present: alert, oriented X3, CN II-XII intact Psychiatric exam: Present: normal affect, normal mood Skin exam: Present: warm, dry, normal color, other (Was seen on the upper abdominal wall no drainage seen at this time.) 69 year old female with draining abdominal wall abscess -No current need for incision and drainage as abscess is draining -I did offer patient outpatient formal removal of the sebaceous cyst and patient is agreeable -Patient will follow up in office once discharged -Will follow patient during hospital stay Gabe Leija DO [facility] [phone]
--- NOTE | 2024-04-21 15:12 | P.PN ---
Subjective Progress Note Date: 04/21/24 69-year-old morbidly obese female, transferred from [facility], for urinary tract infection, and pyelonephritis. In addition, the patient apparently was thought to have a non-ST segment elevation myocardial infarction. The patient was brought to [facility], by EMS. We were asked to see her because of possible respiratory failure. We saw her today room 375. She was on BiPAP, with settings of 16/6, and 50%. Saturations were 98%. She is not receiving any IV fluids. Blood gases were done and showed a pO2 of 69, pCO2 of 78, pH of 7.17. The patient was apparently on a number of sedatives, hypnotics, narcotics. Those have all been discontinued. Looking at the patient, she l ikely has sleep apnea syndrome, and also likely has obesity/hypoventilation syndrome (pickwickian syndrome). The patient apparently has a history of asthma, COPD, GERD, osteoarthritis, esophagitis, OCD, Rapp's esophagus, chronic back pain, seizure history, methicillin-resistant Staph aureus infe ction, as well as a number of surgeries. The patient also apparently has a history of anxiety/depression, PTSD, schizophrenia, and is a lifelong non- smoker. Current labs include a white count of 6, hemoglobin 1.9, hematocrit 37.9, and platelet count of 199,000. Urinalysis shows small amount of blood, trace leukocyte Estrace positive, 18 RBCs, 7 WBCs, rare WBC clumps, and no bacteria. Blood cultures were positive for coag negative staph, and bacillus species. The patient is currently on Rocephin. Progress note dated April 12, 2024. This is a 69-year-old female who I was asked to see for respiratory failure. The patient likely has obesity/hypoventilation syndrome, and possible sleep a pnea syndrome as well. In addition, she may have a component of restrictive lung disease secondary to obesity. Currently, the patient is on 3 L. She is getting saline at 10 cc an hour. The patient is on albuterol and Symbicort because she apparently has a history of asthma. She has a history of lifelong nontobacco use. The BiPAP device is next to her, and it is unclear to me whether or not she used it last night. Settings include an IPAP of 16, EPAP of 6, and 50% FiO2. Current labs include a sodium 140, potassium 3.5, chlorides 95, CO2 37, BUN 25, creatinine 0.68. Chest x-ray was consistent with cardiomegaly, and pulmonary vascular congestion. Progress note dated April 13, 2024. 69-year-old female seen today in room 375. The patient does not respond to any questions today, and appears to be relatively comfortable on 4 L nasal cannula. When not on nasal cannula, she uses BiPAP, 16/6, 50%. The patient is not receiving any IV fluids. According to the nurse, the patient has been refusing her medication. Labs today include a glucose of 202. Blood cultures from April 06, are positive for coagulase-negative staph, and bacillus species. Chest x-ray from yesterday showed, resolving pulmonary edema. The patient continues on Augmentin. Progress note dated April 14, 2024. 69-year-old obese white female, seen today in room 375. She is currently on nasal O2, at 4 L. When I asked her whether or not she used the BiPAP last night, she cannot remember if she used it or not. BiPAP settings include 16/6, and 50%. Current labs include a white count 12.9, hemoglobin 14.1, hematocrit 44.7, and a normal platelet count. Sodium 139, potassium 3.3, chlorides 92, CO2 37, BUN 52, creatinine 1.60. Glucose 170. Calcium 9.8, magnesium 2.0. 08/31/2023, seen the patient for a follow-up. The patient is resting comfortably in bed. She denies having any significant respiratory distress. Noted the patient has sustained acute kidney injury. Creatinine is on the rise and the patient was taken off diuretics. No major edema lower extremities bilaterally. No altered mentation. The patient's white cell count today is at 15.4 with a hemoglobin of 14.3 and a platelet count of 345. Sodium level is at 138, BUN 70 with a creatinine of 3.01 and a potassium level of 3.1. She is on Augmentin. She is on Symbicort. He is on albuterol/ipratropium nebulizer treatments 4 times a day. Rest of the medications are essentially unchanged. She is on heparin subcu for DVT prophylaxis. On today's evaluation of 04/16/2024, the patient is calm and comfortable, blood pressure is more stable compared to yesterday. The patient was started on gentle hydration with IV fluids and the patient is on half-normal saline. Renal function continues to improve and the creatinine is down to 2.5 on today's evaluation. She is afebrile. She is hemodynamically stable. No interval c hange in her respiratory status and she remains on 3 days of oxygen by nasal cannula with a pulse ox of 94%. White cell count 11.6 levo 13.5. He is afebrile creatinine 2.5 and sodium is at 137 with a potassium level of 3.7. The patient remains on Symbicort. The patient remains on DuoNeb nebulized treatments [id number]. No diuretics for now. She is on midodrine. She is on half-normal saline at rate of 75 cc an hour. Nephrology on the case. On 04/17/2024, the patient is being seen for a follow-up. Condition is stable. Hemodynamically stable. No hypotension. Renal function continues to improve. Creatinine is down to 1.9. The patient remains on IV fluids and the patient is currently on half-normal saline at a rate of 75 cc an hour. She is currently off antihypertensive medication. Most recent blood pressure is 118/85. She is on 3 L of oxygen by nasal cannula with pulse ox of 97%. No signs of any CO2 narcosis. No other significant events overnight. Night was essentially uneventful. On 04/18/2024, the patient is still complaining of some dizziness. Blood pressure is stable. Creatinine is gradually improving and the patient remains on IV fluids. Hemodynamically stable and the cardiac rhythm is sinus. The white count is 6.5 bleeding was 4.8 and a platelet count of 294. BUN 68 with a creatinine of 1.66 and a sodium levels at 140. Serum bicarb is at 34. No other complaints otherwise. Patient is resting comfortably in bed. Medications remain unchanged. Nephrology on the case. Remains on half-normal saline at rate of 75 cc an hour. 04/19/2024, the patient continues to have some minimal dizziness and this is essentially improved. No new complaints. She remains on IV fluids and the patient remains on half-normal citrate at 75 cc an hour. Creatinine continues to gradually improve and currently is down to 1.49 with a BUN of 67. Electrolytes are all within normal limits. CBC is also within normal limits. Most recent blood pressure is 109/71. She remains on 3 L of oxygen by nasal cannula with a pulse ox of 97%. No other complaints otherwise for now. 04/20/2024, the patient is doing well with no specific complaints. Occasional dizziness. Remains on IV fluid. Creatinine is down to 1.5 with a BUN of 65. Rest of the electrolytes are essentially within normal limits with a potassium level of 5.1. The white cell count of 6.5 with a hemoglobin of 12.4. Medications remain unchanged. She is off of her antihypertensive medication. She is on midodrine. The patient is seen today April 21, 2024 in follow-up on the selective care unit. She is currently sitting up in bed. Awake and alert, oriented x 3. She did not use the BiPAP last night. She is maintaining O2 saturations in the 90s on 3 L/min per nasal cannula. She has been afebrile. Hemodynamically stable. White count 4.9. Hemoglobin 12.7. Platelets 217. Sodium 143. Potassium 5.1. Bicarb 32. BUN 52. Creatinine 1.32. Glucose 114. She remains on Symbicort, DuoNeb and elations, Mucinex. Heparin for DVT prophylaxis. Objective - Vital Signs Vital signs: Vital Signs Temp 98.0 F 04/21/24 04:00 Pulse 68 04/21/24 12:16 Resp 16 04/21/24 12:16 BP 136/78 04/21/24 12:16 Pulse Ox 95 04/21/24 12:16 FiO2 50 04/11/24 11:21 Intake & Output 04/20/24 04/21/24 04/21/24 18:59 06:59 18:59 Intake Total 860 Balance 860 Weight 189.6 kg Intake: Oral 860 Other: Voiding Method Bedside Commode # Voids 4 - Exam GENERAL EXAM: Alert, oriented x 3, morbidly obese 69-year-old female, on 3 L nasal cannula, comfortable in no apparent distress. HEAD: Normocephalic. EYES: Normal reaction of pupils, equal size. NOSE: Clear with pink turbinates. THROAT: No erythema or exudates. NECK: No masses, no JVD. CHEST: No chest wall deformity. LUNGS: Equal air entry with no crackles, wheeze, rhonchi or dullness. CVS: S1 and S2 normal with no audible murmur, regular rhythm. ABDOMEN: No hepatosplenomegaly, normal bowel sounds, no guarding or rigidity. SPINE: No scoliosis or deformity SKIN: No rashes CENTRAL NERVOUS SYSTEM: No focal deficits, tone is normal in all 4 extremities. EXTREMITIES: There is 1+ peripheral edema. No clubbing, no cyanosis. Peripheral pulses are intact. - Labs CBC & Chem 7: 04/21/24 07:14 04/21/24 07:14 Labs: Abnormal Lab Results - Last 24 Hours (Table) 04/20/24 04/20/24 04/21/24 Range/Units 16:45 20:36 06:13 Carbon Dioxide (22-30) mmol/L BUN (7-17) mg/dL Creatinine (0.52-1.04) mg/dL Glucose (74-99) mg/dL POC Glucose (mg/dL) 112 H 220 H 128 H (70-110) mg/dL 04/21/24 04/21/24 Range/Units 07:14 11:49 Carbon Dioxide 32 H (22-30) mmol/L BUN 52 H (7-17) mg/dL Creatinine 1.32 H (0.52-1.04) mg/dL Glucose 114 H (74-99) mg/dL POC Glucose (mg/dL) 133 H (70-110) mg/dL Assessment and Plan Assessment: Acute on chronic hypercapnic respiratory failure, likely related to obesity/hypoventilation syndrome (Pickwickian syndrome), restrictive lung disease secondary to obesity, and possible obstructive sleep apnea syndrome. Clinically improved and the patient is currently on 3 L of O2 nasal cannula History of asthma, lifelong non-smoker. Morbid obesity with a BMI of 63.6 kg/m. Acute kidney injury, likely secondary to diuretics, improving with fluid resuscitation. Creatinine continues to improve. Gastroesophageal reflux disease. History of osteoarthritis/DJD. History of Rapp's esophagus. History of seizure disorder. History of spinal disc herniation. Prior history of methicillin-resistant Staph aureus infection. History of anxiety/depression/PTSD/schizophrenia. Plan: The patient was seen and evaluated Labs and medications reviewed Stable and on 3 L nasal cannula Has home oxygen Continue her home pulmonary medications Plan is for home with her daughter at discharge Follow-up in our office in 1 week I have personally seen and examined the patient, performed the documentation and the assessment and plan as written. Number of minutes spent on the visit: 10.
[2024-04-21 16:34] LABS: Glucose,Whole Blood 168 mg/dL (70-110)
[2024-04-21 19:55] LABS: Glucose,Whole Blood 196 mg/dL (70-110)
[2024-04-22 05:58] LABS: Glucose,Whole Blood 150 mg/dL (70-110)
[2024-04-22 06:45] LABS: Basophils # (A) 0.1 k/uL (0-0.2); Basophils % (A) 1 %; Eosinophils # (A) 0.1 k/uL (0-0.7); Eosinophils % (A) 3 %; HCT 34.3 % (34.0-46.0); HGB 10.9 gm/dL (11.4-16.0); Hypochromasia Slight; Lymphocytes # (A) 1.6 k/uL (1.0-4.8); Lymphocytes % (A) 37 %; MCH 29.9 pg (25.0-35.0); MCHC 31.7 g/dL (31.0-37.0); MCV 94.1 fL (80.0-100.0); Mean Platelet Volume 10.2; Monocytes # (A) 0.3 k/uL (0-1.0); Monocytes % (A) 7 %; Neutrophils # (A) 2.2 k/uL (1.3-7.7); Neutrophils % (A) 49 %; Platelet Count 172 k/uL (150-450); RBC 3.65 m/uL (3.80-5.40); RDW 14.1 % (11.5-15.5); WBC 4.4 k/uL (3.8-10.6)
[2024-04-22 07:08] LABS: African American GFR (CKD) 50 (>60 ml/min/1.73 sqM); Anion Gap 1 mmol/L; Blood Urea Nitrogen 49 mg/dL (7-17); Calcium 8.6 mg/dL (8.4-10.2); Carbon Dioxide 29 mmol/L (22-30); Chloride 110 mmol/L (98-107); Glucose 140 mg/dL (74-99); Magnesium 1.4 mg/dL (1.6-2.3); Non-African American GFR(CKD) 43 (>60 ml/min/1.73 sqM); Potassium 5.3 mmol/L (3.5-5.1); Sodium 140 mmol/L (137-145)
[2024-04-22 08:56] VITALS: RESP 18
--- NOTE | 2024-04-22 11:28 | P.PN ---
Subjective Patient is seen in follow-up for acute kidney injury. Receiving IV fluids. Renal function improving. Has been voiding. Hemodynamically stable. Vital signs are stable. General: No acute distress. HEENT: Head exam is unremarkable. Cut the LUNGS: No audible rhonchi or wheezes. HEART: Rate and Rhythm are regular. ABDOMEN: Obese, nontender. EXTREMITITES: No edema. Objective - Vital Signs Vital signs: Vital Signs Temp 97.6 F 04/22/24 08:47 Pulse 78 04/22/24 08:47 Resp 18 04/22/24 08:47 BP 126/64 04/22/24 08:47 Pulse Ox 95 04/22/24 08:47 FiO2 50 04/11/24 11:21 Intake & Output 04/21/24 04/22/24 04/22/24 18:59 06:59 18:59 Intake Total 1100 200 Balance 1100 200 Weight 136.5 kg Intake: Oral 1100 200 Other: Voiding Method Bedside Commode # Voids 2 2 - Labs CBC & Chem 7: 04/22/24 06:19 04/22/24 06:19 Labs: Abnormal Lab Results - Last 24 Hours (Table) 04/21/24 04/21/24 04/21/24 Range/Units 11:49 16:32 19:52 RBC (3.80-5.40) m/uL Hgb (11.4-16.0) gm/dL Potassium (3.5-5.1) mmol/L Chloride (98-107) mmol/L BUN (7-17) mg/dL Creatinine (0.52-1.04) mg/dL Glucose (74-99) mg/dL POC Glucose (mg/dL) 133 H 168 H 196 H (70-110) mg/dL Magnesium (1.6-2.3) mg/dL 04/22/24 04/22/24 04/22/24 Range/Units 05:57 06:19 06:19 RBC 3.65 L (3.80-5.40) m/uL Hgb 10.9 L (11.4-16.0) gm/dL Potassium 5.3 H (3.5-5.1) mmol/L Chloride 110 H (98-107) mmol/L BUN 49 H (7-17) mg/dL Creatinine 1.29 H (0.52-1.04) mg/dL Glucose 140 H (74-99) mg/dL POC Glucose (mg/dL) 150 H (70-110) mg/dL Magnesium 1.4 L (1.6-2.3) mg/dL Assessment and Plan Plan: Assessment: 1. Acute kidney injury secondary to ATN secondary to hypotension. Improving. Baseline creatinine near 1 and peaked at 3.01 this admission. 1.29 today. No hydronephrosis noted on kidney ultrasound. No proteinuria on UA. 2. Volume overload status post diuresis. Improved. 3. Hypotension related to hypovolemia and infection. Improved. Cosyntropin stimulation test negative. 4. Hypomagnesemia from poor intake and PPI. Plan: Hep-Lock IV fluids. Encouraged oral intake. Hold midodrine for systolic blood pressure greater than 110. Avoid nephrotoxins. Continue to monitor renal function and urine output. Follow-up outpatient 1 week postdischarge. Replace magnesium. Increase magnesium oxide frequency to twice daily.
[2024-04-22 11:48] LABS: Glucose,Whole Blood 151 mg/dL (70-110)
[2024-04-22] MEDS: SODIUM ZIRCONIUM CYCLOSILICATE 10 GM PACKET PO ONE (12:17)
[2024-04-22] MEDS: MAGNESIUM SULFATE-D5W PMX 1 GM in DEXTROSE/WATER 1 100ML.BAG IVPB SCH (12:18)
--- NOTE | 2024-04-22 12:26 | P.DS ---
Providers Date of admission: 04/06/24 22:21 Attending physician: Phoebe Dallas MD Discharge Diagnosis: 1. Sepsis secondary pyelonephritis, resolved 2. Acute on chronic hypercapnic hypoxemic respiratory failure exacerbation, resolved 3. Acute metabolic encephalopathy likely due to hypercapnic respiratory failure and overuse of sedating medication, resolved 4. Diastolic congestive heart failure exacerbation, resolved 5. Acute kidney injury secondary to diuretics, resolved 6. Orthostatic hypotension, resolved 7. Hypokalemia, resolved 8. Acute diarrhea, resolved 9. Hyperglycemia 10. Schizophrenia 11. Depression/anxiety 12. Hypothyroidism 13. Morbid obesity Hospital Course: 69-year-old female with past medical history of COPD with chronic toxic respiratory failure on 3 L oxygen via nasal cannula continuously at home, morbid obesity, chronic debility, hypothyroidism and wheelchair-bound was transferred from [facility] to [facility] on 04/06/2024 with urinary complaints, likely chest discomfort. CT abdomen and pelvis done at the [facility] showed sign of right-sided pyelonephritis. Laboratory evaluation in the ER here showed troponin I of 0.058 and with repeat value of 0.043. Respiratory viral panel negative, UA consistent with UTI with 3+ blood, BMP showing sodium 135, potassium 3.6, chloride 97, CO2 24, BUN 20, creatinine 1.0, and glucose 201 with lactic acid 0.9. WBC count was 9.6, hemoglobin 14.3, and platelet count 156. EKG had revealed sinus tachycardia at 109 bpm. With poor R wave progression no other ST/T wave changes noted. Patient was admitted to the hospital for sepsis secondary to pyelonephritis, ACS and acute on chronic hypoxic respiratory failure secondary to COPD. Infectious disease, pulmonology, and cardiology were consulted. Urine culture was positive for Amairani glabrata and repeat urine culture was negative for any growth. Blood culture was positive for Staph epidermidis. Patient was initially started on IV ceftriaxone 2 g daily which was changed to Unasyn 3 g every 6 hour. However patient continued to complain of right-sided CVA tenderness. Patient was restarted on IV ceftriaxone 2 g daily with Unasyn discontinued. Repeat urinalysis for negative for any bacterial growth. During her stay, Patient completed course of antibiotics with 6 days of Rocephin IV and 8 days of oral Augmentin. ACS was ruled out by cardiology based on flat troponin I levels and resolution of chest pain. In the meantime, A-team was called on 04/09 for lethargy, ABG shows pH 7.17 with pCO2 of 78. She was started on BiPAP. CXR with concerns of CHF exacerbation, also started on Lasix IV. Med rec review noted that patient was incorrectly started on MS Contin which was not a home medication along with multiple other sedative medications including Gabapentin, Benadryl and Tizanidine which was discontinued. She was also given a dose on Narcan. Her mentation improved and her respiratory status was at baseline. Patient also had a flat affect and was whispering few words and was much less verbal and with a history of schizophrenia psychiatry was consulted. During the course of this admission, patient developed acute kidney injury secondary to IV Lasix. Creatinine levels at admission was 1.1 which subsequently increased to 3.0. Nephrology was consulted. Lasix was discontinued. Patient continued to show improvement in her creatinine levels and is now at baseline. Surgery was consulted for a draining abdominal wall abscess diagnosed with soft tissue ultrasound. Patient to follow-up outpatient surgery for removal of sebaceous cyst. Her respiratory distress has also resolved and currently at baseline 3 L home oxygen. Patient no longer has urinary complaints. Physical examination is unremarkable for CVA tenderness. Patient also currently at baseline mentation. Patient is stable to be discharged. Discharge instruction: Patient is advised to follow-up PCP within 1 to 2 days, general surgery within 1 week, nephrology within 1 week and pulmonology within 1 week. Patient is provided a new prescription for aspirin 81 mg p.o. daily, Mag-Ox 400 mg p.o. twice daily, Cymbalta 30 mg p.o. twice daily, Lipitor 40 mg p.o. daily, midodrine 10 mg p.o. 3 times daily, Synthroid 50 mcg p.o. at bedtime, and metoprolol 50 mg p.o. daily Patient to continue with her regular home medications as directed. Patient is provided with handout/instructions for heart attack, UTI, low-fat diet, and weight management Vital signs reviewed. Vital signs reviewed. General: non toxic, no distress, appears older than stated age, morbid obesity Derm: no unusual rashes/lesions, warm Head: atraumatic, normocephalic, symmetric Eyes: EOMI, no lid lag, anicteric sclera, pupils equal round reactive to light ENT: Nose and ears atraumatic Neck: No cervical lymphadenopathy, trachea midline, supple Mouth: no lip lesion, mucus membranes moist Cardiovascular: S1S2 reg, no murmur, positive dorsalis pedis pulse bilateral, no edema Lungs: CTABL, no wheezing, rales or crackles Abdominal: soft, nontender, nondistended, no guarding Ext: muscle strength 5 out of 5 in all 4 extremities grossly, no gross muscle atrophy, no contractures, Neuro: CN II-XI grossly intact, no gross focal neuro deficits Psych: Alert, oriented x 3 Consults: 04/06/24 22:21 Consult Physician Urgent Consulting Provider: Maico Gaming Consult Reason/Comments: NSTEMI Do you want consulting provider notified?: Yes, Notify in am 04/10/24 15:12 Consult Physician Stat Consulting Provider: Sean Morales Consult Reason/Comments: acute on chronic respiratory failure Do you want consulting provider notified?: Yes 04/13/24 12:14 Consult Physician Routine Consulting Provider: Wesley Maurer Consult Reason/Comments: Flat affect, h/o schizophrenia Do you want consulting provider notified?: Yes 04/15/24 10:03 Consult Physician Routine Consulting Provider: Yared Comer Consult Reason/Comments: BECKA Do you want consulting provider notified?: Yes 04/18/24 16:08 Consult Physician Routine Consulting Provider: Deonna Jackson Consult Reason/Comments: LUQ skin abcess Do you want consulting provider notified?: Yes Primary care physician: Ashlie Brian MD Hospital Course: I have seen and evaluated the patient today. Discussed with the resident and agree with the residents finding and plan as documented in the resident's note. Dizziness improved. Renal function improving. One dose of Lokelma ordered for mild hyperkalemia. Repeat BMP in 3 days. Follow up with PCP, Surgery, Nephrology and Pulmonary. This complex discharge took 35 minutes to coordinate. Patient Condition at Discharge: Stable Plan - Discharge Summary Discharge Rx Participant: No New Discharge Prescriptions: New Aspirin 81 mg PO DAILY #30 tab Magnesium Oxide [Mag-Ox] 400 mg PO BID #60 tab DULoxetine HCL [Cymbalta] 30 mg PO BID #60 cap Atorvastatin [Lipitor] 40 mg PO DAILY #30 tab Midodrine [ProAmatine] 10 mg PO AC-TID #180 tab Levothyroxine Sodium [Synthroid] 50 mcg PO HS #0 tab Metoprolol Succinate (ER) [Toprol XL] 50 mg PO DAILY #30 tab Continue Omeprazole 20 mg PO BID Ipratropium/Albuterol Sulfate [Duoneb 0.5 mg-3 mg/3 ml Soln] 3 ml INHALATION RT-Q4H Albuterol Sulfate [Proair Hfa] 2 puff INHALATION RT-Q4H PRN PRN Reason: Shortness Of Breath busPIRone HCL [Buspar] 30 mg PO BID PRN PRN Reason: Anxiety QUEtiapine [SEROquel] 100 mg PO DAILY Vitamin C(Unknown Dose) 1 tab PO DAILY Umeclidinium Smith [Incruse Ellipta] 1 puff INHALATION RT-DAILY Fluticasone Propion/Salmeterol [Wixela 500-50 Inhub] 1 puff INHALATION RT-BID Vitamin D(Unknown Dose) 1 tab PO DAILY Multivitamins, Thera [Multivitamin (formulary)] 1 tab PO DAILY Mirtazapine [Remeron] 45 mg PO HS QUEtiapine FUMARATE [SEROquel] 200 mg PO HS Discontinued Metoprolol Succinate [Toprol XL] 25 mg PO DAILY QUEtiapine [SEROquel] 50 mg PO HS Discharge Medication List Albuterol Sulfate [Proair Hfa] 2 puff INHALATION RT-Q4H PRN 03/27/14 [History] Ipratropium/Albuterol Sulfate [Duoneb 0.5 mg-3 mg/3 ml Soln] 3 ml INHALATION RT- Q4H 03/27/14 [History] Omeprazole 20 mg PO BID 03/27/14 [History] Mirtazapine [Remeron] 45 mg PO HS 02/04/21 [History] Multivitamins, Thera [Multivitamin (formulary)] 1 tab PO DAILY 02/04/21 [History] QUEtiapine FUMARATE [SEROquel] 200 mg PO HS 02/04/21 [History] QUEtiapine [SEROquel] 100 mg PO DAILY 02/04/21 [History] busPIRone HCL [Buspar] 30 mg PO BID PRN 02/04/21 [History] Fluticasone Propion/Salmeterol [Wixela 500-50 Inhub] 1 puff INHALATION RT-BID 04/07/24 [History] Umeclidinium Smith [Incruse Ellipta] 1 puff INHALATION RT-DAILY 04/07/24 [History] Vitamin C(Unknown Dose) 1 tab PO DAILY 04/07/24 [History] Vitamin D(Unknown Dose) 1 tab PO DAILY 04/07/24 [History] Aspirin 81 mg PO DAILY #30 tab 04/22/24 [Rx] Atorvastatin [Lipitor] 40 mg PO DAILY #30 tab 04/22/24 [Rx] DULoxetine HCL [Cymbalta] 30 mg PO BID #60 cap 04/22/24 [Rx] Levothyroxine Sodium [Synthroid] 50 mcg PO HS #0 tab 04/22/24 [Rx] Magnesium Oxide [Mag-Ox] 400 mg PO BID #60 tab 04/22/24 [Rx] Metoprolol Succinate (ER) [Toprol XL] 50 mg PO DAILY #30 tab 04/22/24 [Rx] Midodrine [ProAmatine] 10 mg PO AC-TID #180 tab 04/22/24 [Rx] Follow up Appointment(s)/Referral(s): Gabe Leija DO [Medical Doctor] - 1 Week Yared Comer DO [STAFF PHYSICIAN] - 1 Week Ashlie Brian MD [Primary Care Provider] - 1-2 days Pedro Glover MD [STAFF PHYSICIAN] - 1 Week Ambulatory/Diagnostic Orders: Basic Metabolic Panel [LAB.AMB] Time Frame: 3 Days, Location: None Selected Patient Instructions/Handouts: Heart Attack (DC), Urinary Tract Infection in Women (DC), Low Fat Diet (DC), Weight Management (DC) Activity/Diet/Wound Care/Special Instructions: Please see your 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 Discharge Disposition: HOME SELF-CARE
--- NOTE | 2024-04-22 12:50 | P.PN ---
Subjective Progress Note Date: 04/22/24 69-year-old morbidly obese female, transferred from [facility], for urinary tract infection, and pyelonephritis. In addition, the patient apparently was thought to have a non-ST segment elevation myocardial infarction. The patient was brought to [facility], by EMS. We were asked to see her because of possible respiratory failure. We saw her today room 375. She was on BiPAP, with settings of 16/6, and 50%. Saturations were 98%. She is not receiving any IV fluids. Blood gases were done and showed a pO2 of 69, pCO2 of 78, pH of 7.17. The patient was apparently on a number of sedatives, hypnotics, narcotics. Those have all been discontinued. Looking at the patient, she l ikely has sleep apnea syndrome, and also likely has obesity/hypoventilation syndrome (pickwickian syndrome). The patient apparently has a history of asthma, COPD, GERD, osteoarthritis, esophagitis, OCD, Rapp's esophagus, chronic back pain, seizure history, methicillin-resistant Staph aureus infe ction, as well as a number of surgeries. The patient also apparently has a history of anxiety/depression, PTSD, schizophrenia, and is a lifelong non- smoker. Current labs include a white count of 6, hemoglobin 1.9, hematocrit 37.9, and platelet count of 199,000. Urinalysis shows small amount of blood, trace leukocyte Estrace positive, 18 RBCs, 7 WBCs, rare WBC clumps, and no bacteria. Blood cultures were positive for coag negative staph, and bacillus species. The patient is currently on Rocephin. Progress note dated April 12, 2024. This is a 69-year-old female who I was asked to see for respiratory failure. The patient likely has obesity/hypoventilation syndrome, and possible sleep a pnea syndrome as well. In addition, she may have a component of restrictive lung disease secondary to obesity. Currently, the patient is on 3 L. She is getting saline at 10 cc an hour. The patient is on albuterol and Symbicort because she apparently has a history of asthma. She has a history of lifelong nontobacco use. The BiPAP device is next to her, and it is unclear to me whether or not she used it last night. Settings include an IPAP of 16, EPAP of 6, and 50% FiO2. Current labs include a sodium 140, potassium 3.5, chlorides 95, CO2 37, BUN 25, creatinine 0.68. Chest x-ray was consistent with cardiomegaly, and pulmonary vascular congestion. Progress note dated April 13, 2024. 69-year-old female seen today in room 375. The patient does not respond to any questions today, and appears to be relatively comfortable on 4 L nasal cannula. When not on nasal cannula, she uses BiPAP, 16/6, 50%. The patient is not receiving any IV fluids. According to the nurse, the patient has been refusing her medication. Labs today include a glucose of 202. Blood cultures from April 06, are positive for coagulase-negative staph, and bacillus species. Chest x-ray from yesterday showed, resolving pulmonary edema. The patient continues on Augmentin. Progress note dated April 14, 2024. 69-year-old obese white female, seen today in room 375. She is currently on nasal O2, at 4 L. When I asked her whether or not she used the BiPAP last night, she cannot remember if she used it or not. BiPAP settings include 16/6, and 50%. Current labs include a white count 12.9, hemoglobin 14.1, hematocrit 44.7, and a normal platelet count. Sodium 139, potassium 3.3, chlorides 92, CO2 37, BUN 52, creatinine 1.60. Glucose 170. Calcium 9.8, magnesium 2.0. 08/31/2023, seen the patient for a follow-up. The patient is resting comfortably in bed. She denies having any significant respiratory distress. Noted the patient has sustained acute kidney injury. Creatinine is on the rise and the patient was taken off diuretics. No major edema lower extremities bilaterally. No altered mentation. The patient's white cell count today is at 15.4 with a hemoglobin of 14.3 and a platelet count of 345. Sodium level is at 138, BUN 70 with a creatinine of 3.01 and a potassium level of 3.1. She is on Augmentin. She is on Symbicort. He is on albuterol/ipratropium nebulizer treatments 4 times a day. Rest of the medications are essentially unchanged. She is on heparin subcu for DVT prophylaxis. On today's evaluation of 04/16/2024, the patient is calm and comfortable, blood pressure is more stable compared to yesterday. The patient was started on gentle hydration with IV fluids and the patient is on half-normal saline. Renal function continues to improve and the creatinine is down to 2.5 on today's evaluation. She is afebrile. She is hemodynamically stable. No interval c hange in her respiratory status and she remains on 3 days of oxygen by nasal cannula with a pulse ox of 94%. White cell count 11.6 levo 13.5. He is afebrile creatinine 2.5 and sodium is at 137 with a potassium level of 3.7. The patient remains on Symbicort. The patient remains on DuoNeb nebulized treatments [id number]. No diuretics for now. She is on midodrine. She is on half-normal saline at rate of 75 cc an hour. Nephrology on the case. On 04/17/2024, the patient is being seen for a follow-up. Condition is stable. Hemodynamically stable. No hypotension. Renal function continues to improve. Creatinine is down to 1.9. The patient remains on IV fluids and the patient is currently on half-normal saline at a rate of 75 cc an hour. She is currently off antihypertensive medication. Most recent blood pressure is 118/85. She is on 3 L of oxygen by nasal cannula with pulse ox of 97%. No signs of any CO2 narcosis. No other significant events overnight. Night was essentially uneventful. On 04/18/2024, the patient is still complaining of some dizziness. Blood pressure is stable. Creatinine is gradually improving and the patient remains on IV fluids. Hemodynamically stable and the cardiac rhythm is sinus. The white count is 6.5 bleeding was 4.8 and a platelet count of 294. BUN 68 with a creatinine of 1.66 and a sodium levels at 140. Serum bicarb is at 34. No other complaints otherwise. Patient is resting comfortably in bed. Medications remain unchanged. Nephrology on the case. Remains on half-normal saline at rate of 75 cc an hour. 04/19/2024, the patient continues to have some minimal dizziness and this is essentially improved. No new complaints. She remains on IV fluids and the patient remains on half-normal citrate at 75 cc an hour. Creatinine continues to gradually improve and currently is down to 1.49 with a BUN of 67. Electrolytes are all within normal limits. CBC is also within normal limits. Most recent blood pressure is 109/71. She remains on 3 L of oxygen by nasal cannula with a pulse ox of 97%. No other complaints otherwise for now. 04/20/2024, the patient is doing well with no specific complaints. Occasional dizziness. Remains on IV fluid. Creatinine is down to 1.5 with a BUN of 65. Rest of the electrolytes are essentially within normal limits with a potassium level of 5.1. The white cell count of 6.5 with a hemoglobin of 12.4. Medications remain unchanged. She is off of her antihypertensive medication. She is on midodrine. The patient is seen today April 21, 2024 in follow-up on the selective care unit. She is currently sitting up in bed. Awake and alert, oriented x 3. She did not use the BiPAP last night. She is maintaining O2 saturations in the 90s on 3 L/min per nasal cannula. She has been afebrile. Hemodynamically stable. White count 4.9. Hemoglobin 12.7. Platelets 217. Sodium 143. Potassium 5.1. Bicarb 32. BUN 52. Creatinine 1.32. Glucose 114. She remains on Symbicort, DuoNeb and elations, Mucinex. Heparin for DVT prophylaxis. The patient is seen today April 22, 2024 in follow-up on the selective care unit. She is awake and alert in no acute distress. Resting comfortably in bed. Denies any worsening shortness of breath, cough or congestion. Continue good O2 saturation in the mid 90s on 3 L/min per nasal cannula. She is afebrile. Hemodynamically stable. Count 4.4. Hemoglobin 10.9. Platelets 172. Sodium 140. Potassium 5.3. Bicarb 29. BUN 49. Creatinine 1.29. Glucose 140. She is continued on DuoNeb ventilations, Symbicort. Heparin for DVT prophylaxis. Objective - Vital Signs Vital signs: Vital Signs Temp 97.6 F 04/22/24 12:00 Pulse 61 04/22/24 12:00 Resp 18 04/22/24 12:00 BP 108/59 04/22/24 12:00 Pulse Ox 95 04/22/24 12:00 FiO2 50 04/11/24 11:21 Intake & Output 04/21/24 04/22/24 04/22/24 18:59 06:59 18:59 Intake Total 1100 200 Balance 1100 200 Weight 136.5 kg Intake: Oral 1100 200 Other: Voiding Method Bedside Commode # Voids 2 2 - Exam GENERAL EXAM: Alert, morbidly obese 69-year-old female, on 3 L nasal cannula, in no apparent distress. HEAD: Normocephalic. EYES: Normal reaction of pupils, equal size. NOSE: Clear with pink turbinates. THROAT: No erythema or exudates. NECK: No masses, no JVD. CHEST: No chest wall deformity. LUNGS: Equal air entry with no crackles, wheeze, rhonchi or dullness. CVS: S1 and S2 normal with no audible murmur, regular rhythm. ABDOMEN: No hepatosplenomegaly, normal bowel sounds, no guarding or rigidity. SPINE: No scoliosis or deformity SKIN: No rashes CENTRAL NERVOUS SYSTEM: No focal deficits, tone is normal in all 4 extremities. EXTREMITIES: There is 1+ peripheral edema. No clubbing, no cyanosis. Peripheral pulses are intact. - Labs CBC & Chem 7: 04/22/24 06:19 04/22/24 06:19 Labs: Abnormal Lab Results - Last 24 Hours (Table) 04/21/24 04/21/24 04/22/24 Range/Units 16:32 19:52 05:57 RBC (3.80-5.40) m/uL Hgb (11.4-16.0) gm/dL Potassium (3.5-5.1) mmol/L Chloride (98-107) mmol/L BUN (7-17) mg/dL Creatinine (0.52-1.04) mg/dL Glucose (74-99) mg/dL POC Glucose (mg/dL) 168 H 196 H 150 H (70-110) mg/dL Magnesium (1.6-2.3) mg/dL 04/22/24 04/22/24 04/22/24 Range/Units 06:19 06:19 11:46 RBC 3.65 L (3.80-5.40) m/uL Hgb 10.9 L (11.4-16.0) gm/dL Potassium 5.3 H (3.5-5.1) mmol/L Chloride 110 H (98-107) mmol/L BUN 49 H (7-17) mg/dL Creatinine 1.29 H (0.52-1.04) mg/dL Glucose 140 H (74-99) mg/dL POC Glucose (mg/dL) 151 H (70-110) mg/dL Magnesium 1.4 L (1.6-2.3) mg/dL Assessment and Plan Assessment: Acute on chronic hypercapnic respiratory failure, likely related to obesity/hypoventilation syndrome (Pickwickian syndrome), restrictive lung disease secondary to obesity, and possible obstructive sleep apnea syndrome. Clinically improved and the patient is currently on 3 L of O2 nasal cannula History of asthma, lifelong non-smoker Morbid obesity with a BMI of 63.6 kg/m Acute kidney injury, likely secondary to diuretics, improving with fluid resuscitation. Creatinine continues to improve Gastroesophageal reflux disease History of osteoarthritis/DJD History of Rapp's esophagus History of seizure disorder History of spinal disc herniation Prior history of methicillin-resistant Staph aureus infection History of anxiety/depression/PTSD/schizophrenia Plan: The patient was seen and evaluated Labs and medications reviewed Continue her home oxygen and pulmonary medications Follow-up in our office in 1 week This patient was seen independently by the pulmonary nurse practitioner addressing pulmonary issues I have personally seen and examined the patient, performed the documentation and the assessment and plan as written. Number of minutes spent on the visit: 23.
[2024-04-22 15:22] VITALS: BMI 45.7
[2024-04-22 16:56] VITALS: BP 128/69; PULSE 68; TEMP 97.8
[2024-04-22] MEDS ORDERED: MAGNESIUM OXIDE 400 MG TAB PO SCH (21:00)
--- NOTE | 2024-05-10 16:48 | CDI ---
Documentation Clarification Form Date: 05/10/2024 04:36:45 PM From: Missy Azevedo Phone: Admit Date: 04/06/2024 10:21:00 PM Patient Name: Rama Ferrell Visit Number: [id number] Discharge Date: 04/22/2024 06:10:00 PM ATTENTION: The Clinical Documentation Specialists (CDI) and [facility] Coding Staff appreciate your assistance in clarifying documentation. Please respond to the clarification below the line at the bottom and electronically sign. The CDI & [facility] Coding staff will review the response and follow-up if needed. Please note: Queries are made part of the Legal Health Record. If you have any questions, please contact the author of this message via ITS. Doctor/Provider: Akbar Cha Your patient is receiving the following: Started on short acting sliding scale insulin. Please clarify what condition/diagnosis is being treated. History/Risk Factors: 69yo F, Sepsis, E Colipyelonephritis,ACH/HRF on O2, acutemetabolic encephalopathy, ACDHF, BECKA d/t diuretics, Orthostatic hypotension,hypokalemia,acutediarrhea,hyperglycemia, schizophrenia, depression/anxiety, hypothyroidism, morbid obesity Clinical indicators: A1C: 8.4 Glucose: 04/07 201 04/08 138- 178 04/09 224 04/10 147 04/11 158- 245 Treatment: Started on short acting sliding scale insulin What diagnosis are you treating with short acting sliding scale insulin? [ ] Hyperglycemia [x ] Diabetes Mellitus with hyperglycemia [ ] No additional diagnosis [ ] Other, please specify [ ] Unable to determine (Template Last Reviewed: September 2020) MTDD
== END 2024-04-22 18:10 | disposition home or self-care (01) | DRG 871 ==
LOC: EC 19:47 → 3SCARD 22:21
PROVIDERS: ADMIT Internal Medicine; ATTEND Internal Medicine
PROC: 5A09357 Assistance with Respiratory Ventilation, Less than 24 Consecutive Hours, Continuous Positive Airway Pressure (ICD-10-PCS; principal; 2024-04-09)
DX: A41.51 Sepsis due to Escherichia coli [E. coli] (principal); G93.41 Metabolic encephalopathy; N17.0 Acute kidney failure with tubular necrosis; J96.21 Acute and chronic respiratory failure with hypoxia; J96.22 Acute and chronic respiratory failure with hypercapnia; I50.33 Acute on chronic diastolic (congestive) heart failure; I21.A1 Myocardial infarction type 2; E87.3 Alkalosis; Z68.44 Body mass index [BMI] 60.0-69.9, adult; E66.2 Morbid (severe) obesity with alveolar hypoventilation; N12 Tubulo-interstitial nephritis, not specified as acute or chronic; I11.0 Hypertensive heart disease with heart failure; F20.9 Schizophrenia, unspecified; G40.909 Epilepsy, unspecified, not intractable, without status epilepticus; E11.65 Type 2 diabetes mellitus with hyperglycemia; J44.89 Other specified chronic obstructive pulmonary disease; E03.9 Hypothyroidism, unspecified; Z99.81 Dependence on supplemental oxygen; I25.10 Atherosclerotic heart disease of native coronary artery without angina pectoris; T50.1X5A Adverse effect of loop [high-ceiling] diuretics, initial encounter; Z79.891 Long term (current) use of opiate analgesic; I95.1 Orthostatic hypotension; K43.9 Ventral hernia without obstruction or gangrene; G89.29 Other chronic pain; E83.42 Hypomagnesemia; E86.1 Hypovolemia; J98.4 Other disorders of lung; L72.3 Sebaceous cyst; E87.6 Hypokalemia; F41.9 Anxiety disorder, unspecified; K21.9 Gastro-esophageal reflux disease without esophagitis; K22.70 Barrett's esophagus without dysplasia; M19.90 Unspecified osteoarthritis, unspecified site; R53.81 Other malaise; R19.7 Diarrhea, unspecified; R31.9 Hematuria, unspecified; Z77.22 Contact with and (suspected) exposure to environmental tobacco smoke (acute) (chronic); Z79.51 Long term (current) use of inhaled steroids; Z79.890 Hormone replacement therapy; Z79.899 Other long term (current) drug therapy; Z88.1 Allergy status to other antibiotic agents; Z88.5 Allergy status to narcotic agent; Z86.14 Personal history of Methicillin resistant Staphylococcus aureus infection; Z99.3 Dependence on wheelchair; Z87.11 Personal history of peptic ulcer disease
CPT/HCPCS: 36410; 36415; 36600; 71045; 74019; 76770; 76937; 80048; 80061; 81001; 82533; 82570; 82805; 83036; 83605; 83735; 83880; 84300; 84484; 84540; 85025; 85027; 85610; 85730; 87040; 87086; 87205; 93005; 93306; 94640; 94660; 94760; 99285